=== PATIENT | male | born 1975 | race Caucasian/White ===

== ENCOUNTER 2017-02-24 02:35 | Inpatient (IN) ==
[2017-02-24] MEDS ORDERED: Ketorolac 30 MG/ML VIAL IVP PRN (06:36)
[2017-02-24] MEDS ORDERED: 0.9 % Sodium Chloride 1,000 ML IVC SCH (06:45)
--- NOTE | 2017-02-24 07:05 | Internal Med History&Physical ---
<Shade Pimentel - Last Filed: 02/24/17 06:53> Date of Encounter: 02/24/17 Time of Encounter: 05:45 Assessment and Plan (1) Nausea & vomiting Current visit: Yes Status: Acute Labs drawn drawn from Hospital prior to transfer here shows lipase and amylase within normal limits. UA was negative for infection. Alk phos slightly elevated at 128. AST ALT within normal limits. Hgb normal at 11.3. WBC and platelt count normal. CT abdomen shows a severely distended stomach. Appendix and gallbladder on CT were normal. Negative Mark's sign and McBurney's point. Pancreatits and cholecystits unlikely. Unlikely due to surgical reasons given it was 2 years ago. Top differential includes duodenal ulcer vs marginal ulcer vs gastric ulcer. - NPO. - NG tube. - Surgery consult. Spoke to Dr. Cheema. - Protonix. - Consult smoking sensation. - Toradol for pain control. - IV fluids. - Zofran PRN. Qualifiers: Vomiting type: unspecified Qualified Code(s): R11.2 - Nausea with vomiting , unspecified (2) Abdominal pain Current visit: Yes Status: Acute See plan above. Qualifiers: Qualified Code(s): R10.84 - Generalized abdominal pain (3) Tobacco abuse Current visit: No Status: Chronic History of smoking 1 ppd. Likely contributory to duodenal ulcer. - Advise about quitting smoking. (4) Weight loss Current visit: Yes Status: Acute Likely secondary to being malnourished due to nausea/vomiting. (5) DVT prophylaxis Current visit: No Status: Acute SCDs. Internal Medicine - H&P: HPI Chief complaint: Nausea, vomiting Admitted From: Hospital to Hospital Transfer History of present illness: Mr. Kramer is a 41 year old male with a PMH of PUD and partial gastrectomy ( 2014) that presents for nausea/vomiting for the past month. Patients says that it has been occurring everyday and usually occurs after meals. He gets abdominal pain, rating it a 5/10 in the pain scale and is relieved once he vomits. He denies any hematemeis. He has not been able to keep food down without vomiting. He tried going on a liquid diet last week for 3-4 days, but it did not seem to help. He admits to early satiety, but he has had this since his surgery. He admits to constipation, stating that he has 1 bowel movement a week. He denies any blood in his stool. He admits to weight loss for the past month due to not being able to eat, but he is unsure how much weight he has lost. He is a current 1 ppd smoker. Denies any drug or alcohol use. He denies any diarrhea, fever, chills, or recent illness. Patient went to [facility] earlier today and was transferred here to [place] for further evaluation. Past Med Surg Social Fam HX - Past Medical History Medical history: no medical history Psychiatric history: anxiety, depression - Past Surgical History Surgical History: other - Social History Smoking Status: Current every day smoker Packs per day: 1 Smokeless Tobacco Status: No Alcohol use: none Drug use: none - Family History Father Adopted: No Family Member Ethnicity: Non- Living Status: Hx Family Respiratory Disorders: Yes Hx Family Cancer: Yes (lung cancer) Internal Medicine - H&P: Meds BuPROPion [Wellbutrin] 450 mg PO DAILY 02/24/17 [History] Esomeprazole Magnesium [Nexium 24Hr] 20 mg PO BID 02/24/17 [History] Eszopiclone [Lunesta] 2 mg PO HS 02/24/17 [History] FLUoxetine HCl [Prozac] 40 mg PO DAILY 02/24/17 [History] Ondansetron HCl [Zofran] 4 mg PO Q8H PRN 02/24/17 [History] 3 Allergy/AdvReac Type Severity Reaction Status Date / Time NSAIDS (Non-Steroidal Allergy Severe See Verified 02/24/17 16:38 Anti-Inflamma Comments Hydromorphone [From Dilaudid] Allergy Rash Verified 02/24/17 07:33 All Systems PM: A 10-system review of systems was performed and is negative for pertinent findings except as documented above in the HPI. - Constitutional Constitutional: as per HPI, weakness, weight loss - Cardiovascular Cardiovascular ROS IM: no chest pain, no dyspnea, no palpitations - Respiratory Respiratory: no cough, no dyspnea - Gastrointestinal Gastrointestinal: bloating, constipation, early satiety, nausea, vomiting, no diarrhea - Genitourinary Genitourinary ROS male: no dysuria - Constitutional Vitals: Temp Pulse Resp BP Pulse Ox 97.7 F 71 16 100/63 95 02/24/17 05:24 11/22/17 05:24 02/24/17 05:24 02/24/17 05:24 02/24/17 05:24 General appearance: Present: A&O X 3, no acute distress, loss of weight, answers questions appropriately - ENT ENT exam: Present: mucous membranes moist - Respiratory Respiratory exam: Present: CTAB. Absent: rhonchi, stridor, wheezes - Cardiovascular Cardiovascular exam: Present: RRR, +S1, +S2 - GI/Abdominal GI/Abdominal exam: Present: hyperactive bowel sounds, soft, tenderness (Diffuse tenderness x 4 quadrants. ). Absent: guarding, rebound - Expanded GI/Abdominal Exam GI/Abdominal exam expanded: Absent: Mark's sign, Rovsing's sign, tenderness at McBurney's Point - Extremities Exam Extremities exam: Present: radial pulses palpable and symmetrical <Jerry Bal - Last Filed: 02/24/17 20:50> Date of Encounter: 02/24/17 Internal Medicine - H&P: HPI History of present illness: Mr. Kramer is a 41 year old male All Systems PM: A 10-system review of systems was performed and is negative for pertinent findings except as documented above in the HPI. - Constitutional Vitals: Temp Pulse Resp BP Pulse Ox 98.9 F 80 18 112/74 96 02/24/17 19:44 02/24/17 19:44 02/24/17 19:44 02/24/17 19:44 02/24/17 19:44 Internal Med - H&P Results - Labs CBC & Chem 7: 02/24/17 08:29 02/24/17 08:29 Labs: Short CBC 02/24/17 02/24/17 Range/Units 07:03 08:29 WBC 6.8 7.6 (4.3-11.1) K/mcL Hgb 9.1 L 8.9 L (12.9-16.9) g/dL Hct 31.8 L 31.9 L (37.5-50.1) % Plt Count 310 359 (140-400) K/mcL Neutrophils # 3.8 3.3 (1.6-8.9) K/mcL BMP 02/24/17 02/24/17 07:03 08:29 Sodium 141 141 Potassium 3.5 3.6 Chloride 104 105 Carbon Dioxide 31 H 29 BUN 21 20 Creatinine 0.97 0.94 Glucose 109 H 86 Calcium 8.8 8.6 Liver Function 02/24/17 Range/Units 07:03 Total Bilirubin 0.3 (0.2-1.2) mg/dL AST 15 (5-34) Units/L ALT 10 (0-55) Units/L Alkaline Phosphatase 99 (38-126) Units/L Albumin 3.1 L (3.5-5.0) g/dL - Impressions ITS Impressions KUB X-Ray 02/24/17 09:04 IMPRESSION: Nasogastric tube side port and tip project over the gastric body. D/ / 02/24/2017 10:11:00 Olena Otto MD / jerod Interpreting Provider: Olena Otto MD - Attending Attestation I examined this patient and my medical decision-making was reviewed with the Resident Physician Shade Meneses. I agree with the documented findings , disposition and treatment plan as described except to the extent set forth below. Patient admitted for intractable nausea and vomiting. On my examination his abdomen is soft, nontender nondistended with normoactive bowel sounds. Patient has an NG tube. Plan: Nothing by mouth. NG tube to suction. IV fluids. IV Protonix. General surgical consult.
[2017-02-24 07:16] LABS: Hematocrit 31.8 % (37.5-50.1); Hemoglobin 9.1 g/dL (12.9-16.9); Mean Corpuscular HGB Conc 28.6 g/dL (31.6-35.5); Mean Corpuscular Hemoglobin 21.2 pg (28.0-33.3); Mean Platelet Volume 10.5 fL (9.4-12.4); Platelet Count 310 K/mcL (140-400)
[2017-02-24 07:28] LABS: Alanine Aminotransferase 10 Units/L (0-55); Albumin 3.1 g/dL (3.5-5.0); Albumin/Globulin Ratio 1.1 (1.1-2.2); Alkaline Phosphatase 99 Units/L (38-126); Aspartate Amino Transferase 15 Units/L (5-34); BUN/Creatinine Ratio 22 (6-26); Bilirubin,Total 0.3 mg/dL (0.2-1.2); Blood Urea Nitrogen 21 mg/dL (8-26); Calcium 8.8 mg/dL (8.6-10.8); Carbon Dioxide 31 mEq/L (19-29); Chloride 104 mEq/L (98-109); Globulin 2.7 g/dL (2.4-3.5); Glucose 109 mg/dL (70-99); Osmolality,Calculated 296 (280-300); Potassium 3.5 mEq/L (3.5-4.5); Sodium 141 mEq/L (136-145); Total Protein 5.8 g/dL (6.0-8.3); eGFR For African Americans > 60 (> 60); eGFR For Non-African Americans > 60 (> 60)
[2017-02-24 07:44] LABS: Eosinophils # 0.5 K/mcL (0.0-0.6); Monocytes # 0.4 K/mcL (0.0-1.3); Neutrophils # 3.8 K/mcL (1.6-8.9)
[2017-02-24 07:45] LABS: Hypochromasia Present (Not Present); Platelet Estimate Normal (Normal); Smudge Cells Present (Not Present)
[2017-02-24] MEDS ORDERED: *HR* Promethazine 25 MG/ML VIAL IVP PRN (08:12)
[2017-02-24] MEDS ORDERED: Naloxone 0.4 MG/ML INJ IVP PRN (08:12)
[2017-02-24 08:41] LABS: Hematocrit 31.9 % (37.5-50.1); Hemoglobin 8.9 g/dL (12.9-16.9); Immature Platelets 5.3 % (1.1-6.1); Mean Corpuscular HGB Conc 27.9 g/dL (31.6-35.5); Mean Corpuscular Hemoglobin 20.5 pg (28.0-33.3); Mean Corpuscular Volume 73.5 fL (83.0-100.0); Mean Platelet Volume 10.4 fL (9.4-12.4); Monocytes # 0.8 K/mcL (0.0-1.3); Platelet Count 359 K/mcL (140-400); Red Blood Count 4.34 M/mcL (4.19-5.50)
[2017-02-24 08:49] LABS: BUN/Creatinine Ratio 21 (6-26); Blood Urea Nitrogen 20 mg/dL (8-26); Calcium 8.6 mg/dL (8.6-10.8); Carbon Dioxide 29 mEq/L (19-29); Chloride 105 mEq/L (98-109); Glucose 86 mg/dL (70-99); Magnesium 1.9 mg/dL (1.6-2.6); Osmolality,Calculated 294 (280-300); Phosphorous 4.1 mg/dL (2.3-4.7); Potassium 3.6 mEq/L (3.5-4.5); Sodium 141 mEq/L (136-145); eGFR For African Americans > 60 (> 60); eGFR For Non-African Americans > 60 (> 60)
[2017-02-24 09:03] LABS: Eosinophils # 0.3 K/mcL (0.0-0.6); Lymphocytes # 3.2 K/mcL (0.6-4.6); Neutrophils # 3.3 K/mcL (1.6-8.9)
[2017-02-24 09:04] LABS: Burr Cells 1+ (Not Present); Hypochromasia Present (Not Present); Ovalocytes 1+ (Not Present); Platelet Estimate Normal (Normal); Target Cells 1+ (Not Present); Tear Drop Cells 1+ (Not Present)
[2017-02-24 09:05] LABS: Helmet Cells Present (Not Present)
[2017-02-24] MEDS: 0.9 % Sodium Chloride 1,000 ML IVC SCH (09:08)
[2017-02-24 09:14] LABS: Triglycerides 101 mg/dL (< 150)
[2017-02-24] MEDS ORDERED: D10% in Water 500 ML IVC PRN (10:56)
--- NOTE | 2017-02-24 11:49 | General Surgery Consult Note ---
<Jossy Stahl - Last Filed: 02/24/17 13:12> Date of Encounter: 02/24/17 Time of Encounter: 11:30 Assessment and Plan (1) Gastric outlet obstruction Current Visit: No Status: Resolved NPO NG tube to WS Gastroenterology consult- Dr. Trejo to perform EGD today and evaluate for possible dilation IV fluids Supportive care and pain control Hold PPI therapy- patient may need work-up for gastrinoma per Dr. Cheema NG tube flushes to start after EGD complete today Surgery will continue to follow and assess progress and make recommendation (2) Abdominal pain Current Visit: Yes Status: Acute Supportive care and pain control Qualifiers: Abdominal location: generalized Qualified Code(s): R10.84 - Generalized abdominal pain (3) Nausea & vomiting Current Visit: Yes Status: Acute Antiemetics prn NG tube to LIWS Qualifiers: Vomiting type: unspecified Vomiting Intractability: non-intractable Qualified Code(s): R11.2 - Nausea with vomiting, unspecified (4) Weight loss Current Visit: Yes Status: Acute TPN therapy per hospitalist (5) Smoking addiction Current Visit: No Status: Acute Nicotine patch Smoking cessation education (6) Mild protein malnutrition Current Visit: Yes Status: Acute TPN started per hospitalist [employer] following for management (7) DVT prophylaxis Current Visit: No Status: Acute EPCDs to bilateral lower extremities for DVT prophylaxis Ambulate hallways TID with assistance History of Present Illness Consult date: 02/24/17 Reason for consult: abdominal pain Requesting physician: Shade Pimentel History of present illness: Mr. Kramer is a pleasant 41 year old male who presented to [facility] yesterday with complaints of diffuse abdominal pain with associated nausea/vomiting for the past 1 months. He is s/p Truncal vagotomy, antrectomy with a Bilroth 1 reconstruction, primary repair of umbilical hernia for pyloric ulcer, gastric outlet obstruction and incisional hernia with Dr. Cheema in January of 2015. He states that for the past 6 months he has noticed intermittent abdominal pain which is typically associated with eating. He reports that the pain has progressively worsened and has been constant for the past 1 months. He states that it does intensify 15 minutes after eating. He reports that he feels full and bloated after eating or drinking. He has been vomiting daily for the past 1 months. He reports a 10 lb. weight loss over the past 1 months. Admits to chills but denies any fevers. Denies any difficulty with urination. Denies any shortness of breath of chest pains. We have been asked to see and evaluate the patient for recommendations. Past Med Surg Social Fam HX - Past Medical History Source: patient, old records reviewed Medical history: GERD, other (Cervical spondylosis, chronic cervicalgia, seasonal allergies, gastric ulcers) Psychiatric history: anxiety, depression - Past Surgical History Surgical History: other (oral surgeries; EGD multiple; Colonoscopy;Truncal vagotomy, Antrectomy with a Bilroth 1 reconstruction, primary repair of umbilical hernia 01/2015) - Social History Smoking Status: Current every day smoker Packs per day: 1 Smokeless Tobacco Status: No Alcohol use: none Drug use: none Current living situation: Home - Independent Activity Level: Independent ambulation - Family History Father Adopted: No Family Member Ethnicity: Non- Living Status: Hx Family Respiratory Disorders: Yes Hx Family Cancer: Yes (lung cancer) Mother Living Status: Still Living Hx Family Cardiac Disorders: Yes (Hypertension) Brother Living Status: Still Living Hx Family GI Disorders: Yes (Diverticulosis) Medications and Allergies BuPROPion [Wellbutrin] 450 mg PO DAILY 02/24/17 [History] Esomeprazole Magnesium [Nexium 24Hr] 20 mg PO BID 02/24/17 [History] Eszopiclone [Lunesta] 2 mg PO HS 02/24/17 [History] FLUoxetine HCl [Prozac] 40 mg PO DAILY 02/24/17 [History] Ondansetron HCl [Zofran] 4 mg PO Q8H PRN 02/24/17 [History] 3 Allergy/AdvReac Type Severity Reaction Status Date / Time Hydromorphone [From Dilaudid] Allergy Rash Verified 02/24/17 07:33 Review of Systems All systems PM: reviewed and no additional remarkable complaints except as stated (in the HPI) All systems PM: A 10-system review of systems was performed and is negative for pertinent findings except as documented above in the HPI. General Surgery Exam Initial Vital Signs Temp Pulse Resp BP Pulse Ox 97.7 F 71 16 100/63 95 02/24/17 05:24 02/24/17 05:24 02/24/17 05:24 02/24/17 05:24 02/24/17 05:24 - General physical appearance well developed, no distress, moderate pain - Eyes PERRL, normal ocular movement - ENT normal mucosa, atraumatic, normocephalic - Neck trachea midline - Respiratory normal respiratory effort, clear to auscultation - Cardiovascular Cardiovascular exam: Present: RRR - Abdomen Abdomen general surgery: Present: bowel sounds present, soft, tender, wound (NG tube to LIWS with 300ml of light yellow drainage noted) Abdominal Tenderness: Present: diffusely - Integumentary Integumentary general surgery: Present: warm and dry - Neurologic Present: CN 2-12 grossly intact - Psychiatric Psychiatric general surgery: Present: A&Ox3 Exam Initial Vital Signs Temp Pulse Resp BP Pulse Ox 97.7 F 71 16 100/63 95 02/24/17 05:24 02/24/17 05:24 02/24/17 05:24 02/24/17 05:24 02/24/17 05:24 Results - Labs 02/24/17 08:29 02/24/17 08:29 Abnormal lab results Hgb 8.9 g/dL (12.9-16.9) L 02/24/17 08:29 Hct 31.9 % (37.5-50.1) L 02/24/17 08:29 MCV 73.5 fL (83.0-100.0) L 02/24/17 08:29 MCH 20.5 pg (28.0-33.3) L 02/24/17 08:29 MCHC 27.9 g/dL (31.6-35.5) L 02/24/17 08:29 RDW 18.0 % (11.5-14.5) H 02/24/17 08:29 Smudge Cells Present (Not Present) A 02/24/17 07:03 Hypochromasia Present (Not Present) A 02/24/17 08:29 Target Cells 1+ (Not Present) A 02/24/17 08:29 Tear Drop Cells 1+ (Not Present) A 02/24/17 08:29 Ovalocytes 1+ (Not Present) A 02/24/17 08:29 Helmet Cells Present (Not Present) A 02/24/17 08:29 [place] Cells 1+ (Not Present) A 02/24/17 08:29 Serum Total Protein 5.8 g/dL (6.0-8.3) L 02/24/17 07:03 Albumin 3.1 g/dL (3.5-5.0) L 02/24/17 07:03 Diabetes panel 02/24/17 02/24/17 Range/Units 07:03 08:29 Sodium 141 141 (136-145) mEq/L Potassium 3.5 3.6 (3.5-4.5) mEq/L Chloride 104 105 (98-109) mEq/L Carbon Dioxide 31 H 29 (19-29) mEq/L BUN 21 20 (8-26) mg/dL Creatinine 0.97 0.94 (0.72-1.25) mg/dL Glucose 109 H 86 (70-99) mg/dL Calcium 8.8 8.6 (8.6-10.8) mg/dL AST 15 (5-34) Units/L ALT 10 (0-55) Units/L Alkaline Phosphatase 99 (38-126) Units/L Albumin 3.1 L (3.5-5.0) g/dL Triglycerides 101 (< 150) mg/dL Calcium panel 02/24/17 02/24/17 Range/Units 07:03 08:29 Calcium 8.8 8.6 (8.6-10.8) mg/dL Phosphorus 4.1 (2.3-4.7) mg/dL Albumin 3.1 L (3.5-5.0) g/dL Pituitary panel 02/24/17 02/24/17 Range/Units 07:03 08:29 Sodium 141 141 (136-145) mEq/L Potassium 3.5 3.6 (3.5-4.5) mEq/L Chloride 104 105 (98-109) mEq/L Carbon Dioxide 31 H 29 (19-29) mEq/L BUN 21 20 (8-26) mg/dL Creatinine 0.97 0.94 (0.72-1.25) mg/dL Glucose 109 H 86 (70-99) mg/dL Calcium 8.8 8.6 (8.6-10.8) mg/dL Adrenal panel 02/24/17 02/24/17 Range/Units 07:03 08:29 Sodium 141 141 (136-145) mEq/L Potassium 3.5 3.6 (3.5-4.5) mEq/L Chloride 104 105 (98-109) mEq/L Carbon Dioxide 31 H 29 (19-29) mEq/L BUN 21 20 (8-26) mg/dL Creatinine 0.97 0.94 (0.72-1.25) mg/dL Glucose 109 H 86 (70-99) mg/dL Calcium 8.8 8.6 (8.6-10.8) mg/dL Total Bilirubin 0.3 (0.2-1.2) mg/dL AST 15 (5-34) Units/L ALT 10 (0-55) Units/L Alkaline Phosphatase 99 (38-126) Units/L Albumin 3.1 L (3.5-5.0) g/dL All other labs normal. Consult Discharge Plan - Plan Referrals: Yudelka Grier, STRAIGHT CUTTER MACHINE [Primary Care Provider] - - Attending Attestation For this encounter, I have reviewed the SIGN OUT CLERK or PA documentation, treatment plan, and medical decision making; and I have had face to face time with this patient. <Shayla Cheema - Last Filed: 02/24/17 13:54> Date of Encounter: 02/24/17 Assessment and Plan (1) Abdominal pain Current Visit: Yes Status: Acute Qualifiers: Qualified Code(s): R10.84 - Generalized abdominal pain (2) Mild protein malnutrition Current Visit: Yes Status: Acute (3) Nausea & vomiting Current Visit: Yes Status: Acute Qualifiers: Qualified Code(s): R11.2 - Nausea with vomiting, unspecified (4) Weight loss Current Visit: Yes Status: Acute (5) DVT prophylaxis Current Visit: No Status: Acute (6) Gastric outlet obstruction Current Visit: No Status: Resolved patient with truncal vagotomy, hemigastrectomy, B1 reconstruction january 2015 patient presents with a month time of symptoms of abdominal pain, N/V, weight loss CT scan with po contrast reviewed which shows a very large distended stomach full of food, KUB today shows contrast within terminal ileum and cecum patient with bowel obstruction likely at gastroduodenal anastomosis, unsure if due to anastomotic structure or recurrent ulcer disease have consulted GI for EGD and possible dilation but am concerned that there is too much food debri to accomplish much endoscopically at this point. patient may need repeat endoscopy with removal of gastric food before can attempt dilation. will await egd results by GI. continue npo ngt to liws TPN History of Present Illness History of present illness: agree with SIGN OUT CLERK Laura Stahl history Past Med Surg Social Fam HX - Past Medical History Source: patient Medical history: other - Past Surgical History Surgical History: other Review of Systems All systems PM: reviewed and no additional remarkable complaints except as stated All systems PM: A 10-system review of systems was performed and is negative for pertinent findings except as documented above in the HPI. General Surgery Exam Initial Vital Signs Temp Pulse Resp BP Pulse Ox 97.7 F 71 16 100/63 95 02/24/17 05:24 02/24/17 05:24 02/24/17 05:24 02/24/17 05:24 02/24/17 05:24 - General physical appearance no distress, cachectic, chronically ill - Eyes PERRL, normal ocular movement - ENT normal mucosa, atraumatic, normocephalic - Neck trachea midline - Respiratory normal expansion, clear to auscultation - Cardiovascular Cardiovascular exam: Present: RRR - Abdomen Abdomen general surgery: Present: bowel sounds present, soft, tender Abdominal Tenderness: Present: epigastic - Integumentary Integumentary general surgery: Present: warm and dry, no abnormal pigmentation - Neurologic Present: CN 2-12 grossly intact - Musculoskeletal Present: normal gait, normal posture - Psychiatric Psychiatric general surgery: Present: A&Ox3, speech is normal Exam Initial Vital Signs Temp Pulse Resp BP Pulse Ox 97.7 F 71 16 100/63 95 02/24/17 05:24 02/24/17 05:24 02/24/17 05:24 02/24/17 05:24 02/24/17 05:24 Results - Labs 02/24/17 08:29 02/24/17 08:29 Abnormal lab results Hgb 8.9 g/dL (12.9-16.9) L 02/24/17 08:29 Hct 31.9 % (37.5-50.1) L 02/24/17 08:29 MCV 73.5 fL (83.0-100.0) L 02/24/17 08:29 MCH 20.5 pg (28.0-33.3) L 02/24/17 08:29 MCHC 27.9 g/dL (31.6-35.5) L 02/24/17 08:29 RDW 18.0 % (11.5-14.5) H 02/24/17 08:29 Smudge Cells Present (Not Present) A 02/24/17 07:03 Hypochromasia Present (Not Present) A 02/24/17 08:29 Target Cells 1+ (Not Present) A 02/24/17 08:29 Tear Drop Cells 1+ (Not Present) A 02/24/17 08:29 Ovalocytes 1+ (Not Present) A 02/24/17 08:29 Helmet Cells Present (Not Present) A 02/24/17 08:29 [place] Cells 1+ (Not Present) A 02/24/17 08:29 Serum Total Protein 5.8 g/dL (6.0-8.3) L 02/24/17 07:03 Albumin 3.1 g/dL (3.5-5.0) L 02/24/17 07:03 Diabetes panel 02/24/17 02/24/17 Range/Units 07:03 08:29 Sodium 141 141 (136-145) mEq/L Potassium 3.5 3.6 (3.5-4.5) mEq/L Chloride 104 105 (98-109) mEq/L Carbon Dioxide 31 H 29 (19-29) mEq/L BUN 21 20 (8-26) mg/dL Creatinine 0.97 0.94 (0.72-1.25) mg/dL Glucose 109 H 86 (70-99) mg/dL Calcium 8.8 8.6 (8.6-10.8) mg/dL AST 15 (5-34) Units/L ALT 10 (0-55) Units/L Alkaline Phosphatase 99 (38-126) Units/L Albumin 3.1 L (3.5-5.0) g/dL Triglycerides 101 (< 150) mg/dL Calcium panel 02/24/17 02/24/17 Range/Units 07:03 08:29 Calcium 8.8 8.6 (8.6-10.8) mg/dL Phosphorus 4.1 (2.3-4.7) mg/dL Albumin 3.1 L (3.5-5.0) g/dL Pituitary panel 02/24/17 02/24/17 Range/Units 07:03 08:29 Sodium 141 141 (136-145) mEq/L Potassium 3.5 3.6 (3.5-4.5) mEq/L Chloride 104 105 (98-109) mEq/L Carbon Dioxide 31 H 29 (19-29) mEq/L BUN 21 20 (8-26) mg/dL Creatinine 0.97 0.94 (0.72-1.25) mg/dL Glucose 109 H 86 (70-99) mg/dL Calcium 8.8 8.6 (8.6-10.8) mg/dL Adrenal panel 02/24/17 02/24/17 Range/Units 07:03 08:29 Sodium 141 141 (136-145) mEq/L Potassium 3.5 3.6 (3.5-4.5) mEq/L Chloride 104 105 (98-109) mEq/L Carbon Dioxide 31 H 29 (19-29) mEq/L BUN 21 20 (8-26) mg/dL Creatinine 0.97 0.94 (0.72-1.25) mg/dL Glucose 109 H 86 (70-99) mg/dL Calcium 8.8 8.6 (8.6-10.8) mg/dL Total Bilirubin 0.3 (0.2-1.2) mg/dL AST 15 (5-34) Units/L ALT 10 (0-55) Units/L Alkaline Phosphatase 99 (38-126) Units/L Albumin 3.1 L (3.5-5.0) g/dL All other labs normal. - Imaging CT scan - abdomen: image reviewed CT scan - pelvis: image reviewed - Attending Attestation I have personally performed a face to face evaluation on this patient. I have reviewed and agree with the care plan. History and Exam by me shows:
[2017-02-24] MEDS ORDERED: Ketorolac 15 MG/ML VIAL IVP PRN (12:32)
[2017-02-24] MEDS ORDERED: Nicotine 21 MG PATCH.TD24 TD SCH (12:45)
[2017-02-24] MEDS ORDERED: 0.9 % Sodium Chloride 500 ML IVC SCH (13:00)
--- NOTE | 2017-02-24 13:15 | Gastroenterology Consult Note ---
<Elias Mauro - Last Filed: 02/24/17 13:43> Date of Encounter: 02/24/17 Time of Encounter: 13:10 - Assessment and plan (1) Gastric outlet obstruction Current Visit: Yes Status: Suspected Assessment and plan: s/p Truncal vagotomy, antrectomy with a Bilroth 1 reconstruction 2 years ago due to gastric outlet obstruction 2nd to strictures from recurrent peptic ulcers presented with persistent N/V concern for gastric outlet obstruction plan: EGD for evaluation and dilation. NPO (2) Nausea & vomiting Current Visit: Yes Status: Acute Assessment and plan: 2nd to suspected gastric outlet obstruction improved. NG tube controlled with zofran and phenergan Qualifiers: Vomiting type: unspecified Vomiting Intractability: non-intractable Qualified Code(s): R11.2 - Nausea with vomiting, unspecified (3) Mild protein malnutrition Current Visit: Yes Status: Acute Assessment and plan: decreased appetite and poor oral intake due to N/V patient started on TPN - Time Spent With Patient Total time spent is greater than 50% in coordination of care (as documented) at patient's floor/unit and/or counseling patient: GI History of Present Illness - Data of Consult Patient: known to practice within the last 3 years Consult date: 02/24/17 Requesting Physician: Ramon Abdi - Consult Narrative Reason for consult: Status post partial gastrectomy concern for anastomotic stricture History of present illness: Mr. Kramer is a 41 year old male presents with chief complaint of nausea and vomiting of one month. Patient states that 2 years ago he had Truncal vagotomy , antrectomy with a Bilroth 1 reconstruction secondary to pyloric stricture and gastric outlet obstruction from history of pyloric ulcers. Since the surgery he states he has intermittent nausea and vomiting. However for the last month and has been progressively worse to the point that he is having nausea and vomiting daily. Patient also states his diffuse cramping abdominal pain that does not radiate his constant. He states he has decreased number of bowel movements. He denies hematemesis. States he barely can keep any food down. Reports 10 pound weight loss in the last month. Patient states he has a history of H. pylori infection. Consult placed as per surgery for concern of anastomotic stricture. Past Med Surg Social Fam HX - Past Medical History Medical history: GERD, other (Cervical spondylosis, chronic cervicalgia, seasonal allergies, gastric ulcers) Psychiatric history: anxiety, depression - Past Surgical History Surgical History: other (oral surgeries; EGD multiple; Colonoscopy;Truncal vagotomy, Antrectomy with a Bilroth 1 reconstruction, primary repair of umbilical hernia 01/2015) - Social History Smoking Status: Current every day smoker Packs per day: 1 Smokeless Tobacco Status: No Alcohol use: none Drug use: none - Family History Father Adopted: No Family Member Ethnicity: Non- Living Status: Hx Family Respiratory Disorders: Yes Hx Family Cancer: Yes (lung cancer) Mother Living Status: Still Living Hx Family Cardiac Disorders: Yes (Hypertension) Brother Living Status: Still Living Hx Family GI Disorders: Yes (Diverticulosis) Review of Systems: Constitutional: Denies fever, chills HEENT: Denies headache, vision changes, neck pain, sore throat, rhinorrhea Heart: Denies chest pain palpitations Lungs: Denies shortness of breath cough Abdomen: Abdominal pain, nausea, vomiting, decreased bowel movements. Back: Denies back pain Kidney: Denies dysuria, hematuria Skin: warm and dry Extremities: Denies swelling, pain Neuro: Denies numbness, and tingling - Constitutional Vitals: Temp Pulse Resp BP Pulse Ox 98 F 71 16 108/72 96 02/24/17 12:03 02/24/17 12:46 02/24/17 12:46 02/24/17 12:46 02/24/17 12:46 - Other Additional findings: General: Pleasant with mild distress HEENT: Head atraumatic, normocephalic, EOMI, PERRL, neck nontender to palpation , absent lymphadenopathy, Moist Mucous Membranes. NG tube in place draining. Heart: Regular rate and rhythm with no murmur Lungs: Clear to auscultation bilaterally Abdomen: Soft mild tenderness diffuse, positive bowel sounds Skin: warm and dry Extremities: Absent pedal edema, Neuro: Alert and oriented 3 Vascular: Pedal and radial pulses 2 out of 4 Results - Labs CBC & Chem 7: 02/24/17 08:29 02/24/17 08:29 Labs: Last Result Calcium 8.6 mg/dL (8.6-10.8) 02/24/17 08:29 Triglycerides 101 mg/dL (< 150) 02/24/17 08:29 Entire Visit Hgb 8.9 g/dL (12.9-16.9) L 02/24/17 08:29 Hct 31.9 % (37.5-50.1) L 02/24/17 08:29 Total Bilirubin 0.3 mg/dL (0.2-1.2) 02/24/17 07:03 AST 15 Units/L (5-34) 02/24/17 07:03 ALT 10 Units/L (0-55) 02/24/17 07:03 - Impressions Impressions KUB X-Ray 02/24/17 09:04 IMPRESSION: Nasogastric tube side port and tip project over the gastric body. D/ / 02/24/2017 10:11:00 Olena Otto MD / jerod Interpreting Provider: Olena Otto MD Consult Discharge Plan - Plan Referrals: Yudelka Grier, [employer] [Primary Care Provider] - <Berry Trejo - Last Filed: 02/24/17 19:08> Date of Encounter: 02/24/17 Time of Encounter: 14:00 - Time Spent With Patient Total time spent is greater than 50% in coordination of care (as documented) at patient's floor/unit and/or counseling patient: GI History of Present Illness - Data of Consult Requesting Physician: Ramon Abdi - Consult Narrative History of present illness: Mr. Kramer is a 41 year old male - Constitutional Vitals: Temp Pulse Resp BP Pulse Ox 98 F 90 16 104/64 99 02/24/17 12:03 02/24/17 15:10 02/24/17 15:10 02/24/17 15:10 02/24/17 15:10 Results - Labs CBC & Chem 7: 02/24/17 08:29 02/24/17 08:29 Labs: Last Result Calcium 8.6 mg/dL (8.6-10.8) 02/24/17 08:29 Triglycerides 101 mg/dL (< 150) 02/24/17 08:29 Entire Visit Hgb 8.9 g/dL (12.9-16.9) L 02/24/17 08:29 Hct 31.9 % (37.5-50.1) L 02/24/17 08:29 Total Bilirubin 0.3 mg/dL (0.2-1.2) 02/24/17 07:03 AST 15 Units/L (5-34) 02/24/17 07:03 ALT 10 Units/L (0-55) 02/24/17 07:03 - Impressions Impressions KUB X-Ray 02/24/17 09:04 IMPRESSION: Nasogastric tube side port and tip project over the gastric body. D/ / 02/24/2017 10:11:00 Olena Otto MD / earnold Interpreting Provider: Olena Otto MD - Attending Attestation I examined this patient and my medical decision-making was reviewed with the Resident Physician. I agree with the documented findings, disposition and treatment plan as described except to the extent set forth below.
--- NOTE | 2017-02-24 13:16 | Anesthesia Evaluation PreOp ---
Date of Encounter: 02/24/17 Time of Encounter: 13:14 - Past History Planned Operation: EGD Cardiac History: Denies any Significant Hx Pulmonary History: Smoker [employer] History: Denies Any Significant HX Other Medical History: Denies Any Significant HX Anesthesia History: No Prior Anesthetic Complications, Past Anesthesia (partial gastrctomy) Alcohol Use: none Drug use: none Medications and Allergies BuPROPion [Wellbutrin] 450 mg PO DAILY 02/24/17 [History] Esomeprazole Magnesium [Nexium 24Hr] 20 mg PO BID 02/24/17 [History] Eszopiclone [Lunesta] 2 mg PO HS 02/24/17 [History] FLUoxetine HCl [Prozac] 40 mg PO DAILY 02/24/17 [History] Ondansetron HCl [Zofran] 4 mg PO Q8H PRN 02/24/17 [History] 3 Allergy/AdvReac Type Severity Reaction Status Date / Time Hydromorphone [From Dilaudid] Allergy Rash Verified 02/24/17 07:33 - Meds/Allergy Pre-op Review Medications Reviewed: Yes Allergies Reviewed: Yes Beta Blockers on Current Med List: No Anesthesia Results - Labs 02/24/17 08:29 02/24/17 08:29 Anesthesia Exam Selected Entries 02/24/17 12:03 02/24/17 12:46 Temperature 98 F Pulse Rate 71 Respiratory Rate 16 Blood Pressure 108/72 O2 Sat by Pulse Oximetry 96 Weight: 55.5kg NPO (# of Hours): 8 - HEENT Pupil (Motor): EOMI Mallampati: II Teeth: Poor dentition Oral Opening: Greater than 3 - [employer] LOC: Oriented [employer] Motor: Normal RUE, Normal LUE, Normal RLE, Normal LLE, Normal Face [employer] Sensory: Normal: RUE, LUE, RLE, LLE, Face - Cardiac Rhythm: Regular Murmur: None - Pulmonary Breath Sounds: bilateral Clear Respiratory Effort: Symmetrical Anesthesia Assess/Plan ASA Score: 2 Modified Esther Scale for Level of Consciousness: Cooperative, oriented, and tranquil Anesthetic Plan: MAC Monitoring Plan: Standard Monitors Recovery Plan: PACU (discussed risks of MAC, agrees to proceed)
[2017-02-24] MEDS ORDERED: *HR* Propofol 200 MG/20 ML VIAL IVP ONE (14:23)
[2017-02-24] MEDS ORDERED: Propofol 500 MG/50 ML INFUS..BTL ONE (14:24)
--- NOTE | 2017-02-24 15:26 | Internal Med Progress Note ---
Date of Encounter: 02/24/17 Time of Encounter: 15:24 - Assessment and plan (1) Pyloric ulcer Current Visit: No Status: Resolved Qualifiers: Gastric ulcer chronicity: chronic Qualified Code(s): K25.7 - Chronic gastric ulcer without hemorrhage or perforation (2) Nausea & vomiting Current Visit: Yes Status: Acute Qualifiers: Vomiting type: unspecified Vomiting Intractability: non-intractable Qualified Code(s): R11.2 - Nausea with vomiting, unspecified (3) Abdominal pain Current Visit: Yes Status: Acute Qualifiers: Abdominal location: generalized Qualified Code(s): R10.84 - Generalized abdominal pain - Subjective Interval history: Patient is admitted for abdominal pain. He has history of pyloric ulcer and stenosis status post partial gastrectomy. He complains that abdominal pain occurs whenever he eats and after that usually he has to vomit for improvement in symptoms. General surgeon was consulted to have asked gastroenterology to do EGD. Continue current care. - Constitutional Vitals: Temp Pulse Resp BP Pulse Ox 98 F 90 16 104/64 99 02/24/17 12:03 02/24/17 15:10 02/24/17 15:10 02/24/17 15:10 02/24/17 15:10 General appearance: Present: A&O X 3, no acute distress, loss of weight, answers questions appropriately - Head Head exam: Present: atraumatic, normocephalic - Eye Eye exam: Present: PERRL, conjuntiva pink, sclera anicteric Pupils: Present: PERRL - Neck Neck exam general surgery: Present: supple, trachea midline. Absent: lymphadenopathy - Respiratory Respiratory exam: Present: CTAB. Absent: accessory muscle use, rales, rhonchi, wheezes - Cardiovascular Cardiovascular exam: Present: RRR, +S1, +S2. Absent: diastolic murmur, gallop, rubs, systolic murmur - GI/Abdominal GI/Abdominal exam: Present: normal bowel sounds, soft, tenderness, no peritoneal signs. Absent: distended - Extremities Exam Extremities exam: Present: warm, radial pulses palpable and symmetrical. Absent : calf tenderness, cyanotic, pedal edema - Neurological Exam Neurological exam: Present: CN II-XII intact, oriented X3, no focal deficits. Absent: pronater drift, facial droop, speech deficit - Skin Skin exam: Present: dry, intact Internal Medicine: Result - Labs CBC & Chem 7: 02/24/17 08:29 02/24/17 08:29 Labs: Short CBC 02/24/17 02/24/17 Range/Units 07:03 08:29 WBC 6.8 7.6 (4.3-11.1) K/mcL Hgb 9.1 L 8.9 L (12.9-16.9) g/dL Hct 31.8 L 31.9 L (37.5-50.1) % Plt Count 310 359 (140-400) K/mcL Neutrophils # 3.8 3.3 (1.6-8.9) K/mcL BMP 02/24/17 02/24/17 07:03 08:29 Sodium 141 141 Potassium 3.5 3.6 Chloride 104 105 Carbon Dioxide 31 H 29 BUN 21 20 Creatinine 0.97 0.94 Glucose 109 H 86 Calcium 8.8 8.6 Liver Function 02/24/17 Range/Units 07:03 Total Bilirubin 0.3 (0.2-1.2) mg/dL AST 15 (5-34) Units/L ALT 10 (0-55) Units/L Alkaline Phosphatase 99 (38-126) Units/L Albumin 3.1 L (3.5-5.0) g/dL - Impressions Impressions KUB X-Ray 02/24/17 09:04 IMPRESSION: Nasogastric tube side port and tip project over the gastric body. D/ / 02/24/2017 10:11:00 Olena Otto MD / jerod Interpreting Provider: Olena Otto MD Consult Discharge Plan - Plan Referrals: Yudelka Grier, [employer] [employer] [Primary Care Provider] -
[2017-02-24] MEDS: *HR* Morphine 2 MG/ML SYRINGE IVP PRN ×2 (15:40→22:08)
[2017-02-24] MEDS ORDERED: Acetaminophen IV 1,000 MG/100 ML INFUS..BTL IVPB PRN (16:54)
[2017-02-24] MEDS ORDERED: Clinimix E 5%-15% SOLUTION 2,000 ML with MVI, adult with vitamin K 10 ML IVC SCH (17:00)
[2017-02-24] MEDS: Pantoprazole 40 MG VIAL IVP SCH (17:07)
[2017-02-24] MEDS ORDERED: Pantoprazole 40 MG VIAL IVP SCH (18:00)
[2017-02-24] MEDS ORDERED: *HR* Heparin 5,000 UNIT/ML VIAL SQ SCH (18:00)
[2017-02-24] MEDS: Ondansetron 4 MG/2 ML VIAL IVP PRN (20:03)
[2017-02-24] MEDS: Famotidine 20 MG/2 ML VIAL IVP SCH (23:55)
[2017-02-25] MEDS: *HR* Morphine 2 MG/ML SYRINGE IVP PRN ×3 (05:01→20:00)
[2017-02-25] MEDS: Pantoprazole 40 MG VIAL IVP SCH ×2 (05:12→17:13)
[2017-02-25 05:40] LABS: Basophils % 0.7 %
[2017-02-25 05:42] LABS: Basophils # 0.1 K/mcL (0.0-0.2); Eosinophils # 0.4 K/mcL (0.0-0.6); Eosinophils % 3.5 %; Hematocrit 34.1 % (37.5-50.1); Hemoglobin 9.4 g/dL (12.9-16.9); Immature Granulocytes % 0.2 % (0-4); Lymphocytes # 2.2 K/mcL (0.6-4.6); Lymphocytes % 18.1 %; Mean Corpuscular HGB Conc 27.6 g/dL (31.6-35.5); Mean Corpuscular Hemoglobin 20.5 pg (28.0-33.3); Mean Corpuscular Volume 74.5 fL (83.0-100.0); Mean Platelet Volume 10.7 fL (9.4-12.4); Neutrophils # 8.6 K/mcL (1.6-8.9); Platelet Count 322 K/mcL (140-400); Red Blood Count 4.58 M/mcL (4.19-5.50); Red Cell Distribution Width 18.3 % (11.5-14.5); Segmented Neutrophils % 69.5 %
[2017-02-25 05:56] LABS: Magnesium 1.9 mg/dL (1.6-2.6); Phosphorous 3.2 mg/dL (2.3-4.7)
[2017-02-25 05:57] LABS: Alanine Aminotransferase 10 Units/L (0-55); Albumin/Globulin Ratio 1.2 (1.1-2.2); Alkaline Phosphatase 100 Units/L (38-126); Aspartate Amino Transferase 13 Units/L (5-34); BUN/Creatinine Ratio 16 (6-26); Bilirubin,Total 0.2 mg/dL (0.2-1.2); Blood Urea Nitrogen 12 mg/dL (8-26); Calcium 8.7 mg/dL (8.6-10.8); Carbon Dioxide 26 mEq/L (19-29); Chloride 109 mEq/L (98-109); Globulin 2.6 g/dL (2.4-3.5); Glucose 85 mg/dL (70-99); Osmolality,Calculated 289 (280-300); Potassium 3.9 mEq/L (3.5-4.5); Sodium 140 mEq/L (136-145); Total Protein 5.6 g/dL (6.0-8.3); eGFR For African Americans > 60 (> 60); eGFR For Non-African Americans > 60 (> 60)
[2017-02-25 06:32] LABS: Hypochromasia Present (Not Present); Macrocytosis Present (Not Present); Microcytosis Present (Not Present); Ovalocytes 1+ (Not Present); Platelet Estimate Normal (Normal); Target Cells 1+ (Not Present); Tear Drop Cells 1+ (Not Present)
[2017-02-25 06:33] LABS: Anisocytosis 1+ (Not Present); Poikilocytosis 1+ (Not Present)
[2017-02-25] MEDS ORDERED: 0.9 % Sodium Chloride 1,000 ML ONE (08:20)
[2017-02-25] MEDS: 0.9 % Sodium Chloride 1,000 ML IVC SCH (08:22)
[2017-02-25] MEDS: Nicotine 7 MG PATCH.TD24 TD SCH (08:23)
[2017-02-25] MEDS: Famotidine 20 MG/2 ML VIAL IVP SCH (08:23)
--- NOTE | 2017-02-25 11:24 | Discharge Summary ---
Date of Encounter: 02/25/17 Time of Encounter: 11:22 - Discharge Diagnosis (1) Gastric outlet obstruction Priority: Primary Status: Suspected (2) Nausea & vomiting Priority: Secondary Status: Acute Qualifiers: Vomiting type: unspecified Vomiting Intractability: non-intractable Qualified Code(s): R11.2 - Nausea with vomiting, unspecified (3) Abdominal pain Priority: Secondary Status: Acute Qualifiers: Abdominal location: generalized Qualified Code(s): R10.84 - Generalized abdominal pain (4) Anastomotic ulcer Priority: Secondary Status: Acute (5) Anastomotic stricture of gastrojejunostomy Priority: Secondary Status: Acute - Discharge Medications Prescriptions: Esomeprazole Magnesium [Nexium 24Hr] 20 mg PO BID #60 tablet. Sucralfate [Carafate] 1 gm PO QIDAC #120 udc Home Medications: BuPROPion [Wellbutrin] 450 mg PO DAILY 02/24/17 [History] Eszopiclone [Lunesta] 2 mg PO HS 02/24/17 [History] FLUoxetine HCl [Prozac] 40 mg PO DAILY 02/24/17 [History] Ondansetron HCl [Zofran] 4 mg PO Q8H PRN 02/24/17 [History] Esomeprazole Magnesium [Nexium 24Hr] 20 mg PO BID #60 tablet. 02/25/17 [Rx] Nicotine Patch [Nicoderm] 7 mg TD DAILY patch.td24 02/25/17 [Rx] Sucralfate [Carafate] 1 gm PO QIDAC #120 udc 02/25/17 [Rx] Allergies/Adverse Reactions: 3 Allergy/AdvReac Type Severity Reaction Status Date / Time NSAIDS (Non-Steroidal Allergy Severe See Verified 02/24/17 16:38 Anti-Inflamma Comments Hydromorphone [From Dilaudid] Allergy Rash Verified 02/24/17 07:33 Procedures/tests Complete & Pending: Procedures Performed prior 72 hours Category Date Time Status MR abdomen wo/w con [MR] Routine MRI 02/25/17 07:48 Ordered Date of admission: 02/24/17 05:57 Primary care physician: Yudelka Grier CNP Consults: 02/24/17 07:13 Consult to Surgery [CONS] Stat Consulting Provider: Surgery [facility] Reason for Consult: Nausea/vomiting x 1 month. History of partial gastrectomy in 2014. Time Notified: 14:00 Call Completed: Yes 02/24/17 08:09 Consult to Gastroenterology [CONS] Routine Consulting Provider: Johnson Reyes Reason for Consult: likely anastomotic stricture, history pyloric stricture due to ulcer, hemigastrectomy and BI Time Notified: 08:10 Call Completed: Yes 02/24/17 08:11 Consult to Invasive Line Access Team [CONS] Routine Reason for Consult: need picc for TPN Line Type: PICC PICC line indications: Parental nutrition Time Notified: 08:12 Call Completed: Yes Consult to Nutrition [CONS] Routine Comment: Consulting Provider: NUTRITION Reason for Dietary Consult: TPN Start and Manage Discharging clinician: Ag Gilliland Anticipated date of discharge: 02/25/17 - Patient Status Disposition: Home, Self-Care Condition: Good Functional capacity at discharge: independent ambulation Overall status at discharge: patient is progressing back to baseline - Discharge Instructions Follow Up With: Yudelka Grier, [employer] [Primary Care Provider] - - Diet and Activity Activity: resume usual activities as tolerated Diet: advance to your usual diet Hospital course: Mr. Kramer is a 41 year old male presented with abdominal pain nausea and vomiting occurred after eating food and would resolve after vomiting. Gastric outlet obstruction was expected as patient has previous history of pyloric ulcer and gastric outlet obstruction status post partial gastrectomy by Dr. Jones. Gen. surgery and later gastroenterology were consulted and patient underwent EGD with GI showed nonbleeding anastomotic ulcer as well as anastomotic stricture which was dilated. He will be started on diet to see if he tolerates it well. He has been placed on Carafate and PPI. He will follow up with family doctor in gastroenterology. - Time Spent with Patient Total time spent providing and/or coordinating discharge services: Greater than 30 minutes - Constitutional Vitals: Temp Pulse Resp BP Pulse Ox 98.6 F 70 14 111/75 95 02/25/17 10:31 02/25/17 10:31 02/25/17 10:31 02/25/17 10:31 02/25/17 10:31 General appearance: Present: A&O X 3, no acute distress, loss of weight, answers questions appropriately - Head Head exam: Present: atraumatic, normocephalic - Eye Eye exam: Present: PERRL, conjuntiva pink, sclera anicteric Pupils: Present: PERRL - Neck Neck exam general surgery: Present: supple, trachea midline. Absent: lymphadenopathy - Respiratory Respiratory exam: Present: CTAB. Absent: accessory muscle use, rales, rhonchi, wheezes - Cardiovascular Cardiovascular exam: Present: RRR, +S1, +S2. Absent: diastolic murmur, gallop, rubs, systolic murmur - GI/Abdominal GI/Abdominal exam: Present: normal bowel sounds, soft, no peritoneal signs. Absent: distended, tenderness - Extremities Exam Extremities exam: Present: warm, radial pulses palpable and symmetrical. Absent : calf tenderness, cyanotic, pedal edema - Neurological Exam Neurological exam: Present: CN II-XII intact, oriented X3, no focal deficits. Absent: pronater drift, facial droop, speech deficit - Skin Skin exam: Present: dry, intact - VTE Documentation of Mechanical Device: Intermittent pneumatic compression device
--- NOTE | 2017-02-25 12:08 | General Surgery Progress Note ---
Date of Encounter: 02/25/17 Time of Encounter: 12:06 - Assessment and Plan (1) Anastomotic stricture of gastrojejunostomy Current Visit: Yes Status: Acute Plan for an evaluation of the anastomosis with an upper GI tomorrow. If the patient has decreased amounts of old food products in the stomach and the upper GI appears to be patent with flow into the proximal duodenum and we will plan for removal of the NG tube. Currently he is undergoing workup for pancreatic lesions. He will undergo MRI for evaluation of the pancreas. Continue TPN, triple Moad therapy for ulcer treatment, and IV fluids at this point. Subjective Patient reports: feels better Objective Vital Signs - Last 8 Hours Temp Pulse Resp BP Pulse Ox 02/25/17 10:31 98.6 F 70 14 111/75 95 02/25/17 07:08 98.4 F 76 15 104/71 94 02/25/17 04:11 98.6 F 74 16 112/75 98 Intake and Output 02/24/17 02/25/17 02/25/17 23:59 07:59 15:59 Intake Total 1000 / 1000 250 / 250 0 / 0 Output Total 400 / 400 1200 / 1200 850 / 850 Balance 600 / 600 -950 / -950 -850 / -850 Intake: IV Fluids 1000 / 1000 250 / 250 0.9 % Sodium Chloride 1,000 ML 1000 / 1000 @ 100 mls/hr IVC .Q10H [facility] Rx#: [id number] Intralipid 20% 250 ML @ 21 mls/ 250 / 250 hr IVPB DAILY@1700 [facility] Rx#: [id number] Oral 0 / 0 0 / 0 0 / 0 Output: Urine 400 / 400 1200 / 1200 550 / 550 Gastric Drainage 300 / 300 Other: Meal Breakfast NPO Weight 55.973 kg Blood Glucose* 101 109 Patient Weight 02/25/17 23:59 Weight 55.973 kg - General physical appearance no pain - Eyes PERRL, normal ocular movement - ENT normal mucosa - Neck Neck exam: no masses - Respiratory normal expansion, normal respiratory effort - Cardiovascular Cardiovascular exam: Present: RRR - Abdomen Abdomen: Present: bowel sounds present, soft - Neurologic CN 2-12 grossly intact, normal coordination, normal sensation - Psychiatric oriented to time, oriented to person, oriented to place - Labs 02/25/17 05:10 02/25/17 05:10 Diabetes panel 02/25/17 Range/Units 05:10 Sodium 140 (136-145) mEq/L Potassium 3.9 (3.5-4.5) mEq/L Chloride 109 (98-109) mEq/L Carbon Dioxide 26 (19-29) mEq/L BUN 12 (8-26) mg/dL Creatinine 0.77 (0.72-1.25) mg/dL Glucose 85 (70-99) mg/dL Calcium 8.7 (8.6-10.8) mg/dL AST 13 (5-34) Units/L ALT 10 (0-55) Units/L Alkaline Phosphatase 100 (38-126) Units/L Albumin 3.0 L (3.5-5.0) g/dL Calcium panel 02/25/17 02/25/17 Range/Units 05:10 05:10 Calcium 8.7 (8.6-10.8) mg/dL Phosphorus 3.2 (2.3-4.7) mg/dL Albumin 3.0 L (3.5-5.0) g/dL Pituitary panel 02/25/17 Range/Units 05:10 Sodium 140 (136-145) mEq/L Potassium 3.9 (3.5-4.5) mEq/L Chloride 109 (98-109) mEq/L Carbon Dioxide 26 (19-29) mEq/L BUN 12 (8-26) mg/dL Creatinine 0.77 (0.72-1.25) mg/dL Glucose 85 (70-99) mg/dL Calcium 8.7 (8.6-10.8) mg/dL Adrenal panel 02/25/17 Range/Units 05:10 Sodium 140 (136-145) mEq/L Potassium 3.9 (3.5-4.5) mEq/L Chloride 109 (98-109) mEq/L Carbon Dioxide 26 (19-29) mEq/L BUN 12 (8-26) mg/dL Creatinine 0.77 (0.72-1.25) mg/dL Glucose 85 (70-99) mg/dL Calcium 8.7 (8.6-10.8) mg/dL Total Bilirubin 0.2 (0.2-1.2) mg/dL AST 13 (5-34) Units/L ALT 10 (0-55) Units/L Alkaline Phosphatase 100 (38-126) Units/L Albumin 3.0 L (3.5-5.0) g/dL - VTE Documentation of Mechanical Device: Intermittent pneumatic compression device Consult Discharge Plan - Plan Referrals: Yudelka Grier, [employer] [Primary Care Provider] - Prescriptions: Esomeprazole Magnesium [Nexium 24Hr] 20 mg PO BID #60 tablet. Sucralfate [Carafate] 1 gm PO QIDAC #120 udc
[2017-02-25] MEDS: Ondansetron 4 MG/2 ML VIAL IVP PRN (12:25)
[2017-02-25] MEDS ORDERED: Clinimix E 5%-15% SOLUTION 2,000 ML with MVI, adult with vitamin K 10 ML IVC SCH (17:00)
[2017-02-26] MEDS: *HR* Morphine 2 MG/ML SYRINGE IVP PRN ×5 (01:08→23:53)
[2017-02-26 03:57] LABS: Basophils % 0.8 %; Lymphocytes % 30.2 %
[2017-02-26 03:58] LABS: Basophils # 0.1 K/mcL (0.0-0.2); Eosinophils # 0.6 K/mcL (0.0-0.6); Eosinophils % 6.7 %; Hematocrit 33.6 % (37.5-50.1); Hemoglobin 9.4 g/dL (12.9-16.9); Immature Granulocytes % 0.1 % (0-4); Lymphocytes # 2.7 K/mcL (0.6-4.6); Mean Corpuscular Hemoglobin 20.8 pg (28.0-33.3); Mean Corpuscular Volume 74.2 fL (83.0-100.0); Mean Platelet Volume 10.7 fL (9.4-12.4); Monocytes # 0.8 K/mcL (0.0-1.3); Monocytes % 9.2 %; Neutrophils # 4.8 K/mcL (1.6-8.9); Platelet Count 283 K/mcL (140-400); Red Blood Count 4.53 M/mcL (4.19-5.50); Red Cell Distribution Width 18.2 % (11.5-14.5)
[2017-02-26 04:15] LABS: Hypochromasia Present (Not Present); Platelet Estimate Normal (Normal)
[2017-02-26 04:16] LABS: Anisocytosis 1+ (Not Present); Poikilocytosis 1+ (Not Present)
[2017-02-26 04:20] LABS: Alanine Aminotransferase 8 Units/L (0-55); Albumin 2.7 g/dL (3.5-5.0); Albumin/Globulin Ratio 0.9 (1.1-2.2); Alkaline Phosphatase 92 Units/L (38-126); Aspartate Amino Transferase 12 Units/L (5-34); BUN/Creatinine Ratio 14 (6-26); Bilirubin,Total 0.2 mg/dL (0.2-1.2); Blood Urea Nitrogen 10 mg/dL (8-26); Calcium 8.4 mg/dL (8.6-10.8); Carbon Dioxide 26 mEq/L (19-29); Chloride 109 mEq/L (98-109); Glucose 78 mg/dL (70-99); Magnesium 1.7 mg/dL (1.6-2.6); Osmolality,Calculated 286 (280-300); Phosphorous 3.6 mg/dL (2.3-4.7); Potassium 3.8 mEq/L (3.5-4.5); Sodium 139 mEq/L (136-145); Total Protein 5.7 g/dL (6.0-8.3); eGFR For African Americans > 60 (> 60); eGFR For Non-African Americans > 60 (> 60)
[2017-02-26] MEDS ORDERED: 0.9 % Sodium Chloride 1,000 ML ONE (05:15)
[2017-02-26] MEDS: Pantoprazole 40 MG VIAL IVP SCH ×2 (05:38→16:57)
[2017-02-26] MEDS: Ondansetron 4 MG/2 ML VIAL IVP PRN ×3 (05:55→23:54)
[2017-02-26] MEDS: Nicotine 7 MG PATCH.TD24 TD SCH (08:08)
--- NOTE | 2017-02-26 10:45 | General Surgery Progress Note ---
Date of Encounter: 02/26/17 Time of Encounter: 10:15 - Assessment and Plan (1) Gastric outlet obstruction Current Visit: Yes Status: Suspected NPO NG tube to LIWS UGI pending- if contrast passes through anastomosis, will consider removal of NG tube Gastroenterology consult- Dr. Trejo performed EGD which shows evidence of ulcerations at anastomosis Recommend triple therapy for ulcerations TPN therapy Supportive care and pain control PPI therapy and carafate NG tube flushes Surgery will continue to follow and assess progress and make recommendation (2) Abdominal pain Current Visit: Yes Status: Resolved Supportive care and pain control Qualifiers: Abdominal location: generalized Qualified Code(s): R10.84 - Generalized abdominal pain (3) Nausea & vomiting Current Visit: Yes Status: Resolved Resolved with supportive measures Antiemetics prn NG tube to LIWS Qualifiers: Vomiting type: unspecified Vomiting Intractability: non-intractable Qualified Code(s): R11.2 - Nausea with vomiting, unspecified (4) Weight loss Current Visit: Yes Status: Acute TPN therapy per hospitalist (5) Smoking addiction Current Visit: No Status: Acute Nicotine patch Smoking cessation education (6) Mild protein malnutrition Current Visit: Yes Status: Acute TPN started per hospitalist Drawing Machine Operator following for management (7) DVT prophylaxis Current Visit: No Status: Acute EPCDs to bilateral lower extremities for DVT prophylaxis Ambulate hallways TID with assistance (8) Lesion of pancreas Current Visit: Yes Status: Acute MRI ordered for further evaluation of lesions (9) Anastomotic ulcer Current Visit: Yes Status: Acute Recommend triple therapy for treatment of ulcers Subjective Patient reports: no new complaints, feels better, voiding w/o difficulty, flatus , afebrile Objective Vital Signs - Last 8 Hours Temp Pulse Resp BP Pulse Ox 02/26/17 04:10 97.9 F 75 16 99/73 97 Intake and Output 02/25/17 02/26/17 02/26/17 23:59 07:59 15:59 Intake Total 0 / 0 1250 / 1250 0 / 0 Output Total 0 / 0 750 / 750 900 / 900 Balance 0 / 0 500 / 500 -900 / -900 Intake: IV Fluids 1250 / 1250 Intralipid 20% 250 ML @ 21 mls/ 250 / 250 hr IVPB DAILY@1700 [facility] Rx#: [id number] Oral 0 / 0 0 / 0 0 / 0 Output: Urine 0 / 0 750 / 750 250 / 250 Gastric Drainage 0 / 0 650 / 650 Other: Meal NPO NPO Percent of Meal Consumed 0% Blood Glucose* 100 99 - General physical appearance well developed, no distress - Eyes normal ocular movement - ENT dry mucosa, atraumatic, normocephalic - Neck Neck exam: trachea midline - Respiratory normal respiratory effort, clear to auscultation - Cardiovascular Cardiovascular exam: Present: RRR - Abdomen Abdomen: Present: bowel sounds present, soft, non tender, wound (NG tube to LIWS ) - Neurologic CN 2-12 grossly intact - Musculoskeletal normal gait, normal posture - Psychiatric oriented to time, oriented to person, oriented to place, speech is normal, memory intact - Labs 02/26/17 03:47 02/26/17 03:47 Diabetes panel 02/26/17 Range/Units 03:47 Sodium 139 (136-145) mEq/L Potassium 3.8 (3.5-4.5) mEq/L Chloride 109 (98-109) mEq/L Carbon Dioxide 26 (19-29) mEq/L BUN 10 (8-26) mg/dL Creatinine 0.74 (0.72-1.25) mg/dL Glucose 78 (70-99) mg/dL Calcium 8.4 L (8.6-10.8) mg/dL AST 12 (5-34) Units/L ALT 8 (0-55) Units/L Alkaline Phosphatase 92 (38-126) Units/L Albumin 2.7 L (3.5-5.0) g/dL Calcium panel 02/26/17 Range/Units 03:47 Calcium 8.4 L (8.6-10.8) mg/dL Phosphorus 3.6 (2.3-4.7) mg/dL Albumin 2.7 L (3.5-5.0) g/dL Pituitary panel 02/26/17 Range/Units 03:47 Sodium 139 (136-145) mEq/L Potassium 3.8 (3.5-4.5) mEq/L Chloride 109 (98-109) mEq/L Carbon Dioxide 26 (19-29) mEq/L BUN 10 (8-26) mg/dL Creatinine 0.74 (0.72-1.25) mg/dL Glucose 78 (70-99) mg/dL Calcium 8.4 L (8.6-10.8) mg/dL Adrenal panel 02/26/17 Range/Units 03:47 Sodium 139 (136-145) mEq/L Potassium 3.8 (3.5-4.5) mEq/L Chloride 109 (98-109) mEq/L Carbon Dioxide 26 (19-29) mEq/L BUN 10 (8-26) mg/dL Creatinine 0.74 (0.72-1.25) mg/dL Glucose 78 (70-99) mg/dL Calcium 8.4 L (8.6-10.8) mg/dL Total Bilirubin 0.2 (0.2-1.2) mg/dL AST 12 (5-34) Units/L ALT 8 (0-55) Units/L Alkaline Phosphatase 92 (38-126) Units/L Albumin 2.7 L (3.5-5.0) g/dL - VTE Documentation of Mechanical Device: Intermittent pneumatic compression device Consult Discharge Plan - Plan Referrals: Yudelka Grier, HARDWARE ENGINEERING MANAGER [Primary Care Provider] - Prescriptions: Esomeprazole Magnesium [Nexium 24Hr] 20 mg PO BID #60 tablet. Sucralfate [Carafate] 1 gm PO QIDAC #120 [facility] - Attending Attestation For this encounter, I have reviewed the FUNERAL SERVICE APPRENTICE or PA documentation, treatment plan, and medical decision making; and I have had face to face time with this patient.
[2017-02-26] MEDS ORDERED: Acetaminophen 325 MG TABLET PO PRN (12:17)
[2017-02-26] MEDS: Famotidine 20 MG/2 ML VIAL IVP SCH (16:57)
[2017-02-26] MEDS ORDERED: Clinimix E 5%-15% SOLUTION 2,000 ML with MVI, adult with vitamin K 10 ML IVC SCH (17:00)
[2017-02-26] MEDS: FLUoxetine 20 MG CAPSULE PO SCH (17:21)
--- NOTE | 2017-02-26 18:18 | Internal Med Progress Note ---
Date of Encounter: 02/26/17 Time of Encounter: 18:16 - Assessment and plan (1) Gastric outlet obstruction Current Visit: Yes Status: Suspected Assessment and plan: History of peptic ulcer disease and pyloric stenosis status post partial gastrectomy previously. Now presented with outlet obstruction due to gastric outlet stricture which was dilated during EGD by gastroenterology. Upper GI showed contrast is passing into the duodenum but duodenal dyskinesis noted. On clear liquids now (2) Nausea & vomiting Current Visit: Yes Status: Resolved Assessment and plan: Resolve. Qualifiers: Vomiting type: unspecified Vomiting Intractability: non-intractable Qualified Code(s): R11.2 - Nausea with vomiting, unspecified (3) Abdominal pain Current Visit: Yes Status: Resolved Assessment and plan: Resolved Qualifiers: Abdominal location: generalized Qualified Code(s): R10.84 - Generalized abdominal pain (4) Anastomotic ulcer Current Visit: Yes Status: Acute Assessment and plan: See above (5) Anastomotic stricture of gastrojejunostomy Current Visit: Yes Status: Acute Assessment and plan: See above (6) Pneumonia Current Visit: Yes Status: Acute Assessment and plan: IV Zosyn as started Qualifiers: Pneumonia type: aspiration pneumonia Laterality: bilateral Lung location : lower lobe of lung Qualified Code(s): J69.0 - Pneumonitis due to inhalation of food and vomit - Subjective Interval history: Patient is admitted for abdominal pain. He has history of pyloric ulcer and stenosis status post partial gastrectomy. He complains that abdominal pain occurs whenever he eats and after that usually he has to vomit for improvement in symptoms. General surgeon was consulted to have asked gastroenterology to do EGD. Continue current care. 02/26 feels better ambulating. Still has NG tube and on TPN. Upper GI was done which showed gastric outlet is 2 cm and contrast could pass however duodenal dyskinesia noted. Noted general surgery started liquids. MRI abdomen did not show any malignancy. Patient denies any complaint. However on MRI incidental finding of bilateral basal atelectasis and infiltrates in the chest noted. Repeat chest x-ray for the concern he might have aspirated and I will restart him on IV Zosyn for now. - Constitutional Vitals: Temp Pulse Resp BP Pulse Ox 97.4 F L 71 14 100/70 99 02/26/17 14:25 02/26/17 14:25 02/26/17 14:25 02/26/17 14:25 02/26/17 14:25 General appearance: Present: A&O X 3, no acute distress, loss of weight, answers questions appropriately - Head Head exam: Present: atraumatic, normocephalic - Eye Eye exam: Present: PERRL, conjuntiva pink, sclera anicteric Pupils: Present: PERRL - Neck Neck exam general surgery: Present: supple, trachea midline. Absent: lymphadenopathy - Respiratory Respiratory exam: Present: CTAB. Absent: accessory muscle use, rales, rhonchi, wheezes - Cardiovascular Cardiovascular exam: Present: RRR, +S1, +S2. Absent: diastolic murmur, gallop, rubs, systolic murmur - GI/Abdominal GI/Abdominal exam: Present: normal bowel sounds, soft, no peritoneal signs. Absent: distended, tenderness - Extremities Exam Extremities exam: Present: warm, radial pulses palpable and symmetrical. Absent : calf tenderness, cyanotic, pedal edema - Neurological Exam Neurological exam: Present: CN II-XII intact, oriented X3, no focal deficits. Absent: pronater drift, facial droop, speech deficit - Skin Skin exam: Present: dry, intact Internal Medicine: Result - Labs CBC & Chem 7: 02/26/17 03:47 02/26/17 03:47 Labs: Short CBC 02/26/17 Range/Units 03:47 WBC 9.0 (4.3-11.1) K/mcL Hgb 9.4 L (12.9-16.9) g/dL Hct 33.6 L (37.5-50.1) % Plt Count 283 (140-400) K/mcL Neutrophils # 4.8 (1.6-8.9) K/mcL BMP 02/26/17 03:47 Sodium 139 Potassium 3.8 Chloride 109 Carbon Dioxide 26 BUN 10 Creatinine 0.74 Glucose 78 Calcium 8.4 L Liver Function 02/26/17 Range/Units 03:47 Total Bilirubin 0.2 (0.2-1.2) mg/dL AST 12 (5-34) Units/L ALT 8 (0-55) Units/L Alkaline Phosphatase 92 (38-126) Units/L Albumin 2.7 L (3.5-5.0) g/dL - Impressions Impressions Abdomen MRI 02/26/17 07:48 IMPRESSION: Postsurgical changes in the distal stomach without evidence of perigastric fluid collection. Stomach has been decompressed compared to prior CT. D/ / Mitch Wilburn MD / Mitch Wilburn MD Interpreting Provider: Mitch Wilburn MD Upper GI Series 02/26/17 08:09 IMPRESSION: 1. Interval decompression of the stomach compared to the prior abdominal radiograph and CT 02/24/2017. 2. Postsurgical changes of the distal stomach with approximately 2 cm diameter anastomotic channel which demonstrates flow contrast into the duodenum. No evidence of a leak. 3. Mild duodenal dysmotility with tertiary and retropulsive peristalsis. Contrast extends into the proximal jejunum. 4. Mild gastroesophageal reflux. D/ / 02/26/2017 11:05:23 Zhang Tubbs MD / ananya Interpreting Provider: Zhang Tubbs MD - VTE Documentation of Mechanical Device: Intermittent pneumatic compression device Consult Discharge Plan - Plan Referrals: Yudelka Grier, EXCEL VBA DEVELOPER [Primary Care Provider] - Prescriptions: Esomeprazole Magnesium [Nexium 24Hr] 20 mg PO BID #60 tablet. Sucralfate [Carafate] 1 gm PO QIDAC #120 [facility]
[2017-02-26] MEDS: *HR* LORazepam 2 MG/ML VIAL IVP PRN (23:53)
[2017-02-26] MEDS: Piperacillin/Tazobactam 3.375 GM in 0.9 % Sodium Chloride Mini Bag 100 ML IVPB SCH (23:54)
[2017-02-27 04:30] LABS: Immature Granulocytes % 0.1 % (0-4); Mean Corpuscular Volume 74.2 fL (83.0-100.0); Red Blood Count 4.58 M/mcL (4.19-5.50)
[2017-02-27 04:32] LABS: Basophils # 0.1 K/mcL (0.0-0.2); Eosinophils # 0.7 K/mcL (0.0-0.6); Eosinophils % 8.1 %; Hemoglobin 9.6 g/dL (12.9-16.9); Lymphocytes # 2.7 K/mcL (0.6-4.6); Lymphocytes % 33.4 %; Mean Corpuscular HGB Conc 28.2 g/dL (31.6-35.5); Mean Platelet Volume 11.1 fL (9.4-12.4); Monocytes # 0.6 K/mcL (0.0-1.3); Monocytes % 7.6 %; Platelet Count 254 K/mcL (140-400); Red Cell Distribution Width 18.2 % (11.5-14.5); Segmented Neutrophils % 49.8 %
[2017-02-27 04:46] LABS: Alanine Aminotransferase 10 Units/L (0-55); Albumin 2.8 g/dL (3.5-5.0); Albumin/Globulin Ratio 0.9 (1.1-2.2); Alkaline Phosphatase 86 Units/L (38-126); Aspartate Amino Transferase 15 Units/L (5-34); BUN/Creatinine Ratio 16 (6-26); Bilirubin,Total 0.2 mg/dL (0.2-1.2); Blood Urea Nitrogen 13 mg/dL (8-26); Calcium 8.6 mg/dL (8.6-10.8); Carbon Dioxide 24 mEq/L (19-29); Chloride 107 mEq/L (98-109); Globulin 3.1 g/dL (2.4-3.5); Glucose 109 mg/dL (70-99); Osmolality,Calculated 285 (280-300); Potassium 4.1 mEq/L (3.5-4.5); Sodium 137 mEq/L (136-145); Total Protein 5.9 g/dL (6.0-8.3); eGFR For African Americans > 60 (> 60); eGFR For Non-African Americans > 60 (> 60)
[2017-02-27 05:13] LABS: Anisocytosis 2+ (Not Present); Hypochromasia Present (Not Present); Platelet Estimate Normal (Normal); Poikilocytosis 2+ (Not Present)
[2017-02-27] MEDS: Pantoprazole 40 MG VIAL IVP SCH ×2 (07:09→18:20)
[2017-02-27] MEDS: Famotidine 20 MG/2 ML VIAL IVP SCH ×2 (07:09→18:20)
[2017-02-27] MEDS: FLUoxetine 20 MG CAPSULE PO SCH (07:53)
[2017-02-27] MEDS: BuPROPion XL (24 HR) 150 MG TABLET PO SCH (07:53)
[2017-02-27] MEDS: Piperacillin/Tazobactam 3.375 GM in 0.9 % Sodium Chloride Mini Bag 100 ML IVPB SCH ×2 (07:54→18:37)
[2017-02-27] MEDS: Nicotine 7 MG PATCH.TD24 TD SCH (07:55)
[2017-02-27] MEDS ORDERED: 0.9 % Sodium Chloride 1,000 ML ONE (08:05)
--- NOTE | 2017-02-27 11:07 | General Surgery Progress Note ---
Date of Encounter: 02/27/17 Time of Encounter: 11:04 - Assessment and Plan (1) Gastric outlet obstruction Current Visit: Yes Status: Suspected 40M s/p dilataiton of anastamotic stricture s/p B1 reconstruction; patient now tolerating liquid diet - cont treatement for h pylori - cont TPN - activity as tolerated - advance diet to full liquid diet (2) DVT prophylaxis Current Visit: No Status: Acute add lovenox for dvt prophylaxis Subjective Patient reports: no new complaints, feels better, tolerating liquids well, flatus Objective Vital Signs - Last 8 Hours Temp Pulse Resp BP Pulse Ox 02/27/17 07:47 97.5 F L 69 18 91/64 97 02/27/17 04:28 97.6 F 70 16 105/66 99 Intake and Output 02/26/17 02/27/17 02/27/17 23:59 07:59 15:59 Intake Total 100 / 100 Output Total 0 / 0 Balance 100 / 100 Intake: IV Fluids 100 / 100 Zosyn 3.375 GM In 0.9 % Sodium 100 / 100 Chloride (Mini-Bag +) 100 ML @ 25 mls/hr IVPB Q8HR [facility] Rx#: [id number] Oral 0 / 0 Output: Urine 0 / 0 Other: Weight 54.941 kg Blood Glucose* 87 106 Patient Weight 02/27/17 23:59 Weight 54.941 kg - General physical appearance no distress - Eyes normal ocular movement - Respiratory normal expansion, normal respiratory effort - Cardiovascular Cardiovascular exam: Present: RRR - Abdomen Abdomen: Present: soft, non tender - Neurologic CN 2-12 grossly intact - Psychiatric oriented to time, oriented to person, oriented to place - Labs 02/27/17 04:16 02/27/17 04:16 Diabetes panel 02/27/17 Range/Units 04:16 Sodium 137 (136-145) mEq/L Potassium 4.1 (3.5-4.5) mEq/L Chloride 107 (98-109) mEq/L Carbon Dioxide 24 (19-29) mEq/L BUN 13 (8-26) mg/dL Creatinine 0.81 (0.72-1.25) mg/dL Glucose 109 H (70-99) mg/dL Calcium 8.6 (8.6-10.8) mg/dL AST 15 (5-34) Units/L ALT 10 (0-55) Units/L Alkaline Phosphatase 86 (38-126) Units/L Albumin 2.8 L (3.5-5.0) g/dL Calcium panel 02/27/17 Range/Units 04:16 Calcium 8.6 (8.6-10.8) mg/dL Albumin 2.8 L (3.5-5.0) g/dL Pituitary panel 02/27/17 Range/Units 04:16 Sodium 137 (136-145) mEq/L Potassium 4.1 (3.5-4.5) mEq/L Chloride 107 (98-109) mEq/L Carbon Dioxide 24 (19-29) mEq/L BUN 13 (8-26) mg/dL Creatinine 0.81 (0.72-1.25) mg/dL Glucose 109 H (70-99) mg/dL Calcium 8.6 (8.6-10.8) mg/dL Adrenal panel 02/27/17 Range/Units 04:16 Sodium 137 (136-145) mEq/L Potassium 4.1 (3.5-4.5) mEq/L Chloride 107 (98-109) mEq/L Carbon Dioxide 24 (19-29) mEq/L BUN 13 (8-26) mg/dL Creatinine 0.81 (0.72-1.25) mg/dL Glucose 109 H (70-99) mg/dL Calcium 8.6 (8.6-10.8) mg/dL Total Bilirubin 0.2 (0.2-1.2) mg/dL AST 15 (5-34) Units/L ALT 10 (0-55) Units/L Alkaline Phosphatase 86 (38-126) Units/L Albumin 2.8 L (3.5-5.0) g/dL - VTE Documentation of Mechanical Device: Intermittent pneumatic compression device Consult Discharge Plan - Plan Referrals: Yudelka Grier, PROMOTIONAL REPRESENTATIVE [Primary Care Provider] - Prescriptions: Esomeprazole Magnesium [Nexium 24Hr] 20 mg PO BID #60 tablet. Sucralfate [Carafate] 1 gm PO QIDAC #120 [facility]
--- NOTE | 2017-02-27 12:04 | Internal Med Progress Note ---
Date of Encounter: 02/27/17 Time of Encounter: 12:03 - Assessment and plan (1) Gastric outlet obstruction Current Visit: Yes Status: Suspected Assessment and plan: History of peptic ulcer disease and pyloric stenosis status post partial gastrectomy previously. Now presented with outlet obstruction due to gastric outlet stricture which was dilated during EGD by gastroenterology. Upper GI showed contrast is passing into the duodenum but duodenal dyskinesis noted. On clear liquids now (2) Nausea & vomiting Current Visit: Yes Status: Resolved Assessment and plan: Resolve. Qualifiers: Vomiting type: unspecified Vomiting Intractability: non-intractable Qualified Code(s): R11.2 - Nausea with vomiting, unspecified (3) Abdominal pain Current Visit: Yes Status: Resolved Assessment and plan: Resolved Qualifiers: Abdominal location: generalized Qualified Code(s): R10.84 - Generalized abdominal pain (4) Anastomotic ulcer Current Visit: Yes Status: Acute Assessment and plan: See above (5) Anastomotic stricture of gastrojejunostomy Current Visit: Yes Status: Acute Assessment and plan: See above (6) Pneumonia Current Visit: Yes Status: Acute Assessment and plan: IV Zosyn as started Qualifiers: Pneumonia type: aspiration pneumonia Laterality: bilateral Lung location : lower lobe of lung Qualified Code(s): J69.0 - Pneumonitis due to inhalation of food and vomit - Subjective Interval history: Patient is admitted for abdominal pain. He has history of pyloric ulcer and stenosis status post partial gastrectomy. He complains that abdominal pain occurs whenever he eats and after that usually he has to vomit for improvement in symptoms. General surgeon was consulted to have asked gastroenterology to do EGD. Continue current care. 02/26 feels better ambulating. Still has NG tube and on TPN. Upper GI was done which showed gastric outlet is 2 cm and contrast could pass however duodenal dyskinesia noted. Noted general surgery started liquids. MRI abdomen did not show any malignancy. Patient denies any complaint. However on MRI incidental finding of bilateral basal atelectasis and infiltrates in the chest noted. Repeat chest x-ray for the concern he might have aspirated and I will restart him on IV Zosyn for now. 02/27 no complaints. NG tube has been taken out and he is on full liquids. He has been tolerating it well and I wonder surgery is going to escalate his diet. - Constitutional Vitals: Temp Pulse Resp BP Pulse Ox 97.5 F L 69 18 91/64 97 02/27/17 07:47 02/27/17 07:47 02/27/17 07:47 02/27/17 07:47 02/27/17 07:47 General appearance: Present: A&O X 3, no acute distress, loss of weight, answers questions appropriately - Head Head exam: Present: atraumatic, normocephalic - Eye Eye exam: Present: PERRL, conjuntiva pink, sclera anicteric Pupils: Present: PERRL - Neck Neck exam general surgery: Present: supple, trachea midline. Absent: lymphadenopathy - Respiratory Respiratory exam: Present: CTAB. Absent: accessory muscle use, rales, rhonchi, wheezes - Cardiovascular Cardiovascular exam: Present: RRR, +S1, +S2. Absent: diastolic murmur, gallop, rubs, systolic murmur - GI/Abdominal GI/Abdominal exam: Present: normal bowel sounds, soft, no peritoneal signs. Absent: distended, tenderness - Extremities Exam Extremities exam: Present: warm, radial pulses palpable and symmetrical. Absent : calf tenderness, cyanotic, pedal edema - Neurological Exam Neurological exam: Present: CN II-XII intact, oriented X3, no focal deficits. Absent: pronater drift, facial droop, speech deficit - Skin Skin exam: Present: dry, intact Internal Medicine: Result - Labs CBC & Chem 7: 02/27/17 04:16 02/27/17 04:16 Labs: Short CBC 02/27/17 Range/Units 04:16 WBC 8.0 (4.3-11.1) K/mcL Hgb 9.6 L (12.9-16.9) g/dL Hct 34.0 L (37.5-50.1) % Plt Count 254 (140-400) K/mcL Neutrophils # 4.0 (1.6-8.9) K/mcL BMP 02/27/17 04:16 Sodium 137 Potassium 4.1 Chloride 107 Carbon Dioxide 24 BUN 13 Creatinine 0.81 Glucose 109 H Calcium 8.6 Liver Function 02/27/17 Range/Units 04:16 Total Bilirubin 0.2 (0.2-1.2) mg/dL AST 15 (5-34) Units/L ALT 10 (0-55) Units/L Alkaline Phosphatase 86 (38-126) Units/L Albumin 2.8 L (3.5-5.0) g/dL - Impressions Impressions Abdomen MRI 02/26/17 07:48 IMPRESSION: Postsurgical changes in the distal stomach without evidence of perigastric fluid collection. Stomach has been decompressed compared to prior CT. D/ / Mitch Wilburn MD / Mitch Wilburn MD Interpreting Provider: Mitch Wilburn MD - VTE Documentation of Mechanical Device: Intermittent pneumatic compression device Consult Discharge Plan - Plan Referrals: Yudelka Grier, FRY COOK [Primary Care Provider] - Prescriptions: Esomeprazole Magnesium [Nexium 24Hr] 20 mg PO BID #60 tablet. Sucralfate [Carafate] 1 gm PO QIDAC #120 [facility] [place]
[2017-02-27] MEDS ORDERED: Clinimix E 5%-15% SOLUTION 2,000 ML with MVI, adult with vitamin K 10 ML IVC SCH (17:00)
[2017-02-27] MEDS: Ondansetron 4 MG/2 ML VIAL IVP PRN (18:20)
[2017-02-27] MEDS: *HR* Morphine 2 MG/ML SYRINGE IVP PRN ×2 (18:20→22:28)
[2017-02-27] MEDS: *HR* LORazepam 2 MG/ML VIAL IVP PRN (22:28)
[2017-02-28] MEDS: *HR* Enoxaparin 40 MG/0.4 ML SYRINGE SQ SCH (05:07)
[2017-02-28] MEDS: Pantoprazole 40 MG VIAL IVP SCH ×2 (05:07→18:14)
[2017-02-28] MEDS: Famotidine 20 MG/2 ML VIAL IVP SCH ×2 (05:07→18:14)
[2017-02-28] MEDS: *HR* Morphine 2 MG/ML SYRINGE IVP PRN ×4 (05:08→22:52)
[2017-02-28 05:18] LABS: Basophils # 0.1 K/mcL (0.0-0.2); Basophils % 1.2 %; Eosinophils # 0.7 K/mcL (0.0-0.6); Eosinophils % 9.2 %; Hematocrit 32.2 % (37.5-50.1); Hemoglobin 9.2 g/dL (12.9-16.9); Immature Granulocytes % 0.1 % (0-4); Lymphocytes # 2.8 K/mcL (0.6-4.6); Lymphocytes % 35.9 %; Mean Corpuscular HGB Conc 28.6 g/dL (31.6-35.5); Mean Corpuscular Hemoglobin 21.1 pg (28.0-33.3); Mean Corpuscular Volume 73.7 fL (83.0-100.0); Mean Platelet Volume 11.3 fL (9.4-12.4); Monocytes # 0.6 K/mcL (0.0-1.3); Monocytes % 7.8 %; Neutrophils # 3.6 K/mcL (1.6-8.9); Platelet Count 218 K/mcL (140-400); Red Blood Count 4.37 M/mcL (4.19-5.50); Segmented Neutrophils % 45.8 %
[2017-02-28 05:33] LABS: Alanine Aminotransferase 26 Units/L (0-55); Albumin 2.9 g/dL (3.5-5.0); Albumin/Globulin Ratio 0.9 (1.1-2.2); Alkaline Phosphatase 86 Units/L (38-126); Aspartate Amino Transferase 31 Units/L (5-34); BUN/Creatinine Ratio 14 (6-26); Bilirubin,Total 0.2 mg/dL (0.2-1.2); Blood Urea Nitrogen 13 mg/dL (8-26); Calcium 8.6 mg/dL (8.6-10.8); Carbon Dioxide 26 mEq/L (19-29); Chloride 107 mEq/L (98-109); Globulin 3.1 g/dL (2.4-3.5); Glucose 76 mg/dL (70-99); Magnesium 1.9 mg/dL (1.6-2.6); Osmolality,Calculated 287 (280-300); Potassium 4.1 mEq/L (3.5-4.5); Sodium 139 mEq/L (136-145); eGFR For African Americans > 60 (> 60); eGFR For Non-African Americans > 60 (> 60)
[2017-02-28 05:46] LABS: Hypochromasia Present (Not Present)
[2017-02-28 05:47] LABS: Anisocytosis 1+ (Not Present)
[2017-02-28] MEDS: FLUoxetine 20 MG CAPSULE PO SCH (09:03)
[2017-02-28] MEDS: BuPROPion XL (24 HR) 150 MG TABLET PO SCH (09:03)
[2017-02-28] MEDS: Nicotine 7 MG PATCH.TD24 TD SCH (09:03)
--- NOTE | 2017-02-28 12:56 | General Surgery Progress Note ---
Date of Encounter: 02/28/17 Time of Encounter: 12:54 - Assessment and Plan (1) Gastric outlet obstruction Current Visit: Yes Status: Suspected 40M s/p dilataiton of anastamotic stricture s/p B1 reconstruction; patient now tolerating liquid diet - cont treatement for h pylori - cont TPN; decrease concentration of TPN in AM - activity as tolerated - advance diet to soft diet - okay to d/c antibiotics (2) DVT prophylaxis Current Visit: No Status: Acute lovenox Subjective Patient reports: no new complaints, feels better Objective Vital Signs - Last 8 Hours Temp Pulse Resp BP Pulse Ox 02/28/17 06:04 97.6 F 63 14 103/65 97 Intake and Output 02/27/17 02/28/17 02/28/17 23:59 07:59 15:59 Intake Total 620 / 620 100 / 100 480 / 480 Output Total 900 / 900 1000 / 1000 Balance -280 / -280 -900 / -900 480 / 480 Intake: IV Fluids 100 / 100 Zosyn 3.375 GM In 0.9 % Sodium 100 / 100 Chloride (Mini-Bag +) 100 ML @ 25 mls/hr IVPB Q8HR [facility] Rx#: [id number] Oral 620 / 620 0 / 0 480 / 480 Output: Urine 900 / 900 1000 / 1000 Other: Meal Dinner Breakfast Percent of Meal Consumed 100% Blood Glucose* 102 109 - General physical appearance well developed, well nourished, no distress - Eyes normal ocular movement - Neck Neck exam: no lymphadectomy - Respiratory normal expansion, normal respiratory effort - Cardiovascular Cardiovascular exam: Present: RRR - Abdomen Abdomen: Present: soft, non tender - Integumentary no rash - Neurologic CN 2-12 grossly intact - Psychiatric oriented to time, oriented to person, oriented to place - Labs 02/28/17 05:00 02/28/17 05:00 Diabetes panel 02/28/17 Range/Units 05:00 Sodium 139 (136-145) mEq/L Potassium 4.1 (3.5-4.5) mEq/L Chloride 107 (98-109) mEq/L Carbon Dioxide 26 (19-29) mEq/L BUN 13 (8-26) mg/dL Creatinine 0.90 (0.72-1.25) mg/dL Glucose 76 (70-99) mg/dL Calcium 8.6 (8.6-10.8) mg/dL AST 31 (5-34) Units/L ALT 26 (0-55) Units/L Alkaline Phosphatase 86 (38-126) Units/L Albumin 2.9 L (3.5-5.0) g/dL Calcium panel 02/28/17 Range/Units 05:00 Calcium 8.6 (8.6-10.8) mg/dL Phosphorus 4.0 (2.3-4.7) mg/dL Albumin 2.9 L (3.5-5.0) g/dL Pituitary panel 02/28/17 Range/Units 05:00 Sodium 139 (136-145) mEq/L Potassium 4.1 (3.5-4.5) mEq/L Chloride 107 (98-109) mEq/L Carbon Dioxide 26 (19-29) mEq/L BUN 13 (8-26) mg/dL Creatinine 0.90 (0.72-1.25) mg/dL Glucose 76 (70-99) mg/dL Calcium 8.6 (8.6-10.8) mg/dL Adrenal panel 02/28/17 Range/Units 05:00 Sodium 139 (136-145) mEq/L Potassium 4.1 (3.5-4.5) mEq/L Chloride 107 (98-109) mEq/L Carbon Dioxide 26 (19-29) mEq/L BUN 13 (8-26) mg/dL Creatinine 0.90 (0.72-1.25) mg/dL Glucose 76 (70-99) mg/dL Calcium 8.6 (8.6-10.8) mg/dL Total Bilirubin 0.2 (0.2-1.2) mg/dL AST 31 (5-34) Units/L ALT 26 (0-55) Units/L Alkaline Phosphatase 86 (38-126) Units/L Albumin 2.9 L (3.5-5.0) g/dL - VTE Documentation of Mechanical Device: Intermittent pneumatic compression device Consult Discharge Plan - Plan Referrals: Yudelka Grier, CAMPUS PRESIDENT [Primary Care Provider] - Prescriptions: Esomeprazole Magnesium [Nexium 24Hr] 20 mg PO BID #60 tablet. Sucralfate [Carafate] 1 gm PO QIDAC #120 [facility]
--- NOTE | 2017-02-28 16:55 | Internal Med Progress Note ---
Date of Encounter: 02/28/17 Time of Encounter: 16:54 - Assessment and plan (1) Gastric outlet obstruction Current Visit: Yes Status: Suspected Assessment and plan: History of peptic ulcer disease and pyloric stenosis status post partial gastrectomy previously. Now presented with outlet obstruction due to gastric outlet stricture which was dilated during EGD by gastroenterology. Upper GI showed contrast is passing into the duodenum but duodenal dyskinesis noted. On clear liquids now (2) Nausea & vomiting Current Visit: Yes Status: Resolved Assessment and plan: Resolve. Qualifiers: Vomiting type: unspecified Vomiting Intractability: non-intractable Qualified Code(s): R11.2 - Nausea with vomiting, unspecified (3) Abdominal pain Current Visit: Yes Status: Resolved Assessment and plan: Resolved Qualifiers: Abdominal location: generalized Qualified Code(s): R10.84 - Generalized abdominal pain (4) Anastomotic ulcer Current Visit: Yes Status: Acute Assessment and plan: See above (5) Anastomotic stricture of gastrojejunostomy Current Visit: Yes Status: Acute Assessment and plan: See above (6) Pneumonia Current Visit: Yes Status: Acute Assessment and plan: IV Zosyn as started Qualifiers: Pneumonia type: aspiration pneumonia Aspiration pneumonia type: unspecified Laterality: bilateral Lung location: lower lobe of lung Qualified Code(s): J69.0 - Pneumonitis due to inhalation of food and vomit - Subjective Interval history: Patient is admitted for abdominal pain. He has history of pyloric ulcer and stenosis status post partial gastrectomy. He complains that abdominal pain occurs whenever he eats and after that usually he has to vomit for improvement in symptoms. General surgeon was consulted to have asked gastroenterology to do EGD. Continue current care. 02/26 feels better ambulating. Still has NG tube and on TPN. Upper GI was done which showed gastric outlet is 2 cm and contrast could pass however duodenal dyskinesia noted. Noted general surgery started liquids. MRI abdomen did not show any malignancy. Patient denies any complaint. However on MRI incidental finding of bilateral basal atelectasis and infiltrates in the chest noted. Repeat chest x-ray for the concern he might have aspirated and I will restart him on IV Zosyn for now. 02/27 no complaints. NG tube has been taken out and he is on full liquids. He has been tolerating it well and I wonder surgery is going to escalate his diet. 02/28 today he will be switched to full diet and will see if he tolerates. Otherwise no complaints. Tolerated full liquid as well so far. - Constitutional Vitals: Temp Pulse Resp BP Pulse Ox 97.9 F 67 15 113/51 96 02/28/17 16:00 02/28/17 16:00 02/28/17 16:00 02/28/17 16:00 02/28/17 16:00 General appearance: Present: A&O X 3, no acute distress, loss of weight, answers questions appropriately - Head Head exam: Present: atraumatic, normocephalic - Eye Eye exam: Present: PERRL, conjuntiva pink, sclera anicteric Pupils: Present: PERRL - Neck Neck exam general surgery: Present: supple, trachea midline. Absent: lymphadenopathy - Respiratory Respiratory exam: Present: CTAB. Absent: accessory muscle use, rales, rhonchi, wheezes - Cardiovascular Cardiovascular exam: Present: RRR, +S1, +S2. Absent: diastolic murmur, gallop, rubs, systolic murmur - GI/Abdominal GI/Abdominal exam: Present: normal bowel sounds, soft, no peritoneal signs. Absent: distended, tenderness - Extremities Exam Extremities exam: Present: warm, radial pulses palpable and symmetrical. Absent : calf tenderness, cyanotic, pedal edema - Neurological Exam Neurological exam: Present: CN II-XII intact, oriented X3, no focal deficits. Absent: pronater drift, facial droop, speech deficit - Skin Skin exam: Present: dry, intact Internal Medicine: Result - Labs CBC & Chem 7: 02/28/17 05:00 02/28/17 05:00 Labs: Short CBC 02/28/17 Range/Units 05:00 WBC 7.8 (4.3-11.1) K/mcL Hgb 9.2 L (12.9-16.9) g/dL Hct 32.2 L (37.5-50.1) % Plt Count 218 (140-400) K/mcL Neutrophils # 3.6 (1.6-8.9) K/mcL BMP 02/28/17 05:00 Sodium 139 Potassium 4.1 Chloride 107 Carbon Dioxide 26 BUN 13 Creatinine 0.90 Glucose 76 Calcium 8.6 Liver Function 02/28/17 Range/Units 05:00 Total Bilirubin 0.2 (0.2-1.2) mg/dL AST 31 (5-34) Units/L ALT 26 (0-55) Units/L Alkaline Phosphatase 86 (38-126) Units/L Albumin 2.9 L (3.5-5.0) g/dL - Impressions Impressions Chest X-Ray 02/27/17 16:21 IMPRESSION: Bullous changes in the right lung apex. Small rounded density in the left mid lung field that could represent an infiltrate or a small nodule. Follow up to resolution is suggested. CT could better evaluate lung parenchyma if indicated. D/ / 02/27/2017 20:01:00 Sharee Mederos MD / [facility] Interpreting Provider: Sharee Mederos MD - VTE Documentation of Mechanical Device: Intermittent pneumatic compression device Consult Discharge Plan - Plan Referrals: Yudelka Grier, [facility] [employer] [Primary Care Provider] - Prescriptions: Esomeprazole Magnesium [Nexium 24Hr] 20 mg PO BID #60 tablet. Sucralfate [Carafate] 1 gm PO QIDAC #120 ud
[2017-02-28] MEDS ORDERED: Clinimix E 5%-15% SOLUTION 2,000 ML with MVI, adult with vitamin K 10 ML IVC SCH (17:00)
[2017-02-28] MEDS ORDERED: 0.9 % Sodium Chloride 1,000 ML ONE (18:10)
[2017-02-28] MEDS: Piperacillin/Tazobactam 3.375 GM in 0.9 % Sodium Chloride Mini Bag 100 ML IVPB SCH ×3 (18:14→22:38)
[2017-03-01] MEDS: *HR* LORazepam 2 MG/ML VIAL IVP PRN (02:36)
[2017-03-01] MEDS: *HR* Morphine 2 MG/ML SYRINGE IVP PRN ×2 (03:24→09:38)
[2017-03-01 03:31] LABS: Hemoglobin 9.4 g/dL (12.9-16.9); Immature Granulocytes % 0.1 % (0-4); Mean Corpuscular Volume 74.6 fL (83.0-100.0); Red Cell Distribution Width 18.1 % (11.5-14.5)
[2017-03-01 03:33] LABS: Basophils # 0.1 K/mcL (0.0-0.2); Basophils % 1.1 %; Eosinophils # 0.7 K/mcL (0.0-0.6); Eosinophils % 8.8 %; Hematocrit 33.5 % (37.5-50.1); Lymphocytes % 37.2 %; Mean Corpuscular HGB Conc 28.1 g/dL (31.6-35.5); Mean Corpuscular Hemoglobin 20.9 pg (28.0-33.3); Mean Platelet Volume 10.8 fL (9.4-12.4); Monocytes # 0.8 K/mcL (0.0-1.3); Monocytes % 9.5 %; Platelet Count 201 K/mcL (140-400); Red Blood Count 4.49 M/mcL (4.19-5.50); Segmented Neutrophils % 43.3 %
[2017-03-01 03:39] LABS: Neutrophils # 3.5 K/mcL (1.6-8.9)
[2017-03-01 03:41] LABS: Magnesium 2.1 mg/dL (1.6-2.6); Phosphorous 3.4 mg/dL (2.3-4.7)
[2017-03-01 03:44] LABS: Alanine Aminotransferase 39 Units/L (0-55); Albumin 3.3 g/dL (3.5-5.0); Albumin/Globulin Ratio 1.1 (1.1-2.2); Alkaline Phosphatase 83 Units/L (38-126); Aspartate Amino Transferase 32 Units/L (5-34); BUN/Creatinine Ratio 12 (6-26); Bilirubin,Total 0.2 mg/dL (0.2-1.2); Blood Urea Nitrogen 11 mg/dL (8-26); Calcium 9.1 mg/dL (8.6-10.8); Carbon Dioxide 22 mEq/L (19-29); Chloride 107 mEq/L (98-109); Globulin 3.1 g/dL (2.4-3.5); Glucose 140 mg/dL (70-99); Osmolality,Calculated 286 (280-300); Potassium 3.9 mEq/L (3.5-4.5); Sodium 137 mEq/L (136-145); Total Protein 6.4 g/dL (6.0-8.3); eGFR For African Americans > 60 (> 60); eGFR For Non-African Americans > 60 (> 60)
[2017-03-01 04:13] LABS: Anisocytosis 1+ (Not Present); Hypochromasia Present (Not Present); Microcytosis Present (Not Present); Platelet Estimate Normal (Normal)
[2017-03-01 04:14] LABS: Poikilocytosis 1+ (Not Present)
[2017-03-01] MEDS: *HR* Enoxaparin 40 MG/0.4 ML SYRINGE SQ SCH (05:15)
[2017-03-01] MEDS: Pantoprazole 40 MG VIAL IVP SCH (05:15)
[2017-03-01] MEDS: Famotidine 20 MG/2 ML VIAL IVP SCH (05:15)
[2017-03-01 08:31] VITALS: BP 107/68
[2017-03-01] MEDS ORDERED: Iron Sucrose Complex 400 MG in 0.9 % Sodium Chloride 250 ML IVPB ONE (09:22)
--- NOTE | 2017-03-01 09:29 | General Surgery Progress Note ---
Date of Encounter: 03/01/17 Time of Encounter: 09:26 - Assessment and Plan (1) Gastric outlet obstruction Current Visit: Yes Status: Acute s/p dilataiton of anastamotic stricture 02/24 (Dr. Trejo) s/p B1 reconstruction; patient now tolerating liquid diet -Continue triple therapy for ulcers (PPI, H2, and carafate) - cont TPN; decrease concentration of TPN in AM (per primary medicine) - activity as tolerated - advance diet to soft diet - Will treat with venofer x1 IV (discussed with Dr. Gilliland), management per primary medicine -Chromagin A pending -OK to d/c from a surgical perspective (2) Acute blood loss anemia Current Visit: Yes Status: Acute Iron deficient per CBC 02/25. acute blood loss vs possible chronic iron deficiency anemia. Treat with iron supplementation and then re-evaluate per primary medicine. (3) Gastric ulcer Current Visit: Yes Status: Acute Continue triple therapy as above Qualifiers: Gastric ulcer chronicity: acute Gastric ulcer complication status: without hemorrhage or perforation Qualified Code(s): K25.3 - Acute gastric ulcer without hemorrhage or perforation Subjective Patient reports: no new complaints, feels better, pain is less, tolerating a regular diet, voiding w/o difficulty, flatus, bowel movement, afebrile Objective Vital Signs - Last 8 Hours Temp Pulse Resp BP Pulse Ox 03/01/17 08:30 98.1 F 79 16 107/68 99 Intake and Output 02/28/17 03/01/17 03/01/17 23:59 07:59 15:59 Intake Total 540 / 540 Output Total 1775 / 1775 625 / 625 Balance -1235 / -1235 -625 / -625 Intake: Oral 540 / 540 Output: Urine 1775 / 1775 625 / 625 Other: Meal Dinner Percent of Meal Consumed 100% Blood Glucose* 95 111 101 - General physical appearance no distress, no pain, other (up in room at time of assessment.) - Eyes normal ocular movement - ENT atraumatic, normocephalic - Neck Neck exam: trachea midline, no venous distension - Respiratory normal expansion, normal respiratory effort, clear to auscultation - Cardiovascular Cardiovascular exam: Present: RRR - Abdomen Abdomen: Present: bowel sounds present, soft, non tender Hernia: none - Integumentary no abnormal pigmentation - Neurologic normal coordination, normal sensation - Musculoskeletal normal gait, normal posture - Psychiatric oriented to time, oriented to person, oriented to place, speech is normal, memory intact - Labs 03/01/17 03:26 03/01/17 03:26 Diabetes panel 03/01/17 Range/Units 03:26 Sodium 137 (136-145) mEq/L Potassium 3.9 (3.5-4.5) mEq/L Chloride 107 (98-109) mEq/L Carbon Dioxide 22 (19-29) mEq/L BUN 11 (8-26) mg/dL Creatinine 0.92 (0.72-1.25) mg/dL Glucose 140 H (70-99) mg/dL Calcium 9.1 (8.6-10.8) mg/dL AST 32 (5-34) Units/L ALT 39 (0-55) Units/L Alkaline Phosphatase 83 (38-126) Units/L Albumin 3.3 L (3.5-5.0) g/dL Calcium panel 03/01/17 03/01/17 Range/Units 03:26 03:26 Calcium 9.1 (8.6-10.8) mg/dL Phosphorus 3.4 (2.3-4.7) mg/dL Albumin 3.3 L (3.5-5.0) g/dL Pituitary panel 03/01/17 Range/Units 03:26 Sodium 137 (136-145) mEq/L Potassium 3.9 (3.5-4.5) mEq/L Chloride 107 (98-109) mEq/L Carbon Dioxide 22 (19-29) mEq/L BUN 11 (8-26) mg/dL Creatinine 0.92 (0.72-1.25) mg/dL Glucose 140 H (70-99) mg/dL Calcium 9.1 (8.6-10.8) mg/dL Adrenal panel 03/01/17 Range/Units 03:26 Sodium 137 (136-145) mEq/L Potassium 3.9 (3.5-4.5) mEq/L Chloride 107 (98-109) mEq/L Carbon Dioxide 22 (19-29) mEq/L BUN 11 (8-26) mg/dL Creatinine 0.92 (0.72-1.25) mg/dL Glucose 140 H (70-99) mg/dL Calcium 9.1 (8.6-10.8) mg/dL Total Bilirubin 0.2 (0.2-1.2) mg/dL AST 32 (5-34) Units/L ALT 39 (0-55) Units/L Alkaline Phosphatase 83 (38-126) Units/L Albumin 3.3 L (3.5-5.0) g/dL - VTE Documentation of Mechanical Device: Intermittent pneumatic compression device Consult Discharge Plan - Plan Referrals: Yudelka Grier CNP [Primary Care Provider] - Jossy Stahl CNP [Advanced Practice Nurse] - 03/18/17 9:00 am Prescriptions: Amoxicillin/Clavulanate [Augmentin] 875 mg PO BIDWM #20 tablet Esomeprazole Magnesium [Nexium 24Hr] 20 mg PO BID #60 tablet. Esomeprazole Magnesium [Nexium] 40 mg PO BID #60 capsule. Famotidine [Pepcid] 40 mg PO BID #60 tablet Ferrous Sulfate [Iron] 325 mg PO BID #60 capsule.er Sucralfate [Carafate] 1 gm PO QIDAC #120 tablet Sucralfate [Carafate] 1 gm PO QIDAC #120 udc
--- NOTE | 2017-03-01 09:31 | Discharge Summary ---
Date of Encounter: 03/01/17 Time of Encounter: 09:25 - Discharge Diagnosis (1) Gastric outlet obstruction Priority: Primary Status: Acute (2) Nausea & vomiting Priority: Secondary Status: Resolved Qualifiers: Qualified Code(s): R11.2 - Nausea with vomiting, unspecified (3) Abdominal pain Priority: Secondary Status: Resolved Qualifiers: Qualified Code(s): R10.84 - Generalized abdominal pain (4) Anastomotic ulcer Priority: Secondary Status: Acute (5) Anastomotic stricture of gastrojejunostomy Priority: Secondary Status: Acute (6) Pneumonia Priority: Primary Status: Acute Qualifiers: Qualified Code(s): J69.0 - Pneumonitis due to inhalation of food and vomit - Discharge Medications Prescriptions: Amoxicillin/Clavulanate [Augmentin] 875 mg PO BIDWM #20 tablet Esomeprazole Magnesium [Nexium 24Hr] 20 mg PO BID #60 tablet. Ferrous Sulfate [Iron] 325 mg PO BID #60 capsule.er Sucralfate [Carafate] 1 gm PO QIDAC #120 udc Home Medications: BuPROPion [Wellbutrin] 450 mg PO DAILY 02/24/17 [History] Eszopiclone [Lunesta] 2 mg PO HS 02/24/17 [History] FLUoxetine HCl [Prozac] 40 mg PO DAILY 02/24/17 [History] Ondansetron HCl [Zofran] 4 mg PO Q8H PRN 02/24/17 [History] Esomeprazole Magnesium [Nexium 24Hr] 20 mg PO BID #60 tablet. 02/25/17 [Rx] Nicotine Patch [Nicoderm] 7 mg TD DAILY patch.td24 02/25/17 [Rx] Sucralfate [Carafate] 1 gm PO QIDAC #120 udc 02/25/17 [Rx] Acetaminophen [Tylenol] 650 mg PO Q6HR PRN tablet 03/01/17 [Rx] Amoxicillin/Clavulanate [Augmentin] 875 mg PO BIDWM #20 tablet 03/01/17 [Rx] Ferrous Sulfate [Iron] 325 mg PO BID #60 capsule.er 03/01/17 [Rx] Allergies/Adverse Reactions: 3 Allergy/AdvReac Type Severity Reaction Status Date / Time NSAIDS (Non-Steroidal Allergy Severe See Verified 02/24/17 16:38 Anti-Inflamma Comments Hydromorphone [From Dilaudid] Allergy Rash Verified 02/24/17 07:33 Date of admission: 02/24/17 05:57 Primary care physician: Yudelka Grier CNP Consults: 02/24/17 07:13 Consult to Surgery [CONS] Stat Consulting Provider: Nicole Reyes Surgical Reason for Consult: Nausea/vomiting x 1 month. History of partial gastrectomy in 2015. Time Notified: 14:00 Call Completed: Yes 02/24/17 08:09 Consult to Gastroenterology [CONS] Routine Consulting Provider: [facility] Amy Reason for Consult: likely anastomotic stricture, history pyloric stricture due to ulcer, hemigastrectomy and BI Time Notified: 08:10 Call Completed: Yes 02/24/17 08:11 Consult to Invasive Line Access Team [CONS] Routine Reason for Consult: need picc for TPN Line Type: PICC PICC line indications: Parental nutrition Time Notified: 08:12 Call Completed: Yes Consult to Nutrition [CONS] Routine Comment: Consulting Provider: NUTRITION Reason for Dietary Consult: TPN Start and Manage Discharging clinician: Ag Gilliland Anticipated date of discharge: 03/01/17 - Patient Status Disposition: Home, Self-Care Condition: Good Overall status at discharge: patient is progressing back to baseline - Discharge Instructions Follow Up With: Yudelka Grier CNP [Primary Care Provider] - - Diet and Activity Activity: resume usual activities as tolerated Diet: advance to your usual diet Hospital course: Mr. Kramer is a 41 year old male Patient is admitted for abdominal pain. He has history of pyloric ulcer and stenosis status post partial gastrectomy. He complained that abdominal pain occurs whenever he eats and after that usually he has to vomit for improvement in symptoms. General surgeon was consulted who asked gastroenterology to do EGD. He was diagnosed with gastric outlet obstruction and underwent dilatation. Post dilatation outlet diameter was around 2 cm.Patient was gradually escalated on diet and he is tolerating full diet now. In the meantime he was on TPN. An abdominal MRI was done did not show any malignancy or lymphadenopathy or unusual gastric wall thickening. Incidental finding of bilateral basal pulmonary atelectasis with some infiltrates noted. Though he remained afebrile but considering high risk for aspiration during earlier part of his condition we decided to keep him on Augmentin for 10 days. He seems to be doing very well and did not develop any fever or cough. Surgery has already seen him and he will be okay to discharge home and follow with his family doctor. Patient has significant protein calorie malnutrition and it is recommended to watch his weight. - Time Spent with Patient Total time spent providing and/or coordinating discharge services: Greater than 30 minutes - Constitutional Vitals: Temp Pulse Resp BP Pulse Ox 98.1 F 79 16 107/68 99 03/01/17 08:30 03/01/17 08:30 03/01/17 08:30 03/01/17 08:30 03/01/17 08:30 General appearance: Present: A&O X 3, no acute distress, loss of weight, answers questions appropriately - Head Head exam: Present: atraumatic, normocephalic - Eye Eye exam: Present: PERRL, conjuntiva pink, sclera anicteric Pupils: Present: PERRL - Neck Neck exam general surgery: Present: supple, trachea midline. Absent: lymphadenopathy - Respiratory Respiratory exam: Present: CTAB. Absent: accessory muscle use, rales, rhonchi, wheezes - Cardiovascular Cardiovascular exam: Present: RRR, +S1, +S2. Absent: diastolic murmur, gallop, rubs, systolic murmur - GI/Abdominal GI/Abdominal exam: Present: normal bowel sounds, soft, no peritoneal signs. Absent: distended, tenderness - Extremities Exam Extremities exam: Present: warm, radial pulses palpable and symmetrical. Absent : calf tenderness, cyanotic, pedal edema - Neurological Exam Neurological exam: Present: CN II-XII intact, oriented X3, no focal deficits. Absent: pronater drift, facial droop, speech deficit - Skin Skin exam: Present: dry, intact - VTE Documentation of Mechanical Device: Intermittent pneumatic compression device
[2017-03-01] MEDS: BuPROPion XL (24 HR) 150 MG TABLET PO SCH (09:38)
[2017-03-01] MEDS: Nicotine 7 MG PATCH.TD24 TD SCH (09:38)
[2017-03-01] MEDS: FLUoxetine 20 MG CAPSULE PO SCH (09:38)
--- NOTE | 2017-03-01 10:35 | Event Note ---
Date of Encounter: 03/01/17 Time of Encounter: 10:34 - Patient Status Disposition: Still a Patient Condition: Good - Discharge Instructions Follow Up With: Yudelka Grier CNP [Primary Care Provider] - Jossy Stahl CNP [Advanced Practice Nurse] - 03/18/17 9:00 am Berry Trejo MD [Partnered Physician] - (3 weeks)
[2017-03-01] MEDS ORDERED: FLUARIX QUAD 2017-18 36MOS UP/PF 0.5 ML SYRINGE IM ONE (11:03)
== END 2017-03-01 12:00 | disposition still patient (30) | DRG 254 ==
LOC: 3ANU
PROVIDERS: ADMIT Internal Medicine; ATTEND Hospitalist
PROC: ENDOORB (2017-02-24 14:15)

== ENCOUNTER 2017-03-14 00:50 | Inpatient (IN) ==
[2017-03-14] MEDS ORDERED: 0.9 % Sodium Chloride 1,000 ML IVC ONE (01:43)
[2017-03-14 02:07] LABS: Basophils # 0.1 K/mcL (0.0-0.2); Basophils % 0.7 %; Eosinophils # 0.6 K/mcL (0.0-0.6); Hematocrit 34.1 % (37.5-50.1); Hemoglobin 9.9 g/dL (12.9-16.9); Immature Granulocytes % 0.3 % (0-4); Lymphocytes # 3.1 K/mcL (0.6-4.6); Lymphocytes % 19.5 %; Mean Corpuscular Hemoglobin 22.4 pg (28.0-33.3); Mean Corpuscular Volume 77.1 fL (83.0-100.0); Monocytes % 6.2 %; Platelet Count 378 K/mcL (140-400); Red Blood Count 4.42 M/mcL (4.19-5.50); Red Cell Distribution Width 24.3 % (11.5-14.5); Segmented Neutrophils % 69.3 %
[2017-03-14 02:18] LABS: Bilirubin,Urine Small (Negative); Blood,Urine Negative (Negative); Clarity,Urine Clear (Clear); Color,Urine Yellow (Yellow); Glucose,Urine (UA) Normal (Normal); Ketones,Urine Negative (Negative); Leukocyte Esterase,Urine Negative (Negative); Nitrite,Urine Negative (Negative); Protein,Urine Negative (Neg-Trace); Specific Gravity,Urine > 1.030 (1.010-1.025); Urobilinogen,Urine Normal (Normal)
[2017-03-14 02:22] LABS: BUN/Creatinine Ratio 25 (6-26); Blood Urea Nitrogen 21 mg/dL (8-26); Carbon Dioxide 26 mEq/L (19-29); Chloride 110 mEq/L (98-109); Potassium 4.2 mEq/L (3.5-4.5); Sodium 143 mEq/L (136-145); eGFR For African Americans > 60 (> 60)
[2017-03-14 02:23] LABS: Alanine Aminotransferase 11 Units/L (0-55); Albumin 3.4 g/dL (3.5-5.0); Albumin/Globulin Ratio 1.2 (1.1-2.2); Alkaline Phosphatase 86 Units/L (38-126); Aspartate Amino Transferase 17 Units/L (5-34); Bilirubin,Direct < 0.1 mg/dL (0.0-0.5); Bilirubin,Total < 0.2 mg/dL (0.2-1.2); Calcium 9.4 mg/dL (8.6-10.8); Globulin 2.9 g/dL (2.4-3.5); Glucose 99 mg/dL (70-99); Lipase 23 Units/L (8-78); Osmolality,Calculated 299 (280-300); Total Protein 6.3 g/dL (6.0-8.3); eGFR For Non-African Americans > 60 (> 60)
[2017-03-14 02:29] LABS: Anisocytosis 2+ (Not Present); Hypochromasia Present (Not Present); Poikilocytosis 1+ (Not Present)
[2017-03-14] MEDS ORDERED: Ondansetron 4 MG/2 ML VIAL IVP ONE ×2 (02:59→05:09)
[2017-03-14] MEDS ORDERED: *HR* Morphine 2 MG/ML SYRINGE IVP ONE (04:17)
--- NOTE | 2017-03-14 04:34 | Emergency Department Note ---
Disposition Clinical Impression: Gastric outflow obstruction Disposition: Admitted As Inpatient Condition: Good Referrals: Yudelka Grier, BEE KEEPER [Primary Care Provider] - Forms: ED Satisfaction Letter, Work/School Release Abdominal Pain HPI - General Chief Complaint: ED Abdominal Pain Stated Complaint: vomiting Time Seen by Provider: 03/14/17 01:06 Source: patient Mode of arrival: ambulatory Limitations: no limitations Nursing Notes Reviewed: Yes Vital Signs Reviewed: Yes - History of Present Illness HPI Narrative: Patient presents for evaluation of abdominal distention and nausea and vomiting. Patient states that he had partial gastrectomy [address] silva. Patient has since had troubles with gastric outlet obstruction. Patient complains of nausea and vomiting 2 with abdominal distention. Patient states symptoms started earlier today and was worse after dinner. Symptoms mildly improved after initial vomiting episode. Patient states he was told to come back if worsening symptoms. Will perform lab work as well as CT abdomen and pelvis to further evaluate for possible underlying etiology. Pain Scale: 6 - Related Data Home Medications Medication Instructions Recorded Confirmed BuPROPion [Wellbutrin] 450 mg PO DAILY 02/24/17 02/24/17 Eszopiclone [Lunesta] 2 mg PO HS 02/24/17 02/24/17 FLUoxetine HCl [Prozac] 40 mg PO DAILY 02/24/17 02/24/17 Ondansetron HCl [Zofran] 4 mg PO Q8H PRN 02/24/17 02/24/17 Previous Rx's Medication Instructions Recorded Esomeprazole Magnesium [Nexium 20 mg PO BID #60 tablet. 02/25/17 24Hr] Nicotine Patch [Nicoderm] 7 mg TD DAILY patch.td24 02/25/17 Sucralfate [Carafate] 1 gm PO QIDAC #120 udc 02/25/17 Acetaminophen [Tylenol] 650 mg PO Q6HR PRN tablet 03/01/17 Amoxicillin/Clavulanate [Augmentin] 875 mg PO BIDWM #20 tablet 03/01/17 Esomeprazole Magnesium [Nexium] 40 mg PO BID #60 capsule. 03/01/17 Famotidine [Pepcid] 40 mg PO BID #60 tablet 03/01/17 Ferrous Sulfate [Iron] 325 mg PO BID #60 capsule.er 03/01/17 Sucralfate [Carafate] 1 gm PO QIDAC #120 tablet 03/01/17 Allergies Allergy/AdvReac Type Severity Reaction Status Date / Time NSAIDS (Non-Steroidal Allergy Severe See Verified 03/14/17 00:53 Anti-Inflamma Comments Hydromorphone [From Dilaudid] Allergy Rash Verified 03/14/17 00:53 Review of Systems: CONSTITUTIONAL: No weight loss, fever, chills, weakness or fatigue. HEENT: Eyes: No visual changes. Ears, Nose, Throat: No hearing loss, difficulty talking or unable to swallow. SKIN: No rash or itching. CARDIOVASCULAR: No chest pain, chest pressure or chest discomfort. No palpitations or edema. RESPIRATORY: No shortness of breath, cough or sputum. GASTROINTESTINAL: Nausea and vomiting with abdominal pain. No anorexia, or diarrhea. GENITOURINARY: No burning on urination or hematuria. NEUROLOGICAL: No headache, dizziness, syncope, paralysis, ataxia, numbness or tingling in the extremities. No change in bowel or bladder control. MUSCULOSKELETAL: No muscle pain, back pain, joint pain or stiffness. Abdominal Pain PMH - Past Medical History Medical history: Reports: GERD, other Male Surgical History: Reports: other Psychiatric history: Reports: anxiety, depression - Social History Smoking status: Current every day smoker Alcohol use: Reports: none Drug use: Reports: none Physical Exam General: Well appearing, nontoxic, no acute distress Head: Normocephalic Atraumatic Eyes: PERRL, EOMI ENT: Airway patent, no stridor Neck: supple, no meningismus Chest: Lungs clear to auscultation bilateral Cardiac: Regular rate and rhythm, no murmurs, rubs or gallops Abdomen: soft, mild tenderness to palpation of the epigastric region, nondistended; no guarding, rebound, or tenderness to percussion Musculoskeletal: Calves symmetric, nontender, no palpable cord Skin: No rash, normal skin tone Neuro: Alert and Oriented to person, place, and time; No focal deficit, CN 2-12 symmetric and intact - General Limitations: no limitations General appearance: alert, in no apparent distress Course - Reevaluation(s) Reevaluation #1: Patient had continues to have nausea. Patient has no elevated white count. Patient will be brought in for observation. - Consultations Consultation #1: Discussed with Dr. Song, surgery. Patient needs to be admitted to the hospitalist service. Consultation #2: Discussed with Dr. Moore. Pt accepted for admission. Vital Signs Temperature 98.2 F 03/14/17 00:53 Pulse Rate 99 03/14/17 00:53 Respiratory Rate 14 03/14/17 00:53 Blood Pressure 127/71 03/14/17 00:53 O2 Sat by Pulse Oximetry 97 03/14/17 00:53 Temperature 98.2 F 03/14/17 00:53 Pulse Rate 80 03/14/17 05:14 Respiratory Rate 16 03/14/17 05:14 Blood Pressure 91/61 03/14/17 05:14 O2 Sat by Pulse Oximetry 97 03/14/17 05:14 Oxygen Delivery Oxygen Delivery Room Air Abdominal Pain - Lab Data Result diagrams: 03/14/17 01:55 03/14/17 01:55 Lab Results 03/14/17 03/14/17 03/14/17 Range/Units 01:55 01:55 01:55 WBC 15.9 H (4.3-11.1) K/mcL RBC 4.42 (4.19-5.50) M/mcL Hgb 9.9 L (12.9-16.9) g/dL Hct 34.1 L (37.5-50.1) % MCV 77.1 L (83.0-100.0) fL MCH 22.4 L (28.0-33.3) pg MCHC 29.0 L (31.6-35.5) g/dL RDW 24.3 H (11.5-14.5) % Plt Count 378 (140-400) K/mcL MPV 10.0 (9.4-12.4) fL Immature Gran % 0.3 (0-4) % Seg Neutrophils % 69.3 % Lymphocytes % 19.5 % Monocytes % 6.2 % Eosinophils % 4.0 % Basophils % 0.7 % Neutrophils # 11.0 H (1.6-8.9) K/mcL Lymphocytes # 3.1 (0.6-4.6) K/mcL Monocytes # 1.0 (0.0-1.3) K/mcL Eosinophils # 0.6 (0.0-0.6) K/mcL Basophils # 0.1 (0.0-0.2) K/mcL Platelet Estimate Slight increase H (Normal) Hypochromasia Present A (Not Present) Poikilocytosis 1+ A (Not Present) Anisocytosis 2+ A (Not Present) Sodium 143 (136-145) mEq/L Potassium 4.2 (3.5-4.5) mEq/L Chloride 110 H (98-109) mEq/L Carbon Dioxide 26 (19-29) mEq/L BUN 21 (8-26) mg/dL Creatinine 0.83 (0.72-1.25) mg/dL Est GFR ( Amer) > 60 (> 60) Est GFR (Non-Af Amer) > 60 (> 60) BUN/Creatinine Ratio 25 (6-26) Glucose 99 (70-99) mg/dL Calculated Osmolality 299 (280-300) Lactic Acid 1.0 (0.5-2.2) mmol/L Calcium 9.4 (8.6-10.8) mg/dL Total Bilirubin < 0.2 L (0.2-1.2) mg/dL Direct Bilirubin < 0.1 (0.0-0.5) mg/dL Indirect Bilirubin TNP AST 17 (5-34) Units/L ALT 11 (0-55) Units/L Alkaline Phosphatase 86 (38-126) Units/L Serum Total Protein 6.3 (6.0-8.3) g/dL Albumin 3.4 L (3.5-5.0) g/dL Globulin 2.9 (2.4-3.5) g/dL Albumin/Globulin Ratio 1.2 (1.1-2.2) Lipase 23 (8-78) Units/L Urine Color (Yellow) Urine Clarity (Clear) Urine pH (5.0-8.0) pH Units Ur Specific [place] (1.010-1.025) Urine Protein (Neg-Trace) mg/dL Urine Glucose (UA) (Normal) mg/dL Urine Ketones (Negative) mg/dL Urine Blood (Negative) Urine Nitrite (Negative) Urine Bilirubin (Negative) Urine Urobilinogen (Normal) mg/dL Ur Leukocyte Esterase (Negative) Ur Culture Indicated? (NO) 03/14/17 Range/Units 02:10 WBC (4.3-11.1) K/mcL RBC (4.19-5.50) M/mcL Hgb (12.9-16.9) g/dL Hct (37.5-50.1) % MCV (83.0-100.0) fL MCH (28.0-33.3) pg MCHC (31.6-35.5) g/dL RDW (11.5-14.5) % Plt Count (140-400) K/mcL MPV (9.4-12.4) fL Immature Gran % (0-4) % Seg Neutrophils % % Lymphocytes % % Monocytes % % Eosinophils % % Basophils % % Neutrophils # (1.6-8.9) K/mcL Lymphocytes # (0.6-4.6) K/mcL Monocytes # (0.0-1.3) K/mcL Eosinophils # (0.0-0.6) K/mcL Basophils # (0.0-0.2) K/mcL Platelet Estimate (Normal) Hypochromasia (Not Present) Poikilocytosis (Not Present) Anisocytosis (Not Present) Sodium (136-145) mEq/L Potassium (3.5-4.5) mEq/L Chloride (98-109) mEq/L Carbon Dioxide (19-29) mEq/L BUN (8-26) mg/dL Creatinine (0.72-1.25) mg/dL Est GFR ( Amer) (> 60) Est GFR (Non-Af Amer) (> 60) BUN/Creatinine Ratio (6-26) Glucose (70-99) mg/dL Calculated Osmolality (280-300) Lactic Acid (0.5-2.2) mmol/L Calcium (8.6-10.8) mg/dL Total Bilirubin (0.2-1.2) mg/dL Direct Bilirubin (0.0-0.5) mg/dL Indirect Bilirubin AST (5-34) Units/L ALT (0-55) Units/L Alkaline Phosphatase (38-126) Units/L Serum Total Protein (6.0-8.3) g/dL Albumin (3.5-5.0) g/dL Globulin (2.4-3.5) g/dL Albumin/Globulin Ratio (1.1-2.2) Lipase (8-78) Units/L Urine Color Yellow (Yellow) Urine Clarity Clear (Clear) Urine pH 6.0 (5.0-8.0) pH Units Ur Specific [place] > 1.030 H (1.010-1.025) Urine Protein Negative (Neg-Trace) mg/dL Urine Glucose (UA) Normal (Normal) mg/dL Urine Ketones Negative (Negative) mg/dL Urine Blood Negative (Negative) Urine Nitrite Negative (Negative) Urine Bilirubin Small H (Negative) Urine Urobilinogen Normal (Normal) mg/dL Ur Leukocyte Esterase Negative (Negative) Ur Culture Indicated? NO (NO) Attestation Statement - Attestation Attestation: I, Osiel Santoyo MD, personally evaluated this patient and discussed their management with the resident physician. I reviewed the resident's note and agree with the documented findings, medical decision making, and plan of care. 41-year-old male presents to the emergency department with a complaint of nausea and vomiting and epigastric discomfort. Patient has a history of a partial gastrectomy in the past and then has developed gastric outlet obstruction. He was recently admitted to the hospital for this and had endoscopy with dilation of the gastric outlet a few weeks ago. Over the last several days he has had increased pain and was advised by his doctor that he started vomiting he needed to come back to the hospital. He presents complaining of vomiting for the last day or 2. He states he vomits undigested food. He has had bowel movements. No melena, hematemesis, or hematochezia. No hematuria or dysuria. On examination patient is a well-developed thin male in no acute distress. He is alert and oriented 3. There is no cyanosis or diaphoresis. Chest is nontender to palpation. Breath sounds clear and equal bilaterally. Heart regular rate and rhythm. Abdomen is soft with increased bowel sounds. There is moderate epigastric tenderness. No significant distention noted. Labs reviewed. CT shows persistent gastric distention but improved from prior CT. Dr. Luo discussed the case with the surgeon solar installation supervisor, Dr. Song. He recommended NG tube and admission by the hospitalist with surgery consultation. The hospitalist, Dr. Moore, was consulted and accepted admission of the patient.
--- NOTE | 2017-03-14 08:53 | Internal Med History&Physical ---
Date of Encounter: 03/14/17 Time of Encounter: 08:00 Assessment and Plan (1) Gastric outlet obstruction Current visit: Yes Status: Acute -Patient with abdominal discomfort and nausea/vomiting. -Patient with history of partial gastrectomy in 2015 secondary to pyloric stenosis with recent dilation via EGD by GI. -CT of the abdomen/pelvis showed persistent but improving gastric distention. -He states that pain and abdominal distention has improved after placement of NG tube overnight. -General surgery is following and appreciate recommendations. (2) Iron deficiency anemia Current visit: Yes Status: Acute -Hemoglobin is stable; continue iron supplementation. Qualifiers: Iron deficiency anemia type: inadequate dietary iron intake Qualified Code( s): D50.8 - Other iron deficiency anemias (3) Mild protein malnutrition Current visit: No Status: Acute -Patient with BMI of 18.1 -Will continue to monitor. (4) Depression Current visit: No Status: Chronic -Continue home medications. Qualifiers: Depression Type: major depressive disorder Qualified Code(s): F33.40 - Major depressive disorder, recurrent, in remission, unspecified (5) Tobacco abuse Current visit: No Status: Chronic -Discussed with patient about smoking cessation. -Nicotine replacement offered. (6) DVT prophylaxis Current visit: No Status: Acute -SCDs Internal Medicine - H&P: HPI Chief complaint: Abdominal pain, nausea/vomiting Admitted From: Home Plans for Post Hospital Care: Home History of present illness: Patient is a 41-year-old male with past medical history significant for iron deficiency anemia, GERD, pyloric ulcer and stenosis status post partial gastrectomy who presents to the ER on 03/14/17 due to abdominal discomfort and nausea/vomiting. Patient reports for approximately 2 months of worsening nausea/vomiting and abdominal discomfort. In addition patient reports for the last 2 weeks of increased belching. Patient decided to come to the ER for evaluation. Patient was recently discharged from [facility] on 03/01/17 with a similar symptoms and was seen by GI; patient underwent dilation via EGD was temporarily placed on TPN due to significant protein calorie malnutrition. In the ER, patient was found to have slight leukocytosis (WBC 15.9) and CT of the abdomen/pelvis showed persistent but improving gastric distention. General surgeon was consulted by ER with recommendations for NG tube and will follow patient for management. Patient will be admitted to medical surgical floor for gastric flow obstruction. Past Med Surg Social Fam HX - Past Medical History Medical history: GERD, other Psychiatric history: anxiety, depression - Past Surgical History Surgical History: other (oral surgeries; EGD multiple; Colonoscopy;Truncal vagotomy, Antrectomy with a Bilroth 1 reconstruction, primary repair of umbilical hernia 01/2015) - Social History Smoking Status: Current every day smoker Packs per day: 1 Smokeless Tobacco Status: No Alcohol use: none Drug use: none - Family History Father Adopted: No Family Member Ethnicity: Non- Living Status: Hx Family Respiratory Disorders: Yes Hx Family Cancer: Yes (lung cancer) Mother Living Status: Still Living Hx Family Cardiac Disorders: Yes (Hypertension) Brother Living Status: Still Living Hx Family GI Disorders: Yes (Diverticulosis) Internal Medicine - H&P: Meds BuPROPion [Wellbutrin] 450 mg PO DAILY 02/24/17 [History] Eszopiclone [Lunesta] 2 mg PO HS 02/24/17 [History] FLUoxetine HCl [Prozac] 40 mg PO DAILY 02/24/17 [History] Ondansetron HCl [Zofran] 4 mg PO Q8H PRN 02/24/17 [History] Esomeprazole Magnesium [Nexium 24Hr] 20 mg PO BID #60 tablet. 02/25/17 [Rx] Nicotine Patch [Nicoderm] 7 mg TD DAILY patch.td24 02/25/17 [Rx] Sucralfate [Carafate] 1 gm PO QIDAC #120 udc 02/25/17 [Rx] Acetaminophen [Tylenol] 650 mg PO Q6HR PRN tablet 03/01/17 [Rx] Amoxicillin/Clavulanate [Augmentin] 875 mg PO BIDWM #20 tablet 03/01/17 [Rx] Esomeprazole Magnesium [Nexium] 40 mg PO BID #60 capsule. 03/01/17 [Rx] Famotidine [Pepcid] 40 mg PO BID #60 tablet 03/01/17 [Rx] Ferrous Sulfate [Iron] 325 mg PO BID #60 capsule.er 03/01/17 [Rx] Sucralfate [Carafate] 1 gm PO QIDAC #120 tablet 03/01/17 [Rx] 3 Allergy/AdvReac Type Severity Reaction Status Date / Time NSAIDS (Non-Steroidal Allergy Severe See Verified 03/14/17 00:53 Anti-Inflamma Comments Hydromorphone [From Dilaudid] Allergy Rash Verified 03/14/17 00:53 All Systems PM: A 10-system review of systems was performed and is negative for pertinent findings except as documented above in the HPI. - Constitutional Vitals: Temp Pulse Resp BP Pulse Ox 98.6 F 78 15 111/70 97 03/14/17 06:47 03/14/17 06:47 03/14/17 06:47 03/14/17 06:47 03/14/17 06:47 General appearance: Present: A&O X 3, no acute distress, underweight - Head Head exam: Present: normocephalic - Eye Eye exam: Present: normal appearance - Expanded Neck Exam Neck exam: Absent: carotid bruit - Respiratory Respiratory exam: Present: CTAB. Absent: accessory muscle use, rales, rhonchi, wheezes - Cardiovascular Cardiovascular exam: Present: RRR, +S1, +S2. Absent: diastolic murmur, gallop, rubs, systolic murmur - GI/Abdominal GI/Abdominal exam: Present: hypoactive bowel sounds, soft. Absent: distended, tenderness, no peritoneal signs - Extremities Exam Extremities exam: Absent: pedal edema - Neurological Exam Neurological exam: Present: oriented X3, no focal deficits - Psychiatric Psychiatric exam: Present: normal mood - Skin Skin exam: Present: normal color Internal Med - H&P Results - Labs CBC & Chem 7: 03/14/17 01:55 03/14/17 01:55
[2017-03-14] MEDS ORDERED: Ondansetron 4 MG/2 ML VIAL IVP PRN (09:03)
[2017-03-14] MEDS ORDERED: Naloxone 0.4 MG/ML INJ IVP PRN (09:03)
--- NOTE | 2017-03-14 10:33 | General Surgery Consult Note ---
<RashidDemarcus hawkins - Last Filed: 03/14/17 14:37> Date of Encounter: 03/14/17 Time of Encounter: 10:30 Assessment and Plan (1) Gastric outlet obstruction Current Visit: Yes Status: Acute - Gastric outlet obstruction with recurrent symptoms in the setting of previous Billroth I gastrectomy in 2014 with subsequent balloon dilation for stenosis in February. - No further complaints of nausea and vomiting since admission - NG tube in place, Zofran - CT scan in ED showing gastric distention which is improved from previous. mildly distended on exam. - NPO diet. IVF, recommend 125 mL/hr - We will continue to monitor for today and follow. - May require Billroth II in the future - Otherwise stable. Continue supportive measures. (2) Nausea & vomiting Current Visit: Yes Status: Acute - Likely secondary to gastric outlet obstruction as above. Qualifiers: Vomiting type: unspecified Vomiting Intractability: non-intractable Qualified Code(s): R11.2 - Nausea with vomiting, unspecified History of Present Illness Consult date: 03/14/17 Reason for consult: abdominal pain Requesting physician: Ramon Abdi History of present illness: Mr. 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 He is also notably admitted to [facility] from 02/24-03/02 for complaint of nausea, vomiting and was found to have gastic outlet which was treated with balloon dilation of stenosis by gastroenterology. Pt states that he tolerated this well until about monday 03/12. He states he has been experiencing constant nausea with intermittent vomiting exacerbated following meals, especially dinner. He has noticed retained food from previous meals in the vomit but denies any signs of hematemasis. Bowel movements have been normal although he states he has been mildly constipated. Denies any blood in the stool. Since admission he has not had any nausea or vomiting with NG tube in place. CT abdomen showed persistent gastric distention which is improved from previous. Past Med Surg Social Fam HX - Past Medical History Medical history: GERD, other Psychiatric history: anxiety, depression - Past Surgical History Surgical History: other (oral surgeries; EGD multiple; Colonoscopy;Truncal vagotomy, Antrectomy with a Bilroth 1 reconstruction, primary repair of umbilical hernia 01/2015) - Social History Smoking Status: Current every day smoker Packs per day: 1 Smokeless Tobacco Status: No Alcohol use: none Drug use: none - Family History Father Adopted: No Family Member Ethnicity: Non- Living Status: Hx Family Respiratory Disorders: Yes Hx Family Cancer: Yes (lung cancer) Mother Living Status: Still Living Hx Family Cardiac Disorders: Yes (Hypertension) Brother Living Status: Still Living Hx Family GI Disorders: Yes (Diverticulosis) Medications and Allergies Eszopiclone [Lunesta] 2 mg PO HS 02/24/17 [History] FLUoxetine HCl [Prozac] 40 mg PO DAILY 02/24/17 [History] Ondansetron HCl [Zofran] 4 mg PO Q8H PRN 02/24/17 [History] Acetaminophen [Tylenol] 650 mg PO Q6HR PRN tablet 03/01/17 [Rx] Esomeprazole Magnesium [Nexium] 40 mg PO BID #60 capsule.dr 03/01/17 [Rx] Ferrous Sulfate [Iron] 325 mg PO BID #60 capsule.er 03/01/17 [Rx] Sucralfate [Carafate] 1 gm PO QIDAC #120 tablet 03/01/17 [Rx] BuPROPion XL (24 HR) [Wellbutrin Xl] 450 mg PO DAILY 03/14/17 [History] LORazepam [Ativan] 0.5 mg PO TID 03/14/17 [History] Sertraline [Zoloft] 150 mg PO DAILY 03/14/17 [History] Tamsulosin [Flomax] 0.4 mg PO DAILY 03/14/17 [History] 3 Allergy/AdvReac Type Severity Reaction Status Date / Time NSAIDS (Non-Steroidal Allergy Severe See Verified 03/14/17 00:53 Anti-Inflamma Comments Hydromorphone [From Dilaudid] Allergy Rash Verified 03/14/17 00:53 Review of Systems All systems PM: A 10-system review of systems was performed and is negative for pertinent findings except as documented above in the HPI. - Constitutional no chills, no fever(s) - Cardiovascular no chest pain, no dyspnea - Respiratory no dyspnea - Gastrointestinal abdominal pain, constipation, dyspepsia, early satiety, nausea, vomiting, no change in bowel habits, no coffee ground emesis, no diarrhea, no hematochezia, no loose stools, no melena General Surgery Exam Initial Vital Signs Temp Pulse Resp BP Pulse Ox 98.2 F 99 14 127/71 97 03/14/17 00:53 03/14/17 00:53 03/14/17 00:53 03/14/17 00:53 03/14/17 00:53 - General physical appearance well developed, well nourished, no distress - Respiratory normal expansion, normal respiratory effort, clear to auscultation - Cardiovascular Cardiovascular exam: Present: RRR, no murmurs/rubs/gallops - Abdomen Abdomen general surgery: Present: bowel sounds present, soft, distended, tender Abdominal Tenderness: Present: epigastic Exam Initial Vital Signs Temp Pulse Resp BP Pulse Ox 98.2 F 99 14 127/71 97 03/14/17 00:53 03/14/17 00:53 03/14/17 00:53 03/14/17 00:53 03/14/17 00:53 Results - Labs 03/14/17 01:55 03/14/17 01:55 Abnormal lab results WBC 15.9 K/mcL (4.3-11.1) H 03/14/17 01:55 Hgb 9.9 g/dL (12.9-16.9) L 03/14/17 01:55 Hct 34.1 % (37.5-50.1) L 03/14/17 01:55 MCV 77.1 fL (83.0-100.0) L 03/14/17 01:55 MCH 22.4 pg (28.0-33.3) L 03/14/17 01:55 MCHC 29.0 g/dL (31.6-35.5) L 03/14/17 01:55 RDW 24.3 % (11.5-14.5) H 03/14/17 01:55 Neutrophils # 11.0 K/mcL (1.6-8.9) H 03/14/17 01:55 Platelet Estimate Slight increase (Normal) H 03/14/17 01:55 Hypochromasia Present (Not Present) A 03/14/17 01:55 Poikilocytosis 1+ (Not Present) A 03/14/17 01:55 Anisocytosis 2+ (Not Present) A 03/14/17 01:55 Chloride 110 mEq/L (98-109) H 03/14/17 01:55 Total Bilirubin < 0.2 mg/dL (0.2-1.2) L 03/14/17 01:55 Albumin 3.4 g/dL (3.5-5.0) L 03/14/17 01:55 Ur Specific [place] > 1.030 (1.010-1.025) H 03/14/17 02:10 Urine Bilirubin Small (Negative) H 03/14/17 02:10 All other labs normal. Consult Discharge Plan - Plan Referrals: Yudelka Grier, LANDSCAPE PAINTER [Primary Care Provider] - <Ad Song - Last Filed: 03/15/17 06:56> Date of Encounter: 03/14/17 Review of Systems All systems PM: A 10-system review of systems was performed and is negative for pertinent findings except as documented above in the HPI. General Surgery Exam Initial Vital Signs Temp Pulse Resp BP Pulse Ox 98.2 F 99 14 127/71 97 03/14/17 00:53 03/14/17 00:53 03/14/17 00:53 03/14/17 00:53 03/14/17 00:53 Exam Initial Vital Signs Temp Pulse Resp BP Pulse Ox 98.2 F 99 14 127/71 97 03/14/17 00:53 03/14/17 00:53 03/14/17 00:53 03/14/17 00:53 03/14/17 00:53 Results - Labs 03/15/17 05:38 03/15/17 05:38 Abnormal lab results Hgb 9.5 g/dL (12.9-16.9) L 03/15/17 05:38 Hct 33.2 % (37.5-50.1) L 03/15/17 05:38 MCV 76.7 fL (83.0-100.0) L 03/15/17 05:38 MCH 21.9 pg (28.0-33.3) L 03/15/17 05:38 MCHC 28.6 g/dL (31.6-35.5) L 03/15/17 05:38 RDW 24.1 % (11.5-14.5) H 03/15/17 05:38 Polychromasia 1+ (Not Present) A 03/15/17 05:38 Hypochromasia Present (Not Present) A 03/14/17 01:55 Poikilocytosis 1+ (Not Present) A 03/15/17 05:38 Anisocytosis 2+ (Not Present) A 03/15/17 05:38 Target Cells 1+ (Not Present) A 03/15/17 05:38 Chloride 110 mEq/L (98-109) H 03/15/17 05:38 Creatinine 0.65 mg/dL (0.72-1.25) L 03/15/17 05:38 Calcium 8.5 mg/dL (8.6-10.8) L 03/15/17 05:38 Total Bilirubin < 0.2 mg/dL (0.2-1.2) L 03/14/17 01:55 Albumin 3.4 g/dL (3.5-5.0) L 03/14/17 01:55 Ur Specific [place] > 1.030 (1.010-1.025) H 03/14/17 02:10 Urine Bilirubin Small (Negative) H 03/14/17 02:10 Diabetes panel 03/15/17 Range/Units 05:38 Sodium 142 (136-145) mEq/L Potassium 3.6 (3.5-4.5) mEq/L Chloride 110 H (98-109) mEq/L Carbon Dioxide 25 (19-29) mEq/L BUN 10 D (8-26) mg/dL Creatinine 0.65 L (0.72-1.25) mg/dL Glucose 98 (70-99) mg/dL Calcium 8.5 L (8.6-10.8) mg/dL Calcium panel 03/15/17 Range/Units 05:38 Calcium 8.5 L (8.6-10.8) mg/dL Pituitary panel 03/15/17 Range/Units 05:38 Sodium 142 (136-145) mEq/L Potassium 3.6 (3.5-4.5) mEq/L Chloride 110 H (98-109) mEq/L Carbon Dioxide 25 (19-29) mEq/L BUN 10 D (8-26) mg/dL Creatinine 0.65 L (0.72-1.25) mg/dL Glucose 98 (70-99) mg/dL Calcium 8.5 L (8.6-10.8) mg/dL Adrenal panel 03/15/17 Range/Units 05:38 Sodium 142 (136-145) mEq/L Potassium 3.6 (3.5-4.5) mEq/L Chloride 110 H (98-109) mEq/L Carbon Dioxide 25 (19-29) mEq/L BUN 10 D (8-26) mg/dL Creatinine 0.65 L (0.72-1.25) mg/dL Glucose 98 (70-99) mg/dL Calcium 8.5 L (8.6-10.8) mg/dL All other labs normal. - Attending Attestation I examined this patient and my medical decision-making was reviewed with the Resident Physician. I agree with the documented findings, disposition and treatment plan as described except to the extent set forth below. I reviewed the above assessment and evaluation with the resident. Patient has had a previous history of gastric outlet obstruction requiring Billroth I performed by Dr. Cheema. Following the procedure he has had a balloon dilation and presents due to possible obstruction or stenosis of the Billroth I anastomosis. Abdomen is currently less distended with some mild discomfort. No incisional hernia defect noted. I expect to the patient that I think will be appropriate to continue with NG tube decompression. We will discuss with my colleague tomorrow about possible need for repeat EGD and dilation versus consideration for a Billroth II.
[2017-03-14] MEDS: Nicotine 21 MG PATCH.TD24 TD SCH (11:53)
[2017-03-14] MEDS: 0.9 % Sodium Chloride 1,000 ML IVC SCH (11:54)
[2017-03-14] MEDS ORDERED: Acetaminophen IV 1,000 MG/100 ML INFUS..BTL IVPB ONE (14:55)
[2017-03-14] MEDS ORDERED: Chloraseptic Spray 177 ML BOTTLE MM PRN (20:25)
[2017-03-14] MEDS: Ondansetron 4 MG/2 ML VIAL IVP PRN (21:34)
[2017-03-14] MEDS: *HR* Morphine 2 MG/ML SYRINGE IVP PRN (21:34)
[2017-03-15] MEDS: 0.9 % Sodium Chloride 1,000 ML IVC SCH (00:50)
[2017-03-15] MEDS ORDERED: *HR* LORazepam 2 MG/ML VIAL IVP ONE (01:04)
[2017-03-15 06:04] LABS: Immature Granulocytes % 0.3 % (0-4); Mean Corpuscular Hemoglobin 21.9 pg (28.0-33.3)
[2017-03-15 06:06] LABS: Basophils # 0.1 K/mcL (0.0-0.2); Basophils % 0.9 %; Eosinophils # 0.5 K/mcL (0.0-0.6); Eosinophils % 6.4 %; Hematocrit 33.2 % (37.5-50.1); Hemoglobin 9.5 g/dL (12.9-16.9); Lymphocytes % 25.3 %; Mean Corpuscular HGB Conc 28.6 g/dL (31.6-35.5); Mean Corpuscular Volume 76.7 fL (83.0-100.0); Mean Platelet Volume 9.9 fL (9.4-12.4); Monocytes # 0.5 K/mcL (0.0-1.3); Monocytes % 6.6 %; Neutrophils # 4.8 K/mcL (1.6-8.9); Platelet Count 355 K/mcL (140-400); Red Blood Count 4.33 M/mcL (4.19-5.50); Red Cell Distribution Width 24.1 % (11.5-14.5); Segmented Neutrophils % 60.5 %
[2017-03-15 06:18] LABS: BUN/Creatinine Ratio 15 (6-26); Blood Urea Nitrogen 10 mg/dL (8-26); Calcium 8.5 mg/dL (8.6-10.8); Carbon Dioxide 25 mEq/L (19-29); Chloride 110 mEq/L (98-109); Glucose 98 mg/dL (70-99); Osmolality,Calculated 293 (280-300); Potassium 3.6 mEq/L (3.5-4.5); Sodium 142 mEq/L (136-145); eGFR For African Americans > 60 (> 60); eGFR For Non-African Americans > 60 (> 60)
[2017-03-15 06:34] LABS: Platelet Estimate Normal (Normal)
[2017-03-15 06:35] LABS: Anisocytosis 2+ (Not Present); Poikilocytosis 1+ (Not Present); Polychromasia 1+ (Not Present)
[2017-03-15 06:37] LABS: Target Cells 1+ (Not Present)
[2017-03-15] MEDS: Ondansetron 4 MG/2 ML VIAL IVP PRN ×2 (09:13→18:15)
[2017-03-15] MEDS: *HR* Morphine 2 MG/ML SYRINGE IVP PRN ×3 (09:13→22:10)
[2017-03-15] MEDS: Nicotine 21 MG PATCH.TD24 TD SCH (09:13)
--- NOTE | 2017-03-15 10:00 | Gastroenterology Consult Note ---
<Elias Mauro - Last Filed: 03/15/17 09:55> Date of Encounter: 03/15/17 Time of Encounter: 09:55 - Assessment and plan (1) Gastric outlet obstruction Current Visit: Yes Status: Acute Assessment and plan: s/p billroth I in 2014. s/p balloon dialation for gastric outlet obstruction two weeks ago patient still has N/V unable to keep meals down. Ct scan showed evidence of gastric distension patient was offered treatment with anastomotic stent but would like to discuss it with Surgery before making a decision other option is billroth II (2) Nausea & vomiting Current Visit: Yes Status: Acute Assessment and plan: continue NG tube and zofran continue IVF Qualifiers: Vomiting type: unspecified Vomiting Intractability: non-intractable Qualified Code(s): R11.2 - Nausea with vomiting, unspecified - Time Spent With Patient Total time spent is greater than 50% in coordination of care (as documented) at patient's floor/unit and/or counseling patient: GI History of Present Illness - Data of Consult Patient: known to practice within the last 3 years Consult date: 03/15/17 Requesting Physician: Bernadine Benz CNP - Consult Narrative Reason for consult: Gastric outlet obstruction History of present illness: Mr. Kramer is a 41 year old male presents with chief complaint of nausea vomiting. Patient states he cannot keep anything down. He denies any hematemesis. His vomitus consistent with retained food. Patient has not bowel movement for the past 3 days secondary to decreased oral intake. Reports cramping abdominal pain is intermittent without radiation and improves with pain medication. Patient was recently discharged from the [facility] with diagnoses of gastric outlet obstruction. Consult was placed for treatment with anastomotic stent. During previous admission. 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 Current patient has NG tube placed. Consultation Past Med Surg Social Fam HX - Past Medical History Medical history: GERD, other Psychiatric history: anxiety, depression - Past Surgical History Surgical History: other (oral surgeries; EGD multiple; Colonoscopy;Truncal vagotomy, Antrectomy with a Bilroth 1 reconstruction, primary repair of umbilical hernia 01/2015) - Social History Smoking Status: Current every day smoker Packs per day: 1 Smokeless Tobacco Status: No Alcohol use: none Drug use: none - Family History Father Adopted: No Family Member Ethnicity: Non- Living Status: Hx Family Respiratory Disorders: Yes Hx Family Cancer: Yes (lung cancer) Mother Living Status: Still Living Hx Family Cardiac Disorders: Yes (Hypertension) Brother Living Status: Still Living Hx Family GI Disorders: Yes (Diverticulosis) Review of Systems: Constitutional: Denies fever, chills HEENT: Denies headache, vision changes, neck pain, sore throat, rhinorrhea Heart: Denies chest pain palpitations Lungs: Denies shortness of breath cough Abdomen: Reports abdominal pain, nausea, vomiting. Reports decreased frequency of bowel movements. Back: Denies back pain Kidney: Denies dysuria, hematuria Skin: warm and dry Extremities: Denies swelling, pain Neuro: Denies numbness, and tingling - Constitutional Vitals: Temp Pulse Resp BP Pulse Ox 98.1 F 77 14 105/66 95 03/15/17 07:59 03/15/17 07:59 03/15/17 07:59 03/15/17 07:59 03/15/17 07:59 - Other Additional findings: General: Pleasant without distress HEENT: Head atraumatic, normocephalic, EOMI, PERRL, neck nontender to palpation , absent lymphadenopathy, NG tube Heart: Regular rate and rhythm with no murmur Lungs: Clear to auscultation bilaterally Abdomen: Soft nontender, nondistended positive bowel sounds. Midline abdominal scar from previous Billroth I. Skin: warm and dry Extremities: Absent pedal edema, Neuro: Alert and oriented 3 Vascular: Pedal and radial pulses 2 out of 4 Results - Labs CBC & Chem 7: 03/15/17 05:38 03/15/17 05:38 Labs: Last Result Calcium 8.5 mg/dL (8.6-10.8) L 03/15/17 05:38 Entire Visit Hgb 9.5 g/dL (12.9-16.9) L 03/15/17 05:38 Hct 33.2 % (37.5-50.1) L 03/15/17 05:38 Total Bilirubin < 0.2 mg/dL (0.2-1.2) L 03/14/17 01:55 AST 17 Units/L (5-34) 03/14/17 01:55 ALT 11 Units/L (0-55) 03/14/17 01:55 Lipase 23 Units/L (8-78) 03/14/17 01:55 Consult Discharge Plan - Plan Referrals: [facility] [Provider Group] Yudelka Grier CNP [Primary Care Provider] - Jossy Stahl CNP [Advanced Practice Nurse] - 03/18/17 9:00 am <Berry Trejo - Last Filed: 03/15/17 17:27> Date of Encounter: 03/15/17 Time of Encounter: 11:00 - Time Spent With Patient Total time spent is greater than 50% in coordination of care (as documented) at patient's floor/unit and/or counseling patient: GI History of Present Illness - Data of Consult Requesting Physician: Bernadine Benz CNP - Consult Narrative History of present illness: Mr. Kramer is a 41 year old male - Constitutional Vitals: Temp Pulse Resp BP Pulse Ox 98.8 F 61 14 110/73 98 03/15/17 13:16 03/15/17 15:30 03/15/17 15:30 03/15/17 15:30 03/15/17 15:30 Results - Labs CBC & Chem 7: 03/15/17 05:38 03/15/17 05:38 Labs: Last Result Calcium 8.5 mg/dL (8.6-10.8) L 03/15/17 05:38 Entire Visit Hgb 9.5 g/dL (12.9-16.9) L 03/15/17 05:38 Hct 33.2 % (37.5-50.1) L 03/15/17 05:38 Total Bilirubin < 0.2 mg/dL (0.2-1.2) L 03/14/17 01:55 AST 17 Units/L (5-34) 03/14/17 01:55 ALT 11 Units/L (0-55) 03/14/17 01:55 Lipase 23 Units/L (8-78) 03/14/17 01:55 - Attending Attestation I examined this patient and my medical decision-making was reviewed with the Resident Physician. I agree with the documented findings, disposition and treatment plan as described except to the extent set forth below. Patient tolerated the gastric outlet obstruction due to anastomotic stenosis at the gastroenteric anastomotic site. History of Billroth I surgery. Patient has been dilated with 20 mm balloon few weeks ago but now he has gastric outlet obstruction again . option were discussed including trial of stent placement but patient is more inclined toward having surgery done
[2017-03-15] MEDS ORDERED: Lidocaine -MPF 1% 5 ML AMPUL INFILT ONE (11:36)
[2017-03-15] MEDS ORDERED: D10% in Water 500 ML IVC PRN (13:03)
[2017-03-15 13:12] LABS: Magnesium 1.6 mg/dL (1.6-2.6); Phosphorous 3.3 mg/dL (2.3-4.7)
--- NOTE | 2017-03-15 13:20 | Anesthesia Evaluation PreOp ---
Date of Encounter: 03/15/17 Time of Encounter: 13:16 - Past History Planned Operation: EGD Cardiac History: Other (Iron Def. Anemia) Pulmonary History: Smoker, Pack/yr (1ppd) WARRANTY ADMINISTRATOR History: Other (Anxiety/Depression) Other Medical History: GERD, Other (Gastric outlet obstruction) Anesthesia History: No Prior Anesthetic Complications, Past Anesthesia Alcohol Use: none Drug use: none Medications and Allergies Eszopiclone [Lunesta] 2 mg PO HS 02/24/17 [History] FLUoxetine HCl [Prozac] 40 mg PO DAILY 02/24/17 [History] Ondansetron HCl [Zofran] 4 mg PO Q8H PRN 02/24/17 [History] Acetaminophen [Tylenol] 650 mg PO Q6HR PRN tablet 03/01/17 [Rx] Esomeprazole Magnesium [Nexium] 40 mg PO BID #60 capsule.dr 03/01/17 [Rx] Ferrous Sulfate [Iron] 325 mg PO BID #60 capsule.er 03/01/17 [Rx] Sucralfate [Carafate] 1 gm PO QIDAC #120 tablet 03/01/17 [Rx] BuPROPion XL (24 HR) [Wellbutrin Xl] 450 mg PO DAILY 03/14/17 [History] LORazepam [Ativan] 0.5 mg PO TID 03/14/17 [History] Sertraline [Zoloft] 150 mg PO DAILY 03/14/17 [History] Tamsulosin [Flomax] 0.4 mg PO DAILY 03/14/17 [History] 3 Allergy/AdvReac Type Severity Reaction Status Date / Time NSAIDS (Non-Steroidal Allergy Severe See Verified 03/14/17 00:53 Anti-Inflamma Comments Hydromorphone [From Dilaudid] Allergy Rash Verified 03/14/17 00:53 - Meds/Allergy Pre-op Review Medications Reviewed: Yes Allergies Reviewed: Yes Beta Blockers on Current Med List: No Anesthesia Results - Labs 03/15/17 05:38 03/15/17 05:38 Anesthesia Exam O2 Sat O2 Sat by Pulse Oximetry 97 O2 Sat by Pulse Oximetry 95 O2 Sat by Pulse Oximetry 95 O2 Sat by Pulse Oximetry 96 O2 Sat by Pulse Oximetry 98 Vital Signs Temp Pulse Resp BP Pulse Ox 98.2 F 99 14 127/71 97 03/14/17 00:53 03/14/17 00:53 03/14/17 00:53 03/14/17 00:53 03/14/17 00:53 Height: 5'9'' Weight: 122# NPO (# of Hours): > 8 Hrs Pain Scale: 0 Pain Scale Used: Numeric (1 - 10) - HEENT Pupil (Motor): Pupils equal, EOMI Mallampati: II Teeth: Poor dentition Oral Opening: Greater than 3 - WARRANTY ADMINISTRATOR LOC: Oriented WARRANTY ADMINISTRATOR Motor: Normal RUE, Normal LUE, Normal RLE, Normal LLE, Normal Face WARRANTY ADMINISTRATOR Sensory: Normal: RUE, LUE, RLE, LLE, Face - Cardiac Rhythm: Regular Murmur: None JVD: No Carotid Bruit: No - Pulmonary Breath Sounds: bilateral Clear Respiratory Effort: Symmetrical Anesthesia Assess/Plan ASA Score: 2 Modified Clarendon Scale for Level of Consciousness: Cooperative, oriented, and tranquil Anesthetic Plan: MAC Autologous Blood: Yes Monitoring Plan: Standard Monitors Recovery Plan: Other
[2017-03-15] MEDS ORDERED: *HR* Propofol 200 MG/20 ML VIAL IVP ONE ×3 (13:56→14:38)
--- NOTE | 2017-03-15 15:24 | General Surgery Progress Note ---
Date of Encounter: 03/15/17 Time of Encounter: 15:20 - Assessment and Plan (1) Gastric outlet obstruction Current Visit: Yes Status: Acute - Gastric outlet obstruction with recurrent symptoms in the setting of previous Billroth I gastrectomy in 2014 with subsequent balloon dilation for stenosis in February. S/P EGD with pyloric balloon dilation today. Plan: PICC and TPN Clear liquid diet (do not advance past CLD) Continue NG clamped (pt is leary about having NG removed and replaced) - We will continue to monitor; plans for possible Billroth II this Wednesday - Otherwise stable. Continue supportive measures. Subjective Patient reports: no new complaints, still having pain, pain is less, voiding w/ o difficulty, no flatus, no bowel movement, afebrile Objective Vital Signs - Last 8 Hours Temp Pulse Resp BP Pulse Ox 03/15/17 13:16 98.8 F 70 12 124/82 97 03/15/17 09:00 95 03/15/17 07:59 98.1 F 77 14 105/66 95 Intake and Output 03/14/17 03/15/17 03/15/17 23:59 07:59 15:59 Intake Total 1000 / 1000 Output Total 700 / 700 600 / 600 300 / 300 Balance -700 / -700 400 / 400 -300 / -300 Intake: IV Fluids 1000 / 1000 0.9 % Sodium Chloride 1,000 ML 1000 / 1000 @ 75 mls/hr IVC .[id number] [facility] Rx #:[id number] Output: Urine 700 / 700 400 / 400 300 / 300 Gastric Drainage 200 / 200 Other: Blood Glucose* 93 - General physical appearance no distress - Eyes normal ocular movement - ENT normal nares (NG noted), atraumatic, normocephalic - Neck Neck exam: trachea midline - Respiratory normal expansion, normal respiratory effort, clear to auscultation - Cardiovascular Cardiovascular exam: Present: RRR - Abdomen Abdomen: Present: bowel sounds present, soft, non tender Hernia: none - Neurologic normal sensation - Musculoskeletal normal posture - Psychiatric oriented to time, oriented to person, oriented to place, speech is normal, memory intact - Labs 03/15/17 05:38 03/15/17 05:38 Diabetes panel 03/15/17 Range/Units 05:38 Sodium 142 (136-145) mEq/L Potassium 3.6 (3.5-4.5) mEq/L Chloride 110 H (98-109) mEq/L Carbon Dioxide 25 (19-29) mEq/L BUN 10 D (8-26) mg/dL Creatinine 0.65 L (0.72-1.25) mg/dL Glucose 98 (70-99) mg/dL Calcium 8.5 L (8.6-10.8) mg/dL Calcium panel 03/15/17 03/15/17 Range/Units 05:38 12:50 Calcium 8.5 L (8.6-10.8) mg/dL Phosphorus 3.3 (2.3-4.7) mg/dL Pituitary panel 03/15/17 Range/Units 05:38 Sodium 142 (136-145) mEq/L Potassium 3.6 (3.5-4.5) mEq/L Chloride 110 H (98-109) mEq/L Carbon Dioxide 25 (19-29) mEq/L BUN 10 D (8-26) mg/dL Creatinine 0.65 L (0.72-1.25) mg/dL Glucose 98 (70-99) mg/dL Calcium 8.5 L (8.6-10.8) mg/dL Adrenal panel 03/15/17 Range/Units 05:38 Sodium 142 (136-145) mEq/L Potassium 3.6 (3.5-4.5) mEq/L Chloride 110 H (98-109) mEq/L Carbon Dioxide 25 (19-29) mEq/L BUN 10 D (8-26) mg/dL Creatinine 0.65 L (0.72-1.25) mg/dL Glucose 98 (70-99) mg/dL Calcium 8.5 L (8.6-10.8) mg/dL Consult Discharge Plan - Plan Referrals: [facility] [place] [Provider Group] Yudelka Grier CNP [Primary Care Provider] - Jossy Stahl CNP [Advanced Practice Nurse] - 03/18/17 9:00 am
[2017-03-15] MEDS ORDERED: Clinimix E 5%-15% SOLUTION 2,000 ML with MVI, adult with vitamin K 10 ML IVC SCH (17:00)
--- NOTE | 2017-03-15 18:50 | Internal Med Progress Note ---
Date of Encounter: 03/15/17 Time of Encounter: 09:45 - Assessment and plan (1) Gastric outlet obstruction Current Visit: Yes Status: Acute Assessment and plan: Patient with abdominal discomfort, nausea and vomiting that has decreased since NG tube inserted. Patient has a history of partial gastrectomy in 2014, secondary to pyloric stenosis. Recent dilation of esophagus by GI in the last week or 2. CT of the abdomen and pelvis on admission showed persistent but improving gastric distention. Patient was seen by general surgery, Dr. Castro who will perform surgery on Wednesday evening. Patient had EGD today. Esophagus was normal, there is a large amount of food found in the gastric body. There is one benign-appearing intrinsic stenosis at the gastroenteric anastomosis. There is moderately severe and able to pass with an EGD 180 scope. The dilator was passed through and balloon dilation was performed. The patient will be placed on TPN today. This is being managed by nutrition. PICC line was placed. Patient was also seen by surgery who recommended a clear liquid diet, did not advance past clear liquid diet. NG tube is clamped, not removed. Plans for possible Billroth II on Wednesday as mentioned above. Abdomen/Pelvis CT 03/14/17 01:42 IMPRESSION: Persistent but improved gastric distention. Otherwise negative exam. D/ / Bandar Moore MD / Bandar Moore MD Interpreting Provider: Bandar Moore MD (2) DVT prophylaxis Current Visit: No Status: Acute Assessment and plan: SCDs. (3) Tobacco abuse Current Visit: Yes Status: Chronic Assessment and plan: Patient reports that he smokes. He is using a nicotine patch here. (4) Iron deficiency anemia Current Visit: Yes Status: Acute Assessment and plan: Hemoglobin is 9.5. Patient takes iron supplementation at home. Continue to monitor. Transfuse if less than 8. Qualifiers: Iron deficiency anemia type: inadequate dietary iron intake Qualified Code( s): D50.8 - Other iron deficiency anemias - Time Spent With Patient less than 15 minutes - Subjective Interval history: Pt was seen and assessed at bedside at 9:45 AM. She continues to have mild abdominal discomfort, he states he has felt better since the G-tube was inserted. He denies headache, nausea or vomiting, diaphoresis, fever or chills. Patient has been seen by multiple specialties today. He is aware that he will not go home. Per Dr. Cheema, patient will have surgery on Wednesday night. - Constitutional Vitals: Temp Pulse Resp BP Pulse Ox 97.9 F 79 16 119/81 97 03/15/17 18:33 03/15/17 18:33 03/15/17 18:33 03/15/17 18:33 03/15/17 18:33 General appearance: Present: cooperative, A&O X 3, pleasant, no acute distress, underweight, answers questions appropriately - Head Head exam: Present: atraumatic, normal inspection, normocephalic - Eye Eye exam: Present: normal appearance, conjuntiva pink, sclera anicteric - Neck Neck exam general surgery: Present: normal inspection, supple, trachea midline. Absent: lymphadenopathy, tenderness - Respiratory Respiratory exam: Present: CTAB. Absent: accessory muscle use, rales, rhonchi, wheezes - Cardiovascular Cardiovascular exam: Present: RRR, +S1, +S2. Absent: diastolic murmur, gallop, rubs, systolic murmur - GI/Abdominal GI/Abdominal exam: Present: hyperactive bowel sounds, normal bowel sounds, soft , no peritoneal signs. Absent: distended, hepatomegaly, tenderness - Extremities Exam Extremities exam: Present: normal capillary refill, warm, radial pulses palpable and symmetrical. Absent: calf tenderness, cyanotic, pedal edema, tenderness - Neurological Exam Neurological exam: Present: alert, oriented X3, no focal deficits. Absent: facial droop, speech deficit - Skin Skin exam: Present: dry, intact, normal color, warm. Absent: rash Internal Medicine: Result - Labs CBC & Chem 7: 03/15/17 05:38 03/15/17 05:38 Labs: Short CBC 03/15/17 Range/Units 05:38 WBC 8.0 (4.3-11.1) K/mcL Hgb 9.5 L (12.9-16.9) g/dL Hct 33.2 L (37.5-50.1) % Plt Count 355 (140-400) K/mcL Neutrophils # 4.8 (1.6-8.9) K/mcL BMP 03/15/17 05:38 Sodium 142 Potassium 3.6 Chloride 110 H Carbon Dioxide 25 BUN 10 D Creatinine 0.65 L Glucose 98 Calcium 8.5 L Consult Discharge Plan - Plan Referrals: [facility] [Provider Group] Yudelka Grier CNP [Primary Care Provider] - Jossy Stahl CNP [Advanced Practice Nurse] - 03/18/17 9:00 am
[2017-03-16] MEDS: *HR* Morphine 2 MG/ML SYRINGE IVP PRN ×4 (02:02→20:11)
[2017-03-16] MEDS ORDERED: *HR* LORazepam 2 MG/ML VIAL IVP ONE (02:16)
[2017-03-16 02:20] LABS: Hematocrit 34.2 % (37.5-50.1); Mean Corpuscular HGB Conc 29.2 g/dL (31.6-35.5); Mean Corpuscular Hemoglobin 22.4 pg (28.0-33.3); Mean Corpuscular Volume 76.5 fL (83.0-100.0); Mean Platelet Volume 9.7 fL (9.4-12.4); Platelet Count 427 K/mcL (140-400); Red Blood Count 4.47 M/mcL (4.19-5.50); Red Cell Distribution Width 23.8 % (11.5-14.5)
[2017-03-16] MEDS ORDERED: *HR* LORazepam 2 MG/ML VIAL ONE (02:22)
[2017-03-16 02:32] LABS: BUN/Creatinine Ratio 12 (6-26); Blood Urea Nitrogen 9 mg/dL (8-26); Calcium 9.1 mg/dL (8.6-10.8); Carbon Dioxide 27 mEq/L (19-29); Chloride 107 mEq/L (98-109); Glucose 102 mg/dL (70-99); Osmolality,Calculated 289 (280-300); Phosphorous 4.2 mg/dL (2.3-4.7); Potassium 3.6 mEq/L (3.5-4.5); Sodium 140 mEq/L (136-145); eGFR For African Americans > 60 (> 60); eGFR For Non-African Americans > 60 (> 60)
[2017-03-16] MEDS: Nicotine 21 MG PATCH.TD24 TD SCH (07:47)
--- NOTE | 2017-03-16 09:44 | General Surgery Progress Note ---
Date of Encounter: 03/16/17 Time of Encounter: 09:44 - Assessment and Plan (1) Gastric outlet obstruction Current Visit: Yes Status: Acute - Gastric outlet obstruction with recurrent symptoms in the setting of previous Billroth I gastrectomy in 2014 with subsequent balloon dilation for stenosis in February. - S/p EGD with pyloric balloon dilation yesterday. - Tolerating clear liquid diet, will remove NG tube. Do not advance diet past clear liquids. - CT scan in ED showing gastric distention which is improved from previous. mildly distended on exam. - Plan for Billroth II on wednesday - Otherwise stable. Continue supportive measures. (2) Nausea & vomiting Current Visit: Yes Status: Resolved - Likely secondary to gastric outlet obstruction as above. Qualifiers: Vomiting type: unspecified Vomiting Intractability: non-intractable Qualified Code(s): R11.2 - Nausea with vomiting, unspecified Subjective Patient reports: no new complaints, feels better, still having pain, pain is less, tolerating liquids well, voiding w/o difficulty, flatus, no bowel movement Narrative: Mr. Kramer was seen and examined at bedside this morning. He states he has been feeling well and much improved from admission. He is status post pyloric stenosis balloon dilation with EGD yesterday. He was started on clear liquid diet yesterday and reports no nausea, vomiting, increased pain following meals. He is experiencing flatus but no bowel movements. Pain is present in the epigastric region, but decreased from previous. No other complaints at this time. He is comfortable with NG tube being pulled at this time. Objective Vital Signs - Last 8 Hours Temp Pulse Resp BP Pulse Ox 03/16/17 06:48 98.1 F 67 15 117/78 94 03/16/17 02:48 98.1 F 71 16 120/75 95 Intake and Output 03/15/17 03/16/17 03/16/17 23:59 07:59 15:59 Intake Total 250 / 250 Output Total 800 / 800 Balance -800 / -800 250 / 250 Intake: IV Fluids 250 / 250 Intralipid 20% 250 ML @ 21 mls/ 250 / 250 hr IVPB DAILY@1700 [facility] Rx#: [id number] Output: Urine 800 / 800 Other: Weight 57.062 kg Blood Glucose* 97 121 Patient Weight 03/16/17 23:59 Weight 57.062 kg - General physical appearance well developed, well nourished, no distress - Respiratory normal expansion, normal respiratory effort, clear to auscultation - Cardiovascular Cardiovascular exam: Present: RRR, no murmurs/rubs/gallops - Abdomen Abdomen: Present: bowel sounds present, soft, tender. Absent: distended Abdominal Tenderness: epigastic - Labs 03/16/17 02:11 03/16/17 02:11 Diabetes panel 03/16/17 03/16/17 Range/Units 02:11 02:11 Sodium 140 (136-145) mEq/L Potassium 3.6 (3.5-4.5) mEq/L Chloride 107 (98-109) mEq/L Carbon Dioxide 27 (19-29) mEq/L BUN 9 (8-26) mg/dL Creatinine 0.73 (0.72-1.25) mg/dL Glucose 102 H (70-99) mg/dL Calcium 9.1 (8.6-10.8) mg/dL Triglycerides 194 H (< 150) mg/dL Calcium panel 03/15/17 03/16/17 03/16/17 Range/Units 12:50 02:11 02:11 Calcium 9.1 (8.6-10.8) mg/dL Phosphorus 3.3 4.2 (2.3-4.7) mg/dL Pituitary panel 03/16/17 Range/Units 02:11 Sodium 140 (136-145) mEq/L Potassium 3.6 (3.5-4.5) mEq/L Chloride 107 (98-109) mEq/L Carbon Dioxide 27 (19-29) mEq/L BUN 9 (8-26) mg/dL Creatinine 0.73 (0.72-1.25) mg/dL Glucose 102 H (70-99) mg/dL Calcium 9.1 (8.6-10.8) mg/dL Adrenal panel 03/16/17 Range/Units 02:11 Sodium 140 (136-145) mEq/L Potassium 3.6 (3.5-4.5) mEq/L Chloride 107 (98-109) mEq/L Carbon Dioxide 27 (19-29) mEq/L BUN 9 (8-26) mg/dL Creatinine 0.73 (0.72-1.25) mg/dL Glucose 102 H (70-99) mg/dL Calcium 9.1 (8.6-10.8) mg/dL - VTE Documentation of Mechanical Device: Intermittent pneumatic compression device Consult Discharge Plan - Plan Referrals: [facility] [Provider Group] Yudelka Grier, MARY [Primary Care Provider] - Jossy Stahl CNP [Advanced Practice Nurse] - 03/18/17 9:00 am
--- NOTE | 2017-03-16 14:02 | General Surgery Progress Note ---
Date of Encounter: 03/15/17 Time of Encounter: 12:00 - Assessment and Plan (1) Gastric outlet obstruction Current Visit: Yes Status: Chronic patient returns with recurrent symptoms of abdominal pain, nausea and emesis only two weeks after having his B1 anastomosis dilated by GI. Discussed with GI redilation to help evacuate stomach of food prior to surgery. They mentioned possible dilation and stent which was discussed with patient and he declines after speaking with GI. Discussed with patient he will need either a B2 or Hedy en Y to bypass anastamosis which is strictured. He will continue his PPI therapy. GI plans egd with dilation, will start clears then in an attempt to clean out stomach of food prior to surgery. PICC/TPN start will give a couple days of clears to try to irrigate out/clean out food from stomach will plan surgery at end of week antiemetics prn pain control Subjective Patient reports: no new complaints, feels better, pain is less Objective Vital Signs - Last 8 Hours Temp Pulse Resp BP Pulse Ox 03/16/17 11:25 98.0 F 91 17 105/69 95 03/16/17 06:48 98.1 F 67 15 117/78 94 Intake and Output 03/15/17 03/16/17 03/16/17 23:59 07:59 15:59 Intake Total 250 / 250 240 / 240 Output Total 800 / 800 Balance -800 / -800 250 / 250 240 / 240 Intake: IV Fluids 250 / 250 Intralipid 20% 250 ML @ 21 mls/ 250 / 250 hr IVPB DAILY@1700 [facility] Rx#: [id number] Oral 240 / 240 Output: Urine 800 / 800 Other: Meal Lunch Percent of Meal Consumed 100% Weight 57.062 kg Blood Glucose* 97 121 75 Patient Weight 03/16/17 23:59 Weight 57.062 kg - General physical appearance no distress, cachectic - Eyes PERRL, normal ocular movement - ENT normal mucosa, normocephalic - Respiratory normal expansion, normal respiratory effort - Cardiovascular Cardiovascular exam: Present: RRR - Abdomen Abdomen: Present: bowel sounds present, soft, non tender. Absent: distended, guarding, rebound - Integumentary no growths, no abnormal pigmentation - Neurologic CN 2-12 grossly intact - Musculoskeletal normal posture - Psychiatric oriented to time, oriented to person, oriented to place, speech is normal, memory intact - Labs 03/16/17 02:11 03/16/17 02:11 Diabetes panel 03/16/17 03/16/17 Range/Units 02:11 02:11 Sodium 140 (136-145) mEq/L Potassium 3.6 (3.5-4.5) mEq/L Chloride 107 (98-109) mEq/L Carbon Dioxide 27 (19-29) mEq/L BUN 9 (8-26) mg/dL Creatinine 0.73 (0.72-1.25) mg/dL Glucose 102 H (70-99) mg/dL Calcium 9.1 (8.6-10.8) mg/dL Triglycerides 194 H (< 150) mg/dL Calcium panel 03/16/17 03/16/17 Range/Units 02:11 02:11 Calcium 9.1 (8.6-10.8) mg/dL Phosphorus 4.2 (2.3-4.7) mg/dL Pituitary panel 03/16/17 Range/Units 02:11 Sodium 140 (136-145) mEq/L Potassium 3.6 (3.5-4.5) mEq/L Chloride 107 (98-109) mEq/L Carbon Dioxide 27 (19-29) mEq/L BUN 9 (8-26) mg/dL Creatinine 0.73 (0.72-1.25) mg/dL Glucose 102 H (70-99) mg/dL Calcium 9.1 (8.6-10.8) mg/dL Adrenal panel 03/16/17 Range/Units 02:11 Sodium 140 (136-145) mEq/L Potassium 3.6 (3.5-4.5) mEq/L Chloride 107 (98-109) mEq/L Carbon Dioxide 27 (19-29) mEq/L BUN 9 (8-26) mg/dL Creatinine 0.73 (0.72-1.25) mg/dL Glucose 102 H (70-99) mg/dL Calcium 9.1 (8.6-10.8) mg/dL - Imaging CT scan - abdomen: report reviewed, image reviewed CT scan - pelvis: report reviewed, image reviewed - VTE Documentation of Mechanical Device: Intermittent pneumatic compression device Consult Discharge Plan - Plan Referrals: [facility] [Provider Group] Yudelka Grier CNP [Primary Care Provider] - Jossy Stahl CNP [Advanced Practice Nurse] - 03/18/17 9:00 am
--- NOTE | 2017-03-16 16:37 | Internal Med Progress Note ---
Date of Encounter: 03/16/17 Time of Encounter: 16:35 - Assessment and plan (1) Gastric outlet obstruction Current Visit: Yes Status: Chronic Assessment and plan: with history of partial gastrectomy in 2014 secondary to pyloric stenosis with recent dilation via EGD by GI. Now with recurrent nausea, vomiting. ABVD abdomen/pelvis with persistent but improving gastric distention. NG placed on admission, repeat EGD 03/15/17 for esophageal dilation. Tolerating clear liquids as of 03/16. Continue peptic/TPN. General surgery following and planning for B2 or Hedy-en-Y bypass anastomosis on 03/18/17. (2) Mild protein malnutrition Current Visit: No Status: Acute Assessment and plan: secondary to poor PO intake. Cont PICC/TPN. Clears as able to tolerate (3) DVT prophylaxis Current Visit: No Status: Acute Assessment and plan: SCDs - Subjective Interval history: Seen and examined at bedside. Patient is new to me; information obtained from chart review and patient report. Patient says he feels significantly better this morning. He is tolerating clear liquid diet with no nausea vomiting or abdominal pain. Tolerating TPN without incident. He is aware of plan for OR on Wednesday. - Constitutional Vitals: Temp Pulse Resp BP Pulse Ox 98.1 F 70 16 102/68 97 03/16/17 15:49 03/16/17 15:49 03/16/17 15:49 03/16/17 15:49 03/16/17 15:49 General appearance: Present: cooperative, A&O X 3, pleasant, no acute distress, underweight, answers questions appropriately - Head Head exam: Present: atraumatic, normocephalic - Eye Eye exam: Present: PERRL, conjuntiva pink, sclera anicteric Pupils: Present: PERRL - Neck Neck exam general surgery: Present: supple, trachea midline. Absent: lymphadenopathy - Respiratory Respiratory exam: Present: CTAB. Absent: accessory muscle use, rales, rhonchi, wheezes - Cardiovascular Cardiovascular exam: Present: RRR, +S1, +S2. Absent: diastolic murmur, gallop, rubs, systolic murmur - GI/Abdominal GI/Abdominal exam: Present: normal bowel sounds, soft, no peritoneal signs. Absent: distended, tenderness - Extremities Exam Extremities exam: Present: warm, radial pulses palpable and symmetrical. Absent : calf tenderness, cyanotic, pedal edema - Neurological Exam Neurological exam: Present: CN II-XII intact, oriented X3, no focal deficits. Absent: pronater drift, facial droop, speech deficit - Skin Skin exam: Present: dry, intact Internal Medicine: Result - Labs CBC & Chem 7: 03/16/17 02:11 03/16/17 02:11 Labs: Short CBC 03/16/17 Range/Units 02:11 WBC 11.5 H (4.3-11.1) K/mcL Hgb 10.0 L (12.9-16.9) g/dL Hct 34.2 L (37.5-50.1) % Plt Count 427 H (140-400) K/mcL BMP 03/16/17 02:11 Sodium 140 Potassium 3.6 Chloride 107 Carbon Dioxide 27 BUN 9 Creatinine 0.73 Glucose 102 H Calcium 9.1 - VTE Documentation of Mechanical Device: Graduated compression elastic hosiery Consult Discharge Plan - Plan Referrals: [facility] [Provider Group] Yudekla Grier CNP [Primary Care Provider] - Jossy Stahl CNP [Advanced Practice Nurse] - 03/18/17 9:00 am
[2017-03-16] MEDS ORDERED: Clinimix E 5%-15% SOLUTION 2,000 ML with MVI, adult with vitamin K 10 ML IVC SCH (17:00)
[2017-03-17] MEDS: *HR* Morphine 2 MG/ML SYRINGE IVP PRN (02:39)
[2017-03-17 03:10] LABS: Magnesium 1.9 mg/dL (1.6-2.6); Phosphorous 3.7 mg/dL (2.3-4.7)
[2017-03-17] MEDS: Nicotine 21 MG PATCH.TD24 TD SCH (07:59)
--- NOTE | 2017-03-17 09:58 | General Surgery Progress Note ---
<Demarcus Charles - Last Filed: 03/17/17 09:56> Date of Encounter: 03/17/17 Time of Encounter: 09:56 - Assessment and Plan (1) Gastric outlet obstruction Current Visit: Yes Status: Chronic - Gastric outlet obstruction with recurrent symptoms in the setting of previous Billroth I gastrectomy in 2014 with subsequent balloon dilation for stenosis in February. - S/p EGD with pyloric balloon dilation on 03/15/17 - Tolerating clear liquid diet. Do not advance diet past clear liquids. - CT scan in ED showing gastric distention which is improved from previous. mildly distended on exam. - Plan for Billroth II on wednesday or Wednesday - Otherwise stable. Continue supportive measures. (2) Nausea & vomiting Current Visit: Yes Status: Resolved - Likely secondary to gastric outlet obstruction as above. Qualifiers: Vomiting type: unspecified Vomiting Intractability: non-intractable Qualified Code(s): R11.2 - Nausea with vomiting, unspecified Subjective Patient reports: feels better, pain is less, tolerating liquids well, flatus, bowel movement, diarrhea Narrative: Patient seen and examined at bedside this morning. He states that overall he is feeling better since admission. His pain is less, however still present in the epigastric region. He is tolerating his clear liquid diet without any complaints of nausea, vomiting. He does state that he has been experiencing episodes of diarrhea last night getting up approximately every 20 minutes. He denies any blood in stool and states that they are green in color. Objective Vital Signs - Last 8 Hours Temp Pulse Resp BP Pulse Ox 03/17/17 07:02 97.6 F 66 16 103/71 98 03/17/17 04:11 97.8 F 95 16 99/60 96 Intake and Output 03/16/17 03/17/17 03/17/17 23:59 07:59 15:59 Intake Total 250 / 250 480 / 480 Output Total 450 / 450 Balance -450 / -450 250 / 250 480 / 480 Intake: IV Fluids 250 / 250 Intralipid 20% 250 ML @ 21 mls/ 250 / 250 hr IVPB DAILY@1700 [facility] Rx#: [id number] Oral 480 / 480 Output: Urine 450 / 450 Other: # Bowel Movements 4 Weight 56.926 kg Blood Glucose* 95 84 Patient Weight 03/17/17 23:59 Weight 56.926 kg - General physical appearance well developed, well nourished, no distress - Respiratory normal expansion, normal respiratory effort, clear to auscultation - Cardiovascular Cardiovascular exam: Present: RRR, no murmurs/rubs/gallops - Abdomen Abdomen: Present: bowel sounds present, soft, tender Hernia: epigastric - Labs 03/16/17 02:11 03/16/17 02:11 Calcium panel 03/17/17 Range/Units 02:50 Phosphorus 3.7 (2.3-4.7) mg/dL - VTE Documentation of Mechanical Device: Intermittent pneumatic compression device Consult Discharge Plan - Plan Referrals: [facility] [Provider Group] Yudelka Grier CNP [Primary Care Provider] - Jossy Stahl CNP [Advanced Practice Nurse] - 03/18/17 9:00 am <Shayla Cheema - Last Filed: 03/18/17 08:13> Date of Encounter: 03/17/17 - Assessment and Plan (1) Gastric outlet obstruction Current Visit: Yes Status: Chronic continue pancrease in an attempt to help digest gastric food, continue clears continue picc/tpn will plan ex lap likely gastrojejunostomy on wednesday Subjective Patient reports: no new complaints, feels better, pain is less (after gets done drinking his clears and after awhile it subsides), tolerating liquids well, flatus, bowel movement, diarrhea Objective Vital Signs - Last 8 Hours Temp Pulse Resp BP Pulse Ox 03/18/17 07:27 97.6 F 73 20 94/60 96 03/18/17 03:27 97.9 F 73 16 96/59 97 Intake and Output 03/17/17 03/18/17 03/18/17 23:59 07:59 15:59 Intake Total 700 / 700 Output Total 600 / 600 Balance 100 / 100 Intake: Oral 700 / 700 Output: Urine 600 / 600 Other: # Bowel Movements 1 Weight 57.516 kg Blood Glucose* 112 107 Patient Weight 03/18/17 23:59 Weight 57.516 kg - General physical appearance well developed, well nourished, no distress - Eyes normal ocular movement - ENT normal mucosa, normocephalic - Respiratory normal expansion, normal respiratory effort - Cardiovascular Cardiovascular exam: Present: RRR - Abdomen Abdomen: Present: bowel sounds present, soft, tender Hernia: epigastric - Integumentary no rash, no growths - Neurologic CN 2-12 grossly intact - Musculoskeletal normal posture - Psychiatric oriented to time, oriented to person, speech is normal, memory intact - Labs 03/18/17 05:22 03/18/17 05:22 Diabetes panel 03/17/17 03/18/17 Range/Units 13:40 05:22 Sodium 139 140 (136-145) mEq/L Potassium 4.2 4.7 H (3.5-4.5) mEq/L Chloride 108 107 (98-109) mEq/L Carbon Dioxide 21 26 (19-29) mEq/L BUN 15 14 (8-26) mg/dL Creatinine 0.78 0.71 L (0.72-1.25) mg/dL Glucose 215 H 87 (70-99) mg/dL Calcium 8.9 8.9 (8.6-10.8) mg/dL AST 11 (5-34) Units/L ALT 10 (0-55) Units/L Alkaline Phosphatase 89 (38-126) Units/L Albumin 3.1 L (3.5-5.0) g/dL Calcium panel 03/17/17 03/18/17 Range/Units 13:40 05:22 Calcium 8.9 8.9 (8.6-10.8) mg/dL Albumin 3.1 L (3.5-5.0) g/dL Pituitary panel 03/17/17 03/18/17 Range/Units 13:40 05:22 Sodium 139 140 (136-145) mEq/L Potassium 4.2 4.7 H (3.5-4.5) mEq/L Chloride 108 107 (98-109) mEq/L Carbon Dioxide 21 26 (19-29) mEq/L BUN 15 14 (8-26) mg/dL Creatinine 0.78 0.71 L (0.72-1.25) mg/dL Glucose 215 H 87 (70-99) mg/dL Calcium 8.9 8.9 (8.6-10.8) mg/dL Adrenal panel 03/17/17 03/18/17 Range/Units 13:40 05:22 Sodium 139 140 (136-145) mEq/L Potassium 4.2 4.7 H (3.5-4.5) mEq/L Chloride 108 107 (98-109) mEq/L Carbon Dioxide 21 26 (19-29) mEq/L BUN 15 14 (8-26) mg/dL Creatinine 0.78 0.71 L (0.72-1.25) mg/dL Glucose 215 H 87 (70-99) mg/dL Calcium 8.9 8.9 (8.6-10.8) mg/dL Total Bilirubin 0.3 (0.2-1.2) mg/dL AST 11 (5-34) Units/L ALT 10 (0-55) Units/L Alkaline Phosphatase 89 (38-126) Units/L Albumin 3.1 L (3.5-5.0) g/dL - Attending Attestation I examined this patient and my medical decision-making was reviewed with the Resident Physician. I agree with the documented findings, disposition and treatment plan as described except to the extent set forth below.
[2017-03-17] MEDS: *HR* OxyCODONE Immed Rel 5 MG TABLET PO PRN ×3 (12:20→21:04)
[2017-03-17 13:56] LABS: Basophils # 0.1 K/mcL (0.0-0.2); Basophils % 0.7 %; Eosinophils # 0.7 K/mcL (0.0-0.6); Eosinophils % 6.9 %; Hematocrit 39.6 % (37.5-50.1); Immature Granulocytes % 0.2 % (0-4); Lymphocytes % 19.1 %; Mean Corpuscular HGB Conc 27.8 g/dL (31.6-35.5); Mean Corpuscular Hemoglobin 21.8 pg (28.0-33.3); Mean Corpuscular Volume 78.4 fL (83.0-100.0); Mean Platelet Volume 10.2 fL (9.4-12.4); Monocytes # 0.5 K/mcL (0.0-1.3); Monocytes % 5.1 %; Neutrophils # 6.9 K/mcL (1.6-8.9); Platelet Count 413 K/mcL (140-400); Red Blood Count 5.05 M/mcL (4.19-5.50); Red Cell Distribution Width 24.6 % (11.5-14.5)
[2017-03-17 14:05] LABS: Alanine Aminotransferase 10 Units/L (0-55); Albumin 3.1 g/dL (3.5-5.0); Albumin/Globulin Ratio 0.9 (1.1-2.2); Alkaline Phosphatase 89 Units/L (38-126); Aspartate Amino Transferase 11 Units/L (5-34); BUN/Creatinine Ratio 19 (6-26); Bilirubin,Total 0.3 mg/dL (0.2-1.2); Blood Urea Nitrogen 15 mg/dL (8-26); Calcium 8.9 mg/dL (8.6-10.8); Carbon Dioxide 21 mEq/L (19-29); Chloride 108 mEq/L (98-109); Globulin 3.3 g/dL (2.4-3.5); Glucose 215 mg/dL (70-99); Osmolality,Calculated 295 (280-300); Potassium 4.2 mEq/L (3.5-4.5); Sodium 139 mEq/L (136-145); Total Protein 6.4 g/dL (6.0-8.3); eGFR For African Americans > 60 (> 60); eGFR For Non-African Americans > 60 (> 60)
--- NOTE | 2017-03-17 15:30 | Internal Med Progress Note ---
Date of Encounter: 03/17/17 Time of Encounter: 08:30 - Assessment and plan (1) Gastric outlet obstruction Current Visit: Yes Status: Chronic Assessment and plan: with history of partial gastrectomy in 2014 secondary to pyloric stenosis with recent dilation via EGD by GI. Now with recurrent nausea, vomiting. ABVD abdomen/pelvis with persistent but improving gastric distention. NG placed on admission, repeat EGD 03/15/17 for esophageal dilation. Tolerating clear liquids as of 03/16. Continue peptic/TPN. Do not advance diet pass clears. General surgery following and planning for [facility] on Wednesday or Wednesday. (2) Mild protein malnutrition Current Visit: No Status: Acute Assessment and plan: secondary to poor PO intake. Cont PICC/TPN. Clears as able to tolerate (3) DVT prophylaxis Current Visit: No Status: Acute Assessment and plan: SCDs - Subjective Interval history: Seen and examined at bedside. Says he slept okay and relatively uneventful night. Reports multiple loose, watery stools this morning. Has some associated abdominal cramps. Still with some intermittent nausea but overall improved. He is tolerating clear liquid diet without emesis. - Constitutional Vitals: Temp Pulse Resp BP Pulse Ox 97.8 F 91 15 97/60 96 03/17/17 14:29 03/17/17 14:29 03/17/17 14:29 03/17/17 14:29 03/17/17 14:29 General appearance: Present: cooperative, A&O X 3, pleasant, no acute distress, underweight, answers questions appropriately - Head Head exam: Present: atraumatic, normocephalic - Eye Eye exam: Present: PERRL, conjuntiva pink, sclera anicteric Pupils: Present: PERRL - Neck Neck exam general surgery: Present: supple, trachea midline. Absent: lymphadenopathy - Respiratory Respiratory exam: Present: CTAB. Absent: accessory muscle use, rales, rhonchi, wheezes - Cardiovascular Cardiovascular exam: Present: RRR, +S1, +S2. Absent: diastolic murmur, gallop, rubs, systolic murmur - GI/Abdominal GI/Abdominal exam: Present: normal bowel sounds, soft, no peritoneal signs. Absent: distended, tenderness - Extremities Exam Extremities exam: Present: warm, radial pulses palpable and symmetrical. Absent : calf tenderness, cyanotic, pedal edema - Neurological Exam Neurological exam: Present: CN II-XII intact, oriented X3, no focal deficits. Absent: pronater drift, facial droop, speech deficit - Skin Skin exam: Present: dry, intact Internal Medicine: Result - Labs CBC & Chem 7: 03/17/17 13:40 03/17/17 13:40 Labs: Short CBC 03/17/17 Range/Units 13:40 WBC 10.2 (4.3-11.1) K/mcL Hgb 11.0 L (12.9-16.9) g/dL Hct 39.6 (37.5-50.1) % Plt Count 413 H (140-400) K/mcL Neutrophils # 6.9 (1.6-8.9) K/mcL BMP 03/17/17 13:40 Sodium 139 Potassium 4.2 Chloride 108 Carbon Dioxide 21 BUN 15 Creatinine 0.78 Glucose 215 H Calcium 8.9 Liver Function 03/17/17 Range/Units 13:40 Total Bilirubin 0.3 (0.2-1.2) mg/dL AST 11 (5-34) Units/L ALT 10 (0-55) Units/L Alkaline Phosphatase 89 (38-126) Units/L Albumin 3.1 L (3.5-5.0) g/dL - VTE Documentation of Mechanical Device: Intermittent pneumatic compression device Consult Discharge Plan - Plan Referrals: [facility] [Provider Group] Yudelka Grier CNP [Primary Care Provider] - Jossy Stahl CNP [Advanced Practice Nurse] - 03/18/17 9:00 am
[2017-03-17] MEDS: Clinimix E 5%-15% SOLUTION 2,000 ML with MVI, adult with vitamin K 10 ML IVC SCH (17:58)
[2017-03-17] MEDS: Ondansetron 4 MG/2 ML VIAL IVP PRN (19:30)
[2017-03-18] MEDS: *HR* OxyCODONE Immed Rel 5 MG TABLET PO PRN ×4 (01:04→16:33)
[2017-03-18] MEDS: Ondansetron 4 MG/2 ML VIAL IVP PRN ×2 (01:46→19:35)
[2017-03-18 05:47] LABS: BUN/Creatinine Ratio 20 (6-26); Blood Urea Nitrogen 14 mg/dL (8-26); Calcium 8.9 mg/dL (8.6-10.8); Carbon Dioxide 26 mEq/L (19-29); Chloride 107 mEq/L (98-109); Glucose 87 mg/dL (70-99); Osmolality,Calculated 290 (280-300); Potassium 4.7 mEq/L (3.5-4.5); Sodium 140 mEq/L (136-145); eGFR For African Americans > 60 (> 60); eGFR For Non-African Americans > 60 (> 60)
[2017-03-18 06:05] LABS: Basophils % 0.8 %; Hemoglobin 10.3 g/dL (12.9-16.9); Immature Granulocytes % 0.2 % (0-4); Lymphocytes % 29.3 %; Mean Corpuscular HGB Conc 27.8 g/dL (31.6-35.5)
[2017-03-18 06:07] LABS: Basophils # 0.1 K/mcL (0.0-0.2); Eosinophils # 0.7 K/mcL (0.0-0.6); Eosinophils % 8.3 %; Lymphocytes # 2.6 K/mcL (0.6-4.6); Mean Corpuscular Hemoglobin 21.6 pg (28.0-33.3); Mean Corpuscular Volume 77.7 fL (83.0-100.0); Mean Platelet Volume 10.5 fL (9.4-12.4); Monocytes # 0.8 K/mcL (0.0-1.3); Monocytes % 8.9 %; Neutrophils # 4.7 K/mcL (1.6-8.9); Platelet Count 382 K/mcL (140-400); Red Blood Count 4.76 M/mcL (4.19-5.50); Segmented Neutrophils % 52.5 %
[2017-03-18 06:58] LABS: Anisocytosis 1+ (Not Present); Platelet Estimate Normal (Normal); Poikilocytosis 1+ (Not Present); Polychromasia 1+ (Not Present)
--- NOTE | 2017-03-18 08:17 | General Surgery Progress Note ---
Date of Encounter: 03/16/17 Time of Encounter: 12:00 - Assessment and Plan (1) Gastric outlet obstruction Current Visit: Yes Status: Chronic add pancrease in an attempt to help digest gastric food, continue clears as patient tolerating continue picc/tpn will plan ex lap likely gastrojejunostomy on wednesday OOB to chair gi/dvt prophylaxis prn antiemetics prn pain control Subjective Patient reports: no new complaints, feels better, pain is less, tolerating liquids well, voiding w/o difficulty, flatus Objective Vital Signs - Last 8 Hours Temp Pulse Resp BP Pulse Ox 03/18/17 07:27 97.6 F 73 20 94/60 96 03/18/17 03:27 97.9 F 73 16 96/59 97 Intake and Output 03/17/17 03/18/17 03/18/17 23:59 07:59 15:59 Intake Total 700 / 700 Output Total 600 / 600 Balance 100 / 100 Intake: Oral 700 / 700 Output: Urine 600 / 600 Other: # Bowel Movements 1 Weight 57.516 kg Blood Glucose* 112 107 Patient Weight 03/18/17 23:59 Weight 57.516 kg - General physical appearance well developed, well nourished, no distress - Eyes PERRL, normal ocular movement - ENT normal mucosa, normocephalic - Neck Neck exam: trachea midline - Respiratory normal expansion, normal respiratory effort - Cardiovascular Cardiovascular exam: Present: RRR - Abdomen Abdomen: Present: bowel sounds present, soft, non tender - Integumentary no rash, no growths - Neurologic CN 2-12 grossly intact - Musculoskeletal normal posture - Psychiatric oriented to time, oriented to person, oriented to place, speech is normal, memory intact - Labs 03/18/17 05:22 03/18/17 05:22 Diabetes panel 03/17/17 03/18/17 Range/Units 13:40 05:22 Sodium 139 140 (136-145) mEq/L Potassium 4.2 4.7 H (3.5-4.5) mEq/L Chloride 108 107 (98-109) mEq/L Carbon Dioxide 21 26 (19-29) mEq/L BUN 15 14 (8-26) mg/dL Creatinine 0.78 0.71 L (0.72-1.25) mg/dL Glucose 215 H 87 (70-99) mg/dL Calcium 8.9 8.9 (8.6-10.8) mg/dL AST 11 (5-34) Units/L ALT 10 (0-55) Units/L Alkaline Phosphatase 89 (38-126) Units/L Albumin 3.1 L (3.5-5.0) g/dL Calcium panel 03/17/17 03/18/17 Range/Units 13:40 05:22 Calcium 8.9 8.9 (8.6-10.8) mg/dL Albumin 3.1 L (3.5-5.0) g/dL Pituitary panel 03/17/17 03/18/17 Range/Units 13:40 05:22 Sodium 139 140 (136-145) mEq/L Potassium 4.2 4.7 H (3.5-4.5) mEq/L Chloride 108 107 (98-109) mEq/L Carbon Dioxide 21 26 (19-29) mEq/L BUN 15 14 (8-26) mg/dL Creatinine 0.78 0.71 L (0.72-1.25) mg/dL Glucose 215 H 87 (70-99) mg/dL Calcium 8.9 8.9 (8.6-10.8) mg/dL Adrenal panel 03/17/17 03/18/17 Range/Units 13:40 05:22 Sodium 139 140 (136-145) mEq/L Potassium 4.2 4.7 H (3.5-4.5) mEq/L Chloride 108 107 (98-109) mEq/L Carbon Dioxide 21 26 (19-29) mEq/L BUN 15 14 (8-26) mg/dL Creatinine 0.78 0.71 L (0.72-1.25) mg/dL Glucose 215 H 87 (70-99) mg/dL Calcium 8.9 8.9 (8.6-10.8) mg/dL Total Bilirubin 0.3 (0.2-1.2) mg/dL AST 11 (5-34) Units/L ALT 10 (0-55) Units/L Alkaline Phosphatase 89 (38-126) Units/L Albumin 3.1 L (3.5-5.0) g/dL - VTE Documentation of Mechanical Device: Intermittent pneumatic compression device Consult Discharge Plan - Plan Referrals: [facility] [Provider Group] Yudelka Grier, TEACHER DRAMATICS [Primary Care Provider] - Jossy Stahl CNP [Advanced Practice Nurse] - 03/18/17 9:00 am
--- NOTE | 2017-03-18 08:50 | Internal Med Progress Note ---
<Lance Meyer - Last Filed: 03/18/17 12:07> Date of Encounter: 03/18/17 - Assessment and plan (1) Gastric outlet obstruction Current Visit: Yes Status: Chronic (2) Moderate protein-calorie malnutrition Current Visit: Yes Status: Chronic Assessment and plan: Currently on TPN. (3) Anemia Current Visit: Yes Status: Acute Qualifiers: Anemia type: other cause Other causes of anemia: chronic disease, other Qualified Code(s): D63.8 - Anemia in other chronic diseases classified elsewhere (4) Tobacco abuse Current Visit: Yes Status: Chronic Assessment and plan: Cessation counselling. - Constitutional Vitals: Temp Pulse Resp BP Pulse Ox 97.4 F L 86 16 93/62 97 03/18/17 11:44 03/18/17 11:44 03/18/17 11:44 03/18/17 11:44 03/18/17 11:44 Internal Medicine: Result - Labs CBC & Chem 7: 03/18/17 05:22 03/18/17 05:22 Labs: Short CBC 03/17/17 03/18/17 Range/Units 13:40 05:22 WBC 10.2 8.9 (4.3-11.1) K/mcL Hgb 11.0 L 10.3 L (12.9-16.9) g/dL Hct 39.6 37.0 L (37.5-50.1) % Plt Count 413 H 382 (140-400) K/mcL Neutrophils # 6.9 4.7 (1.6-8.9) K/mcL BMP 03/17/17 03/18/17 13:40 05:22 Sodium 139 140 Potassium 4.2 4.7 H Chloride 108 107 Carbon Dioxide 21 26 BUN 15 14 Creatinine 0.78 0.71 L Glucose 215 H 87 Calcium 8.9 8.9 Liver Function 03/17/17 Range/Units 13:40 Total Bilirubin 0.3 (0.2-1.2) mg/dL AST 11 (5-34) Units/L ALT 10 (0-55) Units/L Alkaline Phosphatase 89 (38-126) Units/L Albumin 3.1 L (3.5-5.0) g/dL Consult Discharge Plan - Plan Referrals: [facility] [Provider Group] Yudelka Grier, DRIER OPERATOR HELPER [Primary Care Provider] - Jossy Stahl DRIER OPERATOR HELPER [Advanced Practice Nurse] - 03/18/17 9:00 am - Attending Attestation I examined this patient and my medical decision-making was reviewed with the Resident Physician on 03/18/17. I agree with the documented findings, disposition and treatment plan as described except to the extent set forth below. Mr Kramer is currently admitted for gastric outlet obstruction and malnutrition. He remains moderate to high risk due to potential for worsening clinical status. Abdominal surgery planned in near future. Mr Kramer feels tired. He did not sleep well last night. No fever or chills. Still with a lot of nausea at times. Tolerating TPN. Exam Alert. Comfortable Mucus membranes dry Heart not tachy Lungs clear I/P 1. Gastric outlet obstruction - plan for OR per surgery 2. Moderate protein calorie malnutrition Further diagnoses and plan as above. 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 Now with recurrent nausea, vomiting. ABVD abdomen/pelvis with persistent but improving gastric distention. NG placed on admission, repeat EGD 03/15/17 for esophageal dilation. Tolerating clear liquids as of 03/18. Continue TPN. General surgery following and planning for exploratory laparotomy with likely gastrojejunal anastamosis. (2) Mild protein malnutrition Current Visit: Yes Status: Acute Assessment and plan: secondary to poor PO intake. Cont TPN. Clears as able to tolerate (3) Iron deficiency anemia Current Visit: Yes Status: Acute Assessment and plan: Hemoglobin is 10.3. Patient takes iron supplementation at home. Continue to monitor. Transfuse if less than 8. Check folate and B12 levels. Qualifiers: Iron deficiency anemia type: inadequate dietary iron intake Qualified Code( s): D50.8 - Other iron deficiency anemias (4) DVT prophylaxis Current Visit: No Status: Acute Assessment and plan: SCDs - Subjective Interval history: Seen and examined this morning at bedside. Very nauseous overnight and intermittent, stabbing abdominal pain resulted in poor sleep. He states reglan works very well for his nausea and the abdominal pain has been gone this morning. Patient attributes his abdominal pain last night to "gas pains" and has had relief with flatus. Has been tolerating clear liquid diet and TPN. Denies vomiting, abdominal pain, chest pain, dyspnea. No other complaints or questions at this time. - Constitutional Vitals: Temp Pulse Resp BP Pulse Ox 97.6 F 73 20 94/60 96 03/18/17 07:27 03/18/17 07:27 03/18/17 07:27 03/18/17 07:27 03/18/17 07:27 General appearance: Present: cooperative, A&O X 3, pleasant, no acute distress, underweight, answers questions appropriately - Head Head exam: Present: atraumatic, normocephalic - Neck Neck exam general surgery: Present: full ROM, normal inspection, supple - Respiratory Respiratory exam: Present: CTAB. Absent: rales, rhonchi, wheezes - Cardiovascular Cardiovascular exam: Present: RRR, +S1, +S2 - GI/Abdominal GI/Abdominal exam: Present: hyperactive bowel sounds, soft, tenderness (mid epigastric). Absent: guarding, rebound, rigid - Extremities Exam Extremities exam: Absent: pedal edema, tenderness - Neurological Exam Neurological exam: Present: alert, oriented X3, no focal deficits. Absent: speech deficit Internal Medicine: Result - Labs CBC & Chem 7: 03/18/17 05:22 03/18/17 05:22 Labs: Short CBC 03/17/17 03/18/17 Range/Units 13:40 05:22 WBC 10.2 8.9 (4.3-11.1) K/mcL Hgb 11.0 L 10.3 L (12.9-16.9) g/dL Hct 39.6 37.0 L (37.5-50.1) % Plt Count 413 H 382 (140-400) K/mcL Neutrophils # 6.9 4.7 (1.6-8.9) K/mcL BMP 03/17/17 03/18/17 13:40 05:22 Sodium 139 140 Potassium 4.2 4.7 H Chloride 108 107 Carbon Dioxide 21 26 BUN 15 14 Creatinine 0.78 0.71 L Glucose 215 H 87 Calcium 8.9 8.9 Liver Function 03/17/17 Range/Units 13:40 Total Bilirubin 0.3 (0.2-1.2) mg/dL AST 11 (5-34) Units/L ALT 10 (0-55) Units/L Alkaline Phosphatase 89 (38-126) Units/L Albumin 3.1 L (3.5-5.0) g/dL - VTE Documentation of Mechanical Device: Intermittent pneumatic compression device
[2017-03-18] MEDS: Nicotine 21 MG PATCH.TD24 TD SCH (09:07)
--- NOTE | 2017-03-18 13:28 | General Surgery Progress Note ---
<Jossy Stahl Carley - Last Filed: 03/18/17 13:45> Date of Encounter: 03/18/17 Time of Encounter: 13:00 - Assessment and Plan (1) Gastric outlet obstruction Current Visit: Yes Status: Chronic continue creon in an attempt to help digest gastric food, continue clears as patient tolerating NPO after midnight Continue TPN therapy Aquatics Manager management of TPN Plan for exploratory laparotomy with gastrojejunostomy with Dr. Cheema in the next 24-48 hours (consent complete) Ambulate hallways TID PPI therapy twice daily Supportive care and pain control Subjective Patient reports: no new complaints, still having pain (occasional), tolerating liquids well, voiding w/o difficulty, flatus, nausea (occasional), afebrile Objective Vital Signs - Last 8 Hours Temp Pulse Resp BP Pulse Ox 03/18/17 11:44 97.4 F L 86 16 93/62 97 03/18/17 07:27 97.6 F 73 20 94/60 96 Intake and Output 03/17/17 03/18/17 03/18/17 23:59 07:59 15:59 Intake Total 700 / 700 840 / 840 Output Total 600 / 600 800 / 800 Balance 100 / 100 40 / 40 Intake: Oral 700 / 700 840 / 840 Output: Urine 600 / 600 800 / 800 Other: Meal clears # Bowel Movements 1 Weight 57.516 kg Blood Glucose* 112 107 84 Patient Weight 03/18/17 23:59 Weight 57.516 kg - General physical appearance well developed, well nourished, no distress - Eyes normal ocular movement - ENT normal mucosa, atraumatic, normocephalic - Neck Neck exam: trachea midline - Respiratory normal expansion, normal respiratory effort, clear to auscultation - Cardiovascular Cardiovascular exam: Present: RRR - Abdomen Abdomen: Present: bowel sounds present, soft, non tender - Neurologic CN 2-12 grossly intact - Musculoskeletal normal gait, normal posture - Psychiatric oriented to time, oriented to person, oriented to place, speech is normal, memory intact - Labs 03/18/17 05:22 03/18/17 05:22 Diabetes panel 03/17/17 03/18/17 Range/Units 13:40 05:22 Sodium 139 140 (136-145) mEq/L Potassium 4.2 4.7 H (3.5-4.5) mEq/L Chloride 108 107 (98-109) mEq/L Carbon Dioxide 21 26 (19-29) mEq/L BUN 15 14 (8-26) mg/dL Creatinine 0.78 0.71 L (0.72-1.25) mg/dL Glucose 215 H 87 (70-99) mg/dL Calcium 8.9 8.9 (8.6-10.8) mg/dL AST 11 (5-34) Units/L ALT 10 (0-55) Units/L Alkaline Phosphatase 89 (38-126) Units/L Albumin 3.1 L (3.5-5.0) g/dL Calcium panel 03/17/17 03/18/17 Range/Units 13:40 05:22 Calcium 8.9 8.9 (8.6-10.8) mg/dL Albumin 3.1 L (3.5-5.0) g/dL Pituitary panel 03/17/17 03/18/17 Range/Units 13:40 05:22 Sodium 139 140 (136-145) mEq/L Potassium 4.2 4.7 H (3.5-4.5) mEq/L Chloride 108 107 (98-109) mEq/L Carbon Dioxide 21 26 (19-29) mEq/L BUN 15 14 (8-26) mg/dL Creatinine 0.78 0.71 L (0.72-1.25) mg/dL Glucose 215 H 87 (70-99) mg/dL Calcium 8.9 8.9 (8.6-10.8) mg/dL Adrenal panel 03/17/17 03/18/17 Range/Units 13:40 05:22 Sodium 139 140 (136-145) mEq/L Potassium 4.2 4.7 H (3.5-4.5) mEq/L Chloride 108 107 (98-109) mEq/L Carbon Dioxide 21 26 (19-29) mEq/L BUN 15 14 (8-26) mg/dL Creatinine 0.78 0.71 L (0.72-1.25) mg/dL Glucose 215 H 87 (70-99) mg/dL Calcium 8.9 8.9 (8.6-10.8) mg/dL Total Bilirubin 0.3 (0.2-1.2) mg/dL AST 11 (5-34) Units/L ALT 10 (0-55) Units/L Alkaline Phosphatase 89 (38-126) Units/L Albumin 3.1 L (3.5-5.0) g/dL - VTE Documentation of Mechanical Device: Intermittent pneumatic compression device Consult Discharge Plan - Plan Referrals: [facility] [Provider Group] Yudelka Grier, MANAGER RADIATION [Primary Care Provider] - Jossy Stahl CNP [Advanced Practice Nurse] - 03/18/17 9:00 am <Shayla Cheema - Last Filed: 03/18/17 15:14> Date of Encounter: 03/18/17 Time of Encounter: 15:12 - Assessment and Plan (1) Gastric outlet obstruction Current Visit: Yes Status: Chronic plan ex lap with gastrojejunostomy tomorrow npo midnight continue tpn gi/dvt prophylaxis, prn antiemetics prn pain control Subjective Patient reports: still having pain (gas pain), tolerating liquids well, voiding w/o difficulty, flatus, diarrhea Objective Vital Signs - Last 8 Hours Temp Pulse Resp BP Pulse Ox 03/18/17 15:05 97.9 F 78 18 96/63 97 03/18/17 11:44 97.4 F L 86 16 93/62 97 03/18/17 07:27 97.6 F 73 20 94/60 96 Intake and Output 03/17/17 03/18/17 03/18/17 23:59 07:59 15:59 Intake Total 700 / 700 1460 / 1460 Output Total 600 / 600 800 / 800 Balance 100 / 100 660 / 660 Intake: Oral 700 / 700 1460 / 1460 Output: Urine 600 / 600 800 / 800 Other: Meal Lunch # Bowel Movements 1 Weight 57.516 kg Blood Glucose* 112 107 84 Patient Weight 03/18/17 23:59 Weight 57.516 kg - General physical appearance no distress, cachectic - Eyes normal ocular movement - ENT normal mucosa, normocephalic - Neck Neck exam: trachea midline - Respiratory normal expansion, normal respiratory effort - Abdomen Abdomen: Present: soft, non tender. Absent: distended - Integumentary no growths - Neurologic CN 2-12 grossly intact - Musculoskeletal normal posture - Psychiatric oriented to time, oriented to person, oriented to place, speech is normal, memory intact - Labs 03/18/17 05:22 03/18/17 05:22 Diabetes panel 12/14/17 Range/Units 05:22 Sodium 140 (136-145) mEq/L Potassium 4.7 H (3.5-4.5) mEq/L Chloride 107 (98-109) mEq/L Carbon Dioxide 26 (19-29) mEq/L BUN 14 (8-26) mg/dL Creatinine 0.71 L (0.72-1.25) mg/dL Glucose 87 (70-99) mg/dL Calcium 8.9 (8.6-10.8) mg/dL Calcium panel 03/18/17 Range/Units 05:22 Calcium 8.9 (8.6-10.8) mg/dL Pituitary panel 03/18/17 Range/Units 05:22 Sodium 140 (136-145) mEq/L Potassium 4.7 H (3.5-4.5) mEq/L Chloride 107 (98-109) mEq/L Carbon Dioxide 26 (19-29) mEq/L BUN 14 (8-26) mg/dL Creatinine 0.71 L (0.72-1.25) mg/dL Glucose 87 (70-99) mg/dL Calcium 8.9 (8.6-10.8) mg/dL Adrenal panel 03/18/17 Range/Units 05:22 Sodium 140 (136-145) mEq/L Potassium 4.7 H (3.5-4.5) mEq/L Chloride 107 (98-109) mEq/L Carbon Dioxide 26 (19-29) mEq/L BUN 14 (8-26) mg/dL Creatinine 0.71 L (0.72-1.25) mg/dL Glucose 87 (70-99) mg/dL Calcium 8.9 (8.6-10.8) mg/dL - Attending Attestation I have personally performed a face to face evaluation on this patient. I have reviewed and agree with the care plan. History and Exam by me shows:
[2017-03-18] MEDS ORDERED: Clinimix E 5%-15% SOLUTION 2,000 ML with MVI, adult with vitamin K 10 ML IVC SCH (17:00)
[2017-03-18] MEDS: Clinimix E 5%-15% SOLUTION 2,000 ML with MVI, adult with vitamin K 10 ML IVC SCH (18:11)
[2017-03-18] MEDS: Pantoprazole 40 MG VIAL IVP SCH (18:11)
[2017-03-18] MEDS: *HR* LORazepam 0.5 MG TABLET PO PRN (21:18)
[2017-03-19] MEDS: Pantoprazole 40 MG VIAL IVP SCH (05:04)
[2017-03-19] MEDS: *HR* OxyCODONE Immed Rel 5 MG TABLET PO PRN ×2 (05:17→09:17)
[2017-03-19 06:04] LABS: BUN/Creatinine Ratio 19 (6-26); Blood Urea Nitrogen 10 mg/dL (8-26); Carbon Dioxide 20 mEq/L (19-29); Chloride 115 mEq/L (98-109); Glucose 69 mg/dL (70-99); Osmolality,Calculated 289 (280-300); Sodium 141 mEq/L (136-145); eGFR For African Americans > 60 (> 60); eGFR For Non-African Americans > 60 (> 60)
[2017-03-19 06:05] LABS: Calcium 6.7 mg/dL (8.6-10.8); Potassium 3.4 mEq/L (3.5-4.5)
[2017-03-19 07:20] LABS: Hemoglobin 9.9 g/dL (12.9-16.9); Immature Granulocytes % 0.2 % (0-4)
[2017-03-19 07:21] LABS: Basophils # 0.1 K/mcL (0.0-0.2); Basophils % 0.7 %; Eosinophils # 0.7 K/mcL (0.0-0.6); Eosinophils % 7.5 %; Hematocrit 35.3 % (37.5-50.1); Lymphocytes # 1.9 K/mcL (0.6-4.6); Mean Corpuscular Hemoglobin 22.1 pg (28.0-33.3); Mean Corpuscular Volume 78.8 fL (83.0-100.0); Mean Platelet Volume 10.8 fL (9.4-12.4); Monocytes # 0.8 K/mcL (0.0-1.3); Monocytes % 8.9 %; Nucleated Red Blood Cells 0.2 /100 WBC (0); Platelet Count 366 K/mcL (140-400); Red Blood Count 4.48 M/mcL (4.19-5.50); Red Cell Distribution Width 23.6 % (11.5-14.5); Segmented Neutrophils % 61.7 %
[2017-03-19 07:24] LABS: Neutrophils # 5.4 K/mcL (1.6-8.9)
[2017-03-19 08:00] LABS: Anisocytosis 3+ (Not Present); Ovalocytes 1+ (Not Present); Platelet Estimate Normal (Normal); Stomatocytes 1+ (Not Present)
[2017-03-19 08:01] LABS: Hypochromasia Present (Not Present)
[2017-03-19] MEDS: Clinimix E 5%-15% SOLUTION 2,000 ML with MVI, adult with vitamin K 10 ML IVC SCH (09:19)
[2017-03-19] MEDS: Nicotine 21 MG PATCH.TD24 TD SCH (09:20)
[2017-03-19] MEDS ORDERED: Calcium Gluconate 2,000 MG in D5% in Water 100 ML IVPB ONE (10:40)
[2017-03-19] MEDS ORDERED: Potassium Chloride 20 MEQ, Lidocaine 1% 2 ML in D5% in Water 250 ML IVPB ONE (11:10)
[2017-03-19 11:30] LABS: Vitamin B12 836 pg/mL (213-816)
[2017-03-19 11:31] LABS: Folate > 40.0 ng/mL (7.0-31.4)
[2017-03-19] MEDS: *HR* LORazepam 0.5 MG TABLET PO PRN (12:07)
--- NOTE | 2017-03-19 15:16 | Internal Med Progress Note ---
<Anitha Josue - Last Filed: 03/19/17 15:15> Date of Encounter: 03/19/17 Time of Encounter: 13:15 - Assessment and plan (1) Gastric outlet obstruction Current Visit: Yes Status: Chronic (2) Mild protein malnutrition Current Visit: Yes Status: Acute (3) Iron deficiency anemia Current Visit: Yes Status: Acute Qualifiers: Iron deficiency anemia type: inadequate dietary iron intake Qualified Code( s): D50.8 - Other iron deficiency anemias (4) DVT prophylaxis Current Visit: No Status: Acute - Subjective Interval history: Seen and examined this morning at bedside. Very nauseous overnight and intermittent, stabbing abdominal pain resulted in poor sleep. He states reglan works very well for his nausea and the abdominal pain has been gone this morning. Patient attributes his abdominal pain last night to "gas pains" and has had relief with flatus. Has been tolerating clear liquid diet and TPN. Denies vomiting, abdominal pain, chest pain, dyspnea. No other complaints or questions at this time. - Constitutional Vitals: Temp Pulse Resp BP Pulse Ox 98.5 F 94 18 94/63 96 03/19/17 14:53 03/19/17 14:53 03/19/17 14:53 03/19/17 14:53 03/19/17 14:53 General appearance: Present: cooperative, A&O X 3, pleasant, no acute distress, underweight, answers questions appropriately Internal Medicine: Result - Labs CBC & Chem 7: 03/19/17 07:00 03/19/17 05:05 Labs: Short CBC 03/19/17 Range/Units 07:00 WBC 8.8 (4.3-11.1) K/mcL Hgb 9.9 L (12.9-16.9) g/dL Hct 35.3 L (37.5-50.1) % Plt Count 366 (140-400) K/mcL Neutrophils # 5.4 (1.6-8.9) K/mcL BMP 03/19/17 05:05 Sodium 141 Potassium 3.4 L D Chloride 115 H Carbon Dioxide 20 BUN 10 Creatinine 0.53 L Glucose 69 L Calcium 6.7 L D - VTE Documentation of Mechanical Device: Intermittent pneumatic compression device Consult Discharge Plan - Plan Referrals: [facility] [Provider Group] Yudelka Grier, ELECTRONIC INSTRUMENT TRADES WORKER [Primary Care Provider] - Jossy Stahl CNP [Advanced Practice Nurse] - 03/18/17 9:00 am <Lance Meyer - Last Filed: 03/19/17 15:43> Date of Encounter: 03/19/17 - Assessment and plan (1) Gastric outlet obstruction Current Visit: Yes Status: Chronic (2) Moderate protein-calorie malnutrition Current Visit: Yes Status: Chronic (3) Anemia Current Visit: Yes Status: Acute Qualifiers: Anemia type: other cause Other causes of anemia: chronic disease, other Qualified Code(s): D63.8 - Anemia in other chronic diseases classified elsewhere (4) Tobacco abuse Current Visit: Yes Status: Chronic - Constitutional Vitals: Temp Pulse Resp BP Pulse Ox 98.5 F 94 18 94/63 96 03/19/17 14:53 03/19/17 14:53 03/19/17 14:53 03/19/17 14:53 03/19/17 14:53 Internal Medicine: Result - Labs CBC & Chem 7: 03/19/17 07:00 03/19/17 05:05 Labs: Short CBC 03/19/17 Range/Units 07:00 WBC 8.8 (4.3-11.1) K/mcL Hgb 9.9 L (12.9-16.9) g/dL Hct 35.3 L (37.5-50.1) % Plt Count 366 (140-400) K/mcL Neutrophils # 5.4 (1.6-8.9) K/mcL BMP 03/19/17 05:05 Sodium 141 Potassium 3.4 L D Chloride 115 H Carbon Dioxide 20 BUN 10 Creatinine 0.53 L Glucose 69 L Calcium 6.7 L D - Attending Attestation I examined this patient and my medical decision-making was reviewed with the Resident Physician on 03/19/17. I agree with the documented findings, disposition and treatment plan as described except to the extent set forth below. Mr Kramer is currently admitted for gastric outlet obstruction and malnutrition. He is to go to OR today. He remains moderate to high risk due to potential for worsening clinical status. He remains on TPN. Mr Kramer did not sleep well last night. No fever or chills. Had some abd pain and nausea. Waiting to go to OR today. Exam Alert. Comfortable Mucus membranes dry Heart reg No wheeze Abd soft I/P 1. Gastric outlet obstruction 2. Smoker Further diagnoses and plan as above.
--- NOTE | 2017-03-19 15:26 | Anesthesia Evaluation PreOp ---
Date of Encounter: 03/19/17 Time of Encounter: 15:24 - Past History Planned Operation: Eploratory Lap, Gastrojejunostomy Cardiac History: Other (Iron Def. Anemia) Pulmonary History: Smoker, Pack/yr (1 ppd) HIDE SPLITTER History: Other (A/D) Other Medical History: GERD, Other (Gastric outlet Obstruction) Anesthesia History: No Prior Anesthetic Complications, Past Anesthesia (partial gastrectomy, EGD) Alcohol Use: none Drug use: none Medications and Allergies Eszopiclone [Lunesta] 2 mg PO HS 02/24/17 [History] FLUoxetine HCl [Prozac] 40 mg PO DAILY 02/24/17 [History] Ondansetron HCl [Zofran] 4 mg PO Q8H PRN 02/24/17 [History] Acetaminophen [Tylenol] 650 mg PO Q6HR PRN tablet 03/01/17 [Rx] Esomeprazole Magnesium [Nexium] 40 mg PO BID #60 capsule.dr 03/01/17 [Rx] Ferrous Sulfate [Iron] 325 mg PO BID #60 capsule.er 03/01/17 [Rx] Sucralfate [Carafate] 1 gm PO QIDAC #120 tablet 03/01/17 [Rx] BuPROPion XL (24 HR) [Wellbutrin Xl] 450 mg PO DAILY 03/14/17 [History] LORazepam [Ativan] 0.5 mg PO TID 03/14/17 [History] Sertraline [Zoloft] 150 mg PO DAILY 03/14/17 [History] Tamsulosin [Flomax] 0.4 mg PO DAILY 03/14/17 [History] 3 Allergy/AdvReac Type Severity Reaction Status Date / Time NSAIDS (Non-Steroidal Allergy Severe See Verified 03/14/17 00:53 Anti-Inflamma Comments Hydromorphone [From Dilaudid] Allergy Rash Verified 03/14/17 00:53 - Meds/Allergy Pre-op Review Medications Reviewed: Yes Allergies Reviewed: Yes Beta Blockers on Current Med List: No Anesthesia Results - Labs 03/19/17 07:00 03/19/17 05:05 - Imaging EKG: report reviewed (SR) Anesthesia Exam O2 Sat Weight 58.06 kg O2 Sat by Pulse Oximetry 96 O2 Sat by Pulse Oximetry 97 O2 Sat by Pulse Oximetry 98 O2 Sat by Pulse Oximetry 97 O2 Sat by Pulse Oximetry 96 O2 Sat by Pulse Oximetry 97 Vital Signs Temp Pulse Resp BP Pulse Ox 98.2 F 99 14 127/71 97 03/14/17 00:53 03/14/17 00:53 03/14/17 00:53 03/14/17 00:53 03/14/17 00:53 Vital Signs/O2 Sat, Most Current Temp Pulse Resp BP Pulse Ox 98.5 F 94 18 94/63 96 03/19/17 14:53 03/19/17 14:53 03/19/17 14:53 03/19/17 14:53 03/19/17 14:53 Height: 5'9'' Weight: 128# NPO (# of Hours): > 8 hrs Pain Scale: 0 Pain Scale Used: Numeric (1 - 10) - HEENT Pupil (Motor): Pupils equal, EOMI Mallampati: II Teeth: Normal Oral Opening: Greater than 3 - HIDE SPLITTER LOC: Oriented HIDE SPLITTER Motor: Normal RUE, Normal LUE, Normal RLE, Normal LLE, Normal Face HIDE SPLITTER Sensory: Normal: RUE, LUE, RLE, LLE, Face - Cardiac Rhythm: Regular Murmur: None JVD: No Carotid Bruit: No - Pulmonary Breath Sounds: bilateral Clear Respiratory Effort: Symmetrical Anesthesia Assess/Plan ASA Score: 2 Modified Esther Scale for Level of Consciousness: Cooperative, oriented, and tranquil Anesthetic Plan: General Autologous Blood: Yes Monitoring Plan: Standard Monitors Recovery Plan: PACU
[2017-03-19] MEDS ORDERED: Ketorolac 30 MG/ML VIAL ONE (15:36)
[2017-03-19] MEDS ORDERED: Ondansetron 4 MG/2 ML VIAL ONE (15:36)
[2017-03-19] MEDS ORDERED: *HR* Midazolam HCl 2 MG/2 ML VIAL ONE (15:36)
[2017-03-19] MEDS ORDERED: *HR* Rocuronium Bromide 50 MG/5 ML VIAL ONE ×2 (15:36→17:47)
[2017-03-19] MEDS ORDERED: Dexamethasone 4 MG/ML VIAL ONE (15:36)
[2017-03-19] MEDS ORDERED: *HR* Propofol 200 MG/20 ML VIAL IVP ONE (15:36)
[2017-03-19] MEDS ORDERED: *HR* FentaNYL (PF) 100 MCG/2 ML VIAL ONE (15:36)
[2017-03-19] MEDS ORDERED: Lidocaine -MPF 2% 2 ML VIAL ONE (15:36)
[2017-03-19] MEDS ORDERED: Albumin Human 5% 25.0 GM/500 ML VIAL ONE (16:03)
[2017-03-19] MEDS ORDERED: CefOXitin 2,000 MG VIAL ONE (16:50)
[2017-03-19] MEDS ORDERED: Clinimix E 5%-15% SOLUTION 2,000 ML with MVI, adult with vitamin K 10 ML IVC SCH ×2 (17:00→20:01)
[2017-03-19] MEDS ORDERED: Neostigmine Methylsulfate 3 MG/3 ML SYRINGE ONE (17:47)
[2017-03-19] MEDS ORDERED: *HR* Morphine 10 MG/ML VIAL ONE ×2 (18:01→19:12)
[2017-03-19] MEDS ORDERED: Albuterol 2.5 MG/3 ML NEBULIZER IH PRN (18:04)
--- NOTE | 2017-03-19 18:13 | Operative Note ---
Date of procedure: 03/19/17 Pre-op diagnosis: Bilroth 1 anastomosis stricture, gastric outlet obstruction Post-op diagnosis: same Procedure: Exploratory laparotomy, rectrocolic retrogastric gastrojejunostomy Complications: none immediate Anesthesia: JACKIE Surgeon: Shayla Cheema [employer] Draw[employer] Curator Other: Elian Chang Estimated blood loss (cc): 10 Specimen: none Condition: stable Disposition: PACU Procedure in Detail: Patient previously had a hemigastrectomy with the Billroth 1 anastomosis and a truncal vagotomy for gastric outlet obstruction due to a pyloric stricture. Patient was brought to the operating suite and placed supine on the operating table. Sign in was performed and everyone was in agreement. Anesthesia was induced and patient was endotracheally intubated by anesthesia without incident. An NG tube was placed by anesthesia. The abdomen was prepped and draped in the usual sterile fashion. Timeout was performed and again everyone was in agreement. An incision through the skin and subcutaneous tissue in the upper midline was made with a 15 blade. We dissected through the subcutaneous tissue to the linea alba fascia with the Bovie. Albany's were placed on either side of the fascia for retraction we entered the abdomen with the Bovie. The fascial incision was elongated proximally and distally. A Bookwalter was placed for retraction and exposure. The omentum was adherent to the anterior abdominal wall and this was taken down with Metzenbaum scissors and the Bovie. Omentum was adhesed to the stomach which is taken down with Metzenbaum scissors. The lesser sac was entered through the greater omentum with the Bovie. The posterior aspect of the stomach adhesions were taken down off the pancreas with Metzenbaum scissors. An opening in the transverse colon mesentery to the left of the middle colic vessels was made with the Bovie. The proximal jejunum loop was brought through this opening in the transverse colon mesentery. The small bowel was aligned in a transverse orientation with the distal small bowel aligning with the distal stomach. The NG tube was pulled backwards by anesthesia ensuring it was not in the way of the anastomosis. An opening in the posterior stomach was made with the Bovie and the large end of a linear JASPER-75 stapler blue load was inserted. An opening in the proximal small bowel Intermedic side was made with the Bovie and the small and of the linear JASPER-75 stapler blue load was inserted and gastrojejunostomy anastomosis was created. 3-0 silk stitches interrupted were used to align the common channel. The common channel between the stomach and the small bowel was closed with a TL 60 stapler blue load. This staple line was reinforced with 3-0 silk figure-of- eight stitches. 2 3-0 silk crotch stitches were placed between the stomach and the distal small bowel just past the anastomosis. The opening in the mesentery was closed with a 3-0 silk running stitch tacking it to the posterior stomach just above the anastomosis. The NG tube was advanced and the tip was felt in the stomach just proximal to the gastrojejunostomy anastomosis and was secured in place by anesthesia. The abdomen was copiously irrigated with sterile saline. Albany's were placed on either side of the fascia for retraction. One piece of Seprafilm was placed in the abdominal cavity beneath the abdominal wound. The midline fascia was closed with 2 separate #1 non-looped running PDS stitches meeting in the middle. The wound was irrigated with sterile saline. 3 -0 Vicryl interrupted stitches were used to approximate the subcutaneous tissue. The skin was closed with madison. 4 x 4 gauze and Medipore tape were applied as dressing. All lap and instrument counts were correct at the end of the case. Patient was awoken by anesthesia and the operating suite and extubated without incident. The NG tube remained with the patient. Patient was taken to PACU in stable condition.
[2017-03-19] MEDS: *HR* Morphine 2 MG/ML SYRINGE IVP PRN ×6 (18:20→21:15)
[2017-03-19] MEDS: *HR* Promethazine 25 MG/ML VIAL IVP PRN ×2 (18:43→18:53)
[2017-03-19] MEDS ORDERED: Acetaminophen IV 1,000 MG/100 ML INFUS..BTL IVPB ONE (18:56)
[2017-03-19] MEDS ORDERED: *HR* Morphine 2 MG/ML SYRINGE IVP PRN ×2 (18:57→20:01)
--- NOTE | 2017-03-19 19:38 | Anesthesia Evaluation Post Op ---
Date of Encounter: 03/19/17 Time of Encounter: 19:35 - Vital Signs Vital Signs: vss - Lungs Lungs: Clear Ascult./Percussion - Airway Airway: Non-obstructed - Cardiovascular Regular Rate - Mental Status Mental Status: Alert & Oriented, Answers Appropriately - Pain Pain Scale: 10 (pt is sleeping with HR 79) Pain Scale used: Numeric (1 - 10) - Nausea Vomiting Nausea Vomiting: Not Present - Hydration Hydration: NPO - Discharge PostOp Status: Transfer Patient to floor
[2017-03-19] MEDS ORDERED: D10% in Water 500 ML IVC PRN (20:01)
[2017-03-19] MEDS ORDERED: Chloraseptic Spray 177 ML BOTTLE MM PRN (20:01)
[2017-03-19] MEDS ORDERED: Naloxone 0.4 MG/ML INJ IVP PRN (20:01)
[2017-03-19] MEDS: 0.9 % Sodium Chloride 500 ML IVC SCH (20:58)
[2017-03-20] MEDS ORDERED: Acetaminophen IV 1,000 MG/100 ML INFUS..BTL IVPB SCH
[2017-03-20] MEDS: Ondansetron 4 MG/2 ML VIAL IVP PRN ×2 (00:09→06:38)
[2017-03-20] MEDS: *HR* Morphine 2 MG/ML SYRINGE IVP PRN ×10 (00:10→23:42)
[2017-03-20] MEDS: Acetaminophen IV 1,000 MG/100 ML INFUS..BTL IVPB SCH ×4 (00:30→23:42)
[2017-03-20] MEDS: *HR* Promethazine 25 MG/ML VIAL IVP PRN ×3 (03:37→21:15)
[2017-03-20] MEDS: Pantoprazole 40 MG VIAL IVP SCH ×2 (05:01→18:09)
[2017-03-20 05:29] LABS: BUN/Creatinine Ratio 23 (6-26); Blood Urea Nitrogen 17 mg/dL (8-26); Carbon Dioxide 28 mEq/L (19-29); Chloride 104 mEq/L (98-109); Glucose 122 mg/dL (70-99); Magnesium 1.7 mg/dL (1.6-2.6); Osmolality,Calculated 289 (280-300); Phosphorous 3.8 mg/dL (2.3-4.7); Sodium 138 mEq/L (136-145); eGFR For African Americans > 60 (> 60); eGFR For Non-African Americans > 60 (> 60)
[2017-03-20 05:31] LABS: Basophils % 0.1 %; Mean Corpuscular Hemoglobin 22.1 pg (28.0-33.3)
[2017-03-20 05:32] LABS: Hemoglobin 10.1 g/dL (12.9-16.9); Immature Granulocytes % 0.5 % (0-4); Lymphocytes # 0.6 K/mcL (0.6-4.6); Lymphocytes % 4.5 %; Mean Corpuscular HGB Conc 28.9 g/dL (31.6-35.5); Mean Corpuscular Volume 76.4 fL (83.0-100.0); Mean Platelet Volume 10.9 fL (9.4-12.4); Monocytes # 0.9 K/mcL (0.0-1.3); Neutrophils # 11.5 K/mcL (1.6-8.9); Platelet Count 376 K/mcL (140-400); Potassium 4.9 mEq/L (3.5-4.5); Red Blood Count 4.58 M/mcL (4.19-5.50); Red Cell Distribution Width 22.9 % (11.5-14.5); Segmented Neutrophils % 87.9 %
[2017-03-20 05:33] LABS: Calcium 9.8 mg/dL (8.6-10.8)
[2017-03-20 05:55] LABS: Platelet Estimate Normal (Normal)
[2017-03-20 05:57] LABS: Anisocytosis 2+ (Not Present); Poikilocytosis 1+ (Not Present)
[2017-03-20] MEDS ORDERED: Nicotine 7 MG PATCH.TD24 TD SCH (09:00)
--- NOTE | 2017-03-20 10:56 | General Surgery Progress Note ---
<RashidDemarcus hawkins - Last Filed: 03/20/17 11:26> Date of Encounter: 03/20/17 Time of Encounter: 10:35 - Assessment and Plan (1) Gastric outlet obstruction Current Visit: Yes Status: Chronic - Gastric outlet obstruction with recurrent symptoms in the setting of previous Billroth I gastrectomy in 2014 with subsequent balloon dilation for stenosis in February. - S/p EGD with pyloric balloon dilation on 03/15/17 - s/p exploratory lap with retrocolic rerogastric gastrojejunstomy 03/19/17 - NPO diet and await return of bowel function. - Otherwise stable. Continue supportive measures. - IS q1 hr - TPN at 83.3/ hr (2) Nausea & vomiting Current Visit: Yes Status: Resolved - Likely secondary to gastric outlet obstruction as above. Qualifiers: Vomiting type: unspecified Vomiting Intractability: non-intractable Qualified Code(s): R11.2 - Nausea with vomiting, unspecified Subjective Patient reports: no new complaints, still having pain, pain is less, voiding w/ o difficulty, no flatus, no bowel movement Narrative: Pt was seen and examined at bedside this morning. He states that he tolerated the surgery well but is quite sore diffusely in his abdomen. He denies any symptoms of nausea, vomiting, flatus. No fevers or chills. All questions were answered. Objective Vital Signs - Last 8 Hours Temp Pulse Resp BP Pulse Ox 03/20/17 08:28 98.2 F 81 12 107/69 95 03/20/17 04:17 97.9 F 91 18 116/77 94 Intake and Output 03/19/17 03/20/17 03/20/17 23:59 07:59 15:59 Intake Total 100 / 100 1104 / 1104 350 / 350 Output Total 710 / 710 200 / 200 800 / 800 Balance -610 / -610 904 / 904 -450 / -450 Intake: IV Fluids 100 / 100 1104 / 1104 350 / 350 0.9 % Sodium Chloride 500 ML @ 215 / 215 20 mls/hr IVC .Q24H [facility] Rx#: [id number] Clinimix E 5%-15% SOLUTION 2, 789 / 789 000 ML @ 83.3 mls/hr IVC .Q24H [facility] with M.v.i. Adult 10 ml Rx# :[id number] Ofirmev 1,000 mg/100 ml 1,000 100 / 100 100 / 100 mg In 100 ml @ 400 mls/hr IVPB Q8HR [facility] Rx#:[id number] Intralipid 20% 250 ML @ 21 mls/ 250 / 250 hr IVPB DAILY@1700 [facility] Rx#: [id number] Oral 0 / 0 Output: Urine 700 / 700 200 / 200 800 / 800 Gastric Tube Lavage Amount 0 / 0 Left Nare 0 / 0 Estimated Blood Loss Other: Meal NPO Percent of Meal Consumed 0% Blood Glucose* 100 - General physical appearance well developed, well nourished, no distress - Respiratory normal expansion, normal respiratory effort, clear to auscultation - Cardiovascular Cardiovascular exam: Present: RRR, no murmurs/rubs/gallops - Abdomen Abdomen: Present: soft, tender. Absent: bowel sounds present Abdominal Tenderness: diffusely - Incision Incision: Present: clean and dry, intact, approximated - Labs 03/20/17 04:45 03/20/17 04:45 Diabetes panel 03/20/17 Range/Units 04:45 Sodium 138 (136-145) mEq/L Potassium 4.9 H D (3.5-4.5) mEq/L Chloride 104 (98-109) mEq/L Carbon Dioxide 28 (19-29) mEq/L BUN 17 (8-26) mg/dL Creatinine 0.73 (0.72-1.25) mg/dL Glucose 122 H (70-99) mg/dL Calcium 9.8 D (8.6-10.8) mg/dL Calcium panel 03/20/17 Range/Units 04:45 Calcium 9.8 D (8.6-10.8) mg/dL Phosphorus 3.8 (2.3-4.7) mg/dL Pituitary panel 03/20/17 Range/Units 04:45 Sodium 138 (136-145) mEq/L Potassium 4.9 H D (3.5-4.5) mEq/L Chloride 104 (98-109) mEq/L Carbon Dioxide 28 (19-29) mEq/L BUN 17 (8-26) mg/dL Creatinine 0.73 (0.72-1.25) mg/dL Glucose 122 H (70-99) mg/dL Calcium 9.8 D (8.6-10.8) mg/dL Adrenal panel 03/20/17 Range/Units 04:45 Sodium 138 (136-145) mEq/L Potassium 4.9 H D (3.5-4.5) mEq/L Chloride 104 (98-109) mEq/L Carbon Dioxide 28 (19-29) mEq/L BUN 17 (8-26) mg/dL Creatinine 0.73 (0.72-1.25) mg/dL Glucose 122 H (70-99) mg/dL Calcium 9.8 D (8.6-10.8) mg/dL - VTE Documentation of Mechanical Device: Intermittent pneumatic compression device Consult Discharge Plan - Plan Referrals: [facility] [Provider Group] Yudelka Grier CNP [Primary Care Provider] - 03/24/17 11:00 am Jossy Stahl CNP [Advanced Practice Nurse] - <Ibrahima Haynes E - Last Filed: 03/20/17 14:35> Date of Encounter: 03/20/17 - Assessment and Plan (1) Gastric outlet obstruction Current Visit: Yes Status: Chronic Patient was seen and examined. He seems to have reasonable pain control. There is minimal output from his nasogastric tube. Plan is for nothing by mouth and IV fluids for the next 48 hours. Then he will undergo upper GI for evaluation the gastro-jejunostomy anastomosis. If it is normal then he may have liquids early next week. Objective Vital Signs - Last 8 Hours Temp Pulse Resp BP Pulse Ox 03/20/17 12:13 98.6 F 91 16 109/68 95 03/20/17 08:28 98.2 F 81 12 107/69 95 Intake and Output 03/19/17 03/20/17 03/20/17 23:59 07:59 15:59 Intake Total 100 / 100 1104 / 1104 730 / 730 Output Total 710 / 710 200 / 200 1450 / 1450 Balance -610 / -610 904 / 904 -720 / -720 Intake: IV Fluids 100 / 100 1104 / 1104 730 / 730 0.9 % Sodium Chloride 500 ML @ 215 / 215 68 / 68 20 mls/hr IVC .Q24H [facility] Rx#: [id number] Clinimix E 5%-15% SOLUTION 2, 789 / 789 312 / 312 000 ML @ 83.3 mls/hr IVC .Q24H [facility] with M.v.i. Adult 10 ml Rx# :[id number] Ofirmev 1,000 mg/100 ml 1,000 100 / 100 100 / 100 mg In 100 ml @ 400 mls/hr IVPB Q8HR [facility] Rx#:[id number] Intralipid 20% 250 ML @ 21 mls/ 250 / 250 hr IVPB DAILY@1700 [facility] Rx#: [id number] Oral 0 / 0 Output: Urine 700 / 700 200 / 200 1450 / 1450 Gastric Tube Lavage Amount 0 / 0 Left Nare 0 / 0 Estimated Blood Loss Other: Meal NPO Percent of Meal Consumed 0% Blood Glucose* 100 119 - Labs 03/20/17 04:45 03/20/17 04:45 Diabetes panel 03/20/17 Range/Units 04:45 Sodium 138 (136-145) mEq/L Potassium 4.9 H D (3.5-4.5) mEq/L Chloride 104 (98-109) mEq/L Carbon Dioxide 28 (19-29) mEq/L BUN 17 (8-26) mg/dL Creatinine 0.73 (0.72-1.25) mg/dL Glucose 122 H (70-99) mg/dL Calcium 9.8 D (8.6-10.8) mg/dL Calcium panel 03/20/17 Range/Units 04:45 Calcium 9.8 D (8.6-10.8) mg/dL Phosphorus 3.8 (2.3-4.7) mg/dL Pituitary panel 03/20/17 Range/Units 04:45 Sodium 138 (136-145) mEq/L Potassium 4.9 H D (3.5-4.5) mEq/L Chloride 104 (98-109) mEq/L Carbon Dioxide 28 (19-29) mEq/L BUN 17 (8-26) mg/dL Creatinine 0.73 (0.72-1.25) mg/dL Glucose 122 H (70-99) mg/dL Calcium 9.8 D (8.6-10.8) mg/dL Adrenal panel 03/20/17 Range/Units 04:45 Sodium 138 (136-145) mEq/L Potassium 4.9 H D (3.5-4.5) mEq/L Chloride 104 (98-109) mEq/L Carbon Dioxide 28 (19-29) mEq/L BUN 17 (8-26) mg/dL Creatinine 0.73 (0.72-1.25) mg/dL Glucose 122 H (70-99) mg/dL Calcium 9.8 D (8.6-10.8) mg/dL
[2017-03-20] MEDS: Nicotine 21 MG PATCH.TD24 TD SCH (11:44)
--- NOTE | 2017-03-20 11:44 | Internal Med Progress Note ---
<David Alvarado Kyrie - Last Filed: 03/20/17 12:59> Date of Encounter: 03/20/17 Time of Encounter: 11:44 - Assessment and plan (1) Gastric outlet obstruction Current Visit: Yes Status: Chronic Assessment and plan: Gastric outlet obstruction with recurrent symptoms in the setting of previous Billroth I gastrectomy in 2014 with subsequent balloon dilation for stenosis in February. - S/p EGD with pyloric balloon dilation on 03/15/17 - s/p exploratory lap with retrocolic rerogastric gastrojejunstomy 03/19/17 Plan: NPO diet NG tube in place on suction with small amount of output - Continue TPN - Monitor bowel sounds with post op illius (2) Iron deficiency anemia Current Visit: Yes Status: Acute Assessment and plan: Hemoglobin is 10. Patient takes iron supplementation at home. - B12 836, Folate >40 Plan: Continue to monitor. Transfuse if less than 8. Qualifiers: Iron deficiency anemia type: inadequate dietary iron intake Qualified Code( s): D50.8 - Other iron deficiency anemias (3) Moderate protein-calorie malnutrition Current Visit: Yes Status: Chronic Assessment and plan: Currently on TPN. (4) DVT prophylaxis Current Visit: No Status: Acute Assessment and plan: SCDs - Subjective Interval history: Mr. Kramer was seen and evaluated at bedside. He is post op with NG tube in place and doing well. He says his pain is managed. He denies N/V/D/C or passing gas. He asked about his electrolytes which we discussed in length. He did not have any further questions. - Constitutional Vitals: Temp Pulse Resp BP Pulse Ox 98.2 F 81 12 107/69 95 03/20/17 08:28 03/20/17 08:28 03/20/17 08:28 03/20/17 08:28 03/20/17 08:28 General appearance: Present: cooperative, A&O X 3, pleasant, no acute distress, underweight, answers questions appropriately - Head Head exam: Present: atraumatic, normocephalic - Eye Eye exam: Present: PERRL, conjuntiva pink, sclera anicteric Pupils: Present: PERRL - ENT ENT exam: Present: mucous membranes moist Additional comments: NG tube in place - Neck Neck exam general surgery: Present: supple, trachea midline. Absent: lymphadenopathy - Cardiovascular Cardiovascular exam: Present: RRR, +S1, +S2. Absent: diastolic murmur, gallop, rubs, systolic murmur - GI/Abdominal GI/Abdominal exam: Present: normal bowel sounds, soft, no peritoneal signs. Absent: distended, tenderness - Extremities Exam Extremities exam: Present: warm, radial pulses palpable and symmetrical. Absent : calf tenderness, cyanotic, pedal edema - Neurological Exam Neurological exam: Present: alert, oriented X3, no focal deficits. Absent: pronater drift, facial droop, speech deficit Internal Medicine: Result - Labs CBC & Chem 7: 03/20/17 04:45 03/20/17 04:45 Labs: Short CBC 03/20/17 Range/Units 04:45 WBC 13.1 H (4.3-11.1) K/mcL Hgb 10.1 L (12.9-16.9) g/dL Hct 35.0 L (37.5-50.1) % Plt Count 376 (140-400) K/mcL Neutrophils # 11.5 H (1.6-8.9) K/mcL BMP 03/20/17 04:45 Sodium 138 Potassium 4.9 H D Chloride 104 Carbon Dioxide 28 BUN 17 Creatinine 0.73 Glucose 122 H Calcium 9.8 D - VTE Documentation of Mechanical Device: Intermittent pneumatic compression device Consult Discharge Plan - Plan Referrals: [facility] [place] [Provider Group] Yudelka Grier BRUSH MACHINE SETTER [Primary Care Provider] - 03/24/17 11:00 am Jossy Stahl CNP [Advanced Practice Nurse] - <Lance Meyer - Last Filed: 03/20/17 16:52> Date of Encounter: 03/20/17 - Assessment and plan (1) Gastric outlet obstruction Current Visit: Yes Status: Chronic (2) Moderate protein-calorie malnutrition Current Visit: Yes Status: Chronic (3) Anemia Current Visit: Yes Status: Chronic Qualifiers: Anemia type: other cause Other causes of anemia: chronic disease, other Qualified Code(s): D63.8 - Anemia in other chronic diseases classified elsewhere (4) Tobacco abuse Current Visit: Yes Status: Chronic - Constitutional Vitals: Temp Pulse Resp BP Pulse Ox 98.3 F 91 12 106/71 95 03/20/17 15:56 03/20/17 15:56 03/20/17 15:56 03/20/17 15:56 03/20/17 15:56 Internal Medicine: Result - Labs CBC & Chem 7: 03/20/17 04:45 03/20/17 04:45 Labs: Short CBC 03/20/17 Range/Units 04:45 WBC 13.1 H (4.3-11.1) K/mcL Hgb 10.1 L (12.9-16.9) g/dL Hct 35.0 L (37.5-50.1) % Plt Count 376 (140-400) K/mcL Neutrophils # 11.5 H (1.6-8.9) K/mcL BMP 03/20/17 04:45 Sodium 138 Potassium 4.9 H D Chloride 104 Carbon Dioxide 28 BUN 17 Creatinine 0.73 Glucose 122 H Calcium 9.8 D - Attending Attestation I examined this patient and my medical decision-making was reviewed with the Resident Physician on 03/20/17. I agree with the documented findings, disposition and treatment plan as described except to the extent set forth below. Mr Kramer is currently admitted for gastric outet obstruction. He is s/p laparotomy yesterday. He remains moderate to high risk due to potential for worsening clinical status. Mr Kramer is moving in room. Pain OK at this point. Exam Alert. Comfortable Mucus membranes dry Not tachy Lungs clear NG in place I/P 1. Gastric outlet obstruction s/p laparotomy Further diagnoses and plan as above.
[2017-03-20] MEDS: Clinimix E 5%-15% SOLUTION 2,000 ML with MVI, adult with vitamin K 10 ML IVC SCH (16:20)
[2017-03-20] MEDS ORDERED: Clinimix E 5%-15% SOLUTION 2,000 ML with MVI, adult with vitamin K 10 ML IVC SCH (17:00)
[2017-03-20] MEDS: *HR* LORazepam 0.5 MG TABLET PO PRN (21:14)
[2017-03-20] MEDS: 0.9 % Sodium Chloride 500 ML IVC SCH (23:42)
[2017-03-21] MEDS: *HR* Morphine 2 MG/ML SYRINGE IVP PRN ×9 (03:12→21:13)
[2017-03-21 04:01] LABS: Hemoglobin 9.4 g/dL (12.9-16.9)
[2017-03-21 04:02] LABS: Basophils % 0.5 %; Eosinophils % 4.2 %; Hematocrit 32.5 % (37.5-50.1); Immature Granulocytes % 0.4 % (0-4); Lymphocytes % 21.2 %; Mean Corpuscular HGB Conc 28.9 g/dL (31.6-35.5); Mean Corpuscular Hemoglobin 22.3 pg (28.0-33.3); Mean Corpuscular Volume 77.2 fL (83.0-100.0); Mean Platelet Volume 10.9 fL (9.4-12.4); Platelet Count 308 K/mcL (140-400); Red Blood Count 4.21 M/mcL (4.19-5.50); Red Cell Distribution Width 23.3 % (11.5-14.5); Segmented Neutrophils % 61.7 %
[2017-03-21 04:03] LABS: Basophils # 0.1 K/mcL (0.0-0.2); Eosinophils # 0.4 K/mcL (0.0-0.6); Lymphocytes # 2.1 K/mcL (0.6-4.6); Monocytes # 1.2 K/mcL (0.0-1.3); Neutrophils # 6.2 K/mcL (1.6-8.9)
[2017-03-21 04:12] LABS: BUN/Creatinine Ratio 24 (6-26); Blood Urea Nitrogen 17 mg/dL (8-26); Calcium 9.3 mg/dL (8.6-10.8); Carbon Dioxide 30 mEq/L (19-29); Chloride 103 mEq/L (98-109); Glucose 86 mg/dL (70-99); Magnesium 1.8 mg/dL (1.6-2.6); Osmolality,Calculated 291 (280-300); Phosphorous 4.8 mg/dL (2.3-4.7); Potassium 4.3 mEq/L (3.5-4.5); Sodium 140 mEq/L (136-145); eGFR For African Americans > 60 (> 60); eGFR For Non-African Americans > 60 (> 60)
[2017-03-21 05:06] LABS: Anisocytosis 2+ (Not Present); Hypochromasia Present (Not Present)
[2017-03-21 05:07] LABS: Platelet Estimate Normal (Normal)
--- NOTE | 2017-03-21 05:37 | General Surgery Progress Note ---
Date of Encounter: 03/21/17 Time of Encounter: 05:35 - Assessment and Plan (1) Gastric outlet obstruction Current Visit: Yes Status: Chronic Patient was seen and examined. There is minimal output from his nasogastric tube. Plan is for nothing by mouth and IV fluids for the next 48 hours. Then he will undergo upper GI for evaluation the gastro-jejunostomy anastomosis tomorrow. We will add IV acetaminophen to augment pain control. The patient has had multiple gastric ulcers, therefore Toradol was not an option. Subjective Patient reports: other (Patient's experiencing more abdominal pain at his incisional site. States that his abdominal wall and not deep down. He denies any new nausea.) Objective Vital Signs - Last 8 Hours Temp Pulse Resp BP Pulse Ox 03/21/17 04:35 97.5 F L 89 16 104/68 94 03/20/17 23:41 98.5 F 88 16 115/71 96 Intake and Output 03/20/17 03/20/17 03/21/17 15:59 23:59 07:59 Intake Total 980 / 980 692 / 692 100 / 100 Output Total 1800 / 1800 900 / 900 400 / 400 Balance -820 / -820 -208 / -208 -300 / -300 Intake: IV Fluids 980 / 980 692 / 692 100 / 100 0.9 % Sodium Chloride 500 ML @ 68 / 68 217 / 217 20 mls/hr IVC .Q24H [facility] Rx#: [id number] Clinimix E 5%-15% SOLUTION 2, 312 / 312 375 / 375 000 ML @ 83.3 mls/hr IVC .Q24H [facility] with M.v.i. Adult 10 ml Rx# :[id number] Ofirmev 1,000 mg/100 ml 1,000 100 / 100 100 / 100 100 / 100 mg In 100 ml @ 400 mls/hr IVPB Q8HR [facility] Rx#:[id number] Intralipid 20% 250 ML @ 21 mls/ 250 / 250 hr IVPB DAILY@1700 [facility] Rx#: [id number] Oral 0 / 0 Output: Urine 1800 / 1800 900 / 900 400 / 400 Gastric Tube Lavage Amount 0 / 0 Left Nare 0 / 0 Other: Meal NPO Percent of Meal Consumed 0% Weight 58.6 kg Blood Glucose* 121 120 113 Patient Weight 03/21/17 23:59 Weight 58.6 kg - General physical appearance moderate pain - Eyes PERRL - ENT normal mucosa - Respiratory normal respiratory effort - Cardiovascular Cardiovascular exam: Present: RRR - Abdomen Abdomen: Present: soft, tender - Neurologic CN 2-12 grossly intact - Labs 03/21/17 03:45 03/21/17 03:45 Diabetes panel 03/21/17 Range/Units 03:45 Sodium 140 (136-145) mEq/L Potassium 4.3 (3.5-4.5) mEq/L Chloride 103 (98-109) mEq/L Carbon Dioxide 30 H (19-29) mEq/L BUN 17 (8-26) mg/dL Creatinine 0.72 (0.72-1.25) mg/dL Glucose 86 (70-99) mg/dL Calcium 9.3 (8.6-10.8) mg/dL Calcium panel 03/21/17 Range/Units 03:45 Calcium 9.3 (8.6-10.8) mg/dL Phosphorus 4.8 H (2.3-4.7) mg/dL Pituitary panel 03/21/17 Range/Units 03:45 Sodium 140 (136-145) mEq/L Potassium 4.3 (3.5-4.5) mEq/L Chloride 103 (98-109) mEq/L Carbon Dioxide 30 H (19-29) mEq/L BUN 17 (8-26) mg/dL Creatinine 0.72 (0.72-1.25) mg/dL Glucose 86 (70-99) mg/dL Calcium 9.3 (8.6-10.8) mg/dL Adrenal panel 03/21/17 Range/Units 03:45 Sodium 140 (136-145) mEq/L Potassium 4.3 (3.5-4.5) mEq/L Chloride 103 (98-109) mEq/L Carbon Dioxide 30 H (19-29) mEq/L BUN 17 (8-26) mg/dL Creatinine 0.72 (0.72-1.25) mg/dL Glucose 86 (70-99) mg/dL Calcium 9.3 (8.6-10.8) mg/dL - VTE Documentation of Mechanical Device: Intermittent pneumatic compression device Consult Discharge Plan - Plan Referrals: [facility] [Provider Group] Yudelka Grier, MARY [Primary Care Provider] - 03/24/17 11:00 am Jossy Stahl CNP [Advanced Practice Nurse] -
[2017-03-21] MEDS: Acetaminophen IV 1,000 MG/100 ML INFUS..BTL IVPB SCH ×3 (06:11→18:03)
[2017-03-21] MEDS: Pantoprazole 40 MG VIAL IVP SCH ×2 (06:11→18:03)
--- NOTE | 2017-03-21 07:54 | Event Note ---
Date of Encounter: 03/21/17 Time of Encounter: 07:46 Pt has no acute medical issues. He is post op and managed by surgical service. Transfer care to surgery. We will sign off. Please call us if needed for anything in the future.
[2017-03-21] MEDS: Nicotine 21 MG PATCH.TD24 TD SCH (08:06)
[2017-03-21] MEDS: *HR* Promethazine 25 MG/ML VIAL IVP PRN ×2 (08:07→16:07)
--- NOTE | 2017-03-21 10:22 | General Surgery Progress Note ---
Date of Encounter: 03/21/17 Time of Encounter: 08:45 - Assessment and Plan (1) Gastric outlet obstruction Current Visit: Yes Status: Chronic - Gastric outlet obstruction with recurrent symptoms in the setting of previous Billroth I gastrectomy in 2014 with subsequent balloon dilation for stenosis in February. - S/p EGD with pyloric balloon dilation on 03/15/17 - s/p exploratory lap with retrocolic rerogastric gastrojejunstomy 03/19/17 - NPO diet and await return of bowel function. - Otherwise stable. Continue supportive measures. - IS q1 hr - TPN at 83.3/ hr (2) Nausea & vomiting Current Visit: Yes Status: Resolved - Likely secondary to gastric outlet obstruction as above. Qualifiers: Vomiting type: unspecified Vomiting Intractability: non-intractable Qualified Code(s): R11.2 - Nausea with vomiting, unspecified Subjective Patient reports: no new complaints, still having pain, voiding w/o difficulty, flatus, no bowel movement Narrative: Patient was seen and examined at bedside this morning. He states that he is feeling sore today but otherwise has no complaints. No complaints of nausea, vomiting. Pain is manageable with medication. States he is having a small amount of flatus but no bowel movements at this time Objective Vital Signs - Last 8 Hours Temp Pulse Resp BP Pulse Ox 03/21/17 09:15 98.8 F 92 16 100/66 94 03/21/17 04:35 97.5 F L 89 16 104/68 94 Intake and Output 03/20/17 03/21/17 03/21/17 23:59 07:59 15:59 Intake Total 692 / 692 450 / 450 1421 / 1421 Output Total 900 / 900 400 / 400 750 / 750 Balance -208 / -208 50 / 50 671 / 671 Intake: IV Fluids 692 / 692 450 / 450 1421 / 1421 0.9 % Sodium Chloride 500 ML @ 217 / 217 167 / 167 20 mls/hr IVC .Q24H [facility] Rx#: [id number] Clinimix E 5%-15% SOLUTION 2, 375 / 375 1254 / 1254 000 ML @ 83.3 mls/hr IVC .Q24H [facility] with M.v.i. Adult 10 ml Rx# :[id number] Ofirmev 1,000 mg/100 ml 1,000 100 / 100 200 / 200 mg In 100 ml @ 400 mls/hr IVPB Q6H [facility] Rx#:[id number] Intralipid 20% 250 ML @ 21 mls/ 250 / 250 hr IVPB DAILY@1700 [facility] Rx#: [id number] Oral 0 / 0 0 / 0 Output: Urine 900 / 900 400 / 400 750 / 750 Gastric Tube Lavage Amount 0 / 0 Right Nare 0 / 0 Gastric Drainage 0 / 0 Other: Weight 58.6 kg Blood Glucose* 120 113 Patient Weight 03/21/17 23:59 Weight 58.6 kg - General physical appearance well developed, well nourished, no distress, moderate pain - Respiratory normal expansion, normal respiratory effort, clear to auscultation - Cardiovascular Cardiovascular exam: Present: RRR, no murmurs/rubs/gallops - Abdomen Abdomen: Present: bowel sounds present, soft, tender Abdominal Tenderness: epigastic, diffusely - Incision Incision: Present: clean and dry, intact - Labs 03/21/17 03:45 03/21/17 03:45 Diabetes panel 03/21/17 Range/Units 03:45 Sodium 140 (136-145) mEq/L Potassium 4.3 (3.5-4.5) mEq/L Chloride 103 (98-109) mEq/L Carbon Dioxide 30 H (19-29) mEq/L BUN 17 (8-26) mg/dL Creatinine 0.72 (0.72-1.25) mg/dL Glucose 86 (70-99) mg/dL Calcium 9.3 (8.6-10.8) mg/dL Calcium panel 03/21/17 Range/Units 03:45 Calcium 9.3 (8.6-10.8) mg/dL Phosphorus 4.8 H (2.3-4.7) mg/dL Pituitary panel 03/21/17 Range/Units 03:45 Sodium 140 (136-145) mEq/L Potassium 4.3 (3.5-4.5) mEq/L Chloride 103 (98-109) mEq/L Carbon Dioxide 30 H (19-29) mEq/L BUN 17 (8-26) mg/dL Creatinine 0.72 (0.72-1.25) mg/dL Glucose 86 (70-99) mg/dL Calcium 9.3 (8.6-10.8) mg/dL Adrenal panel 03/21/17 Range/Units 03:45 Sodium 140 (136-145) mEq/L Potassium 4.3 (3.5-4.5) mEq/L Chloride 103 (98-109) mEq/L Carbon Dioxide 30 H (19-29) mEq/L BUN 17 (8-26) mg/dL Creatinine 0.72 (0.72-1.25) mg/dL Glucose 86 (70-99) mg/dL Calcium 9.3 (8.6-10.8) mg/dL - VTE Documentation of Mechanical Device: Intermittent pneumatic compression device Consult Discharge Plan - Plan Referrals: [facility] [place] [Provider Group] Yudelka Grier [employer]ER OPERATOR [Primary Care Provider] - 03/24/17 11:00 am Jossy Stahl CNP [Advanced Practice Nurse] -
[2017-03-21] MEDS: Clinimix E 5%-15% SOLUTION 2,000 ML with MVI, adult with vitamin K 10 ML IVC SCH ×2 (16:11→20:38)
[2017-03-21] MEDS ORDERED: Clinimix E 5%-15% SOLUTION 2,000 ML with MVI, adult with vitamin K 10 ML IVC SCH (17:00)
[2017-03-22] MEDS: Acetaminophen IV 1,000 MG/100 ML INFUS..BTL IVPB SCH ×5 (00:13→23:21)
[2017-03-22] MEDS: *HR* Morphine 2 MG/ML SYRINGE IVP PRN ×9 (00:14→23:21)
[2017-03-22 04:45] LABS: Basophils % 0.9 %; Immature Granulocytes % 0.3 % (0-4); Mean Platelet Volume 11.5 fL (9.4-12.4)
[2017-03-22 04:47] LABS: Basophils # 0.1 K/mcL (0.0-0.2); Eosinophils # 0.8 K/mcL (0.0-0.6); Eosinophils % 7.5 %; Hematocrit 32.8 % (37.5-50.1); Hemoglobin 9.4 g/dL (12.9-16.9); Lymphocytes # 2.1 K/mcL (0.6-4.6); Lymphocytes % 20.5 %; Mean Corpuscular HGB Conc 28.7 g/dL (31.6-35.5); Mean Corpuscular Hemoglobin 22.1 pg (28.0-33.3); Monocytes # 1.2 K/mcL (0.0-1.3); Monocytes % 11.7 %; Neutrophils # 6.1 K/mcL (1.6-8.9); Platelet Count 283 K/mcL (140-400); Red Blood Count 4.26 M/mcL (4.19-5.50); Red Cell Distribution Width 22.7 % (11.5-14.5); Segmented Neutrophils % 59.1 %
[2017-03-22 05:03] LABS: Anisocytosis 2+ (Not Present); Hypochromasia Present (Not Present); Microcytosis Present (Not Present); Poikilocytosis 1+ (Not Present)
[2017-03-22 05:04] LABS: Large Platelets Present (Not Present); Platelet Estimate Normal (Normal)
[2017-03-22 05:05] LABS: Ovalocytes 1+ (Not Present)
[2017-03-22 05:28] LABS: BUN/Creatinine Ratio 25 (6-26); Blood Urea Nitrogen 17 mg/dL (8-26); Calcium 8.8 mg/dL (8.6-10.8); Carbon Dioxide 26 mEq/L (19-29); Chloride 103 mEq/L (98-109); Glucose 81 mg/dL (70-99); Magnesium 1.6 mg/dL (1.6-2.6); Osmolality,Calculated 285 (280-300); Phosphorous 5.1 mg/dL (2.3-4.7); Potassium 3.9 mEq/L (3.5-4.5); Sodium 137 mEq/L (136-145); eGFR For African Americans > 60 (> 60); eGFR For Non-African Americans > 60 (> 60)
[2017-03-22] MEDS: Pantoprazole 40 MG VIAL IVP SCH ×2 (06:02→17:57)
[2017-03-22] MEDS: *HR* Promethazine 25 MG/ML VIAL IVP PRN (08:56)
--- NOTE | 2017-03-22 12:04 | General Surgery Progress Note ---
<DeniHieuShayla L - Last Filed: 03/22/17 14:34> Date of Encounter: 03/22/17 - Assessment and Plan (1) Gastric outlet obstruction Current Visit: Yes Status: Chronic UGI wnl this am dc ngt start sips clears only continue prn pain medication and scheduled iv tylenol OOB ambulate continue TPN until adaquate po intake will ask nutrition to meet with patient and his regarding hemigastrectomy diet gi/dvt prophylaxis ok to shower (2) Moderate protein-calorie malnutrition Current Visit: Yes Status: Chronic continue tpn until adequate po intake (3) Tobacco abuse Current Visit: Yes Status: Chronic only nicotine patch of 7 mg if pt desires Subjective Narrative: patient states pain well controlled, was not last night denies nausea or emesis. tolerating sips water +flatus/bm Objective Vital Signs - Last 8 Hours Temp Pulse Resp BP Pulse Ox 03/22/17 12:19 99.0 F 106 16 114/75 97 03/22/17 06:37 98.3 F 98 16 103/65 92 Intake and Output 03/21/17 03/22/17 03/22/17 23:59 07:59 15:59 Intake Total 546 / 546 622 / 622 Output Total 1000 / 1000 675 / 675 600 / 600 Balance -454 / -454 -53 / -53 -600 / -600 Intake: IV Fluids 546 / 546 622 / 622 0.9 % Sodium Chloride 500 ML @ 86 / 86 172 / 172 20 mls/hr IVC .Q24H [facility] Rx#: [id number] Clinimix E 5%-15% SOLUTION 2, 360 / 360 000 ML @ 83.3 mls/hr IVC .Q24H [facility] with M.v.i. Adult 10 ml Rx# :[id number] Ofirmev 1,000 mg/100 ml 1,000 100 / 100 200 / 200 mg In 100 ml @ 400 mls/hr IVPB Q6H [facility] Rx#:[id number] Intralipid 20% 250 ML @ 21 mls/ 250 / 250 hr IVPB DAILY@1700 [facility] Rx#: [id number] Oral 0 / 0 Output: Urine 1000 / 1000 675 / 675 600 / 600 Gastric Tube Lavage Amount 0 / 0 Right Nare 0 / 0 Other: Meal NPO NPO Blood Glucose* 112 112 109 - General physical appearance no distress - Eyes PERRL, normal ocular movement - ENT normal nares, normocephalic - Neck Neck exam: trachea midline - Respiratory normal expansion, clear to auscultation - Cardiovascular Cardiovascular exam: Present: RRR - Abdomen Abdomen: Present: bowel sounds present, soft, tender (appropriate post op tenderness). Absent: guarding, rebound - Incision Incision: Present: clean and dry, intact - Integumentary no rash, no growths - Neurologic CN 2-12 grossly intact - Musculoskeletal normal posture - Psychiatric oriented to time, oriented to person, oriented to place, speech is normal, memory intact - Labs 03/22/17 04:25 03/22/17 04:25 Diabetes panel 03/22/17 Range/Units 04:25 Sodium 137 (136-145) mEq/L Potassium 3.9 (3.5-4.5) mEq/L Chloride 103 (98-109) mEq/L Carbon Dioxide 26 (19-29) mEq/L BUN 17 (8-26) mg/dL Creatinine 0.67 L (0.72-1.25) mg/dL Glucose 81 (70-99) mg/dL Calcium 8.8 (8.6-10.8) mg/dL Calcium panel 03/22/17 Range/Units 04:25 Calcium 8.8 (8.6-10.8) mg/dL Phosphorus 5.1 H (2.3-4.7) mg/dL Pituitary panel 03/22/17 Range/Units 04:25 Sodium 137 (136-145) mEq/L Potassium 3.9 (3.5-4.5) mEq/L Chloride 103 (98-109) mEq/L Carbon Dioxide 26 (19-29) mEq/L BUN 17 (8-26) mg/dL Creatinine 0.67 L (0.72-1.25) mg/dL Glucose 81 (70-99) mg/dL Calcium 8.8 (8.6-10.8) mg/dL Adrenal panel 03/22/17 Range/Units 04:25 Sodium 137 (136-145) mEq/L Potassium 3.9 (3.5-4.5) mEq/L Chloride 103 (98-109) mEq/L Carbon Dioxide 26 (19-29) mEq/L BUN 17 (8-26) mg/dL Creatinine 0.67 L (0.72-1.25) mg/dL Glucose 81 (70-99) mg/dL Calcium 8.8 (8.6-10.8) mg/dL Consult Discharge Plan - Plan Referrals: [facility] [Provider Group] Yudelka Grier CNP [Primary Care Provider] - 03/24/17 11:00 am Jossy Stahl CNP [Advanced Practice Nurse] - - Attending Attestation I examined this patient and my medical decision-making was reviewed with the Resident Physician. I agree with the documented findings, disposition and treatment plan as described except to the extent set forth below. 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 - S/p EGD with pyloric balloon dilation on 03/15/17. - S/p exploratory lap with retrocolic retrogastric gastrojejunstomy 03/19/17. Plan: - With return of bowel function, NG tube d/c'd, clear liquid diet - Otherwise stable. Continue supportive measures. - Encourage IS hourly - Continue TPN electrolytes (2) Nausea & vomiting Current Visit: Yes Status: Resolved -Likely d/t gastric outlet obstruction as above Qualifiers: Vomiting type: unspecified Vomiting Intractability: non-intractable Qualified Code(s): R11.2 - Nausea with vomiting, unspecified (3) DVT prophylaxis Current Visit: No Status: Acute SCDs Subjective Patient reports: feels better, still having pain, pain is less, bowel movement ( watery), nausea Narrative: Seen and examined at bedside this morning, he is resting comfortably in bed. Patient states he feels ok and has a small cough. He denies fever, chills, vomiting. He admits to nausea, abdominal discomfort that is worse with cough, and to abdominal discomfort after returning from his upper GI series this morning. He has had a bowel movement today, described as watery. Patient's pain appears to be under satisfactory control with current pain medication treatment plan. He mentions no other complaints at time of my exam. Objective Vital Signs - Last 8 Hours Temp Pulse Resp BP Pulse Ox 03/22/17 06:37 98.3 F 98 16 103/65 92 03/22/17 04:14 98.7 F 100 17 104/70 93 Intake and Output 03/21/17 03/22/17 03/22/17 23:59 07:59 15:59 Intake Total 546 / 546 622 / 622 Output Total 1000 / 1000 675 / 675 600 / 600 Balance -454 / -454 -53 / -53 -600 / -600 Intake: IV Fluids 546 / 546 622 / 622 0.9 % Sodium Chloride 500 ML @ 86 / 86 172 / 172 20 mls/hr IVC .Q24H [facility] Rx#: [id number] Clinimix E 5%-15% SOLUTION 2, 360 / 360 000 ML @ 83.3 mls/hr IVC .Q24H [facility] with M.v.i. Adult 10 ml Rx# :[id number] Ofirmev 1,000 mg/100 ml 1,000 100 / 100 200 / 200 mg In 100 ml @ 400 mls/hr IVPB Q6H [facility] Rx#:[id number] Intralipid 20% 250 ML @ 21 mls/ 250 / 250 hr IVPB DAILY@1700 [facility] Rx#: [id number] Oral 0 / 0 Output: Urine 1000 / 1000 675 / 675 600 / 600 Gastric Tube Lavage Amount 0 / 0 Right Nare 0 / 0 Other: Meal NPO NPO Blood Glucose* 112 112 92 - General physical appearance no distress, other (underweight) - Eyes normal ocular movement - ENT normal nares (NG in place), atraumatic, normocephalic - Neck Neck exam: no masses - Respiratory normal expansion, normal respiratory effort, clear to auscultation - Cardiovascular Cardiovascular exam: Present: RRR, no murmurs/rubs/gallops - Abdomen Abdomen: Present: bowel sounds present, soft, tender Abdominal Tenderness: epigastic, RUQ, LUQ - Neurologic CN 2-12 grossly intact, normal sensation - Psychiatric oriented to time, oriented to person, oriented to place, speech is normal, memory intact - Additional Exam Dressing is clean, dry, intact - Labs 03/22/17 04:25 03/22/17 04:25 Diabetes panel 03/22/17 Range/Units 04:25 Sodium 137 (136-145) mEq/L Potassium 3.9 (3.5-4.5) mEq/L Chloride 103 (98-109) mEq/L Carbon Dioxide 26 (19-29) mEq/L BUN 17 (8-26) mg/dL Creatinine 0.67 L (0.72-1.25) mg/dL Glucose 81 (70-99) mg/dL Calcium 8.8 (8.6-10.8) mg/dL Calcium panel 03/22/17 Range/Units 04:25 Calcium 8.8 (8.6-10.8) mg/dL Phosphorus 5.1 H (2.3-4.7) mg/dL Pituitary panel 03/22/17 Range/Units 04:25 Sodium 137 (136-145) mEq/L Potassium 3.9 (3.5-4.5) mEq/L Chloride 103 (98-109) mEq/L Carbon Dioxide 26 (19-29) mEq/L BUN 17 (8-26) mg/dL Creatinine 0.67 L (0.72-1.25) mg/dL Glucose 81 (70-99) mg/dL Calcium 8.8 (8.6-10.8) mg/dL Adrenal panel 03/22/17 Range/Units 04:25 Sodium 137 (136-145) mEq/L Potassium 3.9 (3.5-4.5) mEq/L Chloride 103 (98-109) mEq/L Carbon Dioxide 26 (19-29) mEq/L BUN 17 (8-26) mg/dL Creatinine 0.67 L (0.72-1.25) mg/dL Glucose 81 (70-99) mg/dL Calcium 8.8 (8.6-10.8) mg/dL - VTE Documentation of Mechanical Device: Intermittent pneumatic compression device
[2017-03-22] MEDS ORDERED: Clinimix 5%-20% SOLUTION 2,000 ML with MVI, adult with vitamin K 10 ML, Sodium Acetat... IVC SCH (17:00)
[2017-03-22] MEDS: Clinimix E 5%-15% SOLUTION 2,000 ML with MVI, adult with vitamin K 10 ML IVC SCH ×2 (18:24)
[2017-03-22] MEDS: Ondansetron 4 MG/2 ML VIAL IVP PRN (20:19)
[2017-03-23] MEDS: *HR* Morphine 2 MG/ML SYRINGE IVP PRN ×5 (01:44→11:19)
[2017-03-23] MEDS: *HR* Promethazine 25 MG/ML VIAL IVP PRN (01:47)
[2017-03-23] MEDS: 0.9 % Sodium Chloride 500 ML IVC SCH (03:48)
[2017-03-23 05:04] LABS: Hemoglobin 8.8 g/dL (12.9-16.9)
[2017-03-23 05:06] LABS: BUN/Creatinine Ratio 27 (6-26); Basophils # 0.1 K/mcL (0.0-0.2); Basophils % 1.2 %; Blood Urea Nitrogen 18 mg/dL (8-26); Carbon Dioxide 26 mEq/L (19-29); Chloride 105 mEq/L (98-109); Eosinophils # 0.7 K/mcL (0.0-0.6); Eosinophils % 8.6 %; Glucose 85 mg/dL (70-99); Hematocrit 31.3 % (37.5-50.1); Immature Granulocytes % 0.1 % (0-4); Lymphocytes # 2.4 K/mcL (0.6-4.6); Lymphocytes % 29.7 %; Magnesium 1.6 mg/dL (1.6-2.6); Mean Corpuscular HGB Conc 28.1 g/dL (31.6-35.5); Mean Corpuscular Volume 78.3 fL (83.0-100.0); Mean Platelet Volume 11.5 fL (9.4-12.4); Monocytes % 11.7 %; Neutrophils # 3.9 K/mcL (1.6-8.9); Osmolality,Calculated 287 (280-300); Phosphorous 3.4 mg/dL (2.3-4.7); Platelet Count 276 K/mcL (140-400); Potassium 4.1 mEq/L (3.5-4.5); Red Cell Distribution Width 22.4 % (11.5-14.5); Segmented Neutrophils % 48.7 %; Sodium 138 mEq/L (136-145); eGFR For African Americans > 60 (> 60); eGFR For Non-African Americans > 60 (> 60)
[2017-03-23 05:50] LABS: Anisocytosis 1+ (Not Present); Hypochromasia Present (Not Present); Platelet Estimate Normal (Normal); Poikilocytosis 1+ (Not Present)
[2017-03-23] MEDS: Pantoprazole 40 MG VIAL IVP SCH ×2 (05:51→18:11)
[2017-03-23] MEDS: *HR* Heparin 5,000 UNIT/ML VIAL SQ SCH ×2 (05:51→18:21)
[2017-03-23] MEDS: Acetaminophen IV 1,000 MG/100 ML INFUS..BTL IVPB SCH ×4 (05:51→23:14)
[2017-03-23] MEDS: *HR* OxyCODONE/APAP 5/325 TABLET PO PRN ×2 (14:08→23:08)
--- NOTE | 2017-03-23 14:28 | General Surgery Progress Note ---
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 - S/p EGD with pyloric balloon dilation on 03/15/17. - S/p exploratory lap with retrocolic retrogastric gastrojejunstomy 03/19/17. Plan: - NG tube d/c'd - Clear liquid diet -Percocet 5/325 mg Q6H PRN for breakthrough pain - Stable, continue supportive measures - Encourage IS hourly - Continue TPN electrolytes until PO intake adequate (2) Nausea & vomiting Current Visit: Yes Status: Resolved -Likely d/t gastric outlet obstruction as above Qualifiers: Vomiting type: unspecified Vomiting Intractability: non-intractable Qualified Code(s): R11.2 - Nausea with vomiting, unspecified (3) DVT prophylaxis Current Visit: No Status: Acute SCDs Subjective Patient reports: no new complaints, feels better, pain is less, bowel movement, diarrhea Narrative: Seen and examined at bedside this morning, he is sitting comfortably in bed. He is in NAD. Patient states he feels well and still has some abdominal pain, but it's improved. He denies fever, chills, vomiting, nausea. He continues to have bowel movements that are watery. Patient's pain appears to be well controlled with current meds. Patient states he has been using his IS. He has no complaints at time of my exam. Objective Vital Signs - Last 8 Hours Temp Pulse Resp BP Pulse Ox 03/23/17 11:27 97.7 F 82 16 106/65 96 03/23/17 07:47 97.9 F 74 16 101/66 95 Intake and Output 03/22/17 03/23/17 03/23/17 23:59 07:59 15:59 Intake Total 100 / 100 200 / 200 720 / 720 Output Total 0 / 0 0 / 0 Balance 100 / 100 200 / 200 720 / 720 Intake: IV Fluids 100 / 100 200 / 200 Ofirmev 1,000 mg/100 ml 1,000 100 / 100 200 / 200 mg In 100 ml @ 400 mls/hr IVPB Q6H [facility] Rx#:[id number] Oral 0 / 0 0 / 0 720 / 720 Output: Urine 0 / 0 0 / 0 Other: Meal Breakfast Blood Glucose* 108 102 92 - General physical appearance well developed, no distress, cachectic - Eyes normal ocular movement - ENT atraumatic, normocephalic - Neck Neck exam: no masses - Respiratory normal expansion, normal respiratory effort, clear to auscultation - Cardiovascular Cardiovascular exam: Present: RRR, no murmurs/rubs/gallops - Abdomen Abdomen: Present: bowel sounds present, soft. Absent: distended, guarding, rigid Abdominal Tenderness: diffusely (area of incision) - Incision Incision: Present: clean and dry, intact, approximated (madison). Absent: draining, erythema - Neurologic CN 2-12 grossly intact, other (no focal deficits) - Psychiatric oriented to time, oriented to person, oriented to place, speech is normal, memory intact - Labs 03/23/17 04:30 03/23/17 04:30 Diabetes panel 03/23/17 Range/Units 04:30 Sodium 138 (136-145) mEq/L Potassium 4.1 (3.5-4.5) mEq/L Chloride 105 (98-109) mEq/L Carbon Dioxide 26 (19-29) mEq/L BUN 18 (8-26) mg/dL Creatinine 0.67 L (0.72-1.25) mg/dL Glucose 85 (70-99) mg/dL Calcium 9.0 (8.6-10.8) mg/dL Calcium panel 03/23/17 Range/Units 04:30 Calcium 9.0 (8.6-10.8) mg/dL Phosphorus 3.4 (2.3-4.7) mg/dL Pituitary panel 03/23/17 Range/Units 04:30 Sodium 138 (136-145) mEq/L Potassium 4.1 (3.5-4.5) mEq/L Chloride 105 (98-109) mEq/L Carbon Dioxide 26 (19-29) mEq/L BUN 18 (8-26) mg/dL Creatinine 0.67 L (0.72-1.25) mg/dL Glucose 85 (70-99) mg/dL Calcium 9.0 (8.6-10.8) mg/dL Adrenal panel 03/23/17 Range/Units 04:30 Sodium 138 (136-145) mEq/L Potassium 4.1 (3.5-4.5) mEq/L Chloride 105 (98-109) mEq/L Carbon Dioxide 26 (19-29) mEq/L BUN 18 (8-26) mg/dL Creatinine 0.67 L (0.72-1.25) mg/dL Glucose 85 (70-99) mg/dL Calcium 9.0 (8.6-10.8) mg/dL - VTE Documentation of Mechanical Device: Intermittent pneumatic compression device Consult Discharge Plan - Plan Referrals: [facility] [Provider Group] Yudelka Grier, BUZZLE BUFFER [Primary Care Provider] - 03/24/17 11:00 am Jossy Stahl CNP [Advanced Practice Nurse] - <Shayla Cheema - Last Filed: 03/25/17 11:25> Date of Encounter: 03/23/17 - Assessment and Plan (1) Gastric outlet obstruction Current Visit: Yes Status: Chronic start clears, start po pain medication ok to shower continue tpn until adequate po intake, ambulate gi/dvt prophylaxis (2) Moderate protein-calorie malnutrition Current Visit: Yes Status: Chronic continue tpn (3) Tobacco abuse Current Visit: Yes Status: Chronic Subjective Narrative: no abdominal pain, tolerating sips of clears no nausea passing flatus and having bm Objective Vital Signs - Last 8 Hours Temp Pulse Resp BP Pulse Ox 03/25/17 10:51 98.4 F 76 18 104/67 99 03/25/17 07:45 98.1 F 77 14 98/65 96 03/25/17 04:12 98.3 F 76 15 111/74 97 Intake and Output 03/24/17 03/25/17 03/25/17 23:59 07:59 15:59 Intake Total 380 / 380 300 / 300 360 / 360 Output Total 600 / 600 825 / 825 0 / 0 Balance -220 / -220 -525 / -525 360 / 360 Intake: Oral 380 / 380 300 / 300 360 / 360 Output: Urine 600 / 600 825 / 825 0 / 0 Other: Meal Dinner Breakfast Percent of Meal Consumed 100% 100% Weight 57.153 kg Blood Glucose* 78 103 Patient Weight 03/25/17 23:59 Weight 57.153 kg - General physical appearance well developed, well nourished - Eyes normal ocular movement - ENT normal mucosa, normocephalic - Respiratory normal expansion, clear to auscultation - Cardiovascular Cardiovascular exam: Present: RRR, no murmurs/rubs/gallops - Abdomen Abdomen: Present: bowel sounds present, soft - Incision Incision: Present: clean and dry, intact - Integumentary no growths - Musculoskeletal normal posture - Psychiatric oriented to time, oriented to person, oriented to place, speech is normal, memory intact - Labs 03/25/17 09:24 03/25/17 04:22 Diabetes panel 03/25/17 Range/Units 04:22 Sodium 142 (136-145) mEq/L Potassium 4.2 (3.5-5.1) mEq/L Chloride 106 (98-107) mEq/L Carbon Dioxide 26 (23-29) mEq/L BUN 16 (6-20) mg/dL Creatinine 0.69 L (0.70-1.30) mg/dL Glucose 89 (70-105) mg/dL Calcium 9.3 (8.6-10.3) mg/dL Calcium panel 03/25/17 Range/Units 04:22 Calcium 9.3 (8.6-10.3) mg/dL Phosphorus 4.7 H (2.7-4.5) mg/dL Pituitary panel 03/25/17 Range/Units 04:22 Sodium 142 (136-145) mEq/L Potassium 4.2 (3.5-5.1) mEq/L Chloride 106 (98-107) mEq/L Carbon Dioxide 26 (23-29) mEq/L BUN 16 (6-20) mg/dL Creatinine 0.69 L (0.70-1.30) mg/dL Glucose 89 (70-105) mg/dL Calcium 9.3 (8.6-10.3) mg/dL Adrenal panel 03/25/17 Range/Units 04:22 Sodium 142 (136-145) mEq/L Potassium 4.2 (3.5-5.1) mEq/L Chloride 106 (98-107) mEq/L Carbon Dioxide 26 (23-29) mEq/L BUN 16 (6-20) mg/dL Creatinine 0.69 L (0.70-1.30) mg/dL Glucose 89 (70-105) mg/dL Calcium 9.3 (8.6-10.3) mg/dL - Attending Attestation I examined this patient and my medical decision-making was reviewed with the Resident Physician. I agree with the documented findings, disposition and treatment plan as described except to the extent set forth below.
[2017-03-23] MEDS ORDERED: Clinimix E 5%-20% SOLUTION 2,000 ML with MVI, adult with vitamin K 10 ML IVC SCH (17:00)
[2017-03-23] MEDS: *HR* LORazepam 0.5 MG TABLET PO PRN (18:06)
[2017-03-24 05:05] LABS: Red Cell Distribution Width 22.5 % (11.5-14.5)
[2017-03-24 05:07] LABS: Basophils # 0.1 K/mcL (0.0-0.2); Basophils % 0.9 %; Eosinophils # 0.7 K/mcL (0.0-0.6); Eosinophils % 8.3 %; Hematocrit 32.1 % (37.5-50.1); Immature Granulocytes % 0.2 % (0-4); Lymphocytes # 2.1 K/mcL (0.6-4.6); Lymphocytes % 26.3 %; Mean Corpuscular Hemoglobin 21.7 pg (28.0-33.3); Mean Corpuscular Volume 77.3 fL (83.0-100.0); Mean Platelet Volume 11.3 fL (9.4-12.4); Monocytes # 0.8 K/mcL (0.0-1.3); Monocytes % 9.3 %; Nucleated Red Blood Cells 0.2 /100 WBC (0); Platelet Count 326 K/mcL (140-400); Red Blood Count 4.15 M/mcL (4.19-5.50)
[2017-03-24] MEDS: Acetaminophen IV 1,000 MG/100 ML INFUS..BTL IVPB SCH (05:16)
[2017-03-24] MEDS: *HR* OxyCODONE/APAP 5/325 TABLET PO PRN ×2 (05:16→20:04)
[2017-03-24] MEDS: Pantoprazole 40 MG VIAL IVP SCH ×2 (05:16→17:16)
[2017-03-24] MEDS: *HR* Heparin 5,000 UNIT/ML VIAL SQ SCH ×2 (05:17→17:17)
[2017-03-24 05:30] LABS: BUN/Creatinine Ratio 20 (6-26); Blood Urea Nitrogen 13 mg/dL (6-20); Calcium 9.2 mg/dL (8.6-10.3); Carbon Dioxide 28 mEq/L (23-29); Chloride 105 mEq/L (98-107); Glucose 79 mg/dL (70-105); Magnesium 1.8 mg/dL (1.6-2.6); Osmolality,Calculated 285 (280-300); Phosphorous 4.2 mg/dL (2.7-4.5); Potassium 4.1 mEq/L (3.5-5.1); Sodium 138 mEq/L (136-145); eGFR For African Americans > 60 (> 60); eGFR For Non-African Americans > 60 (> 60)
[2017-03-24 05:42] LABS: Neutrophils # 4.5 K/mcL (1.6-8.9)
[2017-03-24 06:09] LABS: Anisocytosis 2+ (Not Present); Hypochromasia Present (Not Present); Macrocytosis Present (Not Present); Microcytosis Present (Not Present); Platelet Estimate Normal (Normal); Poikilocytosis 1+ (Not Present)
[2017-03-24 06:10] LABS: Large Platelets Present (Not Present); Ovalocytes 1+ (Not Present)
--- NOTE | 2017-03-24 10:43 | General Surgery Progress Note ---
<Anitha Josue - Last Filed: 03/24/17 13:06> Date of Encounter: 03/24/17 Time of Encounter: 09:45 - Assessment and Plan (1) Gastric outlet obstruction Current Visit: Yes Status: Chronic - Gastric outlet obstruction with recurrent symptoms in the setting of previous [place] I gastrectomy in 2014 with subsequent balloon dilation for stenosis in February. - S/p EGD with pyloric balloon dilation on 03/15/17. - S/p exploratory lap with retrocolic retrogastric gastrojejunstomy 03/19/17 ( POD #5). - Tolerating clear liquid diet Plan: - Begin full liquid diet - Continue TPN today, re-evaluate for need tomorrow - Percocet 5/325 mg Q6H PRN for breakthrough pain - Continue supportive measures, encourage IS hourly (2) Nausea & vomiting Current Visit: Yes Status: Resolved -Resolved, likely d/t gastric outlet obstruction as above Qualifiers: Vomiting type: unspecified Vomiting Intractability: non-intractable Qualified Code(s): R11.2 - Nausea with vomiting, unspecified (3) DVT prophylaxis Current Visit: No Status: Acute SCDs Heparin 5,000 units subQ Q12H Subjective Patient reports: no new complaints, feels better, pain is less, tolerating liquids well, voiding w/o difficulty, bowel movement Narrative: Patient seen and examined this morning at bedside, he is sitting on edge of bed and feels good today. States he has some abdominal soreness because he got up and walked around a lot yesterday. Nausea has improved since started Perocet yesterday, states he would get nauseous after getting dose of morphine. Has been tolerating clear liquid diet well. Denies difficulty voiding. He is having loose bowel movements. No vomiting, dyspnea, or chest pain. Objective Vital Signs - Last 8 Hours Temp Pulse Resp BP Pulse Ox 03/24/17 08:10 98.1 F 79 16 103/68 96 03/24/17 04:03 97.9 F 74 16 113/76 98 Intake and Output 03/23/17 03/24/17 03/24/17 23:59 07:59 15:59 Intake Total 200 / 200 0 / 0 840 / 840 Output Total 750 / 750 200 / 200 Balance 200 / 200 -750 / -750 640 / 640 Intake: IV Fluids 200 / 200 Ofirmev 1,000 mg/100 ml 1,000 200 / 200 mg In 100 ml @ 400 mls/hr IVPB Q6H [facility] Rx#:[id number] Oral 0 / 0 0 / 0 840 / 840 Output: Urine 750 / 750 200 / 200 Other: Meal Breakfast # Voids 2 Blood Glucose* 117 82 113 - General physical appearance well developed, other (underweight) - Eyes normal ocular movement - Respiratory normal expansion, normal respiratory effort, clear to auscultation - Cardiovascular Cardiovascular exam: Present: RRR. Absent: murmurs, rubs, gallop - Abdomen Abdomen: Present: bowel sounds present, soft. Absent: guarding, rebound, rigid - Incision Incision: Present: clean and dry, intact, approximated. Absent: red, erythema, purulent - Neurologic CN 2-12 grossly intact, normal coordination, normal sensation - Psychiatric oriented to time, oriented to person, oriented to place, speech is normal, memory intact - Labs 03/24/17 04:38 03/24/17 04:38 Diabetes panel 03/24/17 Range/Units 04:38 Sodium 138 (136-145) mEq/L Potassium 4.1 (3.5-5.1) mEq/L Chloride 105 (98-107) mEq/L Carbon Dioxide 28 (23-29) mEq/L BUN 13 (6-20) mg/dL Creatinine 0.66 L (0.70-1.30) mg/dL Glucose 79 (70-105) mg/dL Calcium 9.2 (8.6-10.3) mg/dL Calcium panel 03/24/17 Range/Units 04:38 Calcium 9.2 (8.6-10.3) mg/dL Phosphorus 4.2 (2.7-4.5) mg/dL Pituitary panel 03/24/17 Range/Units 04:38 Sodium 138 (136-145) mEq/L Potassium 4.1 (3.5-5.1) mEq/L Chloride 105 (98-107) mEq/L Carbon Dioxide 28 (23-29) mEq/L BUN 13 (6-20) mg/dL Creatinine 0.66 L (0.70-1.30) mg/dL Glucose 79 (70-105) mg/dL Calcium 9.2 (8.6-10.3) mg/dL Adrenal panel 03/24/17 Range/Units 04:38 Sodium 138 (136-145) mEq/L Potassium 4.1 (3.5-5.1) mEq/L Chloride 105 (98-107) mEq/L Carbon Dioxide 28 (23-29) mEq/L BUN 13 (6-20) mg/dL Creatinine 0.66 L (0.70-1.30) mg/dL Glucose 79 (70-105) mg/dL Calcium 9.2 (8.6-10.3) mg/dL - VTE Documentation of Mechanical Device: Intermittent pneumatic compression device Consult Discharge Plan - Plan Referrals: [facility] [Provider Group] Yudelka Grier OBSTETRICS NURSE [Primary Care Provider] - 03/24/17 11:00 am Jossy Stahl CNP [Advanced Practice Nurse] - <Shayla Cheema - Last Filed: 03/25/17 11:28> Date of Encounter: 03/24/17 Time of Encounter: 12:00 - Assessment and Plan (1) Gastric outlet obstruction Current Visit: Yes Status: Chronic full diet retart home medication prn pain control ok to shower ambulate gi/dvt prophylaxis (2) Moderate protein-calorie malnutrition Current Visit: Yes Status: Chronic (3) Tobacco abuse Current Visit: Yes Status: Chronic Subjective Patient reports: no new complaints, feels better, pain is less, tolerating liquids well (clears), voiding w/o difficulty, flatus, bowel movement Objective Vital Signs - Last 8 Hours Temp Pulse Resp BP Pulse Ox 03/25/17 10:51 98.4 F 76 18 104/67 99 03/25/17 07:45 98.1 F 77 14 98/65 96 03/25/17 04:12 98.3 F 76 15 111/74 97 Intake and Output 03/24/17 03/25/17 03/25/17 23:59 07:59 15:59 Intake Total 380 / 380 300 / 300 360 / 360 Output Total 600 / 600 825 / 825 0 / 0 Balance -220 / -220 -525 / -525 360 / 360 Intake: Oral 380 / 380 300 / 300 360 / 360 Output: Urine 600 / 600 825 / 825 0 / 0 Other: Meal Dinner Breakfast Percent of Meal Consumed 100% 100% Weight 57.153 kg Blood Glucose* 78 103 Patient Weight 03/25/17 23:59 Weight 57.153 kg - General physical appearance well developed, well nourished, no distress - Eyes normal ocular movement - ENT normal mucosa, normocephalic - Respiratory normal respiratory effort, clear to auscultation - Cardiovascular Cardiovascular exam: Present: RRR - Abdomen Abdomen: Present: bowel sounds present, soft, tender (appropriate post op tenderness) - Incision Incision: Present: clean and dry, intact - Integumentary no growths - Neurologic CN 2-12 grossly intact, normal coordination - Musculoskeletal normal posture - Psychiatric oriented to time, oriented to person, oriented to place, speech is normal, memory intact - Labs 03/25/17 09:24 03/25/17 04:22 Diabetes panel 03/25/17 Range/Units 04:22 Sodium 142 (136-145) mEq/L Potassium 4.2 (3.5-5.1) mEq/L Chloride 106 (98-107) mEq/L Carbon Dioxide 26 (23-29) mEq/L BUN 16 (6-20) mg/dL Creatinine 0.69 L (0.70-1.30) mg/dL Glucose 89 (70-105) mg/dL Calcium 9.3 (8.6-10.3) mg/dL Calcium panel 03/25/17 Range/Units 04:22 Calcium 9.3 (8.6-10.3) mg/dL Phosphorus 4.7 H (2.7-4.5) mg/dL Pituitary panel 03/25/17 Range/Units 04:22 Sodium 142 (136-145) mEq/L Potassium 4.2 (3.5-5.1) mEq/L Chloride 106 (98-107) mEq/L Carbon Dioxide 26 (23-29) mEq/L BUN 16 (6-20) mg/dL Creatinine 0.69 L (0.70-1.30) mg/dL Glucose 89 (70-105) mg/dL Calcium 9.3 (8.6-10.3) mg/dL Adrenal panel 03/25/17 Range/Units 04:22 Sodium 142 (136-145) mEq/L Potassium 4.2 (3.5-5.1) mEq/L Chloride 106 (98-107) mEq/L Carbon Dioxide 26 (23-29) mEq/L BUN 16 (6-20) mg/dL Creatinine 0.69 L (0.70-1.30) mg/dL Glucose 89 (70-105) mg/dL Calcium 9.3 (8.6-10.3) mg/dL - Attending Attestation I examined this patient and my medical decision-making was reviewed with the Resident Physician. I agree with the documented findings, disposition and treatment plan as described except to the extent set forth below.
[2017-03-24] MEDS: *HR* Morphine 2 MG/ML SYRINGE IVP PRN ×2 (15:06→22:02)
[2017-03-24] MEDS ORDERED: Clinimix E 5%-20% SOLUTION 2,000 ML with MVI, adult with vitamin K 10 ML IVC SCH (17:00)
[2017-03-25 04:57] LABS: BUN/Creatinine Ratio 23 (6-26); Blood Urea Nitrogen 16 mg/dL (6-20); Calcium 9.3 mg/dL (8.6-10.3); Carbon Dioxide 26 mEq/L (23-29); Chloride 106 mEq/L (98-107); Glucose 89 mg/dL (70-105); Osmolality,Calculated 295 (280-300); Phosphorous 4.7 mg/dL (2.7-4.5); Potassium 4.2 mEq/L (3.5-5.1); Sodium 142 mEq/L (136-145); eGFR For African Americans > 60 (> 60); eGFR For Non-African Americans > 60 (> 60)
[2017-03-25] MEDS: Pantoprazole 40 MG VIAL IVP SCH (05:17)
[2017-03-25] MEDS: *HR* OxyCODONE/APAP 5/325 TABLET PO PRN (05:17)
[2017-03-25] MEDS: *HR* Heparin 5,000 UNIT/ML VIAL SQ SCH (05:18)
[2017-03-25 09:32] LABS: Basophils # 0.1 K/mcL (0.0-0.2); Eosinophils # 0.5 K/mcL (0.0-0.6); Eosinophils % 5.8 %; Hematocrit 35.4 % (37.5-50.1); Hemoglobin 9.8 g/dL (12.9-16.9); Immature Granulocytes % 0.3 % (0-4); Lymphocytes # 1.8 K/mcL (0.6-4.6); Lymphocytes % 22.5 %; Mean Corpuscular HGB Conc 27.7 g/dL (31.6-35.5); Mean Corpuscular Hemoglobin 21.8 pg (28.0-33.3); Mean Corpuscular Volume 78.7 fL (83.0-100.0); Mean Platelet Volume 10.4 fL (9.4-12.4); Monocytes # 0.6 K/mcL (0.0-1.3); Monocytes % 7.5 %; Platelet Count 324 K/mcL (140-400); Red Cell Distribution Width 22.7 % (11.5-14.5); Segmented Neutrophils % 62.9 %
[2017-03-25 09:34] LABS: Hypochromasia Present (Not Present); Platelet Estimate Normal (Normal)
[2017-03-25 10:54] VITALS: BP 104/67
--- NOTE | 2017-03-25 13:25 | Discharge Summary ---
Date of Encounter: 03/25/17 Time of Encounter: 13:30 - Discharge Diagnosis (1) Gastric outlet obstruction Priority: Primary Status: Resolved - Discharge Medications Prescriptions: OxyCODONE/APAP 5/325 [Percocet 5/325 MG] 1 each PO Q4HR PRN #30 tablet PRN Reason: Pain Lactose-Reduced Food [Boost] 237 ml PO TID #90 liquid Sucralfate [Carafate] 1 gm PO QIDAC #60 tablet Home Medications: Eszopiclone [Lunesta] 2 mg PO HS 02/24/17 [History] FLUoxetine HCl [Prozac] 40 mg PO DAILY 02/24/17 [History] Ondansetron HCl [Zofran] 4 mg PO Q8H PRN 02/24/17 [History] Acetaminophen [Tylenol] 650 mg PO Q6HR PRN tablet 03/01/17 [Rx] Esomeprazole Magnesium [Nexium] 40 mg PO BID #60 capsule. 03/01/17 [Rx] Ferrous Sulfate [Iron] 325 mg PO BID #60 capsule.er 03/01/17 [Rx] BuPROPion XL (24 HR) [Wellbutrin Xl] 450 mg PO DAILY 03/14/17 [History] LORazepam [Ativan] 0.5 mg PO TID 03/14/17 [History] Sertraline [Zoloft] 150 mg PO DAILY 03/14/17 [History] Tamsulosin [Flomax] 0.4 mg PO DAILY 03/14/17 [History] Lactose-Reduced Food [Boost] 237 ml PO TID #90 liquid 03/25/17 [Rx] OxyCODONE/APAP 5/325 [Percocet 5/325 MG] 1 each PO Q4HR PRN #30 tablet 03/25/17 [Rx] Sucralfate [Carafate] 1 gm PO QIDAC #60 tablet 03/25/17 [Rx] Allergies/Adverse Reactions: 3 Allergy/AdvReac Type Severity Reaction Status Date / Time NSAIDS (Non-Steroidal Allergy Severe See Verified 03/14/17 00:53 Anti-Inflamma Comments Hydromorphone [From Dilaudid] Allergy Rash Verified 03/14/17 00:53 General Surgery Exam Initial Vital Signs Temp Pulse Resp BP Pulse Ox 98.2 F 99 14 127/71 97 03/14/17 00:53 12/10/17 00:53 03/14/17 00:53 03/14/17 00:53 03/14/17 00:53 - General physical appearance well developed, no distress, no pain - Eyes normal ocular movement - ENT normal mucosa, atraumatic, normocephalic - Neck trachea midline - Respiratory normal respiratory effort, clear to auscultation - Cardiovascular Cardiovascular exam: Present: RRR - Abdomen Abdomen general surgery: Present: bowel sounds present, soft, tender (Expected postoperative tenderness) - Incision Incision: Present: clean and dry, intact - Integumentary Integumentary general surgery: Present: warm and dry - Neurologic Present: CN 2-12 grossly intact - Psychiatric Psychiatric general surgery: Present: A&Ox3 Date of admission: 03/16/17 18:18 Primary care physician: Yudelka Grier CNP Consults: 03/22/17 14:37 consult to roofing applicator [Consult to Nutrition] [CONS] Routine Comment: see below Consulting Provider: NUTRITION Reason for Dietary Consult: Diet Education Other:: educate pt/ re hemigastrectomy diet please Discharging clinician: Shayla Stahl) Anticipated date of discharge: 03/25/17 - Patient Status Disposition: Home, Self-Care Condition: Good Functional capacity at discharge: independent ambulation Overall status at discharge: patient is progressing back to baseline - Discharge Instructions Follow Up With: Jossy Stahl CNP [Advanced Practice Nurse] - [facility] [Provider Group] (F/U with Dr. Trejo in 5 months- will need repeat endoscopy) Yudelka Grier CNP [Primary Care Provider] - 03/24/17 11:00 am (2 week hospital follow-up) Catina Corea CNP [Advanced Practice Nurse] - 04/09/17 9:20 am (surgery follow -up) Additional Instructions: #1 may shower, no tub bath for 2 weeks #2 wash incisions with soap and water and pat dry daily #3 no lifting, pushing, pulling more than 15 pounds for the next 6 weeks #4 no driving until off narcotics for 24 hours and able to safely react in the car #5 may climb stairs - Diet and Activity Activity: other (See additional instructions above) Diet: other (Gastrectomy diet; Boost or equivalent (3 cans per day)) - Hospital Course Hospital course: Mr. 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 He was recently admitted to the hospital and treated with conservative measures and was dilated at that time. He states that his symptoms did improve for a short period of time. He reports back to the hospital with recurrent symptoms of gastric outlet obstruction. He was started on supportive measures including TPN therapy and bowel rest. He was taken to the operating room for a Exploratory laparotomy, rectrocolic retrogastric gastrojejunostomy with Dr. Cheema. He did remain on bowel rest after surgical intervention which included an NG tube to low intermittent wall suction. He did have an upper GI complete on postoperative day #3 which shows no evidence of postoperative leak. His NG tube was discontinued at that time and he was trialed on limited clears. He was able to tolerate this without difficulty and was advanced to a full clear liquid diet with protein supplements. He was slowly advanced and is currently tolerating a soft diet without nausea or vomiting. His TPN has been weaned off. His vital signs are stable and he is afebrile. His postoperative pain is controlled. He is voiding and ambulating without difficulty. We will begin discharge planning to home and plan for outpatient follow-up in the next 10-14 days. - Time Spent with Patient Total time spent providing and/or coordinating discharge services: Less than 30 minutes Labs on day of discharge: Labs from last 24 hours 03/25/17 03/25/17 03/25/17 11:56 09:24 07:48 WBC 7.9 RBC 4.50 Hgb 9.8 L Hct 35.4 L MCV 78.7 L MCH 21.8 L MCHC 27.7 L RDW 22.7 H Plt Count 324 MPV 10.4 Immature Gran % 0.3 Seg Neutrophils % 62.9 Lymphocytes % 22.5 Monocytes % 7.5 Eosinophils % 5.8 Basophils % 1.0 Neutrophils # 5.0 Lymphocytes # 1.8 Monocytes # 0.6 Eosinophils # 0.5 Basophils # 0.1 Platelet Estimate Normal Hypochromasia Present A Sodium Potassium Chloride Carbon Dioxide BUN Creatinine Est GFR ( Amer) Est GFR (Non-Af Amer) BUN/Creatinine Ratio Glucose POC Glucose 102 H 103 H Calculated Osmolality Calcium Phosphorus Magnesium 03/25/17 03/25/17 03/25/17 04:22 04:09 00:09 WBC RBC Hgb Hct MCV MCH MCHC RDW Plt Count MPV Immature Gran % Seg Neutrophils % Lymphocytes % Monocytes % Eosinophils % Basophils % Neutrophils # Lymphocytes # Monocytes # Eosinophils # Basophils # Platelet Estimate Hypochromasia Sodium 142 Potassium 4.2 Chloride 106 Carbon Dioxide 26 BUN 16 Creatinine 0.69 L Est GFR ( Amer) > 60 Est GFR (Non-Af Amer) > 60 BUN/Creatinine Ratio 23 Glucose 89 POC Glucose 84 113 H Calculated Osmolality 295 Calcium 9.3 Phosphorus 4.7 H Magnesium 2.0 03/24/17 03/24/17 19:58 16:01 WBC RBC Hgb Hct MCV MCH MCHC RDW Plt Count MPV Immature Gran % Seg Neutrophils % Lymphocytes % Monocytes % Eosinophils % Basophils % Neutrophils # Lymphocytes # Monocytes # Eosinophils # Basophils # Platelet Estimate Hypochromasia Sodium Potassium Chloride Carbon Dioxide BUN Creatinine Est GFR ( Amer) Est GFR (Non-Af Amer) BUN/Creatinine Ratio Glucose POC Glucose 78 111 H Calculated Osmolality Calcium Phosphorus Magnesium - Impressions ITS Impressions Upper GI Series 03/22/17 08:41 IMPRESSION: No postoperative leak is identified, with the gastrojejunostomy patent. There appears to be a stenosis at the gastroduodenal junction. D/ / Jossue Robertson MD / Jossue Robertson MD Interpreting Provider: Jossue Robertson MD - Attending Attestation For this encounter, I have reviewed the PSYCHOLOGIST DEVELOPMENTAL or PA documentation, treatment plan, and medical decision making; and I have had face to face time with this patient.
== END 2017-03-25 15:34 | disposition home or self-care (01) | DRG 220 ==
LOC: EMEROO 00:50 → 3BNU 00:50 → SUATTDRO 03-16 18:18 → 3ANU 03-19 17:38
PROVIDERS: ADMIT Family Medicine; ATTEND Surgery
PROC: ENDOORB (2017-03-15 13:30)

== ENCOUNTER 2017-07-09 08:42 | Observation (INO) ==
--- NOTE | 2017-07-09 08:50 | Emergency Department Note ---
Disposition Clinical Impression: Bullae, Hypoxia Anemia Qualifiers: Anemia type: iron deficiency Iron deficiency anemia type: unspecified iron deficiency Qualified Code(s): D50.9 - Iron deficiency anemia, unspecified Disposition: Admitted As Inpatient Condition: Fair Referrals: Yudelka Grier [employer] [Primary Care Provider] - Forms: ED Satisfaction Letter Time of Disposition: 10:26 General Adult HPI - General Chief complaint: ED Chest Pain Stated complaint: MATT, chest pain Time Seen by Provider: 07/09/17 08:48 Source: patient Mode of arrival: ambulatory Limitations: no limitations Nursing Notes Reviewed: Yes Vital Signs Reviewed: Yes - History of Present Illness HPI Narrative: 41M presents with 1 week onset of increased weakness, shortness of breath, and R chest wall pain. PMH significant for anemia, history of gastric ulceration, most recent endoscopy shows no hemorrhagic ulceration. Currently smokes 1ppd x 25 years. He endorses chest pain on the R side that is tender to palpation of the rib wall and worsens with breathing. He denies diaphoresis, nausea/vomiting , melena, or hemoptysis. Pain Scale: 4 - Related Data Home Medications Medication Instructions Recorded Confirmed Eszopiclone [Lunesta] 2 mg PO HS 02/24/17 05/04/17 FLUoxetine HCl [Prozac] 40 mg PO HS 02/24/17 05/04/17 Ondansetron HCl [Zofran] 4 mg PO Q8H PRN 02/24/17 05/04/17 BuPROPion XL (24 HR) [Wellbutrin 150 mg PO DAILY 03/14/17 05/04/17 Xl] LORazepam [Ativan] 0.5 mg PO TID 03/14/17 05/04/17 Tamsulosin [Flomax] 0.4 mg PO DAILY 03/14/17 05/04/17 Bupropion HCl [Wellbutrin Xl] 300 mg PO DAILY 05/04/17 05/04/17 Famotidine/Ca Carb/Mag Hydrox 1 tab PO DAILY 05/04/17 05/04/17 [Pepcid Complete Tablet Chew] HYDROcodone/Acet 5/325 mg [[place] 1 tab PO Q6H PRN 05/04/17 05/04/17 5-325 mg] Multivitamin [One Daily Essential] 1 tab PO DAILY 05/04/17 05/04/17 Previous Rx's Medication Instructions Recorded Esomeprazole Magnesium [Nexium] 40 mg PO BID #60 capsule. 03/01/17 Lactose-Reduced Food [Boost] 237 ml PO TID #90 liquid 03/25/17 Sucralfate [Carafate] 1 gm PO QIDAC #60 tablet 03/25/17 Amoxicillin 875 mg PO BID #20 tablet 05/04/17 HYDROcodone/Acet 7.5/325 mg [[place] 1 tab PO Q6H PRN 7 Days #28 tablet 05/04/17 7.5-325 mg] Promethazine [Phenergan] 12.5 mg PO Q6HR PRN #10 tablet 05/04/17 Allergies Allergy/AdvReac Type Severity Reaction Status Date / Time NSAIDS (Non-Steroidal AdvReac Severe See Verified 07/09/17 08:44 Anti-Inflamma Comments Hydromorphone [From Dilaudid] AdvReac Rash Verified 07/09/17 08:44 All systems ED: reviewed and negative except as stated. Constitutional: Denies: fever Eyes: Denies: vision change ENT ED: Denies: epistaxis Cardiovascular: Reports: chest pain (r sided worse with breathing/touch) Respiratory: Denies: wheezes, hemoptysis, stridor Gastrointestinal: Denies: abdominal pain, nausea, vomiting, diarrhea Musculoskeletal: Denies: neck pain Neurological: Reports: weakness. Denies: headache Psychiatric: Denies: anxiety, depression Hematological/Lymphatic: Denies: easy bleeding, easy bruising, lymphadenopathy Past Medical History - Past Medical History Medical history: Reports: GERD, other Surgical history: Reports: other Psychiatric history: Reports: anxiety, depression - Social History Smoking Status: Current every day smoker Smokeless Tobacco Status: No Alcohol use: Reports: none Drug use: Reports: none Physical Exam - General Limitations: no limitations General appearance: alert - Head Head exam: atraumatic, normocephalic - Eye Eye exam: Present: EOMI - Neck Neck exam: Present: full ROM - Chest Chest inspection: Present: symmetric chest wall rise, tenderness (r-sided) - Respiratory Respiratory exam: Present: normal lung sounds bilaterally. Absent: respiratory distress, wheezes, stridor - Cardiovascular Cardiovascular exam: Present: regular rate, normal rhythm. Absent: systolic murmur, diastolic murmur, JVD - Abdominal Exam Abdominal exam: Present: soft, Non-Tender. Absent: pulsatile mass - Extremities Exam Extremities exam: Present: normal capillary refill - Neurological Exam Neurological exam: Present: alert, oriented X3 - Psychiatric Psychiatric exam: Present: normal affect, normal mood - Skin Skin exam: Present: warm, pallor. Absent: diaphoresis Course Course Narrative: 0910 41M on exam is pallorous, no skin tenting, he is not tachycardic/hypotensive, he has no calf tenderness, mild tenderness to chest palpation on R-upper wall. He has clear breath sounds bilaterally. Presentation is concerning for anemia versus cardiopulmonary etiology. He does have anginal equivalents of shortness of breath and chest discomfort, we will order basic chemistries, cbc, d-dimer/ coags, ecg/trop, cxr. Re-eval 0930; CXR shows R sided bullae confirmed on CT chest, patient desaturates to high 80s, low 90s on RA after 6 min walk. CBC shows microcytic anemia (chronic).D-dimer elevated in 700s. ECG/trop unremarkable. Discussed work -up with admitting hospitalist who agrees to admit patient for observation of hypoxia, bullae, and chronic anemia. We are also treating with Levaquin monotherapy for possible CAP. Patient understands plan and agrees. Vital Signs Temperature 97.6 F 07/09/17 08:44 Pulse Rate 82 07/09/17 08:44 Respiratory Rate 20 07/09/17 08:44 Blood Pressure 103/67 07/09/17 08:44 O2 Sat by Pulse Oximetry 98 07/09/17 08:44 Temperature 97.6 F 07/09/17 08:44 Pulse Rate 76 07/09/17 09:59 Respiratory Rate 18 07/09/17 09:59 Blood Pressure 107/75 07/09/17 09:59 O2 Sat by Pulse Oximetry 94 07/09/17 09:59 Oxygen Delivery Oxygen Delivery Room Air Medical Decision Making - Medical Records Medical records reviewed: Yes I reviewed the patient's medical records. - Lab Data Lab results reviewed: Yes I reviewed the patient's lab results. Result diagrams: 07/09/17 09:01 07/09/17 09:01 Lab Results 07/09/17 07/09/17 07/09/17 Range/Units 08:59 08:59 09:01 WBC 9.3 (4.3-11.1) K/mcL RBC 4.08 L (4.19-5.50) M/mcL Hgb 8.3 L (12.9-16.9) g/dL Hct 30.2 L (37.5-50.1) % MCV 74.0 L (83.0-100.0) fL MCH 20.3 L (28.0-33.3) pg MCHC 27.5 L (31.6-35.5) g/dL RDW 19.9 H (11.5-14.5) % Plt Count 667 H (140-400) K/mcL MPV 9.5 (9.4-12.4) fL Immature Gran % 0.5 (0-4) % Seg Neutrophils % 85.4 % Lymphocytes % 9.7 % Monocytes % 2.8 % Eosinophils % 1.3 % Basophils % 0.3 % Neutrophils # 7.9 (1.6-8.9) K/mcL Lymphocytes # 0.9 (0.6-4.6) K/mcL Monocytes # 0.3 (0.0-1.3) K/mcL Eosinophils # 0.1 (0.0-0.6) K/mcL Basophils # 0.0 (0.0-0.2) K/mcL Nucleated RBCs/100 WBC 0.2 H (0) /100 WBC Platelet Estimate Increased H (Normal) Hypochromasia Present A (Not Present) Anisocytosis 1+ A (Not Present) Microcytosis Present A (Not Present) PT 12.0 (9.4-12.1) Seconds INR 1.1 D-Dimer 710 H (0-500) ng/mLFEU Sodium (136-145) mEq/L Potassium (3.5-5.1) mEq/L Chloride (98-107) mEq/L Carbon Dioxide (23-29) mEq/L BUN (6-20) mg/dL Creatinine (0.70-1.30) mg/dL Est GFR ( Amer) (> 60) Est GFR (Non-Af Amer) (> 60) BUN/Creatinine Ratio (6-26) Glucose (70-105) mg/dL Calculated Osmolality (280-300) Calcium (8.6-10.3) mg/dL Troponin I (< 0.04) ng/mL B-Natriuretic Peptide 40 (Less than 100) pg/mL Blood Type Antibody Screen 07/09/17 07/09/17 Range/Units 09:01 09:01 WBC (4.3-11.1) K/mcL RBC (4.19-5.50) M/mcL Hgb (12.9-16.9) g/dL Hct (37.5-50.1) % MCV (83.0-100.0) fL MCH (28.0-33.3) pg MCHC (31.6-35.5) g/dL RDW (11.5-14.5) % Plt Count (140-400) K/mcL MPV (9.4-12.4) fL Immature Gran % (0-4) % Seg Neutrophils % % Lymphocytes % % Monocytes % % Eosinophils % % Basophils % % Neutrophils # (1.6-8.9) K/mcL Lymphocytes # (0.6-4.6) K/mcL Monocytes # (0.0-1.3) K/mcL Eosinophils # (0.0-0.6) K/mcL Basophils # (0.0-0.2) K/mcL Nucleated RBCs/100 WBC (0) /100 WBC Platelet Estimate (Normal) Hypochromasia (Not Present) Anisocytosis (Not Present) Microcytosis (Not Present) PT (9.4-12.1) Seconds INR D-Dimer (0-500) ng/mLFEU Sodium 140 (136-145) mEq/L Potassium 3.7 (3.5-5.1) mEq/L Chloride 109 H (98-107) mEq/L Carbon Dioxide 23 (23-29) mEq/L BUN 20 (6-20) mg/dL Creatinine 0.82 (0.70-1.30) mg/dL Est GFR ( Amer) > 60 (> 60) Est GFR (Non-Af Amer) > 60 (> 60) BUN/Creatinine Ratio 24 (6-26) Glucose 112 H (70-105) mg/dL Calculated Osmolality 293 (280-300) Calcium 9.0 (8.6-10.3) mg/dL Troponin I < 0.03 (< 0.04) ng/mL B-Natriuretic Peptide (Less than 100) pg/mL Blood Type O POSITIVE Antibody Screen NEGATIVE - Radiology Data Radiology results reviewed: Yes I reviewed the patient's radiology results. Chest X-Ray 07/09/17 08:49 IMPRESSION: 1. Interval appearance since April 2017 of bilateral airspace opacities concerning for infection in the appropriate clinical setting. 2. Emphysematous changes identified in the bilateral upper lobes. D/ / 07/09/2017 09:52:08 Liz Powers MD / katrina Interpreting Provider: Liz Powers MD Chest CT 07/09/17 09:29 IMPRESSION: Multifocal airspace opacities within the right mid to lower lung and, to a lesser extent, within the left lower lung. Superimposed multifocal ill-defined ground-glass opacities within the lungs bilaterally. Combination of findings favors multifocal infectious or inflammatory process. Biapical bullous emphysematous changes asymmetrically worse on the right as compared to the left. D/ / Daniele Griffith MD / Daniele Griffith MD Interpreting Provider: Daniele Griffith MD - EKG Data EKG #1 EKG attestation: Yes I reviewed and interpreted this EKG. EKG results narrative: ECG obtained 0848. NSR with 76bpm. Normal axis, no st elevation or depression. Normal R wave progression, normal t wave morphology.
--- NOTE | 2017-07-09 09:01 | Emergency Department Note ---
Disposition Clinical Impression: Bullae, Hypoxia, Anemia Disposition: Admitted As Inpatient Condition: Fair General Adult HPI - General Chief complaint: ED Chest Pain Stated complaint: MATT, chest pain Time Seen by Provider: 07/09/17 08:48 Source: patient Limitations: no limitations - History of Present Illness Pain Scale: 4 - Related Data Home Medications Medication Instructions Recorded Confirmed Eszopiclone [Lunesta] 2 mg PO HS 02/24/17 07/09/17 Ondansetron HCl [Zofran] 4 mg PO Q8H PRN 02/24/17 07/09/17 BuPROPion XL (24 HR) [Wellbutrin 450 mg PO QAM 03/14/17 07/09/17 Xl] LORazepam [Ativan] 0.5 mg PO TID 03/14/17 07/09/17 Tamsulosin [Flomax] 0.4 mg PO DAILY 03/14/17 07/09/17 Multivitamin [One Daily Essential] 1 tab PO DAILY 05/04/17 07/09/17 Citalopram Hydrobromide [Celexa] 20 mg PO DAILY 07/09/17 07/09/17 Quetiapine Fumarate [Seroquel Xr] 50 mg PO HS 07/09/17 07/09/17 Previous Rx's Medication Instructions Recorded Esomeprazole Magnesium [Nexium] 40 mg PO BID #60 capsule. 03/01/17 Lactose-Reduced Food [Boost] 237 ml PO TID #90 liquid 03/25/17 Sucralfate [Carafate] 1 gm PO QIDAC #60 tablet 03/25/17 Promethazine [Phenergan] 12.5 mg PO Q6HR PRN #10 tablet 05/04/17 Allergies Allergy/AdvReac Type Severity Reaction Status Date / Time NSAIDS (Non-Steroidal AdvReac Severe See Verified 07/09/17 08:44 Anti-Inflamma Comments Hydromorphone [From Dilaudid] AdvReac Rash Verified 07/09/17 08:44 Past Medical History - Past Medical History Medical history: Reports: GERD, other Surgical history: Reports: other Psychiatric history: Reports: anxiety, depression - Social History Smoking Status: Current every day smoker Smokeless Tobacco Status: No Alcohol use: Reports: none Drug use: Reports: none Physical Exam - General Limitations: no limitations General appearance: alert Course Vital Signs Temperature 97.6 F 07/09/17 08:44 Pulse Rate 82 07/09/17 08:44 Respiratory Rate 20 07/09/17 08:44 Blood Pressure 103/67 07/09/17 08:44 O2 Sat by Pulse Oximetry 98 07/09/17 08:44 Temperature 98.1 F 07/10/17 07:16 Pulse Rate 90 07/10/17 07:16 Respiratory Rate 14 07/10/17 07:16 Blood Pressure 122/79 07/10/17 07:16 O2 Sat by Pulse Oximetry 97 07/10/17 07:16 Oxygen Delivery Oxygen Delivery Room Air Medical Decision Making - Lab Data Result diagrams: 07/10/17 00:47 07/10/17 00:47 Lab Results 07/09/17 07/09/17 07/09/17 Range/Units 08:59 08:59 09:01 WBC 9.3 (4.3-11.1) K/mcL RBC 4.08 L (4.19-5.50) M/mcL Hgb 8.3 L (12.9-16.9) g/dL Hct 30.2 L (37.5-50.1) % MCV 74.0 L (83.0-100.0) fL MCH 20.3 L (28.0-33.3) pg MCHC 27.5 L (31.6-35.5) g/dL RDW 19.9 H (11.5-14.5) % Plt Count 667 H (140-400) K/mcL MPV 9.5 (9.4-12.4) fL Immature Gran % 0.5 (0-4) % Seg Neutrophils % 85.4 % Lymphocytes % 9.7 % Monocytes % 2.8 % Eosinophils % 1.3 % Basophils % 0.3 % Neutrophils # 7.9 (1.6-8.9) K/mcL Lymphocytes # 0.9 (0.6-4.6) K/mcL Monocytes # 0.3 (0.0-1.3) K/mcL Eosinophils # 0.1 (0.0-0.6) K/mcL Basophils # 0.0 (0.0-0.2) K/mcL Nucleated RBCs/100 WBC 0.2 H (0) /100 WBC Platelet Estimate Increased H (Normal) Hypochromasia Present A (Not Present) Anisocytosis 1+ A (Not Present) Microcytosis Present A (Not Present) PT 12.0 (9.4-12.1) Seconds INR 1.1 D-Dimer 710 H (0-500) ng/mLFEU Sodium (136-145) mEq/L Potassium (3.5-5.1) mEq/L Chloride (98-107) mEq/L Carbon Dioxide (23-29) mEq/L BUN (6-20) mg/dL Creatinine (0.70-1.30) mg/dL Est GFR ( Amer) (> 60) Est GFR (Non-Af Amer) (> 60) BUN/Creatinine Ratio (6-26) Glucose (70-105) mg/dL Calculated Osmolality (280-300) Calcium (8.6-10.3) mg/dL Troponin I (< 0.04) ng/mL B-Natriuretic Peptide 40 (Less than 100) pg/mL Blood Type Antibody Screen 07/09/17 07/09/17 Range/Units 09:01 09:01 WBC (4.3-11.1) K/mcL RBC (4.19-5.50) M/mcL Hgb (12.9-16.9) g/dL Hct (37.5-50.1) % MCV (83.0-100.0) fL MCH (28.0-33.3) pg MCHC (31.6-35.5) g/dL RDW (11.5-14.5) % Plt Count (140-400) K/mcL MPV (9.4-12.4) fL Immature Gran % (0-4) % Seg Neutrophils % % Lymphocytes % % Monocytes % % Eosinophils % % Basophils % % Neutrophils # (1.6-8.9) K/mcL Lymphocytes # (0.6-4.6) K/mcL Monocytes # (0.0-1.3) K/mcL Eosinophils # (0.0-0.6) K/mcL Basophils # (0.0-0.2) K/mcL Nucleated RBCs/100 WBC (0) /100 WBC Platelet Estimate (Normal) Hypochromasia (Not Present) Anisocytosis (Not Present) Microcytosis (Not Present) PT (9.4-12.1) Seconds INR D-Dimer (0-500) ng/mLFEU Sodium 140 (136-145) mEq/L Potassium 3.7 (3.5-5.1) mEq/L Chloride 109 H (98-107) mEq/L Carbon Dioxide 23 (23-29) mEq/L BUN 20 (6-20) mg/dL Creatinine 0.82 (0.70-1.30) mg/dL Est GFR ( Amer) > 60 (> 60) Est GFR (Non-Af Amer) > 60 (> 60) BUN/Creatinine Ratio 24 (6-26) Glucose 112 H (70-105) mg/dL Calculated Osmolality 293 (280-300) Calcium 9.0 (8.6-10.3) mg/dL Troponin I < 0.03 (< 0.04) ng/mL B-Natriuretic Peptide (Less than 100) pg/mL Blood Type O POSITIVE Antibody Screen NEGATIVE Critical Care Time Critical Care Time: Yes Total Critical Care Time: 30 Attestation: The high probability of a clinically significant, sudden or life threatening deterioration of the [] system(s) required my full and direct attention, intervention and personal management. The aggregate critical care time was [] minutes. This time is in addition to time spent performing reported procedures but includes the following: [] Data Review and interpretation [] Patient assessment and monitoring of vital signs [] Documentation [] Medication orders and management Attestation Statement - Attestation Attestation: I examined this patient and my medical decision-making was reviewed with the Resident Physician. I agree with the documented findings, disposition and treatment plan as described except to the extent set forth below. [id number] time provided Patient arrives complaining of right-sided chest discomfort. He also notes dyspnea with even minor exertion. He has a remote history of spontaneous pneumothorax. He appears pale on exam. He does have subconjunctival pallor. He states he has baseline anemia for which she is supposed to take iron supplements but he does not know his baseline hemoglobin. He denies black stools. 09:32: CXR shows suspected right apical PTX. CT chest ordered to evaluate further
[2017-07-09 09:24] LABS: Basophils % 0.3 %; Hemoglobin 8.3 g/dL (12.9-16.9); Mean Platelet Volume 9.5 fL (9.4-12.4); Red Cell Distribution Width 19.9 % (11.5-14.5)
[2017-07-09 09:25] LABS: Hematocrit 30.2 % (37.5-50.1); Mean Corpuscular HGB Conc 27.5 g/dL (31.6-35.5); Mean Corpuscular Hemoglobin 20.3 pg (28.0-33.3); Platelet Count 667 K/mcL (140-400); Red Blood Count 4.08 M/mcL (4.19-5.50); Segmented Neutrophils % 85.4 %
[2017-07-09 09:26] LABS: Eosinophils # 0.1 K/mcL (0.0-0.6); Eosinophils % 1.3 %; Immature Granulocytes % 0.5 % (0-4); Lymphocytes # 0.9 K/mcL (0.6-4.6); Lymphocytes % 9.7 %; Monocytes # 0.3 K/mcL (0.0-1.3); Monocytes % 2.8 %; Neutrophils # 7.9 K/mcL (1.6-8.9); Nucleated Red Blood Cells 0.2 /100 WBC (0)
[2017-07-09 09:29] LABS: INR 1.1
[2017-07-09 09:43] LABS: Anisocytosis 1+ (Not Present); Hypochromasia Present (Not Present); Platelet Estimate Increased (Normal)
[2017-07-09 09:44] LABS: Microcytosis Present (Not Present)
[2017-07-09 09:45] LABS: BUN/Creatinine Ratio 24 (6-26); Blood Urea Nitrogen 20 mg/dL (6-20); Carbon Dioxide 23 mEq/L (23-29); Chloride 109 mEq/L (98-107); Glucose 112 mg/dL (70-105); Osmolality,Calculated 293 (280-300); Potassium 3.7 mEq/L (3.5-5.1); Sodium 140 mEq/L (136-145); Troponin I < 0.03 ng/mL (< 0.04); eGFR For African Americans > 60 (> 60); eGFR For Non-African Americans > 60 (> 60)
[2017-07-09] MEDS ORDERED: levoFLOXacin 750 MG TABLET PO ONE (10:17)
[2017-07-09] MEDS ORDERED: Dextromethorphan Polistrx(12h) 30 MG/5 ML UDC PO ONE (10:19)
[2017-07-09] MEDS ORDERED: Naloxone 0.4 MG/ML INJ IVP PRN (12:36)
[2017-07-09] MEDS ORDERED: Acetaminophen 325 MG TABLET PO PRN (12:36)
[2017-07-09] MEDS ORDERED: Albuterol 2.5 MG/3 ML NEBULIZER IH PRN (12:39)
[2017-07-09] MEDS ORDERED: Nicotine 21 MG PATCH.TD24 TD PRN (12:41)
--- NOTE | 2017-07-09 12:43 | Internal Med History&Physical ---
Date of Encounter: 07/09/17 Time of Encounter: 12:43 Internal Medicine - H&P: HPI Chief complaint: Shortness of breath Admitted From: Emergency Dept Plans for Post Hospital Care: Home History of present illness: Mr. Kramer is a 41 year old male with h/o- gastric outlet obstruction s/p partial antrectomy and gastrojejunostomy, who presents with c/o- shortness of breath. Patient is thin-built, reports 5-day h/o- dyspnea, worse with exertion associated with right-sided chest pain and dry cough that began yesterday. He denies orthopnea and leg swelling. His chest pain is in right ribcage, nonradiating, worse with coughing. No fever, chills, palpitations. He reports abdominal pain, nausea, vomiting and diarrhea at baseline, due to his gastric surgeries. Of note, he is a chronic active smoker, smoking 1 pack per day for 25years. Past Med Surg Social Fam HX - Past Medical History Source: patient Medical history: GERD, other Psychiatric history: anxiety, depression - Past Surgical History Surgical History: other (gastric antrectomy, Billroth 1 reconstruction, B/L vagotomies; gastrojejunal anastomosis; septoplasty) - Social History Smoking Status: Current every day smoker Packs per day: 1 Smokeless Tobacco Status: No Alcohol use: none Drug use: none Current living situation: Home - Independent Activity Level: Independent ambulation Recent Out of Country Travel Within the Last 8 Weeks: No Exposure or Possible Exposure to Illness During Travel: No - Family History Father Adopted: No Family Member Ethnicity: Non- Living Status: Hx Family Respiratory Disorders: Yes Hx Family Cancer: Yes (lung cancer) Mother Living Status: Still Living Hx Family Cardiac Disorders: Yes (Hypertension) Brother Living Status: Still Living Hx Family GI Disorders: Yes (Diverticulosis) Internal Medicine - H&P: Meds Eszopiclone [Lunesta] 2 mg PO HS 02/24/17 [History] Ondansetron HCl [Zofran] 4 mg PO Q8H PRN 02/24/17 [History] Esomeprazole Magnesium [Nexium] 40 mg PO BID #60 capsule. 03/01/17 [Rx] BuPROPion XL (24 HR) [Wellbutrin Xl] 450 mg PO QAM 03/14/17 [History] LORazepam [Ativan] 0.5 mg PO TID 03/14/17 [History] Tamsulosin [Flomax] 0.4 mg PO DAILY 03/14/17 [History] Lactose-Reduced Food [Boost] 237 ml PO TID #90 liquid 03/25/17 [Rx] Sucralfate [Carafate] 1 gm PO QIDAC #60 tablet 03/25/17 [Rx] Multivitamin [One Daily Essential] 1 tab PO DAILY 05/04/17 [History] Promethazine [Phenergan] 12.5 mg PO Q6HR PRN #10 tablet 05/04/17 [Rx] Citalopram Hydrobromide [Celexa] 20 mg PO DAILY 07/09/17 [History] Quetiapine Fumarate [Seroquel Xr] 50 mg PO HS 07/09/17 [History] 3 Allergy/AdvReac Type Severity Reaction Status Date / Time NSAIDS (Non-Steroidal AdvReac Severe See Verified 07/09/17 08:44 Anti-Inflamma Comments Hydromorphone [From Dilaudid] AdvReac Rash Verified 07/09/17 08:44 All Systems PM: A 10-system review of systems was performed and is negative for pertinent findings except as documented above in the HPI. - Constitutional Constitutional: chills, malaise - EENT Eyes: no change in vision, no discharge, no pain, no photophobia Ears: no ear discharge, no ear pain, no tinnitus Nose, mouth and throat: no dysphagia, no nasal discharge, no neck pain, no sore throat - Cardiovascular Cardiovascular ROS IM: chest pain, dyspnea on exertion - Respiratory Respiratory: cough, dyspnea, dyspnea on exertion, pain with cough - Gastrointestinal Gastrointestinal: abdominal pain, diarrhea, heartburn, nausea, vomiting - Musculoskeletal Musculoskeletal ROS IM: no numbness, no tingling - Integumentary Integumentary IM: no rash, no unusual bruising - Neurological Neurological ROS: no confusion, no convulsions, no focal weakness, no numbness, no tingling, no tremor(s) - Hematologic/Lymphatic Hematologic/Lymphatic: no easy bruising - Constitutional Vitals: Temp Pulse Resp BP Pulse Ox 97.6 F 82 18 103/72 98 07/09/17 08:44 07/09/17 11:17 07/09/17 11:17 07/09/17 11:17 07/09/17 11:17 General appearance: Present: A&O X 3, underweight, answers questions appropriately - Respiratory Respiratory exam: Present: CTAB. Absent: accessory muscle use, rales, rhonchi, wheezes - Cardiovascular Cardiovascular exam: Present: RRR, +S1, +S2. Absent: diastolic murmur, gallop, rubs, systolic murmur - GI/Abdominal GI/Abdominal exam: Present: normal bowel sounds, soft, no peritoneal signs. Absent: distended, tenderness - Extremities Exam Extremities exam: Present: full ROM, warm, radial pulses palpable and symmetrical. Absent: calf tenderness, cyanotic, pedal edema - Neurological Exam Neurological exam: Present: CN II-XII intact, oriented X3, no focal deficits. Absent: pronater drift, facial droop, speech deficit - Skin Skin exam: Present: dry, intact, pallor Internal Med - H&P Results - Labs CBC & Chem 7: 07/09/17 09:01 07/09/17 09:01 - Assessment and plan (1) COPD (chronic obstructive pulmonary disease) Current Visit: Yes Status: Suspected Assessment and plan: Suspected. Plan as below; Qualifiers: COPD type: emphysema Emphysema type: unspecified Qualified Code(s): J43.9 - Emphysema, unspecified (2) Pneumonia Current Visit: Yes Status: Acute Assessment and plan: Patient likely has acute bronchitis with underlying undiagnosed emphysema/COPD; chest XRay and CT chest show upper lobe bullae and emphysematous changes B/L along with ground glass opacities B/L, suggestive of inflammation vs PNA. Send respiratory viral panel; start breathing treatments, PRN supplemental O2, empiric IV antibiotics- Levaquin, PRN antitussives; start enteral steroids; supportive care; blood cultures not sent from ER; Patient has paperwork from previous admissions stating that he is DNR-CCA/DNI, confirmed with him by director of staff development; Qualifiers: Pneumonia type: due to unspecified organism Laterality: bilateral Lung location: unspecified part of lung Qualified Code(s): J18.9 - Pneumonia, unspecified organism (3) Anxiety Current Visit: Yes Status: Chronic (4) Depression Current Visit: Yes Status: Chronic Qualifiers: Depression Type: unspecified Qualified Code(s): F32.9 - Major depressive disorder, single episode, unspecified (5) Tobacco abuse Current Visit: Yes Status: Chronic Assessment and plan: smoking cessation counseling done for 4 min; patient is aware of the risks of smoking, given his underlying gastric surgery, COPD, family h/o- lung cancer; uses Nicotine gum at home and trying to cut down; Nicotine TD patch PRN; (6) Gastric outlet obstruction Current Visit: Yes Status: Resolved Assessment and plan: s/p antrectomy and gastrojejunal anastomosis; continue PPI; (7) Anemia Current Visit: Yes Status: Chronic Assessment and plan: microcytic anemia, chronic; likely due to gastric surgery; Vti B12 and folate levels upper limits of normal; check iron profile; he cannot take oral iron pills due to gastritis? Qualifiers: Anemia type: unspecified type Qualified Code(s): D64.9 - Anemia, unspecified - Time Spent With Patient Total time spent is greater than 50% in coordination of care (as documented) at patient's floor/unit and/or counseling patient:
[2017-07-09] MEDS: predniSONE 20 MG TABLET PO SCH (13:17)
[2017-07-09 14:51] LABS: Adenovirus Not Detected (Not Detect); Bordetella Pertussis Not Detected (Not Detect); Chlamydophila pneumoniae Not Detected (Not Detect); Coronavirus 229E Not Detected (Not Detect); Coronavirus HKU1 Not Detected (Not Detect); Coronavirus NL63 Not Detected (Not Detect); Coronavirus OC43 Not Detected (Not Detect); Human Metapneumovirus Not Detected (Not Detect); Human Rhinovirus/Enterovirus Not Detected (Not Detect); Influenza A Subtype 2009 H1 Not Detected (Not Detect); Influenza A Untypeable Not Detected (Not Detect); Influenza B Not Detected (Not Detect); Mycoplasma pneumoniae Not Detected (Not Detect); Parainfluenza Virus 1 Not Detected (Not Detect); Parainfluenza Virus 2 Not Detected (Not Detect); Parainfluenza Virus 3 Not Detected (Not Detect); Parainfluenza Virus 4 Not Detected (Not Detect); Respiratory Syncytial Virus Not Detected (Not Detect)
[2017-07-09] MEDS: Ipratropium/Albuterol Neb 3 ML IH SCH ×2 (16:27→22:03)
[2017-07-09] MEDS ORDERED: *HR* Promethazine 25 MG/ML VIAL ONE (17:25)
[2017-07-09] MEDS: traMADol 50 MG TABLET PO PRN (17:29)
[2017-07-09] MEDS: *HR* Promethazine 25 MG/ML VIAL IVP PRN (17:29)
[2017-07-09] MEDS ORDERED: QUETIAPINE FUMARATE 50 MG PO SCH (21:00)
[2017-07-10 01:16] LABS: Immature Granulocytes % 0.6 % (0-4); Mean Platelet Volume 9.7 fL (9.4-12.4)
[2017-07-10 01:17] LABS: Basophils % 0.1 %; Hematocrit 28.2 % (37.5-50.1); Hemoglobin 7.9 g/dL (12.9-16.9); Lymphocytes # 1.1 K/mcL (0.6-4.6); Mean Corpuscular Hemoglobin 20.6 pg (28.0-33.3); Mean Corpuscular Volume 73.6 fL (83.0-100.0); Monocytes # 0.5 K/mcL (0.0-1.3); Neutrophils # 7.9 K/mcL (1.6-8.9); Nucleated Red Blood Cells 0.4 /100 WBC (0); Platelet Count 610 K/mcL (140-400); Red Blood Count 3.83 M/mcL (4.19-5.50); Red Cell Distribution Width 19.7 % (11.5-14.5); Segmented Neutrophils % 83.3 %
[2017-07-10 02:19] LABS: Anisocytosis 1+ (Not Present); Hypochromasia Present (Not Present); Platelet Estimate Increased (Normal); Polychromasia 1+ (Not Present)
[2017-07-10 02:37] LABS: BUN/Creatinine Ratio 24 (6-26); Blood Urea Nitrogen 20 mg/dL (6-20); Calcium 8.9 mg/dL (8.6-10.3); Carbon Dioxide 22 mEq/L (23-29); Chloride 114 mEq/L (98-107); Ferritin 13 ng/ml (20-250); Glucose 154 mg/dL (70-105); Iron < 10 mcg/dL (65-175); Osmolality,Calculated 304 (280-300); Potassium 4.3 mEq/L (3.5-5.1); Sodium 144 mEq/L (136-145); Transferrin 293 mg/dL (203-362); eGFR For African Americans > 60 (> 60); eGFR For Non-African Americans > 60 (> 60)
[2017-07-10] MEDS: Ipratropium/Albuterol Neb 3 ML IH SCH ×4 (04:10→21:45)
[2017-07-10] MEDS: predniSONE 20 MG TABLET PO SCH (08:51)
[2017-07-10] MEDS: Levofloxacin 500 MG/100 ML 500 MG/100 ML BAG IVPB SCH (12:26)
[2017-07-10] MEDS: traMADol 50 MG TABLET PO PRN (12:32)
--- NOTE | 2017-07-10 15:00 | Internal Med Progress Note ---
Date of Encounter: 07/10/17 Time of Encounter: 14:59 - Assessment and plan (1) Gastric outlet obstruction Current Visit: Yes Status: Resolved Assessment and plan: s/p antrectomy and gastrojejunal anastomosis; continue PPI; (2) Anxiety Current Visit: Yes Status: Chronic Assessment and plan: continue home meds (3) Depression Current Visit: Yes Status: Chronic Assessment and plan: continue home meds Qualifiers: Depression Type: unspecified Qualified Code(s): F32.9 - Major depressive disorder, single episode, unspecified (4) Tobacco abuse Current Visit: Yes Status: Chronic Assessment and plan: smoking cessation counseling done for 4 min; patient is aware of the risks of smoking, given his underlying gastric surgery, COPD, family h/o- lung cancer; uses Nicotine gum at home and trying to cut down; Nicotine TD patch PRN; (5) Pneumonia Current Visit: Yes Status: Acute Assessment and plan: Patient likely has acute bronchitis with underlying undiagnosed emphysema/COPD; chest XRay and CT chest show upper lobe bullae and emphysematous changes B/L along with ground glass opacities B/L, suggestive of inflammation vs PNA. resp panel negative Continue levaquin-day 2 continue duonebs Continue antitussives Continue prednisone Educated on diagnosis and plan Qualifiers: Pneumonia type: due to unspecified organism Laterality: bilateral Lung location: unspecified part of lung Qualified Code(s): J18.9 - Pneumonia, unspecified organism (6) Anemia Current Visit: Yes Status: Chronic Assessment and plan: microcytic anemia, chronic; likely due to gastric surgery; Vti B12 and folate levels upper limits of normal; Iron level <10 Started on Venofer, will give more doses a.m May need to follow up with Heme/Onc for out-patient infusion NO source of bleeding Continue to monitor Qualifiers: Anemia type: unspecified type Qualified Code(s): D64.9 - Anemia, unspecified (7) COPD (chronic obstructive pulmonary disease) Current Visit: Yes Status: Suspected Assessment and plan: Suspected. Plan as in PNA Will need MDI and Pulm eval /PFT upon discharge Qualifiers: COPD type: emphysema Emphysema type: unspecified Qualified Code(s): J43.9 - Emphysema, unspecified - Time Spent With Patient Total time spent is greater than 50% in coordination of care (as documented) at patient's floor/unit and/or counseling patient: - Subjective Interval history: Seen and examined at bedside Vidya guevara this a.m due to iron level <10 and patient being unable to take iron pills "due to abdominal problems" He has no new complains Resp panel negative - Constitutional Vitals: Temp Pulse Resp BP Pulse Ox 98.1 F 94 16 112/74 94 07/10/17 11:03 07/10/17 11:03 07/10/17 11:03 07/10/17 11:03 07/10/17 11:03 General appearance: Present: A&O X 3, no acute distress, underweight, answers questions appropriately - Head Head exam: Present: atraumatic, normocephalic - Eye Eye exam: Present: PERRL, sclera anicteric Pupils: Present: PERRL Additional comments: clinically pale - Neck Neck exam general surgery: Present: supple, trachea midline. Absent: lymphadenopathy - Respiratory Respiratory exam: Present: decreased breath sounds (possibly due to emphysema, no wheezing or rales). Absent: accessory muscle use, rales, rhonchi, wheezes - Cardiovascular Cardiovascular exam: Present: RRR, +S1, +S2. Absent: diastolic murmur, gallop, rubs, systolic murmur - GI/Abdominal GI/Abdominal exam: Present: normal bowel sounds, soft, no peritoneal signs. Absent: distended, tenderness - Extremities Exam Extremities exam: Present: warm, radial pulses palpable and symmetrical. Absent : calf tenderness, cyanotic, pedal edema - Neurological Exam Neurological exam: Present: alert, CN II-XII intact, oriented X3, no focal deficits. Absent: pronater drift, facial droop, speech deficit - Skin Skin exam: Present: dry, intact Internal Medicine: Result - Labs CBC & Chem 7: 07/10/17 00:47 07/10/17 00:47 Labs: Short CBC 07/10/17 Range/Units 00:47 WBC 9.5 (4.3-11.1) K/mcL Hgb 7.9 L (12.9-16.9) g/dL Hct 28.2 L (37.5-50.1) % Plt Count 610 H (140-400) K/mcL Neutrophils # 7.9 (1.6-8.9) K/mcL BMP 07/10/17 00:47 Sodium 144 Potassium 4.3 Chloride 114 H Carbon Dioxide 22 L BUN 20 Creatinine 0.83 Glucose 154 H Calcium 8.9 Cardiac Enzymes 07/09/17 07/10/17 Range/Units 19:14 00:47 Troponin I < 0.03 < 0.03 (< 0.04) ng/mL - ABG Interpretation ABG results: PT/INR, D-dimer PT 12.0 Seconds (9.4-12.1) 07/09/17 08:59 D-Dimer 710 ng/mLFEU (0-500) H 07/09/17 08:59 Consult Discharge Plan - Plan Referrals: Yudelka Grier, DEMAND PLANNING MANAGER [Primary Care Provider] -
[2017-07-10] MEDS: Sucralfate 1 GM TABLET PO SCH ×2 (17:03→20:48)
[2017-07-10] MEDS: *HR* LORazepam 0.5 MG TABLET PO SCH (20:48)
[2017-07-10] MEDS ORDERED: NON-FORMULARY MEDICATION 1 EACH EACH (Lactose-Reduced Food [Boost] 237 ML) PO SCH (21:00)
[2017-07-11] MEDS: Ipratropium/Albuterol Neb 3 ML IH SCH ×4 (04:04→21:14)
[2017-07-11] MEDS: *HR* Promethazine 25 MG/ML VIAL IVP PRN (04:07)
[2017-07-11] MEDS: traMADol 50 MG TABLET PO PRN ×2 (04:07→16:01)
[2017-07-11 06:51] LABS: Red Cell Distribution Width 20.2 % (11.5-14.5)
[2017-07-11 06:52] LABS: Basophils % 0.3 %; Eosinophils # 0.1 K/mcL (0.0-0.6); Eosinophils % 0.7 %; Hematocrit 27.9 % (37.5-50.1); Hemoglobin 7.8 g/dL (12.9-16.9); Immature Granulocytes % 1.3 % (0-4); Lymphocytes # 3.2 K/mcL (0.6-4.6); Lymphocytes % 24.8 %; Mean Corpuscular Hemoglobin 20.6 pg (28.0-33.3); Mean Corpuscular Volume 73.6 fL (83.0-100.0); Monocytes % 7.3 %; Nucleated Red Blood Cells 0.6 /100 WBC (0); Platelet Count 572 K/mcL (140-400); Red Blood Count 3.79 M/mcL (4.19-5.50); Segmented Neutrophils % 65.6 %
[2017-07-11 07:05] LABS: Neutrophils # 8.5 K/mcL (1.6-8.9)
[2017-07-11 07:06] LABS: BUN/Creatinine Ratio 22 (6-26); Blood Urea Nitrogen 17 mg/dL (6-20); Calcium 9.1 mg/dL (8.6-10.3); Carbon Dioxide 26 mEq/L (23-29); Chloride 110 mEq/L (98-107); Glucose 68 mg/dL (70-105); Osmolality,Calculated 300 (280-300); Potassium 3.2 mEq/L (3.5-5.1); Sodium 145 mEq/L (136-145); eGFR For African Americans > 60 (> 60); eGFR For Non-African Americans > 60 (> 60)
[2017-07-11 07:56] LABS: Hypochromasia Present (Not Present); Ovalocytes 1+ (Not Present); Polychromasia 1+ (Not Present)
[2017-07-11 07:57] LABS: Microcytosis Present (Not Present)
[2017-07-11 07:58] LABS: Platelet Estimate Increased (Normal)
--- NOTE | 2017-07-11 08:35 | Electrocardiograph Report ---
[facility] Test Date: 2017-07-09 Pat Name: Tawanda Kramer Department: 103 Room: 3A34 Gender: M Shrub Grower: BRIT : 1975 Requested By: Beka Morales Order Number: [id number] Reading MD: David Kirby Measurements Intervals Thornton Rate: 76 P: 30 LA: 143 QRS: 58 QRSD: 97 T: 38 QT: 372 QTc: 402 Interpretive Statements SINUS RHYTHM WARNING: DATA QUALITY MAY AFFECT INTERPRETATION INTERPRETATION BASED ON A DEFAULT AGE OF 40 YEARS Electronically Signed On 07-11-2017 8:33:48 EDT by David Kirby
[2017-07-11] MEDS: Sucralfate 1 GM TABLET PO SCH ×4 (09:22→21:01)
[2017-07-11] MEDS: predniSONE 20 MG TABLET PO SCH (09:22)
[2017-07-11] MEDS: *HR* LORazepam 0.5 MG TABLET PO SCH ×3 (09:22→21:01)
[2017-07-11] MEDS: BuPROPion XL (24 HR) 150 MG TABLET PO SCH (09:23)
[2017-07-11] MEDS: Multivit/Ca/Min/Fe/FA 1 TAB TABLET PO SCH (09:23)
[2017-07-11] MEDS: Levofloxacin 500 MG/100 ML 500 MG/100 ML BAG IVPB SCH (10:37)
--- NOTE | 2017-07-11 12:42 | Internal Med Progress Note ---
Date of Encounter: 07/11/17 Time of Encounter: 11:30 - Assessment and plan (1) Gastric outlet obstruction Current Visit: Yes Status: Resolved Assessment and plan: s/p antrectomy and gastrojejunal anastomosis; continue PPI; (2) Anxiety Current Visit: Yes Status: Chronic Assessment and plan: continue home meds (3) Depression Current Visit: Yes Status: Chronic Assessment and plan: continue home meds Qualifiers: Depression Type: unspecified Qualified Code(s): F32.9 - Major depressive disorder, single episode, unspecified (4) Tobacco abuse Current Visit: Yes Status: Chronic Assessment and plan: smoking cessation counseling done for 4 min; patient is aware of the risks of smoking, given his underlying gastric surgery, COPD, family h/o- lung cancer; uses Nicotine gum at home and trying to cut down; Nicotine TD patch PRN; (5) Pneumonia Current Visit: Yes Status: Acute Assessment and plan: Patient likely has acute bronchitis with underlying undiagnosed emphysema/COPD; chest XRay and CT chest show upper lobe bullae and emphysematous changes B/L along with ground glass opacities B/L, suggestive of inflammation vs PNA. resp panel negative Continue levaquin-day 3 continue duonebs Continue antitussives Continue prednisone Educated on diagnosis and plan Qualifiers: Pneumonia type: due to unspecified organism Laterality: bilateral Lung location: unspecified part of lung Qualified Code(s): J18.9 - Pneumonia, unspecified organism (6) Anemia Current Visit: Yes Status: Chronic Assessment and plan: microcytic anemia, chronic; likely due to gastric surgery; Vti B12 and folate levels upper limits of normal; Iron level <10 Started on Venofer, will give more doses a.m Consult Heme/Onc for severely low iron and LILIANA NO source of bleeding Continue to monitor Qualifiers: Anemia type: unspecified type Qualified Code(s): D64.9 - Anemia, unspecified (7) COPD (chronic obstructive pulmonary disease) Current Visit: Yes Status: Suspected Assessment and plan: Suspected. Plan as in PNA Will need MDI and Pulm eval /PFT upon discharge Qualifiers: COPD type: emphysema Emphysema type: unspecified Qualified Code(s): J43.9 - Emphysema, unspecified - Time Spent With Patient Total time spent is greater than 50% in coordination of care (as documented) at patient's floor/unit and/or counseling patient: - Subjective Interval history: Seen and examined at bedside Iron level <10 and patient being unable to take iron pills "due to abdominal problems" He has no new complains Resp panel negative States breathing is improved Will consult Oncology for his Severe LILIANA Will give another Venofer this a.m - Constitutional Vitals: Temp Pulse Resp BP Pulse Ox 98.5 F 99 18 122/78 94 07/11/17 10:49 07/11/17 10:49 07/11/17 10:49 07/11/17 10:49 07/11/17 10:49 General appearance: Present: cachectic, A&O X 3, no acute distress, underweight , answers questions appropriately - Head Head exam: Present: atraumatic, normocephalic - Eye Eye exam: Present: PERRL, sclera anicteric Pupils: Present: PERRL Additional comments: clinically pale - Neck Neck exam general surgery: Present: supple, trachea midline. Absent: lymphadenopathy - Respiratory Respiratory exam: Present: decreased breath sounds. Absent: rales, wheezes, tachypnea - Cardiovascular Cardiovascular exam: Present: RRR, +S1, +S2. Absent: diastolic murmur, gallop, rubs, systolic murmur - GI/Abdominal GI/Abdominal exam: Present: normal bowel sounds, soft, no peritoneal signs. Absent: distended, tenderness - Extremities Exam Extremities exam: Present: warm, radial pulses palpable and symmetrical. Absent : calf tenderness, cyanotic, pedal edema - Neurological Exam Neurological exam: Present: alert, CN II-XII intact, oriented X3, no focal deficits. Absent: pronater drift, facial droop, speech deficit - Skin Skin exam: Present: dry, intact Internal Medicine: Result - Labs CBC & Chem 7: 07/11/17 06:29 07/11/17 06:29 Labs: Short CBC 07/11/17 Range/Units 06:29 WBC 13.0 H (4.3-11.1) K/mcL Hgb 7.8 L (12.9-16.9) g/dL Hct 27.9 L (37.5-50.1) % Plt Count 572 H (140-400) K/mcL Neutrophils # 8.5 (1.6-8.9) K/mcL BMP 07/11/17 06:29 Sodium 145 Potassium 3.2 L Chloride 110 H Carbon Dioxide 26 BUN 17 Creatinine 0.79 Glucose 68 L Calcium 9.1 - ABG Interpretation ABG results: PT/INR, D-dimer PT 12.0 Seconds (9.4-12.1) 07/09/17 08:59 D-Dimer 710 ng/mLFEU (0-500) H 07/09/17 08:59 Consult Discharge Plan - Plan Referrals: Yudelka Grier, VETERINARY TOXICOLOGIST [Primary Care Provider] -
[2017-07-11] MEDS: *HR* OxyCODONE/APAP 5/325 TABLET PO PRN (21:31)
[2017-07-12] MEDS: *HR* Promethazine 25 MG/ML VIAL IVP PRN (00:57)
[2017-07-12] MEDS: Ipratropium/Albuterol Neb 3 ML IH SCH ×2 (04:36→10:17)
[2017-07-12 05:08] LABS: Basophils % 0.2 %; Eosinophils % 0.4 %; Mean Corpuscular Hemoglobin 20.8 pg (28.0-33.3); Red Cell Distribution Width 20.5 % (11.5-14.5)
[2017-07-12 05:09] LABS: Eosinophils # 0.1 K/mcL (0.0-0.6); Hemoglobin 7.5 g/dL (12.9-16.9); Immature Granulocytes % 3.9 % (0-4); Lymphocytes # 3.2 K/mcL (0.6-4.6); Lymphocytes % 18.9 %; Mean Corpuscular HGB Conc 27.8 g/dL (31.6-35.5); Mean Platelet Volume 9.8 fL (9.4-12.4); Monocytes # 0.9 K/mcL (0.0-1.3); Monocytes % 5.2 %; Neutrophils # 11.9 K/mcL (1.6-8.9); Nucleated Red Blood Cells 1.4 /100 WBC (0); Platelet Count 502 K/mcL (140-400); Segmented Neutrophils % 71.4 %
[2017-07-12 05:23] LABS: BUN/Creatinine Ratio 18 (6-26); Blood Urea Nitrogen 16 mg/dL (6-20); Carbon Dioxide 24 mEq/L (23-29); Chloride 109 mEq/L (98-107); Glucose 100 mg/dL (70-105); Osmolality,Calculated 293 (280-300); Potassium 3.6 mEq/L (3.5-5.1); Sodium 141 mEq/L (136-145); eGFR For African Americans > 60 (> 60); eGFR For Non-African Americans > 60 (> 60)
[2017-07-12 06:13] LABS: Anisocytosis 1+ (Not Present); Hypochromasia Present (Not Present); Poikilocytosis 1+ (Not Present)
[2017-07-12 07:16] VITALS: BP 132/84
[2017-07-12] MEDS: Sucralfate 1 GM TABLET PO SCH (08:19)
[2017-07-12] MEDS: *HR* LORazepam 0.5 MG TABLET PO SCH (08:20)
[2017-07-12] MEDS: Multivit/Ca/Min/Fe/FA 1 TAB TABLET PO SCH (08:20)
[2017-07-12] MEDS: predniSONE 20 MG TABLET PO SCH (08:20)
[2017-07-12] MEDS: BuPROPion XL (24 HR) 150 MG TABLET PO SCH (08:20)
[2017-07-12] MEDS: *HR* OxyCODONE/APAP 5/325 TABLET PO PRN (08:24)
--- NOTE | 2017-07-12 09:19 | Oncology Inp Consult Note ---
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 Cheema. He is microcytic, hypochromic anemia with MCV 75, MCH 20, hgb 7.5, iron deficiency with iron <10, ferritin 13. Thrombocytosis noted with platelet count of 502, likely reactive and secondary to his LILIANA, will monitor for correction with iron replacement. He is unable to tolerate oral iron due to nausea and abdominal pain and has been taking sparingly at home. He has received 200 mg venofer since his admission, and had planned on administering another 400 mg venofer today, however, he is being discharged very soon for an outpatient appointment. He already reports improvement within his SOB and generalized weakness since his iron infusions. We will arrange for an iron infusion this week at the cancer center as an outpatient. He will also have further follow up arranged with Dr. Gaona. We will check CBC, B12 and folate for completeness at his upcoming infusion. He plans to continue to follow up with Dr. Cheema as scheduled, states he is having upcoming scope arranged with Dr. Cheema following his surgery in March. He was instructed to contact us with any further questions or concerns in the time being. Qualifiers: Iron deficiency anemia type: inadequate dietary iron intake Qualified Code( s): D50.8 - Other iron deficiency anemias - Data of Consult Requesting Physician: Chris Gould MD Primary Care Provider: Yudelka Grier CNP - Consult Narrative Reason for consult: LILIANA History of present illness: Mr. rKamer is a 41 year old male with past medical history significant for GERD , anxiety, depression, Billroth I gastrectomy in February 2015 with subsequent balloon dilation for stenosis in February, EGD with pyloric balloon dilation on 03/15/17, exploratory lap with retrocolic retrogastric gastrojejunstomy 03/19/17 -surgery with Dr. Cheema. He presented to the ER on 07/09/2017 with report of worsening SOB, acute onset of right sided chest pain and a dry cough. He was unable to participate in his daily activities due to SOB with minimal exertion. He was admitted for pneumonia. Lab work indicated iron deficiency anemia for which he has already received 200 mg IV venofer. Hematology consulted for further recommendations. Past Med Surg Social Fam HX - Past Medical History Medical history: GERD, other Psychiatric history: anxiety, depression - Past Surgical History Surgical History: other - Social History Smoking Status: Current every day smoker Packs per day: 1 Smokeless Tobacco Status: No Alcohol use: none Drug use: none - Family History Father Adopted: No Family Member Ethnicity: Non- Living Status: Hx Family Respiratory Disorders: Yes Hx Family Cancer: Yes (lung cancer) Mother Living Status: Still Living Hx Family Cardiac Disorders: Yes (Hypertension) Brother Living Status: Still Living Hx Family GI Disorders: Yes (Diverticulosis) Medications and Allergies Eszopiclone [Lunesta] 2 mg PO HS 02/24/17 [History] Ondansetron HCl [Zofran] 4 mg PO Q8H PRN 02/24/17 [History] Esomeprazole Magnesium [Nexium] 40 mg PO BID #60 capsule. 03/01/17 [Rx] BuPROPion XL (24 HR) [Wellbutrin Xl] 450 mg PO QAM 03/14/17 [History] LORazepam [Ativan] 0.5 mg PO TID 03/14/17 [History] Tamsulosin [Flomax] 0.4 mg PO DAILY 03/14/17 [History] Lactose-Reduced Food [Boost] 237 ml PO TID #90 liquid 03/25/17 [Rx] Sucralfate [Carafate] 1 gm PO QIDAC #60 tablet 03/25/17 [Rx] Multivitamin [One Daily Essential] 1 tab PO DAILY 05/04/17 [History] Promethazine [Phenergan] 12.5 mg PO Q6HR PRN #10 tablet 05/04/17 [Rx] Citalopram Hydrobromide [Celexa] 20 mg PO DAILY 07/09/17 [History] Quetiapine Fumarate [Seroquel Xr] 50 mg PO HS 07/09/17 [History] Levofloxacin [Levaquin] 750 mg PO Q24H 3 Days #3 tablet 07/12/17 [Rx] Nicotine Patch [Nicoderm] 21 mg TD DAILY PRN #7 patch.td24 07/12/17 [Rx] predniSONE [PredniSONE] 40 mg PO DAILY 2 Days #4 tablet 07/12/17 [Rx] 3 Allergy/AdvReac Type Severity Reaction Status Date / Time NSAIDS (Non-Steroidal AdvReac Severe See Verified 07/09/17 08:44 Anti-Inflamma Comments Hydromorphone [From Dilaudid] AdvReac Rash Verified 07/09/17 08:44 Constitutional: Present: fatigue, weakness. Absent: anorexia, chills, fever(s) , frequent falls, night sweats, weight loss Eyes: Absent: change in vision Nose, mouth and throat: Absent: dysphagia, mouth lesions Cardiovascular: Present: as per HPI Additional comments: chest pain now resolved Respiratory: Present: as per HPI, cough Additional comments: dyspnea improved since iron infusions Gastrointestinal: Absent: abdominal pain, change in bowel habits, dysphagia, hematemesis, hematochezia, melena, nausea, vomiting Additional comments: denies dysuria or hematuria Musculoskeletal: Present: muscle weakness Integumentary: Absent: wounds Neurological: Absent: focal weakness, frequent falls Psychiatric: Absent: change in appetite Hematologic/Lymphatic: Present: as per HPI Oncology - Exam - Constitutional Vitals: Temp Pulse Resp BP Pulse Ox 97.9 F 77 19 132/84 100 07/12/17 07:14 07/12/17 07:14 07/12/17 07:14 07/12/17 07:14 07/12/17 08:26 General appearance: cooperative, no acute distress, thin, no febrile - Head Head exam: Present: atraumatic - ENT ENT exam: Present: mucous membranes moist - Respiratory Respiratory exam: Present: CTAB. Absent: respiratory distress - Cardiovascular Cardiovascular exam: Present: RRR, +S1, +S2 - GI/Abdominal GI/Abdominal exam: Present: normal bowel sounds, soft. Absent: tenderness - Extremities Exam Extremities exam: Present: normal inspection. Absent: calf tenderness - Neurological Exam Neurological exam: Present: alert, oriented X3, no focal deficits, strengths equal and symetr throughout - Psychiatric Psychiatric exam: Present: normal affect, normal mood - Skin Skin exam: Present: dry, intact, pallor, warm Oncology - Results Labs: Short CBC 07/12/17 Range/Units 04:36 WBC 16.7 H (4.3-11.1) K/mcL Hgb 7.5 L (12.9-16.9) g/dL Hct 27.0 L (37.5-50.1) % Plt Count 502 H (140-400) K/mcL Neutrophils # 11.9 H (1.6-8.9) K/mcL BMP 07/12/17 04:36 Sodium 141 Potassium 3.6 Chloride 109 H Carbon Dioxide 24 BUN 16 Creatinine 0.87 Glucose 100 Calcium 9.0 Consult Discharge Plan - Plan Instructions: Anemia (GEN), Pneumonia (DC) Additional Instructions: 1. Follow-up with your primary care provider in the next 3-5 days 2. Take all prescriptions as prescribed, any concerns or questions contact her primary care provider. 3. Return to the emergency department if: Worsening of shortness of breath, fevers, chills, diaphoresis, productive sputum, chest pain, chest pressure or any other concerning medical symptoms or signs. - Follow up with pulmonology for bullous emphysematous workup. - Quit smoking - Follow up with oncology per their recommendations. Referrals: Yudelka Grier MANAGER CLIENT SERVICE [Primary Care Provider] - 07/20/17 11:00 am Prescriptions: Levofloxacin [Levaquin] 750 mg PO Q24H 3 Days #3 tablet Nicotine Patch [Nicoderm] 21 mg TD DAILY PRN #7 patch.td24 PRN Reason: craving predniSONE [PredniSONE] 40 mg PO DAILY 2 Days #4 tablet
--- NOTE | 2017-07-12 09:25 | Discharge Summary ---
<David Alvarado - Last Filed: 07/12/17 11:12> Date of Encounter: 07/12/17 Time of Encounter: 09:21 - Discharge Diagnosis (1) Pneumonia Priority: Primary Status: Acute Qualifiers: Pneumonia type: due to unspecified organism Laterality: bilateral Lung location: unspecified part of lung Qualified Code(s): J18.9 - Pneumonia, unspecified organism (2) COPD (chronic obstructive pulmonary disease) Priority: Primary Status: Suspected Qualifiers: COPD type: emphysema Emphysema type: unspecified Qualified Code(s): J43.9 - Emphysema, unspecified (3) Bullae Priority: Primary Status: Acute (4) Tobacco abuse Priority: Secondary Status: Acute (5) Iron deficiency anemia Priority: Primary Status: Acute Qualifiers: Iron deficiency anemia type: inadequate dietary iron intake Qualified Code( s): D50.8 - Other iron deficiency anemias Hospital course: Mr. Kramer is a 41 year old male with h/o- gastric outlet obstruction s/p partial antrectomy and gastrojejunostomy, tobacco abuse, depression, anxiety, anemia who presents with c/o- shortness of breath. He was evaluated in the emergency department with initial vitals which were stable, significant laboratory anything demonstrate hemoglobin 8.3, MCV of 74, platelet count of 667 , RDW of 19.9, stable chemistry panel and respiratory infectious panel which was negative. Initial chest x-ray demonstrated interval bilateral airspace opacities concerning for infectious process. Emphysematous changes identified in bilateral upper lobes. Patient underwent chest CT that demonstrated bullous emphysematous changes within the upper lungs bilaterally, asymmetrically worse on the right compared to the left. Multifocal linear airspace opacifications within the right mid and lower lungs and to a lesser extent in the left lower lung. Also notices superimposed multifocal ill-defined groundglass opacifications within the lungs bilaterally. No findings of pleural effusion or pneumothorax. Initially received Levaquin 750 IV in the emergency department and started on by mouth prednisone at 40 mg by mouth pain controlled with tramadol. Is inpatient stay he continued on IV Levaquin and by mouth prednisone. He received IV iron for microcytic anemia. Thorough discussion with Mr. Kramer demonstrates that he has had a history of gastrojejunostomy and history of iron deficiency with difficulty taking oral iron. Oncology consult was placed for evaluation Mr. Kramer. Mr. Kramer will follow up with his PCP in the outpatient setting, follow-up with pulmonology for further evaluation of bullous emphysema, PFT evaluation and alpha-1 antitrypsin deficiency evaluation. He will follow up with oncology as recommended per their notes. Upon evaluation on 07/22/2017 Mr. Kramer was seen and evaluated with out any clinical concerns. Mild elevation in WBC is likely secondary to PO steroids. The plan for discharge includes completion of antibiotics and oral steroids was discussed. Mr. Kramer agrees to follow-up with pulmonology and oncology and his primary care provider in the outpatient setting. Discharge discussed with: patient - Time Spent with Patient Total time spent providing and/or coordinating discharge services: - Discharge Medications Prescriptions: Levofloxacin [Levaquin] 750 mg PO Q24H 3 Days #3 tablet Nicotine Patch [Nicoderm] 21 mg TD DAILY PRN #7 patch.td24 PRN Reason: craving predniSONE [PredniSONE] 40 mg PO DAILY 2 Days #4 tablet Home Medications: Eszopiclone [Lunesta] 2 mg PO HS 02/24/17 [History] Ondansetron HCl [Zofran] 4 mg PO Q8H PRN 02/24/17 [History] Esomeprazole Magnesium [Nexium] 40 mg PO BID #60 capsule. 03/01/17 [Rx] BuPROPion XL (24 HR) [Wellbutrin Xl] 450 mg PO QAM 03/14/17 [History] LORazepam [Ativan] 0.5 mg PO TID 03/14/17 [History] Tamsulosin [Flomax] 0.4 mg PO DAILY 03/14/17 [History] Lactose-Reduced Food [Boost] 237 ml PO TID #90 liquid 03/25/17 [Rx] Sucralfate [Carafate] 1 gm PO QIDAC #60 tablet 03/25/17 [Rx] Multivitamin [One Daily Essential] 1 tab PO DAILY 05/04/17 [History] Promethazine [Phenergan] 12.5 mg PO Q6HR PRN #10 tablet 05/04/17 [Rx] Citalopram Hydrobromide [Celexa] 20 mg PO DAILY 07/09/17 [History] Quetiapine Fumarate [Seroquel Xr] 50 mg PO HS 07/09/17 [History] Levofloxacin [Levaquin] 750 mg PO Q24H 3 Days #3 tablet 07/12/17 [Rx] Nicotine Patch [Nicoderm] 21 mg TD DAILY PRN #7 patch.td24 07/12/17 [Rx] predniSONE [PredniSONE] 40 mg PO DAILY 2 Days #4 tablet 07/12/17 [Rx] Allergies/Adverse Reactions: 3 Allergy/AdvReac Type Severity Reaction Status Date / Time NSAIDS (Non-Steroidal AdvReac Severe See Verified 07/09/17 08:44 Anti-Inflamma Comments Hydromorphone [From Dilaudid] AdvReac Rash Verified 07/09/17 08:44 Date of admission: 07/09/17 12:15 Primary care physician: Yudelka Grier CNP Consults: 07/11/17 12:38 Consult to Oncology [CONS] Routine Consulting Provider: [facility] Reason for Consult: Severe Iron deficiency anemia Call Completed: No Discharging clinician: David Alvarado Anticipated date of discharge: 07/12/17 - Constitutional Vitals: Temp Pulse Resp BP Pulse Ox 97.9 F 77 19 132/84 100 07/12/17 07:14 07/12/17 07:14 07/12/17 07:14 07/12/17 07:14 07/12/17 08:26 General appearance: Present: cachectic, A&O X 3, no acute distress, underweight , answers questions appropriately Exam: General: Patient alert, awake, oriented 3, interactive, in no acute distress, skin is pale HEENT: Normocephalic, atraumatic, pupils equal reactive to light, nasal cavity patent and open septum median position, oral mucosa moist, uvula midline, neck supple trachea midline no palpable lymphadenopathy, no thyromegaly. Chest: Symmetric bilateral correlating with respiratory effort, effort nonlabored. Cardiac: Regular rate and rhythm, positive S1 and S2. no bruits appreciated bilateral carotids, Radial pulses 2+ bilateral, posterior tibial and dorsal pedal pulses 2+ bilateral. Respiratory: Clear to auscultation all lung mejia Abdomen: Soft, nontender, positive bowel sounds, no palpable masses appreciated on examination Extremities: Symmetric bilateral, bilateral lower extremities without erythema or edema patient moving all 4 extremities spontaneously. Neurologic: No focal deficits appreciated on examination. Face symmetric, muscle strength symmetric bilateral upper and lower extremities. - Patient Status Disposition: Home, Self-Care Condition: Fair Functional capacity at discharge: independent ambulation Overall status at discharge: patient is progressing back to baseline - Discharge Instructions Instructions: Anemia (GEN), Pneumonia (DC) Follow Up With: Yudelka Grier CNP [Primary Care Provider] - 07/20/17 11:00 am Additional Instructions: 1. Follow-up with your primary care provider in the next 3-5 days 2. Take all prescriptions as prescribed, any concerns or questions contact her primary care provider. 3. Return to the emergency department if: Worsening of shortness of breath, fevers, chills, diaphoresis, productive sputum, chest pain, chest pressure or any other concerning medical symptoms or signs. - Follow up with pulmonology for bullous emphysematous workup. - Quit smoking - Follow up with oncology per their recommendations. - Diet and Activity Activity: increase activity as tolerated Diet: advance to your usual diet <Chris Gould - Last Filed: 07/12/17 13:26> Date of Encounter: 07/12/17 - Discharge Diagnosis (1) Gastric outlet obstruction Status: Resolved (2) Anxiety Status: Chronic (3) Depression Status: Chronic Qualifiers: Depression Type: unspecified Qualified Code(s): F32.9 - Major depressive disorder, single episode, unspecified (4) Tobacco abuse Status: Chronic (5) Pneumonia Status: Acute Qualifiers: Pneumonia type: due to unspecified organism Laterality: bilateral Lung location: unspecified part of lung Qualified Code(s): J18.9 - Pneumonia, unspecified organism (6) Anemia Status: Chronic Qualifiers: Anemia type: unspecified type Qualified Code(s): D64.9 - Anemia, unspecified (7) COPD (chronic obstructive pulmonary disease) Status: Suspected Qualifiers: COPD type: emphysema Emphysema type: unspecified Qualified Code(s): J43.9 - Emphysema, unspecified Hospital course: Mr. Kramer is a 41 year old male - Time Spent with Patient Total time spent providing and/or coordinating discharge services: Date of admission: 07/09/17 12:15 Primary care physician: Yudelka Grier CNP Consults: 07/11/17 12:38 Consult to Oncology [CONS] Routine Consulting Provider: [facility] Reason for Consult: Severe Iron deficiency anemia Call Completed: No - Constitutional Vitals: Temp Pulse Resp BP Pulse Ox 97.9 F 77 16 132/84 96 07/12/17 07:14 07/12/17 07:14 07/12/17 10:17 07/12/17 10:17 07/12/17 10:17 - Attending Attestation Patient was seen and examined independently at the bedside Agree with plan to discharge on antibiotics and steroids. Follow up with Oncology, Pulmonology and PCP Tobacco cessation counselling done daily
[2017-07-12] MEDS ORDERED: Iron Sucrose Complex 250 MG in 0.9 % Sodium Chloride 250 ML IVPB SCH (10:00)
== END 2017-07-12 10:58 | disposition home or self-care (01) ==
LOC: EMEROO 08:42 → 3ANU 08:42
PROVIDERS: ADMIT Internal Medicine; ATTEND Internal Medicine

== ENCOUNTER 2018-01-18 16:24 | Inpatient (IN) ==
[2018-01-18] MEDS: *HR* Promethazine 25 MG/ML VIAL IVP SCH (18:48)
[2018-01-18] MEDS ORDERED: Acetaminophen 325 MG TABLET PO PRN (20:02)
[2018-01-18] MEDS ORDERED: Naloxone 0.4 MG/ML INJ IVP PRN (20:02)
[2018-01-18] MEDS ORDERED: traMADol 50 MG TABLET PO PRN (20:40)
--- NOTE | 2018-01-18 20:40 | Internal Med History&Physical ---
<Bruce Mattson - Last Filed: 01/18/18 21:44> Date of Encounter: 01/18/18 Time of Encounter: 20:45 Internal Medicine - H&P: HPI Chief complaint: Shortness of breath Admitted From: Emergency Dept Plans for Post Hospital Care: Home History of present illness: Mr. Kramer is a 42 year old male with history of COPD, GERD, and Spontaneous pneumothorax at age of 21 who presented to [facility] for SOB, nausea and vomiting for several days duration. The patient says that he's been experiencing sinus pressure for about a month, but in the past few days started experiencing worsening shortness of breath which started suddenly. The shortness of breath is associated with chest pain that is pleuritic in nature, and right sided. 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 Nothing aggravated or alleviated his symptoms. He mentions that in addition to these symptoms, he began to experience nausea and some vomiting today which occurred only a few times, however but he still experiencing some nausea. He does mention that he has had a spontaneous pneumothorax in the past which did not require any intervention at that time. At that time he was approximately 21 years old. He also does report a family history of spontaneous pneumothoraces in his father. In the ED, the patient had a chest x-ray that demonstrated a right-sided tension pneumothorax and the larger space opacity within the left lung. He received a right-sided chest tube and CT surgery was consulted from the ED and see the patient in the morning. The patient also had labs which demonstrated WBC of 15.7, hemoglobin 10.9, platelet 522. His glucose was elevated at 195. The patient does report a past medical history of PUD with Billroth I surgery with Dr. Castro. He also mentions Bilroth 2, however he cannot find records of this. The patient says he is also battling with anxiety and depression the past. He is a long-time smoker, however has cut back to about a fourth a pack a day. He denies ethanol use, and denies drug use. He lives with his sister. Family history is significant for father who of lung cancer, however did report spontaneous pneumothorax ease in his father as well. His knowledge she is no family history of connective tissue diseases including Marfan syndrome or Andrea-Danlos syndrome. Past Med Surg Social Fam HX - Past Medical History Medical history: COPD, GERD, other Additional medical history: anxiety, depression Psychiatric history: anxiety, depression - Past Surgical History Surgical History: herniorrhaphy, other Additional surgical history: hernia repair, gastojajunostomy , septoplasty, dental extraction - Social History Smoking Status: Current every day smoker Smokeless Tobacco Status: No Alcohol use: occasionally Drug use: none - Family History Father Adopted: No Family Member Ethnicity: Non- Living Status: Hx Family Respiratory Disorders: Yes Hx Family Cancer: Yes (lung cancer) Mother Living Status: Still Living Hx Family Cardiac Disorders: Yes (Hypertension) Brother Living Status: Still Living Hx Family GI Disorders: Yes (Diverticulosis) Internal Medicine - H&P: Meds Eszopiclone [Lunesta] 2 mg PO HS 02/24/17 [History] Esomeprazole Magnesium [Nexium] 40 mg PO BID #60 capsule. 03/01/17 [Rx] BuPROPion XL (24 HR) [Wellbutrin Xl] 150 mg PO QAM 03/14/17 [History] Citalopram Hydrobromide [Celexa] 20 mg PO DAILY 07/09/17 [History] Loratadine [Allergy Relief] 10 mg PO DAILY 09/28/17 [History] Bupropion HCl [Wellbutrin Xl] 300 mg PO QAM 01/18/18 [History] Cefdinir [Omnicef] 300 mg PO BID 01/18/18 [History] Gabapentin [Neurontin] 600 mg PO Q8H 01/18/18 [History] Multivitamin [One Daily Multivitamin] 1 each PO DAILY 01/18/18 [History] Nicotine Polacrilex [Nicotine Gum] 2 mg BC Q1H PRN 01/18/18 [History] Quetiapine Fumarate [Quetiapine Fumarate ER] 50 mg PO HS 01/18/18 [History] Sucralfate [Carafate] 1 gm PO QID 01/18/18 [History] Tamsulosin HCl [Flomax] 0.4 mg PO DAILY 01/18/18 [History] Vitamin B Complex [B Complex] 1 each PO DAILY 01/18/18 [History] 3 Allergy/AdvReac Type Severity Reaction Status Date / Time NSAIDS (Non-Steroidal AdvReac Severe See Verified 01/18/18 14:12 Anti-Inflamma Comments Hydromorphone [From Dilaudid] AdvReac Rash Verified 01/18/18 14:12 All Systems PM: A 10-system review of systems was performed and is negative for pertinent findings except as documented above in the HPI. Review of systems: Constitutional: Denies fevers, chills, weight loss, generalized fatigue Head/Neck: Denies BIGGS, neck stiffness EENT: Denies vision changes/blurriness, rhinorrhea, congestion, sore throat CVS: Denies palpitations, MARIANO, orthopnea, edema, PND Pulm: Admits to shortness of breath, cough. Denies sputum production, wheezing GI: Admits to nausea, vomiting. Denies diarrhea, constipation, melena, hematemesis. : Denies dysuria, increased frequency, urgency, hematuria Heme: Denies ease of bleeding or bruising MSK: Denies joint pain, limited ROM Skin: Denies rashes, ulcers, color changes Neuro: Denies BIGGS, paresthesias, focal deficits, ataxia - Constitutional Vitals: Temp Pulse Resp BP Pulse Ox 99.3 F 96 17 117/74 88 01/18/18 19:16 01/18/18 19:16 01/18/18 19:16 01/18/18 19:16 01/18/18 19:16 Exam: Gen: Vitals noted. Patient appears mildly distressed. HEENT: Normocephalic, atraumatic Neck: Supple. No adenopathy. Cardiac: RRR, no murmur, +S1/S2 Chest: Chest tube in place for right lung attached to intermittent suction Pulmonary: Poor respiratory effort overall, right lung sounds largely diminished. Abdomen: Mildly distended, tender to palpation in the epigastric region. No peritoneal signs. Back: Nontender throughout. MSK: ROM intact, no joint swelling noted Extremities: no BLE edema, nontender calf, no cyanosis or clubbing Neuro: moves all extremities, no focal deficits. A&Ox3 Psych: Appropriate mood and behavior - Assessment and plan (1) Tension pneumothorax Current Visit: Yes Status: Acute Assessment and plan: Right tension pneumothorax status post chest tube Patient presented with shortness of breath, tension pneumothorax Had chest tube placed at [facility] Dr. Dos Santos was consulted from the ED, agreed to see patient at [facility] [place] Chest tube currently to suction, very minimal serous fluid output Vitals currently stable on 4L O2 NC We will continue to monitor NPO at midnight (2) Pneumonia Current Visit: Yes Status: Acute Assessment and plan: Multifocal pneumonia demonstrated on chest CT Presents with mild hypoxia, temp 99.3, WBC 15.7 Blood cultures pending, strep pneumo and legionella antigens pending Suspect community-acquired pneumonia at this time We will start the patient on Rocephin and azithromycin day 1 Consider pulmonology consult Qualifiers: Pneumonia type: due to unspecified organism Laterality: bilateral Lung location: unspecified part of lung Qualified Code(s): J18.9 - Pneumonia, unspecified organism (3) Acute blood loss anemia Current Visit: Yes Status: Acute Assessment and plan: Nausea and vomiting with abdominal pain, Decreased Hgb from prior Significant history of peptic ulcer disease, status post Billroth I Patient has been seen by Dr. Cheema numerous times in the past At this time there is no evidence that he is experiencing significant ulcers We will continue to monitor, give Zofran and Phenergan for nausea Start IV Protonix BID (4) Nausea & vomiting Current Visit: Yes Status: Acute Assessment and plan: Nausea and vomiting with abdominal pain Plan as above Qualifiers: Vomiting type: unspecified Vomiting Intractability: non-intractable Qualified Code(s): R11.2 - Nausea with vomiting, unspecified (5) COPD (chronic obstructive pulmonary disease) Current Visit: Yes Status: Suspected Assessment and plan: History of COPD with emphysema CT of the chest demonstrates significant emphysematous burden with large blebs We will give PRN and scheduled Duonebs No need for steroids at this time Qualifiers: COPD type: emphysema Emphysema type: unspecified Qualified Code(s): J43.9 - Emphysema, unspecified (6) Iron deficiency anemia Current Visit: No Status: Chronic Assessment and plan: Chronic iron deficiency anemia Hemoglobin 10.9, mildly decreased in comparison to previous We will have surgical consult in the morning Qualifiers: Iron deficiency anemia type: unspecified iron deficiency Qualified Code(s) : D50.9 - Iron deficiency anemia, unspecified (7) Smoking addiction Current Visit: No Status: Acute Assessment and plan: Nicotine patches prn (8) DVT prophylaxis Current Visit: No Status: Acute Assessment and plan: SQ Heparin contraindicated in possible GI bleed. SCDs (9) History of Billroth I operation Current Visit: Yes Status: Acute Assessment and plan: Per pt/operative note - Time Spent With Patient Total time spent is greater than 50% in coordination of care (as documented) at patient's floor/unit and/or counseling patient: <Omar Valentine - Last Filed: 01/19/18 00:38> Date of Encounter: 01/18/18 Time of Encounter: 23:00 - Constitutional Constitutional: no chills, no fever(s) - EENT Eyes: no blurry vision, no change in vision Ears: no ear pain, no tinnitus Nose, mouth and throat: no nasal congestion, no sinus pressure, no sore throat - Cardiovascular Cardiovascular ROS IM: chest pain, dyspnea, no orthopnea, no paroxysmal nocturnal dyspnea - Respiratory Respiratory: cough, pain with cough, no hemoptysis, no chest congestion, no excessive phlegm production, no change in phlegm color - Gastrointestinal Gastrointestinal: no abdominal pain, no diarrhea, no vomiting - Genitourinary Genitourinary ROS male: no dysuria, no flank pain - Musculoskeletal Musculoskeletal ROS IM: no arthralgias, no back pain - Integumentary Integumentary IM: no rash, no jaundice - Neurological Neurological ROS: no dizziness, no focal weakness, no frequent falls, no headache(s) - Psychiatric Psychiatric: anxiety, no depression - Endocrine Endocrine IM: no polydipsia, no polyuria - Allergic/Immunologic Allergic/Immunologic: no wheezing, no GI upset with certain foods - Constitutional Vitals: Temp Pulse Resp BP Pulse Ox 99.4 F 85 16 102/70 94 01/18/18 23:48 01/18/18 23:48 01/19/18 00:00 01/18/18 23:48 01/19/18 00:00 General appearance: Present: cooperative, A&O X 3, pleasant, no acute distress - Head Head exam: Present: normal inspection - Eye Eye exam: Present: EOMI, PERRL. Absent: scleral icterus - ENT ENT exam: Present: mucous membranes dry, normal exam - Respiratory Respiratory exam: Present: decreased breath sounds (right side > left), prolonged expiratory phase, rhonchi. Absent: accessory muscle use, chest wall tenderness, rales, respiratory distress, wheezes, tachypnea - Cardiovascular Cardiovascular exam: Present: RRR, +S1, +S2. Absent: diastolic murmur, systolic murmur - GI/Abdominal GI/Abdominal exam: Present: normal bowel sounds, soft. Absent: guarding, mass, rebound, tenderness - Extremities Exam Extremities exam: Present: warm, radial pulses palpable and symmetrical. Absent : calf tenderness - Back Exam Back exam: Absent: CVA tenderness (L), CVA tenderness (R) - Skin Skin exam: Present: dry, warm. Absent: rash Internal Med - H&P Results - Impressions ITS Impressions Chest CTA 01/18/18 20:57 IMPRESSION: No evidence of pulmonary embolism. Extensive, bilateral ground-glass infiltrate is consistent with multifocal pneumonia. Right-sided chest tube is in unchanged position. There is a trace, 1-2 mm, residual right lateral pneumothorax. D/ / 01/18/2018 23:27:14 Olena Otto MD / caryl Interpreting Provider: Olena Otto MD - Assessment and plan (1) DVT prophylaxis Current Visit: No Status: Acute (2) Smoking addiction Current Visit: No Status: Acute (3) Acute blood loss anemia Current Visit: Yes Status: Acute (4) Pneumonia Current Visit: Yes Status: Acute Qualifiers: Pneumonia type: due to unspecified organism Laterality: bilateral Lung location: unspecified part of lung Qualified Code(s): J18.9 - Pneumonia, unspecified organism (5) COPD (chronic obstructive pulmonary disease) Current Visit: Yes Status: Suspected Qualifiers: COPD type: emphysema Emphysema type: unspecified Qualified Code(s): J43.9 - Emphysema, unspecified (6) Iron deficiency anemia Current Visit: No Status: Chronic Qualifiers: Iron deficiency anemia type: unspecified iron deficiency Qualified Code(s) : D50.9 - Iron deficiency anemia, unspecified (7) Nausea & vomiting Current Visit: Yes Status: Inactive Qualifiers: Vomiting type: unspecified Vomiting Intractability: non-intractable Qualified Code(s): R11.2 - Nausea with vomiting, unspecified (8) Tension pneumothorax Current Visit: Yes Status: Inactive (9) History of Billroth I operation Current Visit: Yes Status: Acute - Time Spent With Patient Total time spent is greater than 50% in coordination of care (as documented) at patient's floor/unit and/or counseling patient: - Attending Attestation I discussed the patient [place], PMH, ROS, lab data, exam findings, and image findings with Dr. Mattson. I also viewed his CXR and chest CT as well. I then saw and examined patient independently as well. Patient is resting in bed comfortably now and has minimal chest pain. This is his second episode of pneumothorax he's had. He denies any trauma or injury to his chest. His chest x-ray does suggest pneumonia. I reviewed his images and the CT of the chest. He has some fairly impressive blebs on chest CT imaging concerning for emphysema. Dr. Mattson and I reviewed old records and found that he recently had testing positive for alpha-1 antitrypsin deficiency. He does not see pulmonology. Given his family history and personal history of spontaneous pneumothorax in addition to the alpha-1 antitrypsin deficiency, I recommend pulmonary consultation as well as CT surgery consultation. I agree with antibiotics prescribed by Dr. Mattson as well as addition of vancomycin. Patient was counselled at length of the need to quit smoking. Other than my comments above and noted physical exam findings, I agree with Dr. Mattson's assessment and plan.
[2018-01-18] MEDS ORDERED: Isovue-370 500 ML INFUS..BTL IV ONE (20:57)
[2018-01-18] MEDS ORDERED: Sucralfate 1 GM TABLET PO SCH (21:00)
[2018-01-18] MEDS: clonazePAM 0.5 MG TABLET PO SCH (21:20)
[2018-01-18] MEDS: cefTRIAXone 1,000 MG in Water for inj. (sterile) 20 ML 10 ML IVP SCH (21:20)
[2018-01-18] MEDS: Azithromycin 500 MG in D5% in Water 250 ML IVPB SCH (22:24)
[2018-01-18] MEDS ORDERED: Ipratropium/Albuterol Neb 3 ML IH PRN (22:45)
[2018-01-18] MEDS: Ipratropium/Albuterol Neb 3 ML IH SCH (23:59)
[2018-01-19] MEDS: Ondansetron 4 MG/2 ML VIAL IVP SCH ×2 (00:21→05:27)
[2018-01-19] MEDS: *HR* Promethazine 25 MG/ML VIAL IVP SCH ×2 (00:21→05:27)
[2018-01-19] MEDS: *HR* OxyCODONE Immed Rel 5 MG TABLET PO PRN ×3 (03:26→20:23)
[2018-01-19] MEDS: Ipratropium/Albuterol Neb 3 ML IH SCH ×6 (03:59→23:47)
[2018-01-19 05:11] LABS: Basophils % 0.2 %; Eosinophils # 0.1 K/mcL (0.0-0.6); Eosinophils % 0.9 %; Hematocrit 28.8 % (37.5-50.1); Immature Granulocytes % 0.3 % (0-4); Lymphocytes # 1.5 K/mcL (0.6-4.6); Lymphocytes % 14.3 %; Mean Corpuscular HGB Conc 31.3 g/dL (31.6-35.5); Mean Corpuscular Hemoglobin 26.1 pg (28.0-33.3); Mean Corpuscular Volume 83.5 fL (83.0-100.0); Mean Platelet Volume 9.9 fL (9.4-12.4); Monocytes # 0.9 K/mcL (0.0-1.3); Monocytes % 8.6 %; Platelet Count 384 K/mcL (140-400); Red Blood Count 3.45 M/mcL (4.19-5.50); Red Cell Distribution Width 15.6 % (11.5-14.5); Segmented Neutrophils % 75.7 %
[2018-01-19 05:16] LABS: INR 1.2; Prothrombin Time 13.2 Seconds (9.4-12.1)
[2018-01-19] MEDS: *HR* HYDROcodone/Acet 5/325 mg TABLET PO PRN ×3 (05:27→16:58)
[2018-01-19] MEDS: Pantoprazole 40 MG VIAL IVP SCH ×2 (05:27→17:00)
[2018-01-19 05:29] LABS: BUN/Creatinine Ratio 29 (6-26); Blood Urea Nitrogen 19 mg/dL (6-20); Carbon Dioxide 25 mEq/L (23-29); Chloride 105 mEq/L (98-107); Glucose 111 mg/dL (70-105); Osmolality,Calculated 293 (280-300); Potassium 3.7 mEq/L (3.5-5.1); Sodium 140 mEq/L (136-145); eGFR For Non-African Americans > 60 (> 60)
--- NOTE | 2018-01-19 08:00 | Cardiothoracic Consult Note ---
Date of Encounter: 01/19/18 Time of Encounter: 07:57 Assessment and Plan (1) COPD (chronic obstructive pulmonary disease) Current Visit: Yes Status: Suspected The assessment and plan as outlined above was discussed with the patient and/or family members who expressed understanding and agreement. All questions were answered. The patient has had a collapsed right lung which has been successfully treated with a chest tube. He does have what appears to be severe bullous changes in his right lung. I did caution him to absolutely quit smoking and avoid secondhand smoke. This could be considered his first episode, as the episode he had at age 20 was treated with observation. I discussed surgery with him. This would include stapling of blebs and pleurodesis. He will consider, but most likely we will treat this episode conservatively because of his severe emphysema. Qualifiers: COPD type: emphysema Emphysema type: unspecified Qualified Code(s): J43.9 - Emphysema, unspecified - History of Present Illness History of present illness: Mr. Kramer is a 42 year old male The patient is a 42-year-old gentleman who presented with chest pain and shortness of breath. This started 2 days ago. He was seen in an outside hospital and had placement of a chest tube for a tension pneumothorax. CT scan done after the chest tube placement revealed only a tiny, residual apical pneumothorax. However, he does have severe emphysema with severe bullous changes particularly on the right side. There is also the possibility of bilateral pneumonia. The patient did have 1 minor episode of a collapsed lung at age 20, but this was treated with observation and did not require a chest tube. The patient is an active smoker who used to smoke 1-1/2 packs of cigarettes per day, but is cut back to half pack per day. Social history. He lives in [place] with his family and works on an [employer] line. He rarely drinks alcohol. Family history is positive for collapsed lung and lung cancer in his father. Review of systems as noted for history of anxiety and depression. Past Med Surg Social Fam HX - Past Medical History Medical history: COPD, GERD, other Additional medical history: anxiety, depression Psychiatric history: anxiety, depression - Past Surgical History Surgical History: herniorrhaphy, other Additional surgical history: hernia repair, gastojajunostomy , septoplasty, dental extraction - Social History Smoking Status: Current every day smoker Smokeless Tobacco Status: No Alcohol use: occasionally Drug use: none - Family History Father Adopted: No Family Member Ethnicity: Non- Living Status: Hx Family Respiratory Disorders: Yes Hx Family Cancer: Yes (lung cancer) Mother Living Status: Still Living Hx Family Cardiac Disorders: Yes (Hypertension) Brother Living Status: Still Living Hx Family GI Disorders: Yes (Diverticulosis) Medications and Allergies Eszopiclone [Lunesta] 2 mg PO HS 02/24/17 [History] Esomeprazole Magnesium [Nexium] 40 mg PO BID #60 capsule. 03/01/17 [Rx] BuPROPion XL (24 HR) [Wellbutrin Xl] 150 mg PO QAM 03/14/17 [History] Citalopram Hydrobromide [Celexa] 20 mg PO DAILY 07/09/17 [History] Loratadine [Allergy Relief] 10 mg PO DAILY 09/28/17 [History] Bupropion HCl [Wellbutrin Xl] 300 mg PO QAM 01/18/18 [History] Cefdinir [Omnicef] 300 mg PO BID 01/18/18 [History] Gabapentin [Neurontin] 600 mg PO Q8H 01/18/18 [History] Multivitamin [One Daily Multivitamin] 1 each PO DAILY 01/18/18 [History] Nicotine Polacrilex [Nicotine Gum] 2 mg BC Q1H PRN 01/18/18 [History] Quetiapine Fumarate [Quetiapine Fumarate ER] 50 mg PO HS 01/18/18 [History] Sucralfate [Carafate] 1 gm PO QID 01/18/18 [History] Tamsulosin HCl [Flomax] 0.4 mg PO DAILY 01/18/18 [History] Vitamin B Complex [B Complex] 1 each PO DAILY 01/18/18 [History] 3 Allergy/AdvReac Type Severity Reaction Status Date / Time NSAIDS (Non-Steroidal AdvReac Severe See Verified 01/18/18 14:12 Anti-Inflamma Comments Hydromorphone [From Dilaudid] AdvReac Rash Verified 01/18/18 14:12 All Systems Review: The remainder of the systems were reviewed and are negative Physical Examination Vital Signs, Last 4 Hours Temp Pulse Resp BP Pulse Ox 01/19/18 06:50 97.7 F 75 18 95/58 96 01/19/18 04:27 98.9 F 97 17 105/67 86 01/19/18 04:00 18 91 Pupils are equal, round and reactive to light and accommodation. His teeth are in poor repair. Neck is supple. Trachea in the midline. No thyromegaly or carotid bruits. Lungs are clear to percussion and auscultation. The right- sided chest tube has minimal drainage and no air leak. Heart is in a regular rate and rhythm. No murmurs, gallops or rubs. Abdomen is benign. No tenderness, rebound or guarding. Extremities without edema. Cranial nerves, motor and sensory intact. Results 01/19/18 04:58 01/19/18 04:58 Lab Results, Last 24 hours 01/19/18 01/19/18 01/19/18 04:58 04:58 04:58 WBC 10.5 Hgb 9.0 L D Hct 28.8 L Plt Count 384 INR 1.2 Sodium 140 Potassium 3.7 Chloride 105 Carbon Dioxide 25 BUN 19 Creatinine 0.65 L Glucose 111 H Calcium 9.0 Consult Discharge Plan - Plan Referrals: Yudelka Grier, CLOTHING WORKER [Primary Care Provider] -
[2018-01-19] MEDS: BuPROPion XL (24 HR) 150 MG TABLET PO SCH (08:23)
[2018-01-19] MEDS: clonazePAM 0.5 MG TABLET PO SCH ×2 (08:23→20:20)
[2018-01-19] MEDS: Loratadine 10 MG TABLET PO SCH (08:23)
[2018-01-19] MEDS: cefTRIAXone 1,000 MG in Water for inj. (sterile) 20 ML 10 ML IVP SCH (08:23)
[2018-01-19 08:52] LABS: Hematocrit 28.1 % (37.5-50.1); Hemoglobin 8.9 g/dL (12.9-16.9)
[2018-01-19] MEDS ORDERED: Aminoglycoside Consult 1 EACH MC ONE (09:50)
[2018-01-19] MEDS ORDERED: Ondansetron 4 MG/2 ML VIAL IVP PRN (10:17)
[2018-01-19] MEDS ORDERED: *HR* Promethazine 25 MG/ML VIAL IVP PRN (10:17)
--- NOTE | 2018-01-19 10:26 | Internal Med Progress Note ---
Hospitalist Progress Note - Encounter Date of Encounter: 01/19/18 Time of Encounter: 10:26 - Subjective Interval History: 42-year-old male with history of peptic ulcer disease status post Billroth II, iron deficiency anemia due to poor absorption, severe emphysema who is admitted and being managed with spontaneous tension pneumothorax status post chest tube placement 01/18 at outside facility Seen and examined at bedside he has no new complaints. He is being followed by pulmonology and thoracic surgery. He reports nausea and vomiting has resolved, he was able to hold his foot down this morning. His abdomen is not distended. Admitting team had consulted surgery due to abdominal symptoms. We will await evaluation. No abdominal imaging done. Hemoglobin noted to be down trending, no source of bleeding. - Exam Vitals: Temp Pulse Resp BP Pulse Ox 98 F 80 18 97/62 94 01/19/18 10:21 01/19/18 10:21 01/19/18 10:21 01/19/18 10:21 01/19/18 10:21 Exam: Gen: Vitals noted. Not in any form of distress HEENT: Normocephalic, atraumatic Neck: Supple. No adenopathy. Cardiac: RRR, no murmur, +S1/S2 Chest: Chest tube in place for right lung attached to intermittent suction Pulmonary: Poor respiratory effort overall, right lung sounds largely diminished. Abdomen: Not distended, non-tender to palpation . No peritoneal signs. Back: Non-tender throughout. MSK: ROM intact, no joint swelling noted Extremities: no BLE edema, nontender calf, no cyanosis or clubbing Neuro: moves all extremities, no focal deficits. A&Ox3 Psych: Appropriate mood and behavior - Assessment and Plan (1) DVT prophylaxis Current Visit: No Status: Acute Assessment and Plan: SCDs, continue same (2) Smoking addiction Current Visit: No Status: Acute Assessment and Plan: Nicotine patches prn (3) Acute blood loss anemia Current Visit: Yes Status: Acute Assessment and Plan: Nausea and vomiting with abdominal pain all resolved Change Zofran and Phernegan to prn Patient with known severe iron deficiency anemia, following with oncology Hb downtrended from 10 to 9, continue to monitor, type and screen done, no current notable source of bleeding Resume Venofer IV , patient stated he is schedule Continue PPIs q12hr Follow surgery eval (4) Pneumonia Current Visit: Yes Status: Acute Assessment and Plan: Multifocal pneumonia demonstrated on chest CT Presents with mild hypoxia, temp 99.3, WBC 15.7 Blood cultures pending, strep pneumo and legionella antigens pending Suspect community-acquired pneumonia at this time Continue Rocephin,Azithro MRSA screen negative Discontinue Vancomycin (5) COPD (chronic obstructive pulmonary disease) Current Visit: Yes Status: Suspected Assessment and Plan: History of COPD with emphysema CT of the chest demonstrates significant emphysematous burden with large blebs Continue PRN and scheduled Duonebs No need for steroids at this time (6) Iron deficiency anemia Current Visit: No Status: Chronic Assessment and Plan: See acute blood loss anemia (7) Nausea & vomiting Current Visit: Yes Status: Inactive Assessment and Plan: Resolved (8) Tension pneumothorax Current Visit: Yes Status: Inactive Assessment and Plan: Right tension pneumothorax status post chest tube Patient presented with shortness of breath, tension pneumothorax Had chest tube placed at [place] [facility] Dr. Dos Santos was consulted from the ED, eval noted Chest tube currently to suction, very minimal serous fluid output Vitals currently stable on 4L O2 NC We will continue to monitor (9) History of Billroth I operation Current Visit: Yes Status: Acute Assessment and Plan: Per pt/operative note - Time Spent with Patient Total time spent is greater than 50% in coordination of care (as documented) at patient's floor/unit and/or counseling patient: Internal Medicine: Result - Labs CBC & Chem 7: 01/19/18 08:26 01/19/18 04:58 Labs: Short CBC 01/19/18 01/19/18 Range/Units 04:58 08:26 WBC 10.5 (4.3-11.1) K/mcL Hgb 9.0 L D 8.9 L (12.9-16.9) g/dL Hct 28.8 L 28.1 L (37.5-50.1) % Plt Count 384 (140-400) K/mcL Neutrophils # 8.0 (1.6-8.9) K/mcL BMP 01/19/18 04:58 Sodium 140 Potassium 3.7 Chloride 105 Carbon Dioxide 25 BUN 19 Creatinine 0.65 L Glucose 111 H Calcium 9.0 - ABG Interpretation ABG results: PT/INR, D-dimer PT 13.2 Seconds (9.4-12.1) H 10/17/18 04:58 - Impressions Impressions Chest CTA 01/18/18 20:57 IMPRESSION: No evidence of pulmonary embolism. Extensive, bilateral ground-glass infiltrate is consistent with multifocal pneumonia. Right-sided chest tube is in unchanged position. There is a trace, 1-2 mm, residual right lateral pneumothorax. D/ / 01/18/2018 23:27:14 Olena Otto MD / caryl Interpreting Provider: Olena Otto MD Chest X-Ray 01/19/18 06:27 IMPRESSION: Small right apical pneumothorax is suspected in this patient with right upper lobe bulla. Bilateral airspace disease, increasing on the right. D/ / Bandar Moore MD / Bandar Moore MD Interpreting Provider: Bandar Moore MD Consult Discharge Plan - Plan Referrals: Yudelka Grier, MEDICAL ANTHROPOLOGY DIRECTOR [Primary Care Provider] - (4) Pneumonia Qualifiers: Qualified Code(s): J18.9 - Pneumonia, unspecified organism (5) COPD (chronic obstructive pulmonary disease) Qualifiers: Qualified Code(s): J43.9 - Emphysema, unspecified (6) Iron deficiency anemia Qualifiers: Qualified Code(s): D50.9 - Iron deficiency anemia, unspecified (7) Nausea & vomiting Qualifiers: Qualified Code(s): R11.2 - Nausea with vomiting, unspecified
--- NOTE | 2018-01-19 10:45 | Pulmonology Consult Note ---
<Fredrick Dunn - Last Filed: 01/19/18 17:47> Date of Encounter: 01/19/18 Time of Encounter: 12:00 Assessment and Plan (1) Tension pneumothorax Current Visit: Yes Status: Acute - likely due to his Hx of COPD . CT chest demonstrating extensive bilateral ground glass infiltrate concerning for multifocal pneumonia . Also evidence for extensive emphysema - patient is status post chest tube in the right side. Currently satting at 92 % on 4 L. Denies any worsening chest pain - Pain control PRN. (2) COPD (chronic obstructive pulmonary disease) Current Visit: Yes Status: Suspected -Patient has a history of COPD. He tells me that he does not use any Tay / LABAs except for a rescue inhaler but does not use it as often. Patient denies any worsening cough, or productive sputum recently. Denies ever being hospitalized for COPD exacerbation. Patient does not recall seeing a insurance sales representative or having any pulmonary function test on him. Currently on Vanc and Zosyn -To follow-up with a insurance sales representative as an outpatient to PFTs on him to assess the level of severity of his COPD. Qualifiers: COPD type: emphysema Emphysema type: unspecified Qualified Code(s): J43.9 - Emphysema, unspecified (3) Pneumonia Current Visit: Yes Status: Acute -Likely due to history of COPD, patient endorses having sinus pressure for about a month . Patient denies any past history of pneumonia episodes. -Physical exam he had decreased breath sounds but no expiratory wheezing. - Currently on broad coverage antimicrobials -Sputum culture, MRSA swab, respiratory infection panel, Legionella and strep pneumo antigens pending. - Qualifiers: Pneumonia type: due to unspecified organism Laterality: bilateral Lung location: unspecified part of lung Qualified Code(s): J18.9 - Pneumonia, unspecified organism (4) Smoker Current Visit: Yes Status: Acute -Patient a history of smoking. He tells me that he is trying to cut down on his cigarettes. -nicoderm patch to prevent retention secondary to nicotone withdrawal History of Present Illness Consult date: 01/19/18 Chief complaint: SOB History of present illness: Mr. Taylor is a 42-year-old pleasant male with a PMHx of peptic ulcer disease status post Billroth II, iron deficiency anemia due to poor absorption who was admitted to the floor because of tension pneumothorax on the right side. Currently he is status post chest tube placement, patient tolerated the procedure very well. Denies any shortness of breath or worsening chest pain . Currently,satting at 94% on 4 L of nasal cannula. Patient has a past medical history of COPD but does not appear to be an exacerbation. He does not use any long-acting muscarinic antagonists or beta agonists for his COPD . He does have a rescue inhaler which she says he seldom uses. Patient told me that he endorsed shortness of breath and chest pain while he was working in [employer] 2 days ago. He endorses having a past medical history of pneumothorax about 20 years ago, which was treated with observation . During this admission , he underwent chest tube placement by cardiac thoracic surgery and they also discussed the possibility of stapling of blebs and pleurodesis. Patient is an active smoker but endorses he is trying to decrease the number of cigarettes she smokes. Past Med Surg Social Fam HX - Past Medical History Medical history: COPD, GERD, other Additional medical history: anxiety, depression Psychiatric history: anxiety, depression - Past Surgical History Surgical History: herniorrhaphy, other Additional surgical history: hernia repair, gastojajunostomy , septoplasty, dental extraction - Social History Smoking Status: Current every day smoker Smokeless Tobacco Status: No Alcohol use: occasionally Drug use: none - Family History Father Adopted: No Family Member Ethnicity: Non- Living Status: Hx Family Respiratory Disorders: Yes Hx Family Cancer: Yes (lung cancer) Mother Living Status: Still Living Hx Family Cardiac Disorders: Yes (Hypertension) Brother Living Status: Still Living Hx Family GI Disorders: Yes (Diverticulosis) Medications and Allergies Eszopiclone [Lunesta] 2 mg PO HS 02/24/17 [History] Esomeprazole Magnesium [Nexium] 40 mg PO BID #60 capsule. 03/01/17 [Rx] BuPROPion XL (24 HR) [Wellbutrin Xl] 150 mg PO QAM 03/14/17 [History] Citalopram Hydrobromide [Celexa] 20 mg PO DAILY 07/09/17 [History] Loratadine [Allergy Relief] 10 mg PO DAILY 09/28/17 [History] Bupropion HCl [Wellbutrin Xl] 300 mg PO QAM 01/18/18 [History] Cefdinir [Omnicef] 300 mg PO BID 01/18/18 [History] Gabapentin [Neurontin] 600 mg PO Q8H 01/18/18 [History] Multivitamin [One Daily Multivitamin] 1 each PO DAILY 01/18/18 [History] Nicotine Polacrilex [Nicotine Gum] 2 mg BC Q1H PRN 01/18/18 [History] Quetiapine Fumarate [Quetiapine Fumarate ER] 50 mg PO HS 01/18/18 [History] Sucralfate [Carafate] 1 gm PO QID 01/18/18 [History] Tamsulosin HCl [Flomax] 0.4 mg PO DAILY 01/18/18 [History] Vitamin B Complex [B Complex] 1 each PO DAILY 01/18/18 [History] 3 Allergy/AdvReac Type Severity Reaction Status Date / Time NSAIDS (Non-Steroidal AdvReac Severe See Verified 01/18/18 14:12 Anti-Inflamma Comments Hydromorphone [From Dilaudid] AdvReac Rash Verified 01/18/18 14:12 All Systems: The remainder of the systems were reviewed and are negative Physical Examination Vital Signs: Vital Signs, Last 4 Hours Temp Pulse Resp BP Pulse Ox 01/19/18 10:21 98 F 80 18 97/62 94 01/19/18 07:52 16 91 01/19/18 06:50 97.7 F 75 18 95/58 96 General appearance: appears uncomfortable Auscultation: right: diminished breath sounds Cardiovascular: regular rate and rhythm Gastrointestinal: soft, non-tender, non-distended Results - Laboratory Findings CBC and BMP: 01/19/18 08:26 01/19/18 04:58 PT/INR, D-dimer PT 13.2 Seconds (9.4-12.1) H 01/19/18 04:58 Abnormal lab findings: Abnormal lab results RBC 3.45 M/mcL (4.19-5.50) L 01/19/18 04:58 Hgb 8.9 g/dL (12.9-16.9) L 01/19/18 08:26 Hct 28.1 % (37.5-50.1) L 01/19/18 08:26 MCH 26.1 pg (28.0-33.3) L 01/19/18 04:58 MCHC 31.3 g/dL (31.6-35.5) L 01/19/18 04:58 RDW 15.6 % (11.5-14.5) H 01/19/18 04:58 PT 13.2 Seconds (9.4-12.1) H 01/19/18 04:58 Creatinine 0.65 mg/dL (0.70-1.30) L 01/19/18 04:58 BUN/Creatinine Ratio 29 (6-26) H 01/19/18 04:58 Glucose 111 mg/dL (70-105) H 01/19/18 04:58 - Microbiology Findings Microbiology Findings: Microbiology, Last 48 Hours 01/19/18 05:30 Sputum Culture - Preliminary Sputum - Clinical Findings Intake & Output: Intake & Output 01/18/18 01/19/18 01/19/18 23:59 07:59 15:59 Intake Total 510 / 510 Output Total 185 / 185 30 / 30 49 / 49 Balance -185 / -185 480 / 480 -49 / -49 Weight 66.1 kg Consult Discharge Plan - Plan Referrals: Yudelka Grier, RECESSING MACHINE OPERATOR [Primary Care Provider] - <Mahesh Guardado - Last Filed: 01/19/18 21:31> Date of Encounter: 01/19/18 All Systems: The remainder of the systems were reviewed and are negative Physical Examination Vital Signs: Vital Signs, Last 4 Hours Temp Pulse Resp BP Pulse Ox 01/19/18 19:47 20 91 01/19/18 19:07 97.8 F 94 17 97/63 84 Results - Laboratory Findings CBC and BMP: 01/19/18 08:26 01/19/18 04:58 PT/INR, D-dimer PT 13.2 Seconds (9.4-12.1) H 01/19/18 04:58 Abnormal lab findings: Abnormal lab results RBC 3.45 M/mcL (4.19-5.50) L 01/19/18 04:58 Hgb 8.9 g/dL (12.9-16.9) L 01/19/18 08:26 Hct 28.1 % (37.5-50.1) L 01/19/18 08:26 MCH 26.1 pg (28.0-33.3) L 01/19/18 04:58 MCHC 31.3 g/dL (31.6-35.5) L 01/19/18 04:58 RDW 15.6 % (11.5-14.5) H 01/19/18 04:58 PT 13.2 Seconds (9.4-12.1) H 01/19/18 04:58 Creatinine 0.65 mg/dL (0.70-1.30) L 01/19/18 04:58 BUN/Creatinine Ratio 29 (6-26) H 01/19/18 04:58 Glucose 111 mg/dL (70-105) H 01/19/18 04:58 POC Glucose 114 mg/dL (70-99) H 01/19/18 16:51 - Microbiology Findings Microbiology Findings: Microbiology, Last 48 Hours 01/19/18 05:30 Sputum Culture - Preliminary Sputum - Clinical Findings Intake & Output: Intake & Output 01/19/18 01/19/18 01/19/18 07:59 15:59 23:59 Intake Total 510 / 510 Output Total 49 / 49 30 / Balance 480 / 480 -49 / -49 - -30 - Attending Attestation I saw and evaluated this patient and my medical decision-making was reviewed with the Resident Physician. I agree with the documented findings, disposition and treatment plan as described except to the extent set forth below. We independently had [id number] contact with the patient Patient seen and examined at bedside Labs, radiology, chart personally reviewed. Pulmonary was consult that for management of COPD and pneumonia. Patient was in the spontaneous pneumothorax in the right-sided chest tube management cardiothoracic surgery. Patient is deciding about conservative management versus surgical management. Patient has severe panlobular emphysema secondary to alpha-1 antitrypsin deficiency complicated by chronic smoking patient is motivated to stop smoking after this episode patient has is bilateral extensive consolidation agree with the vancomycin coverage. As well as severe structural disease in the long like to cover for pseudomonas will add Zosyn to cover for anaerobic organisms also. Patient will need outpatient evaluation and further follow-up. Patient does not look like he has signs and symptoms of bronchitis will not use IV steroids. Has a typical emphysema phenotype was not symptomatic before he presented for this spontaneous pneumothorax.
[2018-01-19] MEDS: Nicotine 7 MG PATCH.TD24 TD SCH (13:57)
--- NOTE | 2018-01-19 15:33 | General Surgery Consult Note ---
<Jossy Haynes - Last Filed: 01/19/18 15:28> Date of Encounter: 01/19/18 Time of Encounter: 14:30 Assessment and Plan (1) Nausea & vomiting Current Visit: No Status: Resolved Patient reports that nausea is resolving with improvement in pneumothorax and pain management May advance to hemigastrectomy diet Copy Holder consult for management of diet Maintain PPI therapy No acute surgical intervention indicated at this time. Thank you for allowing us to participate in the care of this patient. We will sign off at this time. Please call with any further questions or concerns. Qualifiers: Vomiting type: unspecified Vomiting Intractability: non-intractable Qu alified Code(s): R11.2 - Nausea with vomiting, unspecified (2) Abdominal pain Current Visit: No Status: Resolved Patient denies any abdominal pain Qualifiers: Abdominal location: generalized Qualified Code(s): R10.84 - Generalized abdominal pain History of Present Illness Consult date: 01/19/18 Reason for consult: other (nausea/abdominal pain) Requesting physician: Chris Gould History of present illness: Mr. Kramer is a very pleasant 42 year old male who is well known to the surgical practice. He reported to the ED after having a 2-3 day history of progressively worsening shortness of breath. The patient was found to have a tension pneumothorax and was admitted to the hospital. He has been seen by CT surgery and they are managing his pneumothorax. The patient reported nausea/vomiting during his work-up. He reports that this was related to the significant amount of discomfort that he was in secondary to the pneumothorax and chest tube placement. He states that his nausea has improved and he does have an appetite today. He denies any abdominal pain at this time. He denies any difficulty with his diet at home. Denies any changes in bowel habits. We have been asked to see and evaluate the patient for recommendations. 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 Cheema, Septoplasty bilaterally - Social History Smoking Status: Current every day smoker Smokeless Tobacco Status: No Alcohol use: occasionally Drug use: none Occupational status: employed Current living situation: Home - Independent Activity Level: Independent ambulation - Family History Brother Living Status: Still Living Hx Family GI Disorders: Yes (Diverticulosis) Father Adopted: No Family Member Ethnicity: Non- Living Status: Hx Family Respiratory Disorders: Yes Hx Family Cancer: Yes (lung cancer) Mother Living Status: Still Living Hx Family Cardiac Disorders: Yes (Hypertension) Medications and Allergies RX: Eszopiclone [Lunesta] 2 mg PO HS 02/24/17 [History] RX: Esomeprazole Magnesium [Nexium] 40 mg PO BID #60 capsule. 03/01/17 [Rx] RX: BuPROPion XL (24 HR) [Wellbutrin Xl] 150 mg PO QAM 03/14/17 [History] RX: Citalopram Hydrobromide [Celexa] 20 mg PO DAILY 07/09/17 [History] Loratadine [Allergy Relief] 10 mg PO DAILY 09/28/17 [History] Bupropion HCl [Wellbutrin Xl] 300 mg PO QAM 01/18/18 [History] Gabapentin [Neurontin] 600 mg PO Q8H 01/18/18 [History] Multivitamin [One Daily Multivitamin] 1 each PO DAILY 01/18/18 [History] Nicotine Polacrilex [Nicotine Gum] 2 mg BC Q1H PRN 01/18/18 [History] Quetiapine Fumarate [Quetiapine Fumarate ER] 50 mg PO HS 01/18/18 [History] RX: Cefdinir [Omnicef] 300 mg PO BID 01/18/18 [History] RX: Sucralfate [Carafate] 1 gm PO QID 01/18/18 [History] Tamsulosin HCl [Flomax] 0.4 mg PO DAILY 01/18/18 [History] Vitamin B Complex [B Complex] 1 each PO DAILY 01/18/18 [History] Allergy/AdvReac Type Severity Reaction Status Date / Time NSAIDS (Non-Steroidal AdvReac Severe See Verified 10/16/18 14:12 Anti-Inflamma Comments Hydromorphone [From Dilaudid] AdvReac Rash Verified 01/18/18 14:12 Review of Systems All systems PM: reviewed and no additional remarkable complaints except as stated (in the HPI) All systems PM: The remainder of the systems were reviewed and are negative General Surgery Exam Initial Vital Signs Temp Pulse Resp BP Pulse Ox 99.3 F 96 17 117/74 88 01/18/18 19:16 01/18/18 19:16 01/18/18 19:16 01/18/18 19:16 01/18/18 19:16 - General physical appearance well developed, well nourished, no distress, moderate pain (related to chest tube) - Eyes normal ocular movement - ENT normal mucosa, atraumatic, normocephalic - Neck trachea midline - Respiratory normal respiratory effort, clear to auscultation, other (chest tube secure) - Cardiovascular Cardiovascular exam: Present: RRR - Abdomen Abdomen general surgery: Present: bowel sounds present, soft, non tender - Integumentary Integumentary general surgery: Present: warm and dry - Neurologic Present: CN 2-12 grossly intact - Psychiatric Psychiatric general surgery: Present: A&Ox3 Exam Initial Vital Signs Temp Pulse Resp BP Pulse Ox 99.3 F 96 17 117/74 88 01/18/18 19:16 01/18/18 19:16 01/18/18 19:16 01/18/18 19:16 01/18/18 19:16 Results - Labs 01/19/18 08:26 01/19/18 04:58 Abnormal lab results RBC 3.45 M/mcL (4.19-5.50) L 01/19/18 04:58 Hgb 8.9 g/dL (12.9-16.9) L 01/19/18 08:26 Hct 28.1 % (37.5-50.1) L 01/19/18 08:26 MCH 26.1 pg (28.0-33.3) L 01/19/18 04:58 MCHC 31.3 g/dL (31.6-35.5) L 01/19/18 04:58 RDW 15.6 % (11.5-14.5) H 01/19/18 04:58 PT 13.2 Seconds (9.4-12.1) H 01/19/18 04:58 Creatinine 0.65 mg/dL (0.70-1.30) L 01/19/18 04:58 BUN/Creatinine Ratio 29 (6-26) H 01/19/18 04:58 Glucose 111 mg/dL (70-105) H 01/19/18 04:58 Diabetes panel 01/19/18 Range/Units 04:58 Sodium 140 (136-145) mEq/L Potassium 3.7 (3.5-5.1) mEq/L Chloride 105 (98-107) mEq/L Carbon Dioxide 25 (23-29) mEq/L BUN 19 (6-20) mg/dL Creatinine 0.65 L (0.70-1.30) mg/dL Glucose 111 H (70-105) mg/dL Calcium 9.0 (8.6-10.3) mg/dL Calcium panel 01/19/18 Range/Units 04:58 Calcium 9.0 (8.6-10.3) mg/dL Pituitary panel 01/19/18 Range/Units 04:58 Sodium 140 (136-145) mEq/L Potassium 3.7 (3.5-5.1) mEq/L Chloride 105 (98-107) mEq/L Carbon Dioxide 25 (23-29) mEq/L BUN 19 (6-20) mg/dL Creatinine 0.65 L (0.70-1.30) mg/dL Glucose 111 H (70-105) mg/dL Calcium 9.0 (8.6-10.3) mg/dL Adrenal panel 01/19/18 Range/Units 04:58 Sodium 140 (136-145) mEq/L Potassium 3.7 (3.5-5.1) mEq/L Chloride 105 (98-107) mEq/L Carbon Dioxide 25 (23-29) mEq/L BUN 19 (6-20) mg/dL Creatinine 0.65 L (0.70-1.30) mg/dL Glucose 111 H (70-105) mg/dL Calcium 9.0 (8.6-10.3) mg/dL All other labs normal. - Imaging Additional studies: Chest CTA 01/18/18 20:57 IMPRESSION: No evidence of pulmonary embolism. Extensive, bilateral ground-glass infiltrate is consistent with multifocal pneumonia. Right-sided chest tube is in unchanged position. There is a trace, 1-2 mm, residual right lateral pneumothorax. D/ / 01/18/2018 23:27:14 Olena Otto MD / caryl Interpreting Provider: Olena Otto MD Chest X-Ray 01/19/18 06:27 IMPRESSION: Small right apical pneumothorax is suspected in this patient with right upper lobe bulla. Bilateral airspace disease, increasing on the right. D/ / Bandar Moore MD / Bandar Moore MD Interpreting Provider: Bandar Moore MD Consult Discharge Plan - Plan Referrals: Yudelka Grier, [employer] [Primary Care Provider] - - Attending Attestation For this encounter, I have reviewed the VERIFICATION CLERK or PA documentation, treatment plan, and medical decision making; and I have had face to face time with this patient. <Shayla Cheeam - Last Filed: 01/21/18 17:03> Assessment and Plan (1) Nausea & vomiting Current Visit: No Status: Resolved due to pain ok to restart diet no intra-abdominal issues currently, no need for surgical intervention Qualifiers: Vomiting type: unspecified Vomiting Intractability: non-intractable Qualified Code(s): R11.2 - Nausea with vomiting, unspecified (2) Abdominal pain Current Visit: No Status: Resolved Qualifiers: Abdominal location: generalized Qualified Code(s): R10.84 - Generalized abdominal pain History of Present Illness History of present illness: Patient states he only had nausea and emesis due to the pain from his pneumothorax. He has been tolerating food except for issues with dumping syndrome and anemia due to his hemigastrectomy. No abdominal pain at baseline. Review of Systems All systems PM: reviewed and no additional remarkable complaints except as stated All systems PM: The remainder of the systems were reviewed and are negative General Surgery Exam Initial Vital Signs Temp Pulse Resp BP Pulse Ox 99.3 F 96 17 117/74 88 01/18/18 19:16 01/18/18 19:16 01/18/18 19:16 01/18/18 19:16 01/18/18 19:16 - General physical appearance well developed, no distress - Eyes normal ocular movement - ENT normal mucosa - Neck no masses - Respiratory normal expansion, normal respiratory effort - Rectum Rectum: Present: normal sphincter tone - Integumentary Integumentary general surgery: Present: warm and dry - Musculoskeletal Present: normal posture - Psychiatric Psychiatric general surgery: Present: A&Ox3 Exam Initial Vital Signs Temp Pulse Resp BP Pulse Ox 99.3 F 96 17 117/74 88 01/18/18 19:16 01/18/18 19:16 01/18/18 19:16 01/18/18 19:16 01/18/18 19:16 Results - Labs 01/21/18 11:21 01/20/18 03:19 Abnormal lab results WBC 12.6 K/mcL (4.3-11.1) H D 01/21/18 11:21 RBC 4.04 M/mcL (4.19-5.50) L 01/21/18 11:21 Hgb 10.5 g/dL (12.9-16.9) L 01/21/18 11:21 Hct 34.5 % (37.5-50.1) L 01/21/18 11:21 MCH 26.0 pg (28.0-33.3) L 01/21/18 11:21 MCHC 30.4 g/dL (31.6-35.5) L 01/21/18 11:21 RDW 15.9 % (11.5-14.5) H 01/21/18 11:21 Plt Count 535 K/mcL (140-400) H 01/21/18 11:21 Neutrophils # 10.2 K/mcL (1.6-8.9) H 01/21/18 11:21 PT 13.2 Seconds (9.4-12.1) H 01/19/18 04:58 Creatinine 0.66 mg/dL (0.70-1.30) L 01/20/18 03:19 All other labs normal. - Attending Attestation I have personally performed a face to face evaluation on this patient. I have reviewed and agree with the care plan. History and Exam by me shows:
[2018-01-19] MEDS: Piperacillin/Tazobactam 3.375 GM in 0.9 % Sodium Chloride Mini Bag 100 ML IVPB SCH (17:04)
[2018-01-19] MEDS ORDERED: hydrOXYzine pamoate 25 MG CAPSULE PO PRN (17:53)
[2018-01-19] MEDS: Azithromycin 500 MG in D5% in Water 250 ML IVPB SCH (20:20)
--- NOTE | 2018-01-19 22:48 | Event Note ---
Date of Encounter: 01/19/18 Time of Encounter: 20:58 Notified by nurse that patient oxygen saturations dropping into 80's on 4lpm nasal canula. Informed to increase flow by nasal canula and to mask if needed to bring saturations to 90's and call respiratory to see patient and keep me updated. Notified by nurse again at 2117 that patient is now on mask at 15lpm and saturations remaining at 89-90%, other vitals unchanged. Came to examine patient, he was lethargic but easily arousable. It was noted around one hour prior he received Seroquel, Ambien, Klonopin, and Oxycodone together. Called Dr Valentine to further evaluate. Advised nursing staff to hold sedating medications. Stat chest xray ordered.
[2018-01-19] MEDS ORDERED: Lidocaine -MPF 1% 5 ML AMPUL ONE (23:08)
--- NOTE | 2018-01-19 23:18 | Event Note ---
Date of Encounter: 01/19/18 Time of Encounter: 23:13 I assessed patient personally, ordered STAT CXR, and discussed with RN and Jacob Fontana CNP. CXR revealed tension pneumothorax, and I discussed with radiology as well. I and Dr. Elias Mauro placed 18 gauge angiocath in his right anterior chest at the third intercostal space midclavicular line for needle decompression and suctioned out a significant amount of air. I called Dr. Haynes and requested he come in for large bore chest tube placement. Patient was moved to ICU. Dr. Haynes is here presently placing a chest tube in ICU. Patient maintained hemodynamic stability throughout above process.
[2018-01-19] MEDS: *HR* OxyCODONE/APAP 5/325 TABLET PO PRN (23:35)
[2018-01-20] MEDS: Piperacillin/Tazobactam 3.375 GM in 0.9 % Sodium Chloride Mini Bag 100 ML IVPB SCH ×4 (00:55→23:29)
[2018-01-20] MEDS: Ipratropium/Albuterol Neb 3 ML IH SCH ×6 (07:16→23:01)
[2018-01-20 10:53] LABS: Basophils % 0.2 %; Eosinophils # 0.2 K/mcL (0.0-0.6); Eosinophils % 1.9 %; Hematocrit 29.6 % (37.5-50.1); Hemoglobin 9.2 g/dL (12.9-16.9); Immature Granulocytes % 0.4 % (0-4); Lymphocytes # 1.2 K/mcL (0.6-4.6); Lymphocytes % 14.8 %; Mean Corpuscular HGB Conc 31.1 g/dL (31.6-35.5); Mean Corpuscular Hemoglobin 26.4 pg (28.0-33.3); Mean Corpuscular Volume 84.8 fL (83.0-100.0); Mean Platelet Volume 9.7 fL (9.4-12.4); Monocytes # 0.6 K/mcL (0.0-1.3); Monocytes % 7.4 %; Neutrophils # 6.2 K/mcL (1.6-8.9); Platelet Count 372 K/mcL (140-400); Red Blood Count 3.49 M/mcL (4.19-5.50); Red Cell Distribution Width 15.9 % (11.5-14.5); Segmented Neutrophils % 75.3 %
[2018-01-20] MEDS ORDERED: *HR* FentaNYL (PF) 100 MCG/2 ML VIAL IVP PRN (11:48)
--- NOTE | 2018-01-20 12:07 | Pulmonology Progress Note ---
<Johann Jose R - Last Filed: 01/20/18 15:06> Date of Encounter: 01/20/18 Time of Encounter: 20:00 Assessment and Plan (1) Tension pneumothorax Current Visit: Yes Status: Acute Patient initially presented for shortness of breath. Catheter was placed after pneumothorax was identified on imaging. Reports remote history of pneumothorax that was treated with observation. Patient states that his father also struggled with bullous emphysema and multiple pneumothorax. Patient was transferred to the ICU overnight due to reaccumulation of tension pneumothorax when catheter became obstructed. Large chest tube was placed overnight by general surgery. Repeat x-ray this a.m. reveals resolution of tension pneumothorax. Patient subjectively with improved symptoms. He remains on oxygen by Oxymizer mask. Chest tube in place to suction and CT surgery following. Patient hemodynamically stable and will plan for stepdown to 2 N. when a bed is available. Signout given to admitting hospitalist Dr. gutierrez. (2) Multifocal pneumonia Current Visit: Yes Status: Acute Multifocal pneumonia was identified on chest x-ray and chest CT. Initial WBC of 15.7, mild hypoxia. Improvement in WBC today to 8.3. Blood cultures with negative growth to date, MRSA screen negative, legionella and strep pneumo antigens are pending Continue antibiotics Oxygen supplementation as necessary (3) COPD (chronic obstructive pulmonary disease) Current Visit: Yes Status: Suspected History of COPD with bullous emphysema. Patient is heterozygous for alpha-1 antitrypsin deficiency. He is a current smoker. Chest x-ray and CT chest demonstrating emphysema with large bulla and blebs Continue scheduled DuoNeb nebs and Symbicort Recommend smoking cessation Qualifiers: COPD type: emphysema Emphysema type: unspecified Qualified Code(s): J43.9 - Emphysema, unspecified (4) Bullae Current Visit: Yes Status: Acute Large bulla identified on chest CT. Likely responsible for spontaneous pneumothorax. Cardiothoracic surgery has been consultation, appreciate their recommendations CT surgery planned for tomorrow for bullectomy and pleurodesis. We will continue chest tube to suction. (5) Hypoxia Current Visit: Yes Status: Acute Hypoxia in the setting of pneumothorax, emphysema, and multifocal pneumonia Continue antibiotics and oxygen supplementation as above (6) Anemia Current Visit: No Status: Chronic Patient with chronic anemia, reports following with hematology and oncology No active source of bleeding identified, no bloody discharge from chest tube hemoglobin 9.2 this a.m., remains stable Continue PPI Qualifiers: Anemia type: unspecified type Qualified Code(s): D64.9 - Anemia, unspecified (7) Smoker Current Visit: Yes Status: Acute Patient indicates he is attempting to quit smoking. Given patient's current pulmonary status and disease smoking greatly discouraged. Patient reports that he is now going to stop smoking. Continue nicotine patches (8) DVT prophylaxis Current Visit: Yes Status: Acute Continue mechanical prophylaxis with SCDs Subjective Principal diagnosis: Shortness of breath Interval history: Patient developed worsening shortness of breath acutely overnight. Repeat chest x-ray did reveal recurrence of tension pneumothorax on the right side. Patient did have chest catheter in place. This was found to be obstructed. Patient was hypoxic and large diameter chest tube was placed by surgery. Patient was choudhury sferred to ICU for further evaluation and management. Post chest tube x-ray did reveal resolution of tension pneumothorax. Patient was seen and evaluated at the bedside. He endorses chest pain near the insertion site of the chest tube. Reports pain is significantly worse with coughing and movement. Denies nausea or vomiting. Objective PUL Vital signs: Last Vital Signs Temp 98.8 F 01/19/18 23:56 Pulse 87 01/20/18 00:53 Resp 17 01/20/18 10:50 BP 104/62 01/20/18 00:53 Pulse Ox 94 01/20/18 10:50 General appearance: no acute distress Eyes: nonicteric ENT: oropharynx moist Neck: supple, no lymphadenopathy Auscultation: bilateral: diminished breath sounds (Bilaterally diminished, worse on the right.) Percussion: bilateral: not dull Cardiovascular: regular rate and rhythm Gastrointestinal: normoactive bowel sounds, soft, non-distended Integumentary: normal Extremities: no cyanosis, no edema, no clubbing Musculoskeletal: no deformities Gait: normal posture normal mental status, non-focal exam mood appropriate Results - Laboratory Findings CBC and BMP: 01/20/18 03:49 01/20/18 03:19 PT/INR, D-dimer PT 13.2 Seconds (9.4-12.1) H 01/19/18 04:58 Abnormal lab findings: Abnormal lab results RBC 3.45 M/mcL (4.19-5.50) L 01/19/18 04:58 Hgb 8.9 g/dL (12.9-16.9) L 01/19/18 08:26 Hct 28.1 % (37.5-50.1) L 01/19/18 08:26 MCH 26.1 pg (28.0-33.3) L 01/19/18 04:58 MCHC 31.3 g/dL (31.6-35.5) L 01/19/18 04:58 RDW 15.6 % (11.5-14.5) H 01/19/18 04:58 PT 13.2 Seconds (9.4-12.1) H 01/19/18 04:58 Creatinine 0.65 mg/dL (0.70-1.30) L 01/19/18 04:58 BUN/Creatinine Ratio 29 (6-26) H 01/19/18 04:58 Glucose 111 mg/dL (70-105) H 01/19/18 04:58 POC Glucose 123 mg/dL (70-99) H 01/19/18 20:35 - Microbiology Findings Microbiology Findings: Microbiology, Last 48 Hours 01/19/18 05:30 Sputum Culture - Preliminary Sputum - Clinical Findings Intake & Output: Intake & Output 01/19/18 01/20/18 01/20/18 23:59 07:59 15:59 Intake Total 340 / 340 Output Total 30 / Balance 310 / 310 Weight 65.45 kg Consult Discharge Plan - Plan Referrals: Yudelka Grier, [employer]NAGER [Primary Care Provider] - <Jonas Dan - Last Filed: 01/20/18 21:15> Objective PUL Vital signs: Last Vital Signs Temp 97.9 F 01/20/18 16:00 Pulse 85 01/20/18 16:00 Resp 20 01/20/18 16:00 BP 115/75 01/20/18 16:00 Pulse Ox 93 01/20/18 16:00 Results - Laboratory Findings CBC and BMP: 01/20/18 03:49 01/20/18 03:19 PT/INR, D-dimer PT 13.2 Seconds (9.4-12.1) H 01/19/18 04:58 Abnormal lab findings: Abnormal lab results RBC 3.49 M/mcL (4.19-5.50) L 01/20/18 03:49 Hgb 9.2 g/dL (12.9-16.9) L 01/20/18 03:49 Hct 29.6 % (37.5-50.1) L 01/20/18 03:49 MCH 26.4 pg (28.0-33.3) L 01/20/18 03:49 MCHC 31.1 g/dL (31.6-35.5) L 01/20/18 03:49 RDW 15.9 % (11.5-14.5) H 01/20/18 03:49 PT 13.2 Seconds (9.4-12.1) H 01/19/18 04:58 Creatinine 0.66 mg/dL (0.70-1.30) L 01/20/18 03:19 POC Glucose 123 mg/dL (70-99) H 01/19/18 20:35 - Microbiology Findings Microbiology Findings: Microbiology, Last 48 Hours 01/19/18 05:30 Sputum Culture - Final Sputum - Clinical Findings Intake & Output: Intake & Output 01/20/18 01/20/18 01/20/18 07:59 15:59 23:59 Intake Total 500 / 500 Output Total 330 / 330 Balance 170 / 170 - Attending Attestation I examined this patient and my medical decision-making was reviewed with the Resident Physician. I agree with the documented findings, disposition and treatment plan as described except to the extent set forth below. Patient seen and examined. Labs, radiology, chart personally reviewed. Agree with resident's history and physical, assessment, plan with following comments: CHARCOAL KILN BURNER: Patient follows commands, Pulmonary: Acceptable oxygenation and ventilation, Discussed with patient about smoking cessation and augmentation treatment. I've also discussed with Dr. Dos Santos and in my opinion he will need surgery because of his significant paraseptal emphysema. Continue treatment for pneumonia and I suspect there re- expantion pulmonary edema. Chest tube management per cardiothoracic. Pain management and encourage incentive spirometry. Cardiovascular: Stable. GI: Nutrition per dietary and GI prophylaxis per routine. Heme: DVT prophylaxis per routine ID: Continue antibiotics and plan to de-escalation Renal; urine out put and renal funtion reviewed. Endorcine: blood glucose is monitored Lines: all lines checked and no evidence of infections Skin: skin care to prevent pressure ulcers per nursing routine care
[2018-01-20] MEDS: Nicotine 7 MG PATCH.TD24 TD SCH (12:08)
[2018-01-20] MEDS: Loratadine 10 MG TABLET PO SCH (12:08)
[2018-01-20] MEDS: Pantoprazole 40 MG VIAL IVP SCH ×2 (12:08→18:53)
[2018-01-20] MEDS: BuPROPion XL (24 HR) 150 MG TABLET PO SCH (12:09)
[2018-01-20 12:22] LABS: BUN/Creatinine Ratio 24 (6-26); Blood Urea Nitrogen 16 mg/dL (6-20); Calcium 8.7 mg/dL (8.6-10.3); Carbon Dioxide 29 mEq/L (23-29); Chloride 105 mEq/L (98-107); Glucose 103 mg/dL (70-105); Osmolality,Calculated 289 (280-300); Potassium 3.8 mEq/L (3.5-5.1); Sodium 139 mEq/L (136-145); eGFR For Non-African Americans > 60 (> 60)
[2018-01-20] MEDS: *HR* OxyCODONE/APAP 5/325 TABLET PO PRN ×3 (14:38→23:09)
[2018-01-20] MEDS ORDERED: Ondansetron 4 MG/2 ML VIAL IVP PRN (15:06)
[2018-01-20] MEDS ORDERED: Acetaminophen 325 MG TABLET PO PRN (15:06)
[2018-01-20] MEDS ORDERED: hydrOXYzine pamoate 25 MG CAPSULE PO PRN (15:06)
[2018-01-20] MEDS ORDERED: Ipratropium/Albuterol Neb 3 ML IH PRN (15:06)
[2018-01-20] MEDS ORDERED: Naloxone 0.4 MG/ML INJ IVP PRN (15:06)
[2018-01-20] MEDS ORDERED: Ipratropium/Albuterol Neb 3 ML ONE (15:50)
[2018-01-20] MEDS ORDERED: 0.9 % Sodium Chloride (Mini-Bag +) 100 ML IVBAG IVC ONE (16:59)
[2018-01-20] MEDS ORDERED: Piperacillin/Tazobactam 3.375 GM VIAL IVPB ONE (16:59)
[2018-01-20] MEDS ORDERED: *HR* OxyCODONE/APAP 5/325 TABLET PO ONE ×2 (16:59)
[2018-01-20] MEDS ORDERED: Loratadine 10 MG TABLET PO ONE (16:59)
[2018-01-20] MEDS ORDERED: Ipratropium/Albuterol Neb 3 ML IH ONE ×3 (16:59)
[2018-01-20] MEDS ORDERED: BuPROPion XL (24 HR) 150 MG TABLET PO ONE (16:59)
[2018-01-20] MEDS ORDERED: Nicotine 7 MG PATCH.TD24 TP ONE (16:59)
[2018-01-20] MEDS: *HR* FentaNYL (PF) 100 MCG/2 ML VIAL IVP PRN ×2 (18:00→20:27)
[2018-01-20] MEDS: Azithromycin 500 MG in D5% in Water 250 ML IVPB SCH (20:27)
[2018-01-20] MEDS ORDERED: Budesonide/Formoterol 160/4.5 1 PUFF INH IH SCH (22:00)
[2018-01-20] MEDS: Budesonide/Formoterol 160/4.5 1 PUFF INH IH SCH (23:00)
[2018-01-21] MEDS: *HR* FentaNYL (PF) 100 MCG/2 ML VIAL IVP PRN ×7 (00:45→23:43)
[2018-01-21] MEDS: Ipratropium/Albuterol Neb 3 ML IH SCH ×5 (03:17→21:05)
[2018-01-21 03:29] LABS: Basophils % 0.5 %; Eosinophils # 0.5 K/mcL (0.0-0.6); Eosinophils % 7.3 %; Hematocrit 29.8 % (37.5-50.1); Hemoglobin 9.2 g/dL (12.9-16.9); Immature Granulocytes % 0.2 % (0-4); Lymphocytes # 1.8 K/mcL (0.6-4.6); Lymphocytes % 28.8 %; Mean Corpuscular HGB Conc 30.9 g/dL (31.6-35.5); Mean Corpuscular Hemoglobin 25.9 pg (28.0-33.3); Mean Corpuscular Volume 83.9 fL (83.0-100.0); Mean Platelet Volume 9.8 fL (9.4-12.4); Monocytes # 0.6 K/mcL (0.0-1.3); Monocytes % 9.6 %; Neutrophils # 3.4 K/mcL (1.6-8.9); Platelet Count 428 K/mcL (140-400); Red Blood Count 3.55 M/mcL (4.19-5.50); Red Cell Distribution Width 15.7 % (11.5-14.5); Segmented Neutrophils % 53.6 %
[2018-01-21] MEDS: *HR* OxyCODONE/APAP 5/325 TABLET PO PRN ×3 (06:25→21:51)
[2018-01-21] MEDS: Pantoprazole 40 MG VIAL IVP SCH ×2 (06:25→17:16)
[2018-01-21] MEDS ORDERED: CeFAZolin Syr 2,000MG/20 ML 2,000 MG/20 ML SYRINGE IVPB ONE ×3 (07:00)
--- NOTE | 2018-01-21 07:15 | Anesthesia Evaluation PreOp ---
Date of Encounter: 01/21/18 Time of Encounter: 08:00 - Past History Planned Operation: right thoracotomy with bleb stapling, pleurodesis Cardiac History: Denies any Significant Hx Pulmonary History: Smoker, COPD LASER OPERATOR History: Other (anxiety/depression) Other Medical History: GERD Anesthesia History: No Prior Anesthetic Complications, Past Anesthesia (gastrojejunostomy, partial gastrectomy, septoplasty, hernia, dental extractions) Alcohol Use: occasionally Drug use: none Medications and Allergies RX: Eszopiclone [Lunesta] 2 mg PO HS 02/24/17 [History] RX: Esomeprazole Magnesium [Nexium] 40 mg PO BID #60 capsule. 03/01/17 [Rx] RX: BuPROPion XL (24 HR) [Wellbutrin Xl] 150 mg PO QAM 03/14/17 [History] RX: Citalopram Hydrobromide [Celexa] 20 mg PO DAILY 07/09/17 [History] Loratadine [Allergy Relief] 10 mg PO DAILY 09/28/17 [History] Bupropion HCl [Wellbutrin Xl] 300 mg PO QAM 01/18/18 [History] Gabapentin [Neurontin] 600 mg PO Q8H 01/18/18 [History] Multivitamin [One Daily Multivitamin] 1 each PO DAILY 01/18/18 [History] Nicotine Polacrilex [Nicotine Gum] 2 mg BC Q1H PRN 01/18/18 [History] Quetiapine Fumarate [Quetiapine Fumarate ER] 50 mg PO HS 01/18/18 [History] RX: Cefdinir [Omnicef] 300 mg PO BID 01/18/18 [History] RX: Sucralfate [Carafate] 1 gm PO QID 01/18/18 [History] Tamsulosin HCl [Flomax] 0.4 mg PO DAILY 01/18/18 [History] Vitamin B Complex [B Complex] 1 each PO DAILY 01/18/18 [History] Allergy/AdvReac Type Severity Reaction Status Date / Time NSAIDS (Non-Steroidal AdvReac Severe See Verified 01/18/18 14:12 Anti-Inflamma Comments Hydromorphone [From Dilaudid] AdvReac Rash Verified 01/18/18 14:12 - Meds/Allergy Pre-op Review Medications Reviewed: Yes Allergies Reviewed: Yes Beta Blockers on Current Med List: No Anesthesia Results - Labs 01/21/18 03:06 01/20/18 03:19 - Imaging Chest x-ray: report reviewed (FINDINGS: The large right-sided pneumothorax seen on the previous examination has improved status post chest tube placement. Persistent lucency noted within the right lung apex, which could be related to residual pneumothorax or possibly related to the known bolus seen on the previous CT examination. Multifocal airspace disease again identified throughout the chest bilaterally. Osseous structures appear similar. XR/XR chest 1V portable IMPRESSION: Resolved tension from the pneumothorax status post chest tube placement on the right, with the lung apex demonstrating persistent lucency. This could be secondary to a persistent pneumothorax component or possibly related to patient's known apical bullous seen on the recent CT study. Diffuse infiltrates seen throughout the lungs bilaterally.) Anesthesia Exam Selected Entries 01/21/18 03:33 01/21/18 06:00 Temperature 97.8 F Pulse Rate 77 Respiratory Rate 18 Blood Pressure 114/78 O2 Sat by Pulse Oximetry 93 Oxygen Flow Rate (LPM) 8 Oxygen Delivery Method High Flow Nasal Cannula Weight: 65kg NPO (# of Hours): 8 - HEENT Pupil (Motor): EOMI Mallampati: II Teeth: Missing, Poor dentition Oral Opening: Greater than 3 - LASER OPERATOR LOC: Oriented LASER OPERATOR Motor: Normal RUE, Normal LUE, Normal RLE, Normal LLE, Normal Face LASER OPERATOR Sensory: Normal: RUE, LUE, RLE, LLE, Face - Cardiac Rhythm: Regular Murmur: None - Pulmonary Breath Sounds: bilateral Clear (diminished bilateral, R>L) Anesthesia Assess/Plan ASA Score: 3 Modified Esther Scale for Level of Consciousness: Cooperative, oriented, and tranquil Anesthetic Plan: General Monitoring Plan: Standard Monitors Recovery Plan: ICU (agrees to [place])
[2018-01-21] MEDS: Budesonide/Formoterol 160/4.5 1 PUFF INH IH SCH ×2 (07:19→21:06)
[2018-01-21] MEDS ORDERED: *HR* PHENYLEPHRINE 1,000 MCG/10 ML SYRINGE IVP ONE (07:20)
[2018-01-21] MEDS ORDERED: *HR* Rocuronium Bromide 50 MG/5 ML VIAL ONE ×2 (07:20→09:06)
[2018-01-21] MEDS ORDERED: *HR* FentaNYL (PF) 250 MCG/5 ML VIAL ONE (07:21)
[2018-01-21] MEDS ORDERED: *HR* Propofol 200 MG/20 ML VIAL IVP ONE (07:21)
[2018-01-21] MEDS ORDERED: Famotidine 20 MG/2 ML VIAL ONE (07:21)
[2018-01-21] MEDS ORDERED: *HR* Midazolam HCl 5 MG/5 ML VIAL IVP ONE (07:21)
[2018-01-21] MEDS: Nicotine 7 MG PATCH.TD24 TD SCH (07:36)
[2018-01-21] MEDS: Piperacillin/Tazobactam 3.375 GM in 0.9 % Sodium Chloride Mini Bag 100 ML IVPB SCH ×3 (07:37→23:44)
[2018-01-21 07:59] LABS: Adenovirus Not Detected (Not Detect); Bordetella Pertussis Not Detected (Not Detect); Chlamydophila pneumoniae Not Detected (Not Detect); Coronavirus 229E Not Detected (Not Detect); Coronavirus HKU1 Not Detected (Not Detect); Coronavirus NL63 Not Detected (Not Detect); Coronavirus OC43 Not Detected (Not Detect); Human Metapneumovirus Not Detected (Not Detect); Human Rhinovirus/Enterovirus Not Detected (Not Detect); Influenza A Subtype 2009 H1 Not Detected (Not Detect); Influenza A Untypeable Not Detected (Not Detect); Influenza B Not Detected (Not Detect); Mycoplasma pneumoniae Not Detected (Not Detect); Parainfluenza Virus 1 Not Detected (Not Detect); Parainfluenza Virus 2 Not Detected (Not Detect); Parainfluenza Virus 3 Not Detected (Not Detect); Parainfluenza Virus 4 Not Detected (Not Detect); Respiratory Syncytial Virus Not Detected (Not Detect)
[2018-01-21] MEDS ORDERED: LIDOCAINE IX ONE (08:00)
[2018-01-21] MEDS ORDERED: DOXYCYCLINE IX ONE (08:00)
[2018-01-21] MEDS ORDERED: SODIUM CHLORIDE IX ONE (08:00)
[2018-01-21] MEDS ORDERED: LIDOCAINE 1% IX ONE (08:15)
[2018-01-21] MEDS ORDERED: DOXYCYCLINE 500 MG IX ONE (08:15)
--- NOTE | 2018-01-21 08:50 | Event Note ---
Date of Encounter: 01/21/18 Time of Encounter: 08:47 42 M being managed for spontenaous tension pneumothorax and PNA. He has a PMH of chronic LILIANA and PUD s/p billroth II, He was transferred to the ICU on 01/20 following a recurrence of tension pneumothorax. His sputum is growing GNR He was not evaluated this mrn by me as he was being taken to the OR when I got to is room for thoracotomy and bleb excisin
--- NOTE | 2018-01-21 09:38 | Pulmonology Progress Note ---
<Johann Jose R - Last Filed: 01/21/18 17:11> Date of Encounter: 01/21/18 Time of Encounter: 07:10 Assessment and Plan (1) Tension pneumothorax Current Visit: Yes Status: Acute Patient initially presented for shortness of breath. Catheter was placed after pneumothorax was identified on imaging. Patient was transferred to the ICU due to reaccumulation of tension pneumothorax when catheter became obstructed. Large chest tube was placed by general surgery. Repeat x-ray revealed resolution of tension pneumothorax. Patient subjectively with improved symptoms. He remains on oxygen by Oxymizer mask. Chest tube in place to suction and CT surgery following. Patient is nothing by mouth and Cardiothoracic surgery is planning to take the patient to the operating room this morning for bullectomy and pleurodesis. (2) Multifocal pneumonia Current Visit: Yes Status: Acute Multifocal pneumonia was identified on chest x-ray and chest CT. Initial WBC of 15.7, mild hypoxia. Improvement in WBC, patient remains afebrile. Blood cultures with negative growth to date, MRSA screen negative, legionella and strep pneumo antigens are pending Continue antibiotics Oxygen supplementation as necessary (3) COPD (chronic obstructive pulmonary disease) Current Visit: Yes Status: Suspected History of COPD with bullous emphysema. Patient is heterozygous for alpha-1 antitrypsin deficiency. He is a current smoker. Chest x-ray and CT chest demonstrating emphysema with large bulla and blebs Continue scheduled DuoNeb nebs and Symbicort Recommend smoking cessation Qualifiers: COPD type: emphysema Emphysema type: unspecified Qualified Code(s): J43.9 - Emphysema, unspecified (4) Bullae Current Visit: Yes Status: Acute Large bulla identified on chest CT. Likely responsible for spontaneous pneumothorax. Cardiothoracic surgery has been consultation, appreciate their recommendations Continuing chest tube to suction Bullectomy and pleurodesis planned with cardiothoracic surgery this morning. (5) Hypoxia Current Visit: Yes Status: Acute Hypoxia in the setting of pneumothorax, emphysema, and multifocal pneumonia Continue antibiotics and oxygen supplementation as above (6) Anemia Current Visit: No Status: Chronic Patient with chronic anemia, reports following with hematology and oncology No active source of bleeding identified, no bloody discharge from chest tube hemoglobin 9.2 this a.m., remains stable Continue PPI Qualifiers: Anemia type: unspecified type Qualified Code(s): D64.9 - Anemia, unspecified (7) Smoker Current Visit: Yes Status: Acute Patient indicates he is attempting to quit smoking. Given patient's current pulmonary status and significant potential for disease progression patient is advised to quit smoking. This has now been discussed with the patient on multiple occasions. Patient reaffirms his intent to stop smoking. Continue nicotine patches (8) DVT prophylaxis Current Visit: Yes Status: Acute Continue mechanical prophylaxis with SCDs Subjective Principal diagnosis: Shortness of breath Interval history: Initial presentation on 01/18 for spontaneous pneumothorax with chest tube placement. Patient was brought to the ICU on 01/19 after chest tube became obstructed and patient redeveloped tension pneumothorax. This required placement of a larger diameter chest tube and increasing oxygen requirements. Patient has been stable with no acute events overnight. Saturating adequately on 8 L high flow nasal cannula. Patient has been nothing by mouth since midnight and will be taken for surgery this morning with plan for bullectomy and pleurodesis. Objective PUL Vital signs: Last Vital Signs Temp 98.1 F 01/21/18 08:00 Pulse 80 01/21/18 07:47 Resp 16 01/21/18 07:43 BP 122/80 01/21/18 07:43 Pulse Ox 93 01/21/18 07:43 General appearance: no acute distress Eyes: nonicteric ENT: oropharynx moist Neck: supple, no lymphadenopathy Effort: normal Auscultation: bilateral: diminished breath sounds (Diminished bilaterally worse on the right.), rales Percussion: bilateral: not dull Cardiovascular: regular rate and rhythm, other (Right chest tube in place) Gastrointestinal: normoactive bowel sounds, soft, non-distended Integumentary: normal Extremities: no cyanosis Musculoskeletal: no deformities Gait: normal posture normal mental status, non-focal exam mood appropriate Results - Laboratory Findings CBC and BMP: 01/21/18 11:21 01/20/18 03:19 PT/INR, D-dimer PT 13.2 Seconds (9.4-12.1) H 01/19/18 04:58 Abnormal lab findings: Abnormal lab results RBC 3.55 M/mcL (4.19-5.50) L 01/21/18 03:06 Hgb 9.2 g/dL (12.9-16.9) L 01/21/18 03:06 Hct 29.8 % (37.5-50.1) L 01/21/18 03:06 MCH 25.9 pg (28.0-33.3) L 01/21/18 03:06 MCHC 30.9 g/dL (31.6-35.5) L 01/21/18 03:06 RDW 15.7 % (11.5-14.5) H 01/21/18 03:06 Plt Count 428 K/mcL (140-400) H 01/21/18 03:06 PT 13.2 Seconds (9.4-12.1) H 01/19/18 04:58 Creatinine 0.66 mg/dL (0.70-1.30) L 01/20/18 03:19 - Microbiology Findings Microbiology Findings: Microbiology, Last 48 Hours 01/19/18 05:30 Sputum Culture - Preliminary Sputum Gram Negative Brennen - Clinical Findings Intake & Output: Intake & Output 01/20/18 01/21/18 01/21/18 23:59 07:59 15:59 Intake Total 750 / 750 100 / 100 Output Total 650 / 650 1164 / 1164 Balance 100 / 100 -1064 / -1064 Weight 64.7 kg Consult Discharge Plan - Plan Referrals: Yudelka Grier, [employer] [Primary Care Provider] - <Jonas Dan - Last Filed: 01/22/18 08:25> Objective PUL Vital signs: Last Vital Signs Temp 98.1 F 01/22/18 07:22 Pulse 100 01/22/18 08:00 Resp 14 01/22/18 08:00 BP 112/75 01/22/18 08:00 Pulse Ox 96 01/22/18 08:00 Results - Laboratory Findings CBC and BMP: 01/22/18 05:21 01/22/18 05:21 ABG ABG pH 7.38 pH Units (7.32-7.45) 01/22/18 05:36 ABG pCO2 43 mmHg (35-45) 01/22/18 05:36 ABG pO2 96 mmHg (85-104) 01/22/18 05:36 ABG O2 Saturation 97 % (95-98) 01/22/18 05:36 PT/INR, D-dimer PT 13.2 Seconds (9.4-12.1) H 01/19/18 04:58 Abnormal lab findings: Abnormal lab results RBC 3.29 M/mcL (4.19-5.50) L 01/22/18 05:21 Hgb 8.7 g/dL (12.9-16.9) L D 01/22/18 05:21 Hct 27.6 % (37.5-50.1) L 01/22/18 05:21 MCH 26.4 pg (28.0-33.3) L 01/22/18 05:21 MCHC 31.5 g/dL (31.6-35.5) L 01/22/18 05:21 RDW 16.1 % (11.5-14.5) H 01/22/18 05:21 PT 13.2 Seconds (9.4-12.1) H 01/19/18 04:58 ABG Total CO2 27 mEq/L (20-26) H 01/22/18 05:36 Creatinine 0.69 mg/dL (0.70-1.30) L 01/22/18 05:21 Glucose 109 mg/dL (70-105) H 01/22/18 05:21 - Microbiology Findings Microbiology Findings: Microbiology, Last 48 Hours 01/19/18 05:30 Sputum Culture - Preliminary Sputum Gram Negative Brennen - Clinical Findings Intake & Output: Intake & Output 01/21/18 01/22/18 01/22/18 23:59 07:59 15:59 Intake Total 1450 / 1450 1200 / 1200 480 / 480 Output Total 180 / 180 1440 / 1440 Balance 1270 / 1270 -240 / -240 480 / 480 - Attending Attestation Patient seen and examined before and after surgery on 01/21 and there is was admitted on 01/22/2018 I examined this patient and my medical decision-making was reviewed with the Resident Physician. I agree with the documented findings, disposition and treatment plan as described except to the extent set forth below. Patient seen and examined. Labs, radiology, chart personally reviewed. Agree with resident's history and physical, assessment, plan with following comments: CLOTHING SUPERVISOR: Patient follows commands, Pulmonary: Acceptable oxygenation and ventilation. Patient with chest tube and discussed with Dr. Dos Santos regarding thoracotomy since patient has significant paraseptal emphysema and risks for recurrent pneumothorax. Patient to continue on bronchodilator and he returned from surgery with 2 chest tubes which will be managed by cardiothoracic. Cardiovascular: stable
[2018-01-21] MEDS ORDERED: SUGAMMADEX SODIUM 500 MG/5 ML VIAL IV ONE (09:44)
[2018-01-21] MEDS ORDERED: Naloxone 0.4 MG/ML INJ IVP PRN ×2 (10:10)
--- NOTE | 2018-01-21 10:24 | Operative Note ---
Date of procedure: 01/21/18 Was there an dental assistant teacher present: Yes Wire Dropper: Erich De La Cruz Estimated blood loss (cc): 200 Specimen: blebs Condition: stable Disposition: ICU Procedure in Detail: Preoperative diagnosis. Recurrent right pneumothorax. Postoperative diagnosis. Same. Procedures. Right posterolateral thoracotomy with stapling of blebs, pleurodesisboth mechanical and with doxycycline and intercostal nerve blocks with Marcaine. Surgeon. Dr. Osiel Dos Santos. The patient is a 42-year-old gentleman who has had a previous episode of pneumothorax. He was seen at [facility] with a tension pneumothorax and a chest tube was inserted. However, the lung again collapsed and he required a second larger chest tube. He does have severe emphysema with numerous large blebs present in the right upper two thirds of his chest that were seen on chest x-ray and CT scan. He also has numerous blebs in his left chest. He was brought to the operating room where he was prepped and draped in standard fashion. A standard right posterolateral thoracotomy was performed. Serratus anterior and latissimus dorsi muscles were divided with the Bovie electrocoagulation. The fifth intercostal space was selected and intercostal musculature was bovied off the top of the sixth rib. The pleural space was entered and the lung was deflated. The patient had numerous extremely large blebs mainly in the upper lobe. These were located superior and posterior and one of the large blebs had a hole in it already. He had a smaller amount of blebs in the right middle lobe. The patient had adhesions in his right chest were taken down with the Bovie electrocoagulation and the Metzenbaum scissors. We then stapled off numerous sets of blebs. We used a total of 4 TA-30 staplers and 3 TA 60 staplers. We did remove one small area of blebs from the middle lobe. At this point, the lung was reinflated and no significant large blebs remained. Warm saline was instilled and no significant air leaks were seen. We did free up the inferior pulmonary ligament to the inferior pulmonary vein to allow the lung to fill the chest. We then performed a mechanical pleurodesis. A Ray-Dina sponge followed by a Bovie scratch pad was used to abrade the pleural surface anteriorly from the mediastinum, posteriorly to the spine, superiorly to the apex of the chest and inferiorly to the diaphragm. We also instilled doxycycline solution into the chest for a chemical pleurodesis. Intercostal blocks were then taken for 2 or 3 interspaces above and below the incision. 2 chest tubes were left, a 36 straight to the apex and a 32 angle along the diaphragm. Intercostal sews were made out of #1 Vicryl in [id number] fashion. Serratus anterior and latissimus dorsi muscles were sewn with #1 Vicryl. Subcutaneous tissues were closed with a 2-0 Vicryl. Skin was closed with a 3-0 Vicryl subcuticular stitch. The patient tolerated the procedure well and was returned intensive ca re unit in stable condition
[2018-01-21 11:41] LABS: Basophils # 0.1 K/mcL (0.0-0.2); Basophils % 0.5 %; Eosinophils # 0.4 K/mcL (0.0-0.6); Eosinophils % 3.4 %; Hematocrit 34.5 % (37.5-50.1); Hemoglobin 10.5 g/dL (12.9-16.9); Immature Granulocytes % 0.4 % (0-4); Lymphocytes # 1.1 K/mcL (0.6-4.6); Lymphocytes % 8.7 %; Mean Corpuscular HGB Conc 30.4 g/dL (31.6-35.5); Mean Corpuscular Volume 85.4 fL (83.0-100.0); Mean Platelet Volume 9.4 fL (9.4-12.4); Monocytes # 0.7 K/mcL (0.0-1.3); Monocytes % 5.9 %; Neutrophils # 10.2 K/mcL (1.6-8.9); Platelet Count 535 K/mcL (140-400); Red Blood Count 4.04 M/mcL (4.19-5.50); Red Cell Distribution Width 15.9 % (11.5-14.5); Segmented Neutrophils % 81.1 %
[2018-01-21] MEDS: 0.9 % Sodium Chloride w KCl 20 MEQ/1,000 ML MLS IVC SCH ×2 (12:21→19:54)
[2018-01-21] MEDS: Loratadine 10 MG TABLET PO SCH (14:32)
[2018-01-21] MEDS: BuPROPion XL (24 HR) 150 MG TABLET PO SCH (14:33)
[2018-01-21] MEDS ORDERED: *HR* LORazepam 1 MG TABLET PO PRN (17:49)
[2018-01-21] MEDS: Ketorolac 15 MG/ML VIAL IVP PRN (18:14)
[2018-01-21] MEDS: Azithromycin 500 MG in D5% in Water 250 ML IVPB SCH (19:54)
[2018-01-22] MEDS: Ipratropium/Albuterol Neb 3 ML IH SCH ×7 (00:47→23:18)
[2018-01-22] MEDS: Ketorolac 15 MG/ML VIAL IVP PRN (01:24)
[2018-01-22] MEDS: 0.9 % Sodium Chloride w KCl 20 MEQ/1,000 ML MLS IVC SCH (02:04)
[2018-01-22] MEDS: *HR* OxyCODONE/APAP 5/325 TABLET PO PRN ×4 (02:04→20:00)
[2018-01-22] MEDS: *HR* FentaNYL (PF) 100 MCG/2 ML VIAL IVP PRN ×3 (04:28→09:12)
[2018-01-22 05:38] LABS: Basophils % 0.4 %; Eosinophils # 0.5 K/mcL (0.0-0.6); Eosinophils % 6.1 %; Hematocrit 27.6 % (37.5-50.1); Immature Granulocytes % 0.4 % (0-4); Lymphocytes # 1.3 K/mcL (0.6-4.6); Mean Corpuscular HGB Conc 31.5 g/dL (31.6-35.5); Mean Corpuscular Hemoglobin 26.4 pg (28.0-33.3); Mean Corpuscular Volume 83.9 fL (83.0-100.0); Mean Platelet Volume 9.8 fL (9.4-12.4); Monocytes % 11.8 %; Neutrophils # 5.6 K/mcL (1.6-8.9); Platelet Count 393 K/mcL (140-400); Red Blood Count 3.29 M/mcL (4.19-5.50); Red Cell Distribution Width 16.1 % (11.5-14.5); Segmented Neutrophils % 66.3 %
[2018-01-22 05:39] LABS: ABG Base Excess 1 mEq/L (-2 to 3); ABG HCO3 26 mEq/L (21-27); ABG Oxygen Saturation 97 % (95-98); ABG PCO2 43 mmHg (35-45); ABG PH 7.38 pH Units (7.32-7.45); ABG PO2 96 mmHg (85-104); ABG TCO2 27 mEq/L (20-26)
[2018-01-22 05:47] LABS: Hemoglobin 8.7 g/dL (12.9-16.9)
[2018-01-22] MEDS: Pantoprazole 40 MG VIAL IVP SCH ×2 (05:48→17:46)
[2018-01-22 05:55] LABS: BUN/Creatinine Ratio 14 (6-26); Blood Urea Nitrogen 10 mg/dL (6-20); Calcium 8.7 mg/dL (8.6-10.3); Carbon Dioxide 27 mEq/L (23-29); Chloride 105 mEq/L (98-107); Glucose 109 mg/dL (70-105); Osmolality,Calculated 282 (280-300); Potassium 4.4 mEq/L (3.5-5.1); Sodium 136 mEq/L (136-145); eGFR For Non-African Americans > 60 (> 60)
[2018-01-22] MEDS: Budesonide/Formoterol 160/4.5 1 PUFF INH IH SCH ×3 (07:18→20:20)
[2018-01-22] MEDS: Loratadine 10 MG TABLET PO SCH (08:27)
[2018-01-22] MEDS: BuPROPion XL (24 HR) 150 MG TABLET PO SCH (08:28)
[2018-01-22] MEDS: Nicotine 7 MG PATCH.TD24 TD SCH (08:29)
[2018-01-22] MEDS: Piperacillin/Tazobactam 3.375 GM in 0.9 % Sodium Chloride Mini Bag 100 ML IVPB SCH ×3 (08:30→23:34)
[2018-01-22] MEDS ORDERED: *HR* Morphine 2 MG/ML SYRINGE IVP PRN (09:28)
--- NOTE | 2018-01-22 09:31 | Cardiothoracic Progress Note ---
Date of Encounter: 01/22/18 Time of Encounter: 09:29 - Assessment and plan (1) COPD (chronic obstructive pulmonary disease) Current Visit: Yes Status: Suspected We will discontinue his IV fluids and Garza catheter. We will transfer him to the floor. Qualifiers: COPD type: emphysema Emphysema type: unspecified Qualified Code(s): J43.9 - Emphysema, unspecified - Subjective Interval history: The patient is sitting in a chair and tolerating his diet. He complains of moderate postoperative pain. Vital Signs, Last 4 Hours Temp Pulse Resp BP Pulse Ox 01/22/18 08:00 100 14 112/75 96 01/22/18 07:42 89 01/22/18 07:22 98.1 F 01/22/18 07:16 16 112/75 97 01/22/18 07:00 89 16 106/71 98 01/22/18 06:00 86 20 110/66 99 01/22/18 05:30 95 18 107/70 98 Oxgyen Flow Rate Oxygen Flow Rate (LPM) 4 Clinical Data, last 8 Hours Output, Chest Tube Drainage 0 Amount [Right Mid-Axillary Chest #2] Output, Chest Tube Drainage 10 Amount [Right Mid-Axillary Chest #2] Output, Chest Tube Drainage 0 Amount [Right Mid-Axillary Chest] Output, Chest Tube Drainage 10 Amount [Right Mid-Axillary Chest] Weight 01/20/18 01/21/18 01/22/18 23:59 23:59 23:59 Weight 64.7 kg Lungs are clear to percussion and auscultation. Heart is in a normal sinus rhythm. The chest tubes have minimal drainage and I do not see an air leak. His incision is healing well without signs of infection - Labs 01/22/18 05:21 01/22/18 05:21 Lab Results, Last 24 hours 01/21/18 01/22/18 01/22/18 11:21 05:21 05:21 WBC 12.6 H D 8.4 Hgb 10.5 L 8.7 L D Hct 34.5 L 27.6 L Plt Count 535 H 393 Sodium 136 Potassium 4.4 Chloride 105 Carbon Dioxide 27 BUN 10 Creatinine 0.69 L Glucose 109 H Calcium 8.7 Consult Discharge Plan - Plan Referrals: Yudelka Grier, [employer] [Primary Care Provider] -
[2018-01-22] MEDS ORDERED: Acetaminophen 325 MG TABLET PO PRN (09:50)
[2018-01-22] MEDS ORDERED: hydrOXYzine pamoate 25 MG CAPSULE PO PRN (09:50)
[2018-01-22] MEDS ORDERED: Ipratropium/Albuterol Neb 3 ML IH PRN (09:50)
[2018-01-22] MEDS ORDERED: Naloxone 0.4 MG/ML INJ IVP PRN (09:50)
[2018-01-22] MEDS ORDERED: Ketorolac 15 MG/ML VIAL IVP PRN (09:50)
[2018-01-22] MEDS ORDERED: Ondansetron 4 MG/2 ML VIAL IVP PRN (09:50)
[2018-01-22] MEDS: *HR* Morphine 2 MG/ML SYRINGE IVP PRN ×3 (12:31→23:35)
[2018-01-22] MEDS: *HR* LORazepam 1 MG TABLET PO PRN (18:16)
[2018-01-22] MEDS: Azithromycin 500 MG in D5% in Water 250 ML IVPB SCH (20:00)
[2018-01-23] MEDS: *HR* LORazepam 1 MG TABLET PO PRN ×3 (02:35→20:14)
[2018-01-23] MEDS: *HR* OxyCODONE/APAP 5/325 TABLET PO PRN ×4 (02:36→20:14)
[2018-01-23] MEDS: Ipratropium/Albuterol Neb 3 ML IH SCH ×5 (03:53→20:56)
[2018-01-23 06:03] LABS: Basophils % 0.4 %; Eosinophils # 0.6 K/mcL (0.0-0.6); Eosinophils % 5.8 %; Hematocrit 28.2 % (37.5-50.1); Hemoglobin 8.7 g/dL (12.9-16.9); Immature Granulocytes % 0.4 % (0-4); Lymphocytes # 1.5 K/mcL (0.6-4.6); Lymphocytes % 14.1 %; Mean Corpuscular HGB Conc 30.9 g/dL (31.6-35.5); Mean Corpuscular Volume 84.2 fL (83.0-100.0); Mean Platelet Volume 9.8 fL (9.4-12.4); Monocytes # 0.9 K/mcL (0.0-1.3); Monocytes % 7.9 %; Neutrophils # 7.7 K/mcL (1.6-8.9); Platelet Count 415 K/mcL (140-400); Red Blood Count 3.35 M/mcL (4.19-5.50); Red Cell Distribution Width 16.4 % (11.5-14.5); Segmented Neutrophils % 71.4 %
[2018-01-23] MEDS: Pantoprazole 40 MG VIAL IVP SCH (06:08)
[2018-01-23 06:23] LABS: BUN/Creatinine Ratio 16 (6-26); Blood Urea Nitrogen 10 mg/dL (6-20); Calcium 8.9 mg/dL (8.6-10.3); Carbon Dioxide 30 mEq/L (23-29); Chloride 105 mEq/L (98-107); Glucose 108 mg/dL (70-105); Osmolality,Calculated 288 (280-300); Potassium 4.4 mEq/L (3.5-5.1); Sodium 139 mEq/L (136-145); eGFR For Non-African Americans > 60 (> 60)
[2018-01-23] MEDS: Budesonide/Formoterol 160/4.5 1 PUFF INH IH SCH ×2 (07:39→20:56)
--- NOTE | 2018-01-23 08:04 | Event Note ---
<Johann Jose R - Last Filed: 01/23/18 07:56> Date of Encounter: 01/22/18 Time of Encounter: 08:00 Event note for the purpose of documenting pulmonology evaluation and management on 01/22/2018. Patient was seen and evaluated in the ICU at the bedside. Patient was seen comfortably sitting in chair eating breakfast. Pain was reasonably well controlled. Patient did not have new complaints. Neuro: Patient was alert and oriented 3. No focal neurologic deficits identified Cardiovascular: Chest tubes in place, heart with regular rate and rhythm without murmurs Pulmonary: Decreased breath sounds bilaterally, improving crackles at the right lung base. Abdominal: Soft, nontender, nondistended 1. Tension pneumothorax: Postop day [address] Dos Santos from thoracotomy, bulla stapling, and pleurodesis. Patient doing well no subjective shortness of breath. Hemoglobin adequate but has been decreasing since surgery. Patient transferred to stepdown unit on 01/22/2018 in the evening. Have ordered a.m. labs so they will be available for hospitalist service. 2. Multifocal pneumonia: Continue antibiotics, patient remains afebrile with stable vital signs. <Jonas Dan M - Last Filed: 01/23/18 08:55> I examined this patient and my medical decision-making was reviewed with the Titi chu Physician. I agree with the documented findings, disposition and treatment plan as described except to the extent set forth below. Patient seen and examined. Labs, radiology, chart personally reviewed. Agree with resident's history and physical, assessment, plan with following comments: INTERIOR PANELER: Patient follows commands, Pulmonary: Acceptable oxygenation and ventilation. Patient will need outpatient follow-up for management of COPD/emphysema. Patient will need pulmonary function test as outpatient. Patient understand should not smoke tobacco again. Continue bronchodilators. Please call for any questions. Cardiovascular: stable
[2018-01-23] MEDS: BuPROPion XL (24 HR) 150 MG TABLET PO SCH (08:21)
[2018-01-23] MEDS: Loratadine 10 MG TABLET PO SCH (08:21)
[2018-01-23] MEDS: Nicotine 7 MG PATCH.TD24 TD SCH (08:22)
[2018-01-23] MEDS: Piperacillin/Tazobactam 3.375 GM in 0.9 % Sodium Chloride Mini Bag 100 ML IVPB SCH (08:23)
[2018-01-23] MEDS: *HR* Morphine 2 MG/ML SYRINGE IVP PRN ×4 (08:30→23:00)
--- NOTE | 2018-01-23 09:29 | Internal Med Progress Note ---
Hospitalist Progress Note - Encounter Date of Encounter: 01/23/18 Time of Encounter: 09:30 - Subjective Interval History: 42-year-old male with history of peptic ulcer disease status post Billroth II, iron deficiency anemia due to poor absorption, severe emphysema who is admitted and being managed with spontaneous tension pneumothorax status post chest tube placement 01/18 at outside facility Seen and examined at bedside he has no new complaints. Patient is controlled Postop day [address] Dos Santos s/p thoracotomy, bulla stapling, and pleurodesis. He is being followed by thoracic surgery. Vital signs are stable and he has no new complaints - Exam Vitals: Temp Pulse Resp BP Pulse Ox 98.2 F 86 18 113/77 100 01/23/18 07:44 01/23/18 07:44 01/23/18 07:44 01/23/18 07:44 01/23/18 07:44 Exam: Gen: Vitals noted. Not in any form of distress HEENT: Normocephalic, atraumatic Neck: Supple. No adenopathy. Cardiac: RRR, no murmur, +S1/S2 Chest: Chest tube in place for right lung attached to intermittent suction Pulmonary: Poor respiratory effort overall, right lung sounds largely diminished. Abdomen: Not distended, non-tender to palpation . No peritoneal signs. Back: Non-tender throughout. MSK: ROM intact, no joint swelling noted Extremities: no BLE edema, nontender calf, no cyanosis or clubbing Neuro: moves all extremities, no focal deficits. A&Ox3 Psych: Appropriate mood and behavior - Assessment and Plan (1) DVT prophylaxis Current Visit: Yes Status: Acute Assessment and Plan: SCDs, continue same (2) Smoking addiction Current Visit: Yes Status: Acute Assessment and Plan: Nicotine patches prn (3) Acute blood loss anemia Current Visit: Yes Status: Ruled-out Assessment and Plan: Nausea and vomiting with abdominal pain all resolved Patient with known severe iron deficiency anemia, following with oncology Hb downtrended from 10 to 9 on admission but has been stable He has not required any blood transfusion Hemoglobin has been stable at 8.7 Continue iron infusion daily Continue to monitor (4) Pneumonia Current Visit: Yes Status: Acute Assessment and Plan: Multifocal pneumonia demonstrated on chest CT Presents with mild hypoxia, temp 99.3, WBC 15.7 Blood cultures negative Interim culture with Proteus vulgaris sensitive to ceftriaxone once, Zosyn, levofloxacin Patient has received 6 days of Zosyn May de-escalate antibiotics to Levaquin by mouth Patient is not septic (5) COPD (chronic obstructive pulmonary disease) Current Visit: Yes Status: Suspected Assessment and Plan: History of COPD with emphysema CT of the chest demonstrates significant emphysematous burden with large blebs Continue PRN and scheduled Duonebs No need for steroids at this time (6) Iron deficiency anemia Current Visit: Yes Status: Chronic Assessment and Plan: See acute blood loss anemia (7) Nausea & vomiting Current Visit: Yes Status: Inactive Assessment and Plan: Resolved (8) Tension pneumothorax Current Visit: Yes Status: Acute Assessment and Plan: Right tension pneumothorax status post chest tube Postop day [address] Dos Santos from thoracotomy, bulla stapling, and pleurodesis. Chest tube management by thoracic surgery, inputs appreciated (9) History of Billroth I operation Current Visit: Yes Status: Acute Assessment and Plan: Evaluation noted, patient is asymptomatic and surgery has signed off. - Time Spent with Patient Total time spent is greater than 50% in coordination of care (as documented) at patient's floor/unit and/or counseling patient: Plan of Care Discussed with: patient Internal Medicine: Result - Labs CBC & Chem 7: 01/23/18 05:35 01/23/18 05:35 Labs: Short CBC 01/23/18 Range/Units 05:35 WBC 10.8 (4.3-11.1) K/mcL Hgb 8.7 L (12.9-16.9) g/dL Hct 28.2 L (37.5-50.1) % Plt Count 415 H (140-400) K/mcL Neutrophils # 7.7 (1.6-8.9) K/mcL BMP 01/23/18 05:35 Sodium 139 Potassium 4.4 Chloride 105 Carbon Dioxide 30 H BUN 10 Creatinine 0.62 L Glucose 108 H Calcium 8.9 - ABG Interpretation ABG results: ABG ABG pH 7.38 pH Units (7.32-7.45) 01/22/18 05:36 ABG pCO2 43 mmHg (35-45) 01/22/18 05:36 ABG pO2 96 mmHg (85-104) 01/22/18 05:36 ABG O2 Saturation 97 % (95-98) 01/22/18 05:36 PT/INR, D-dimer PT 13.2 Seconds (9.4-12.1) H 01/19/18 04:58 - Impressions Impressions Chest X-Ray 01/22/18 06:00 IMPRESSION: Stable examination with post thoracotomy changes on the right. Right-sided chest tubes without radiographically appreciable pneumothorax. Patchy multifocal airspace disease in both lungs suggesting pulmonary edema. D/ / 01/22/2018 10:18:44 Anthony Nuñez MD / earnold Interpreting Provider: Anthony Nuñez MD Consult Discharge Plan - Plan Referrals: Yudelka Grier, ELECTRIC REPAIR SUPERVISOR [Primary Care Provider] - (4) Pneumonia Qualifiers: Pneumonia type: due to unspecified organism Laterality: bilateral Lung location: unspecified part of lung Qualified Code(s): J18.9 - Pneumonia, unspecified organism (5) COPD (chronic obstructive pulmonary disease) Qualifiers: COPD type: emphysema Emphysema type: unspecified Qualified Code(s): J43.9 - Emphysema, unspecified (6) Iron deficiency anemia Qualifiers: Iron deficiency anemia type: unspecified iron deficiency Qualified Code(s): D50.9 - Iron deficiency anemia, unspecified (7) Nausea & vomiting Qualifiers: Vomiting type: unspecified Vomiting Intractability: non-intractable Qualified Code(s): R11.2 - Nausea with vomiting, unspecified
--- NOTE | 2018-01-23 09:31 | Cardiothoracic Progress Note ---
Date of Encounter: 01/23/18 Time of Encounter: 09:29 - Assessment and plan (1) COPD (chronic obstructive pulmonary disease) Current Visit: Yes Status: Suspected The patient does have the usual, expected acute postoperative blood loss anemia. We will discontinue his Garza catheter. Qualifiers: Qualified Code(s): J43.9 - Emphysema, unspecified - Subjective Interval history: The patient complains of moderate postoperative pain. Vital Signs, Last 4 Hours Temp Pulse Resp BP Pulse Ox 01/23/18 07:44 98.2 F 86 18 113/77 100 01/23/18 07:39 16 97 Oxgyen Flow Rate Oxygen Flow Rate (LPM) 4 Clinical Data, last 8 Hours Output, Chest Tube Drainage 8 Amount [Right Mid-Axillary Chest #2] Output, Chest Tube Drainage 10 Amount [Right Mid-Axillary Chest] Weight 01/21/18 01/22/18 01/23/18 23:59 23:59 23:59 Weight 64.7 kg Lungs are clear to percussion and auscultation. Heart is in a normal sinus rhythm. His incision is healing well without signs of infection. Chest tube drainage is minimal and there is no air leak. - Labs 01/23/18 05:35 01/23/18 05:35 Lab Results, Last 24 hours 01/23/18 01/23/18 05:35 05:35 WBC 10.8 Hgb 8.7 L Hct 28.2 L Plt Count 415 H Sodium 139 Potassium 4.4 Chloride 105 Carbon Dioxide 30 H BUN 10 Creatinine 0.62 L Glucose 108 H Calcium 8.9 Consult Discharge Plan - Plan Referrals: Yudelka Grier, CONVENTIONAL MACHINIST [Primary Care Provider] -
[2018-01-23] MEDS ORDERED: levoFLOXacin 750 MG TABLET PO ONE (09:35)
[2018-01-23] MEDS: Azithromycin 500 MG in D5% in Water 250 ML IVPB SCH (20:15)
[2018-01-24] MEDS: Ipratropium/Albuterol Neb 3 ML IH SCH ×6 (01:11→21:04)
[2018-01-24] MEDS: *HR* OxyCODONE/APAP 5/325 TABLET PO PRN ×3 (02:30→19:35)
[2018-01-24] MEDS: *HR* LORazepam 1 MG TABLET PO PRN ×2 (03:27→19:35)
[2018-01-24] MEDS: *HR* Morphine 2 MG/ML SYRINGE IVP PRN ×7 (03:27→23:56)
[2018-01-24] MEDS: Budesonide/Formoterol 160/4.5 1 PUFF INH IH SCH ×2 (07:30→21:04)
[2018-01-24] MEDS: levoFLOXacin 750 MG TABLET PO SCH (07:45)
[2018-01-24] MEDS: BuPROPion XL (24 HR) 150 MG TABLET PO SCH (07:45)
[2018-01-24] MEDS: Nicotine 7 MG PATCH.TD24 TD SCH (07:46)
[2018-01-24] MEDS: Loratadine 10 MG TABLET PO SCH (07:46)
--- NOTE | 2018-01-24 09:34 | Cardiothoracic Progress Note ---
Date of Encounter: 01/24/18 Time of Encounter: 09:32 - Assessment and plan (1) COPD (chronic obstructive pulmonary disease) Current Visit: Yes Status: Suspected I will start the patient on low-dose Lopressor to reduce his heart rate and prophylax against atrial fibrillation. The chest tube suction was discontinued. We will check a chest x-ray tomorrow. Qualifiers: COPD type: emphysema Emphysema type: unspecified Qualified Code(s): J43.9 - Emphysema, unspecified - Subjective Interval history: The patient is tolerating his diet and urinating well without his Garza catheter. Vital Signs, Last 4 Hours Temp Pulse Resp BP Pulse Ox 01/24/18 07:17 98.5 F 88 18 103/70 98 Oxgyen Flow Rate Oxygen Flow Rate (LPM) 4 Clinical Data, last 8 Hours Output, Chest Tube Drainage 0 Amount [Right Mid-Axillary Chest #2] Output, Chest Tube Drainage 0 Amount [Right Mid-Axillary Chest #2] Output, Chest Tube Drainage 0 Amount [Right Mid-Axillary Chest] Output, Chest Tube Drainage 0 Amount [Right Mid-Axillary Chest] Output, Urine Amount 580 Lungs are clear to percussion and auscultation. Heart is in a normal sinus rhythm. All incisions are healing well without signs of infection and the st ernum is stable. The chest tubes had minimal drainage and no air leak. - Labs 01/23/18 05:35 01/23/18 05:35 Consult Discharge Plan - Plan Referrals: Yudelka Grier, AUTOMOTIVE LOT ATTENDANT [Primary Care Provider] -
--- NOTE | 2018-01-24 09:41 | Internal Med Progress Note ---
Hospitalist Progress Note - Encounter Date of Encounter: 01/24/18 Time of Encounter: 09:38 - Subjective Interval History: 42-year-old male with history of peptic ulcer disease status post Billroth II, iron deficiency anemia due to poor absorption, severe emphysema who is admitted and being managed with spontaneous tension pneumothorax Seen and examined at bedside he has no new complaints. Patient is controlled Postop day [address] Dos Santos s/p thoracotomy, bulla stapling, and pleurodesis. He is being followed by thoracic surgery. Vital signs are stable and he has no new complaints - Exam Vitals: Temp Pulse Resp BP Pulse Ox 98.5 F 88 18 103/70 98 01/24/18 07:17 01/24/18 07:17 01/24/18 07:17 01/24/18 07:17 01/24/18 07:17 Exam: Gen: Vitals noted. Not in any form of distress HEENT: Normocephalic, atraumatic Neck: Supple. No adenopathy. Cardiac: RRR, no murmur, +S1/S2 Chest: Chest tube in place for right lung attached to intermittent suction Pulmonary: Poor respiratory effort overall, right lung sounds largely diminished. Abdomen: Not distended, non-tender to palpation . No peritoneal signs. Back: Non-tender throughout. MSK: ROM intact, no joint swelling noted Extremities: no BLE edema, nontender calf, no cyanosis or clubbing Neuro: moves all extremities, no focal deficits. A&Ox3 Psych: Appropriate mood and behavior - Assessment and Plan (1) DVT prophylaxis Current Visit: Yes Status: Acute Assessment and Plan: SCDs, continue same (2) Smoking addiction Current Visit: Yes Status: Acute Assessment and Plan: Nicotine patches prn (3) Acute blood loss anemia Current Visit: Yes Status: Ruled-out Assessment and Plan: Ruled out Nausea and vomiting with abdominal pain all resolved Patient with known severe iron deficiency anemia, following with oncology Hb downtrended from 10 to 9 on admission but has been stable He has not required any blood transfusion Hemoglobin has been stable at 8.7 Continue iron infusion daily Continue to monitor (4) Pneumonia Current Visit: Yes Status: Acute Assessment and Plan: Multifocal pneumonia demonstrated on chest CT Presents with mild hypoxia, temp 99.3, WBC 15.7 Blood cultures negative Interim culture with Proteus vulgaris sensitive to ceftriaxone , Zosyn, levofloxacin Patient has received 6 days of Zosyn May de-escalate antibiotics to Levaquin by mouth Continue levaquin-Day 2, total 8 days on antibiotics Discontinue antibiotics on 01/26 Patient is not septic (5) COPD (chronic obstructive pulmonary disease) Current Visit: Yes Status: Suspected Assessment and Plan: History of COPD with emphysema CT of the chest demonstrates significant emphysematous burden with large blebs Continue PRN and scheduled Duonebs No need for steroids at this time (6) Iron deficiency anemia Current Visit: Yes Status: Chronic Assessment and Plan: See acute blood loss anemia Continue daily iron infusion Patient cannot tolerate po iron Upon discharge, recommend follow up with hematology for his chronic iron def iciency anemia (7) Nausea & vomiting Current Visit: Yes Status: Inactive Assessment and Plan: Resolved (8) Tension pneumothorax Current Visit: Yes Status: Acute Assessment and Plan: Right tension pneumothorax status post chest tube Postop day [address] Dos Santos from thoracotomy, bulla stapling, and pleurodesis. Chest tube management by thoracic surgery, inputs appreciated (9) History of Billroth I operation Current Visit: Yes Status: Acute Assessment and Plan: Evaluation noted, patient is asymptomatic and surgery has signed off. - Time Spent with Patient Total time spent is greater than 50% in coordination of care (as documented) at patient's floor/unit and/or counseling patient: Plan of Care Discussed with: patient Internal Medicine: Result - Labs CBC & Chem 7: 01/23/18 05:35 01/23/18 05:35 - ABG Interpretation ABG results: ABG ABG pH 7.38 pH Units (7.32-7.45) 01/22/18 05:36 ABG pCO2 43 mmHg (35-45) 01/22/18 05:36 ABG pO2 96 mmHg (85-104) 01/22/18 05:36 ABG O2 Saturation 97 % (95-98) 01/22/18 05:36 PT/INR, D-dimer PT 13.2 Seconds (9.4-12.1) H 01/19/18 04:58 Consult Discharge Plan - Plan Referrals: Yudelka Grier, COBBLER MCKAY [Primary Care Provider] - (4) Pneumonia Qualifiers: Pneumonia type: due to unspecified organism Laterality: bilateral Lung location: unspecified part of lung Qualified Code(s): J18.9 - Pneumonia, unspecified organism (5) COPD (chronic obstructive pulmonary disease) Qualifiers: COPD type: emphysema Emphysema type: unspecified Qualified Code(s): J43.9 - Emphysema, unspecified (6) Iron deficiency anemia Qualifiers: Iron deficiency anemia type: unspecified iron deficiency Qualified Code(s): D50.9 - Iron deficiency anemia, unspecified (7) Nausea & vomiting Qualifiers: Vomiting type: unspecified Vomiting Intractability: non-intractable Qualified Code(s): R11.2 - Nausea with vomiting, unspecified
[2018-01-24] MEDS ORDERED: Azithromycin 250 MG TABLET PO SCH (21:00)
[2018-01-25] MEDS: Ipratropium/Albuterol Neb 3 ML IH SCH ×7 (00:17→23:48)
[2018-01-25] MEDS: *HR* OxyCODONE/APAP 5/325 TABLET PO PRN ×5 (02:22→19:54)
[2018-01-25 03:29] LABS: Basophils # 0.1 K/mcL (0.0-0.2); Basophils % 0.6 %; Eosinophils # 0.6 K/mcL (0.0-0.6); Hematocrit 32.4 % (37.5-50.1); Hemoglobin 9.9 g/dL (12.9-16.9); Immature Granulocytes % 0.5 % (0-4); Lymphocytes # 2.1 K/mcL (0.6-4.6); Lymphocytes % 21.3 %; Mean Corpuscular HGB Conc 30.6 g/dL (31.6-35.5); Mean Platelet Volume 9.6 fL (9.4-12.4); Monocytes # 0.9 K/mcL (0.0-1.3); Monocytes % 9.1 %; Neutrophils # 6.1 K/mcL (1.6-8.9); Platelet Count 514 K/mcL (140-400); Red Blood Count 3.81 M/mcL (4.19-5.50); Red Cell Distribution Width 16.3 % (11.5-14.5); Segmented Neutrophils % 62.5 %
[2018-01-25] MEDS: *HR* Morphine 2 MG/ML SYRINGE IVP PRN ×4 (03:40→17:52)
[2018-01-25 03:50] LABS: BUN/Creatinine Ratio 14 (6-26); Blood Urea Nitrogen 9 mg/dL (6-20); Calcium 9.4 mg/dL (8.6-10.3); Carbon Dioxide 29 mEq/L (23-29); Chloride 100 mEq/L (98-107); Glucose 110 mg/dL (70-105); Osmolality,Calculated 283 (280-300); Potassium 4.1 mEq/L (3.5-5.1); Sodium 137 mEq/L (136-145); eGFR For Non-African Americans > 60 (> 60)
[2018-01-25] MEDS: Loratadine 10 MG TABLET PO SCH (07:43)
[2018-01-25] MEDS: Nicotine 7 MG PATCH.TD24 TD SCH (07:43)
[2018-01-25] MEDS: levoFLOXacin 750 MG TABLET PO SCH (07:43)
[2018-01-25] MEDS: BuPROPion XL (24 HR) 150 MG TABLET PO SCH (07:44)
[2018-01-25] MEDS ORDERED: BuPROPion XL (24 HR) 150 MG TABLET PO SCH (09:00)
[2018-01-25] MEDS: Multivit/Ca/Min/Fe/FA 1 TAB TABLET PO SCH (09:09)
[2018-01-25] MEDS: Gabapentin 300 MG CAPSULE PO SCH ×2 (09:10→15:25)
[2018-01-25] MEDS: Vitamin B Complex/Vit C/Vit E 1 EACH TABLET PO SCH (09:10)
--- NOTE | 2018-01-25 09:29 | Cardiothoracic Progress Note ---
Date of Encounter: 01/25/18 Time of Encounter: 09:27 - Assessment and plan (1) COPD (chronic obstructive pulmonary disease) Current Visit: Yes Status: Suspected Chest tube drainage is minimal and there is no air leak. Chest x-ray reveals a trace apical pneumothorax. We will check another chest x-ray tomorrow. Hopefully, the chest tubes can removed in 1-2 days. Qualifiers: COPD type: emphysema Emphysema type: unspecified Qualified Code(s): J43.9 - Emphysema, unspecified - Subjective Interval history: The patient complains of mild postoperative pain. Vital Signs, Last 4 Hours Temp Pulse Resp BP Pulse Ox 01/25/18 08:04 97.7 F 97 18 114/71 96 Oxgyen Flow Rate Oxygen Flow Rate (LPM) 2 Clinical Data, last 8 Hours Output, Chest Tube Drainage 0 Amount [Right Mid-Axillary Chest #2] Output, Chest Tube Drainage 0 Amount [Right Mid-Axillary Chest #2] Output, Chest Tube Drainage 0 Amount [Right Mid-Axillary Chest] Output, Chest Tube Drainage 0 Amount [Right Mid-Axillary Chest] Output, Urine Amount 350 Weight 01/23/18 01/24/18 01/25/18 23:59 23:59 23:59 Weight 66.2 kg Lungs are clear to percussion and auscultation. Heart is in a normal sinus rhythm. His incision is healing well without signs of infection. Chest x-ray off suction reveals a tiny, apical pneumothorax. - Labs 01/25/18 03:05 01/25/18 03:05 Lab Results, Last 24 hours 01/25/18 01/25/18 03:05 03:05 WBC 9.8 Hgb 9.9 L Hct 32.4 L Plt Count 514 H Sodium 137 Potassium 4.1 Chloride 100 Carbon Dioxide 29 BUN 9 Creatinine 0.63 L Glucose 110 H Calcium 9.4 Consult Discharge Plan - Plan Referrals: Yudelka Grier CNP [Primary Care Provider] - 02/01/18 11:00 am Osiel Dos Santos MD [Partnered Physician] - 03/03/18 1:00 pm
[2018-01-25] MEDS: Budesonide/Formoterol 160/4.5 1 PUFF INH IH SCH ×2 (09:31→21:02)
[2018-01-25] MEDS: *HR* LORazepam 1 MG TABLET PO PRN (10:24)
--- NOTE | 2018-01-25 14:07 | Internal Med Progress Note ---
Hospitalist Progress Note - Encounter Date of Encounter: 01/25/18 Time of Encounter: 10:15 - Subjective Interval History: Patient complains of mild discomfort at the chest tube insertion site. Otherwise, denies shortness of breath, cough, sputum production, or fever/chills. - Exam Vitals: Temp Pulse Resp BP Pulse Ox 97.6 F 85 16 91/56 95 01/25/18 11:55 01/25/18 11:55 01/25/18 11:55 01/25/18 11:55 01/25/18 11:55 Exam: Gen: Vitals noted. Not in any form of distress Neck: Supple. No JVD Cardiac: RRR, no murmur, S1S2 Chest: Chest tube in situ R lower thorax Pulmonary: diminished lung sounds on the right Abdomen: Soft, not distended, non-tender to palpation Neuro: no focal deficits. A&Ox3 - Assessment and Plan (1) Tension pneumothorax Current Visit: Yes Status: Acute Assessment and Plan: Right tension pneumothorax status post Right posterolateral thoracotomy with stapling of blebs, pleurodesis on 01/21 CXR today reviewed: trace R apical PTX POD4, remains on chest tube per thoracic surgery, inputs appreciated (2) Pneumonia Current Visit: Yes Status: Acute Assessment and Plan: Multifocal pneumonia demonstrated on chest CT Presents with mild hypoxia, temp 99.3, WBC 15.7 Blood cultures negative Interim culture with Proteus vulgaris sensitive to ceftriaxone , Zosyn, levofloxacin Patient has received 6 days of Zosyn, de-escalated to levaquin, D3 today Discontinue antibiotics on 01/26 Patient is not septic (3) Iron deficiency anemia Current Visit: Yes Status: Chronic Assessment and Plan: on IV iron Patient cannot tolerate po iron due to malabsorption post Billroth (4) COPD (chronic obstructive pulmonary disease) Current Visit: Yes Status: Suspected Assessment and Plan: History of COPD with emphysema CT of the chest demonstrates significant emphysematous burden with large blebs Continue PRN and scheduled Duonebs Resume home inhalers No need for steroids at this time (5) Smoking addiction Current Visit: Yes Status: Acute Assessment and Plan: Nicotine patches prn (6) DVT prophylaxis Current Visit: Yes Status: Acute Assessment and Plan: SCDs, continue same - Time Spent with Patient Total time spent is greater than 50% in coordination of care (as documented) at patient's floor/unit and/or counseling patient: Internal Medicine: Result - Labs CBC & Chem 7: 01/25/18 03:05 01/25/18 03:05 Labs: Short CBC 01/25/18 Range/Units 03:05 WBC 9.8 (4.3-11.1) K/mcL Hgb 9.9 L (12.9-16.9) g/dL Hct 32.4 L (37.5-50.1) % Plt Count 514 H (140-400) K/mcL Neutrophils # 6.1 (1.6-8.9) K/mcL BMP 01/25/18 03:05 Sodium 137 Potassium 4.1 Chloride 100 Carbon Dioxide 29 BUN 9 Creatinine 0.63 L Glucose 110 H Calcium 9.4 - ABG Interpretation ABG results: ABG ABG pH 7.38 pH Units (7.32-7.45) 01/22/18 05:36 ABG pCO2 43 mmHg (35-45) 01/22/18 05:36 ABG pO2 96 mmHg (85-104) 01/22/18 05:36 ABG O2 Saturation 97 % (95-98) 01/22/18 05:36 PT/INR, D-dimer PT 13.2 Seconds (9.4-12.1) H 01/19/18 04:58 - Impressions Impressions Chest X-Ray 01/25/18 00:01 IMPRESSION: Two right-sided chest tubes with small right apical pneumothorax. Stable postsurgical changes of the right chest. Mild improvement of pulmonary edema seen on prior exam. D/ / 01/25/2018 08:38:16 Anthony Nuñez MD / [email or web address] Interpreting Provider: Anthony Nuñez MD Consult Discharge Plan - Plan Referrals: Yudelka Grier CNP [Primary Care Provider] - 02/01/18 11:00 am Osiel Dos Santos MD [Partnered Physician] - 03/03/18 1:00 pm (2) Pneumonia Qualifiers: Pneumonia type: due to unspecified organism Laterality: bilateral Lung location: unspecified part of lung Qualified Code(s): J18.9 - Pneumonia, unspecified organism (3) Iron deficiency anemia Qualifiers: Iron deficiency anemia type: unspecified iron deficiency Qualified Code(s): D50.9 - Iron deficiency anemia, unspecified (4) COPD (chronic obstructive pulmonary disease) Qualifiers: COPD type: emphysema Emphysema type: unspecified Qualified Code(s): J43.9 - Emphysema, unspecified
[2018-01-26] MEDS: *HR* OxyCODONE/APAP 5/325 TABLET PO PRN ×5 (00:06→21:00)
[2018-01-26] MEDS: Gabapentin 300 MG CAPSULE PO SCH ×4 (00:06→23:00)
[2018-01-26] MEDS: *HR* Morphine 2 MG/ML SYRINGE IVP PRN ×5 (03:36→23:00)
[2018-01-26] MEDS: Ipratropium/Albuterol Neb 3 ML IH SCH ×6 (04:24→23:55)
[2018-01-26] MEDS: *HR* LORazepam 1 MG TABLET PO PRN ×2 (06:52→15:01)
--- NOTE | 2018-01-26 07:39 | Cardiothoracic Progress Note ---
Date of Encounter: 01/26/18 Time of Encounter: 07:37 - Assessment and plan (1) Tension pneumothorax Current Visit: Yes Status: Acute The patient is recovering well from his right thoracotomy with apical bleb resection and mechanical pleurodesis. The chest tubes are currently on waterseal and there is no air leak. Chest x-ray shows a resolving right apical pneumothorax. Chest tube will remain in place today. If tomorrow's chest x-ray shows improvement R no change in the size of the right apical pneumothorax, the chest tubes will be removed. The assessment and plan as outlined above was discussed with the patient and/or family members who expressed understanding and agreement. All questions were answered. - Subjective Procedure(s) Performed: POD#5 S/P Right thoracotomy with apical bleb resection and mechanical pleurodesis Interval history: The patient remained hemodynamically stable overnight. He is resting comfortably in his hospital bed. He has no complaints. Vital Signs, Last 4 Hours Temp Pulse Resp BP Pulse Ox 01/26/18 04:24 18 95 01/26/18 04:05 97.9 F 95 18 102/64 94 Oxgyen Flow Rate Oxygen Flow Rate (LPM) 2 Clinical Data, last 8 Hours Output, Chest Tube Drainage 0 Amount [Right Mid-Axillary Chest #2] Output, Chest Tube Drainage 0 Amount [Right Mid-Axillary Chest #2] Output, Chest Tube Drainage 0 Amount [Right Mid-Axillary Chest] Output, Chest Tube Drainage 0 Amount [Right Mid-Axillary Chest] Output, Urine Amount 225 Output, Urine Amount 300 Output, Urine Amount 375 Weight 01/24/18 01/25/18 01/26/18 23:59 23:59 23:59 Weight 66.2 kg - Physical Examination General: Conversant, No Apparent Distress Neck: No JVD, Normal carotid pulses Cardiac: Reg Rate and Rhythm, Normal S1 and S2, No Murmur Incision: No signs of infection, Dry/intact dressing Chest tubes: Minimal drainage, Other (No air leak) Lungs: Normal Breath Sounds, No Wheeze, Rales, Rhonchi Neuro: Alert and responsive, No focal deficits noted Vascular: Normal capillary refill Extremities: No Clubbing, No Cyanosis, No Edema, Normal Pulses - Labs 01/25/18 03:05 01/25/18 03:05 - Imaging Chest Xray: image reviewed (Small right apical pneumothorax, resolving.) Consult Discharge Plan - Plan Referrals: Yudelka Grier CNP [Primary Care Provider] - 02/01/18 11:00 am Osiel Dos Santos MD [Partnered Physician] - 03/03/18 1:00 pm
[2018-01-26] MEDS: Loratadine 10 MG TABLET PO SCH (09:46)
[2018-01-26] MEDS: BuPROPion XL (24 HR) 150 MG TABLET PO SCH (09:46)
[2018-01-26] MEDS: Nicotine 7 MG PATCH.TD24 TD SCH (09:47)
[2018-01-26] MEDS: levoFLOXacin 750 MG TABLET PO SCH (09:47)
[2018-01-26] MEDS: Multivit/Ca/Min/Fe/FA 1 TAB TABLET PO SCH (09:47)
[2018-01-26] MEDS: Vitamin B Complex/Vit C/Vit E 1 EACH TABLET PO SCH (09:47)
[2018-01-26] MEDS: Budesonide/Formoterol 160/4.5 1 PUFF INH IH SCH ×2 (11:11→20:24)
--- NOTE | 2018-01-26 13:04 | Internal Med Progress Note ---
Hospitalist Progress Note - Encounter Date of Encounter: 01/26/18 Time of Encounter: 11:05 - Subjective Interval History: Discomfort at the chest tube insertion site is tolerable with pain mx. Denies shortness of breath, cough, sputum production, or fever/chills. CXR this morning shows resolving R PTX. - Exam Vitals: Temp Pulse Resp BP Pulse Ox 98.4 F 97 18 101/63 94 01/26/18 11:33 01/26/18 11:33 01/26/18 11:33 01/26/18 11:33 01/26/18 11:33 Exam: Gen: Vitals noted. Not in any form of distress Neck: Supple. No JVD Cardiac: RRR, no murmur, S1S2 Chest: Chest tube in situ R lower thorax Pulmonary: diminished lung sounds on the right Abdomen: Soft, not distended, non-tender to palpation Neuro: no focal deficits. A&Ox3 - Assessment and Plan (1) Tension pneumothorax Current Visit: Yes Status: Acute Assessment and Plan: Right tension pneumothorax status post Right posterolateral thoracotomy with stapling of blebs, pleurodesis on 01/21 CXR today reviewed: resolving R apical PTX POD5, remains on chest tube per thoracic surgery. Plan for possible removal tomorrow noted. Inputs appreciated (2) Pneumonia Current Visit: Yes Status: Acute Assessment and Plan: Multifocal pneumonia demonstrated on chest CT Presents with mild hypoxia, temp 99.3, WBC 15.7 Blood cultures negative Interim culture with Proteus vulgaris sensitive to ceftriaxone , Zosyn, levofloxacin Patient has received 6 days of Zosyn, de-escalated to levaquin, D4 today Discontinue antibiotics after today's dose Patient is not septic (3) Iron deficiency anemia Current Visit: Yes Status: Chronic Assessment and Plan: on IV iron Patient cannot tolerate po iron due to malabsorption post Billroth outpatient hematology follow up (4) COPD (chronic obstructive pulmonary disease) Current Visit: Yes Status: Suspected Assessment and Plan: History of COPD with emphysema CT of the chest demonstrates significant emphysematous burden with large blebs Continue PRN and scheduled Duonebs Resume home inhalers No need for steroids at this time (5) Smoking addiction Current Visit: Yes Status: Acute Assessment and Plan: Nicotine patches prn (6) DVT prophylaxis Current Visit: Yes Status: Acute Assessment and Plan: SCDs - Time Spent with Patient Total time spent is greater than 50% in coordination of care (as documented) at patient's floor/unit and/or counseling patient: Plan of Care Discussed with: patient Internal Medicine: Result - Labs CBC & Chem 7: 01/25/18 03:05 01/25/18 03:05 - ABG Interpretation ABG results: ABG ABG pH 7.38 pH Units (7.32-7.45) 01/22/18 05:36 ABG pCO2 43 mmHg (35-45) 01/22/18 05:36 ABG pO2 96 mmHg (85-104) 01/22/18 05:36 ABG O2 Saturation 97 % (95-98) 01/22/18 05:36 PT/INR, D-dimer PT 13.2 Seconds (9.4-12.1) H 01/19/18 04:58 - Impressions Impressions Chest X-Ray 01/25/18 00:01 IMPRESSION: Two right-sided chest tubes with small right apical pneumothorax. Stable postsurgical changes of the right chest. Mild improvement of pulmonary edema seen on prior exam. D/ / 01/25/2018 08:38:16 Anthony Nuñez MD / temo Interpreting Provider: Anthony Nuñez MD Chest X-Ray 01/26/18 00:01 IMPRESSION: There are two right-sided chest tubes with resolving small right apical pneumothorax. Stable postsurgical changes of the right hemithorax. D/ / 01/26/2018 08:50:24 Anthony Nuñez MD / ananya Interpreting Provider: Anthony Nuñez MD Consult Discharge Plan - Plan Referrals: Yudelka Grier CNP [Primary Care Provider] - 02/01/18 11:00 am Osiel Dos Santos MD [Partnered Physician] - 03/03/18 1:00 pm (2) Pneumonia Qualifiers: Pneumonia type: due to unspecified organism Laterality: bilateral Lung location: unspecified part of lung Qualified Code(s): J18.9 - Pneumonia, unspecified organism (3) Iron deficiency anemia Qualifiers: Iron deficiency anemia type: unspecified iron deficiency Qualified Code(s): D50.9 - Iron deficiency anemia, unspecified (4) COPD (chronic obstructive pulmonary disease) Qualifiers: COPD type: emphysema Emphysema type: unspecified Qualified Code(s): J43.9 - Emphysema, unspecified
[2018-01-27] MEDS: *HR* OxyCODONE/APAP 5/325 TABLET PO PRN ×3 (03:32→11:53)
[2018-01-27] MEDS: *HR* Morphine 2 MG/ML SYRINGE IVP PRN ×2 (03:36→06:41)
[2018-01-27] MEDS: Ipratropium/Albuterol Neb 3 ML IH SCH ×4 (04:08→16:42)
[2018-01-27 04:40] LABS: Hematocrit 35.2 % (37.5-50.1); Hemoglobin 10.4 g/dL (12.9-16.9); Mean Corpuscular HGB Conc 29.5 g/dL (31.6-35.5); Mean Corpuscular Hemoglobin 25.7 pg (28.0-33.3); Mean Corpuscular Volume 86.9 fL (83.0-100.0); Mean Platelet Volume 9.6 fL (9.4-12.4); Platelet Count 586 K/mcL (140-400); Red Blood Count 4.05 M/mcL (4.19-5.50)
[2018-01-27 04:55] LABS: BUN/Creatinine Ratio 25 (6-26); Blood Urea Nitrogen 20 mg/dL (6-20); Calcium 9.5 mg/dL (8.6-10.3); Carbon Dioxide 31 mEq/L (23-29); Chloride 98 mEq/L (98-107); Glucose 123 mg/dL (70-105); Osmolality,Calculated 286 (280-300); Sodium 136 mEq/L (136-145); eGFR For Non-African Americans > 60 (> 60)
[2018-01-27] MEDS: Gabapentin 300 MG CAPSULE PO SCH (07:33)
[2018-01-27] MEDS: Multivit/Ca/Min/Fe/FA 1 TAB TABLET PO SCH (07:33)
[2018-01-27] MEDS: BuPROPion XL (24 HR) 150 MG TABLET PO SCH (07:33)
[2018-01-27] MEDS: Vitamin B Complex/Vit C/Vit E 1 EACH TABLET PO SCH (07:33)
[2018-01-27] MEDS: Nicotine 7 MG PATCH.TD24 TD SCH (07:34)
[2018-01-27] MEDS: Loratadine 10 MG TABLET PO SCH (07:34)
[2018-01-27] MEDS: Budesonide/Formoterol 160/4.5 1 PUFF INH IH SCH (07:40)
[2018-01-27] MEDS ORDERED: Morphine Oral CONC 5 MG/0.25 ML ORAL.SYG SL PRN (09:00)
[2018-01-27] MEDS ORDERED: MORPHINE SUL Oral CONC 10 MG/0.5 ML ORAL.SYG SL PRN (09:00)
--- NOTE | 2018-01-27 10:48 | Cardiothoracic Progress Note ---
Date of Encounter: 01/27/18 Time of Encounter: 08:15 - Assessment and plan (1) Tension pneumothorax Current Visit: Yes Status: Acute The patient is recovering well from his right thoracotomy with apical bleb resection and mechanical pleurodesis. The chest tubes were removed. The patient may be discharged at the discretion of the hospitalist. He should see Dr. Osiel Dos Santos in the office in 4-6 weeks. The assessment and plan as outlined above was discussed with the patient and/or family members who expressed understanding and agreement. All questions were answered. - Subjective Procedure(s) Performed: POD#6 S/P Right thoracotomy with apical bleb resection and mechanical pleurodesis Interval history: The patient remained hemodynamically stable overnight. He is resting com fortably in his hospital bed. He has no complaints. Vital Signs, Last 4 Hours Temp Pulse Resp BP Pulse Ox 01/27/18 07:40 18 93 01/27/18 07:37 98.0 F 92 14 105/77 96 Oxgyen Flow Rate Oxygen Flow Rate (LPM) 4 Clinical Data, last 8 Hours Output, Chest Tube Drainage 0 Amount [Right Mid-Axillary Chest #2] Output, Chest Tube Drainage 1 Amount [Right Mid-Axillary Chest] Output, Urine Amount 775 Weight 01/25/18 01/26/18 01/27/18 23:59 23:59 23:59 Weight 66.2 kg 63.9 kg - Physical Examination General: Conversant, No Apparent Distress Neck: No JVD, Normal carotid pulses Cardiac: Reg Rate and Rhythm, Normal S1 and S2, No Murmur Incision: No signs of infection, Dry/intact dressing Chest tubes: Minimal drainage, Other (No air leak) Lungs: Normal Breath Sounds, No Wheeze, Rales, Rhonchi Neuro: Alert and responsive, No focal deficits noted Vascular: Normal capillary refill Skin: No rashes noted on visualized skin Extremities: No Clubbing, No Cyanosis, No Edema - Labs 01/27/18 04:19 01/27/18 04:19 Lab Results, Last 24 hours 01/27/18 01/27/18 04:19 04:19 WBC 11.3 H Hgb 10.4 L Hct 35.2 L Plt Count 586 H Sodium 136 Potassium 4.0 Chloride 98 Carbon Dioxide 31 H BUN 20 Creatinine 0.80 Glucose 123 H Calcium 9.5 - Imaging Chest Xray: image reviewed (Small right apical pneumothorax, unchanged.) Consult Discharge Plan - Plan Referrals: Yudelka Grier CNP [Primary Care Provider] - 02/01/18 11:00 am Osiel Dos Santos MD [Partnered Physician] - 03/03/18 1:00 pm
--- NOTE | 2018-01-27 10:51 | Discharge Summary ---
- NOTES TO OUTPATIENT PROVIDER Notes to Outpatient Provider: Patient was admitted for pneumothorax and pneumonia. Requiring chest tube insertion on 01/21 which was removed on 01/27. Also completed a course of abx during his stay for pneumonia. 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 Orders not resulted at time of discharge: Pending orders 01/19/18 08:26 Type and Screen [BBK] Stat 01/20/18 15:55 Red Blood Cells [BBK] Stat Date of Encounter: 01/27/18 Time of Encounter: 08:00 - Discharge Diagnosis (1) Tension pneumothorax Priority: Primary Status: Acute (2) Pneumonia Priority: Secondary Status: Acute Qualifiers: Pneumonia type: due to unspecified organism Laterality: bilateral Lung location: unspecified part of lung Qualified Code(s): J18.9 - Pneumonia, unspecified organism (3) Iron deficiency anemia Priority: Secondary Status: Chronic Qualifiers: Iron deficiency anemia type: unspecified iron deficiency Qualified Code(s): D50.9 - Iron deficiency anemia, unspecified (4) COPD (chronic obstructive pulmonary disease) Priority: Secondary Status: Suspected Qualifiers: COPD type: emphysema Emphysema type: unspecified Qualified Code(s): J43.9 - Emphysema, unspecified (5) Smoking addiction Priority: Secondary Status: Acute (6) DVT prophylaxis Priority: Secondary Status: Acute Hospital course: Mr. Kramer is a 42 year old male was admitted for pneumothorax and pneumonia. Requiring thoracotomy with stapling of blebs, pleurodesis, and chest tube insertion on 01/21 which was removed on 01/27. Also completed a course of abx during his stay for pneumonia. 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 Discharge discussed with: patient - Time Spent with Patient Total time spent providing and/or coordinating discharge services: Greater than 30 minutes - Discharge Medications Prescriptions: OxyCODONE/APAP 5/325 [Percocet 5/325 MG] 1 each PO Q4HR PRN 4 Days #10 tablet PRN Reason: Pain Home Medications: Eszopiclone [Lunesta] 2 mg PO HS 02/24/17 [History] Esomeprazole Magnesium [Nexium] 40 mg PO BID #60 capsule. 03/01/17 [Rx] BuPROPion XL (24 HR) [Wellbutrin Xl] 150 mg PO QAM 03/14/17 [History] Citalopram Hydrobromide [Celexa] 20 mg PO DAILY 07/09/17 [History] Loratadine [Allergy Relief] 10 mg PO DAILY 09/28/17 [History] Bupropion HCl [Wellbutrin Xl] 300 mg PO QAM 01/18/18 [History] Gabapentin [Neurontin] 600 mg PO Q8H 01/18/18 [History] Multivitamin [One Daily Multivitamin] 1 each PO DAILY 01/18/18 [History] Nicotine Polacrilex [Nicotine Gum] 2 mg BC Q1H PRN 01/18/18 [History] Quetiapine Fumarate [Quetiapine Fumarate ER] 50 mg PO HS 01/18/18 [History] Sucralfate [Carafate] 1 gm PO QID 01/18/18 [History] Tamsulosin HCl [Flomax] 0.4 mg PO DAILY 01/18/18 [History] Vitamin B Complex [B Complex] 1 each PO DAILY 01/18/18 [History] OxyCODONE/APAP 5/325 [Percocet 5/325 MG] 1 each PO Q4HR PRN 4 Days #10 tablet 01/27/18 [Rx] Allergies/Adverse Reactions: Allergy/AdvReac Type Severity Reaction Status Date / Time NSAIDS (Non-Steroidal AdvReac Severe See Verified 01/18/18 14:12 Anti-Inflamma Comments Hydromorphone [From Dilaudid] AdvReac Rash Verified 01/18/18 14:12 Date of admission: 01/18/18 18:19 Primary care physician: Yudelka Grier CNP Consults: 01/18/18 20:15 Consult to Cardiothoracic Surgery [CONS] Routine Consulting Provider: [facility]acic [facility] Reason for Consult: Spontaneous pneumothorax s/p chest tube in ED. Levon thomas Call Completed: Yes 01/18/18 22:48 Consult to Surgery [CONS] Routine Consulting Provider: [facility] Reason for Consult: History of [place] [address] Cheema. Now having N/V Acute abd. pn, Has drop in hgb Call Completed: No 10/16/18 23:32 Consult to Pulmonology [CONS] Routine Consulting Provider: [facility] Reason for Consult: Severe emphysematous lung disease, Heterozygous Alpha1 antitrypsan. Spntaneous pneumo s/p chest tube. Multifocal pna Call Completed: No 01/19/18 15:26 consult to associate school psychologist [Consult to Nutrition] [CONS] Routine Comment: hemigastrectomy diet Consulting Provider: NUTRITION Reason for Dietary Consult: Other 01/19/18 23:21 Consult to Surgery [CONS] Stat Consulting Provider: Ibrahima Haynes Reason for Consult: chest tube placement; tension pneumothorax Time Notified: 22:40 Call Completed: Yes 01/21/18 10:10 Consult to Shelter Monitor [CONS] Routine Reason for SW Consult: thoracotomy - Constitutional Vitals: Temp Pulse Resp BP Pulse Ox 98.0 F 92 18 105/77 93 01/27/18 07:37 01/27/18 07:37 01/27/18 07:40 01/27/18 07:37 01/27/18 07:40 General appearance: Present: cooperative, A&O X 3, pleasant, no acute distress Exam: Gen: Vitals noted. Not in any form of distress Neck: Supple. No JVD Cardiac: RRR, no murmur, S1S2 Chest: Chest tube in situ R lower thorax Pulmonary: diminished lung sounds on the right Abdomen: Soft, not distended, non-tender to palpation Neuro: no focal deficits. A&Ox3 - Patient Status Disposition: Home, Self-Care Condition: Good Overall status at discharge: patient is progressing back to baseline - Discharge Instructions Instructions: Pneumonia (DC), Anemia (GEN) Follow Up With: Yudelka Grier CNP [Primary Care Provider] - 02/01/18 11:00 am Osiel Dos Santos MD [Partnered Physician] - 03/03/18 1:00 pm - Diet and Activity Activity: resume usual activities as tolerated Diet: regular diet
[2018-01-27 11:02] VITALS: BP 93/69
== END 2018-01-27 17:00 | disposition home or self-care (01) | DRG 121 ==
LOC: 2ANU → SUATTDRO 18:19 → OBSVTOIN 18:19 → ICNU 01-19 23:24 → 2NNU 01-22 17:44
PROVIDERS: ADMIT Internal Medicine; ATTEND Internal Medicine

== ENCOUNTER 2020-01-30 21:13 | Inpatient (IN) ==
[2020-01-30] MEDS ORDERED: Mag Hydrox/Al Hydrox/Simeth 30 ML UDC PO PRN (21:28)
[2020-01-30] MEDS ORDERED: hydrOXYzine pamoate 25 MG CAPSULE PO PRN (21:28)
[2020-01-30] MEDS ORDERED: *HR* LORazepam 1 MG TABLET PO PRN (21:28)
[2020-01-30] MEDS ORDERED: MOM Conc 10 ML UD.LIQ PO PRN (21:28)
[2020-01-30] MEDS ORDERED: *HR* LORazepam 2 MG/ML VIAL IM PRN (21:28)
[2020-01-30] MEDS ORDERED: Haloperidol Lactate 5 MG/ML VIAL IM PRN (21:28)
[2020-01-30] MEDS ORDERED: haloperidoL 5 MG TABLET PO PRN (21:28)
[2020-01-30] MEDS: traZODone 50 MG TABLET PO PRN (22:36)
[2020-01-31] MEDS: Nicotine 2 MG GUM BC PRN ×5 (10:00→20:29)
[2020-01-31] MEDS: Acetaminophen 325 MG TABLET PO PRN ×2 (11:10→20:29)
[2020-01-31] MEDS: BuPROPion XL (24 HR) 150 MG TABLET PO SCH (12:23)
[2020-01-31] MEDS: ARIPiprazole 5 MG TABLET PO SCH (12:24)
[2020-01-31] MEDS: traZODone 50 MG TABLET PO PRN (20:29)
[2020-02-01 07:46] VITALS: BP 103/71
[2020-02-01] MEDS: BuPROPion XL (24 HR) 150 MG TABLET PO SCH (08:18)
[2020-02-01] MEDS: ARIPiprazole 5 MG TABLET PO SCH (08:18)
[2020-02-01] MEDS: Nicotine 2 MG GUM BC PRN (09:48)
== END 2020-02-01 12:07 | disposition home or self-care (01) | DRG 751 ==
LOC: 1ANU 21:13
PROVIDERS: ADMIT Psychiatry & Neurology Psychiatry; ATTEND Psychiatry & Neurology Psychiatry

== ENCOUNTER 2020-07-06 19:29 | Observation (INO) ==
[2020-07-06] MEDS ORDERED: Ipratropium/Albuterol Neb 3 ML IH ONE (20:10)
[2020-07-06] MEDS ORDERED: *HR* FentaNYL (PF) 100 MCG/2 ML VIAL IVP ONE (20:13)
[2020-07-06] MEDS ORDERED: cefTRIAXone 1,000 MG in Water for inj. (sterile) 10 ML IVP ONE (20:16)
[2020-07-06] MEDS ORDERED: Azithromycin 500 MG in 0.9 % Sodium Chloride 250 ML IVPB ONE (20:16)
[2020-07-06 20:18] LABS: Basophils % 0.2 %; Eosinophils # 0.1 K/mcL (0.0-0.6); Eosinophils % 0.8 %; Hematocrit 35.5 % (37.5-50.1); Hemoglobin 10.3 g/dL (12.9-16.9); Immature Granulocytes % 0.5 % (0-4); Lymphocytes # 1.2 K/mcL (0.6-4.6); Mean Corpuscular Hemoglobin 22.2 pg (28.0-33.3); Mean Corpuscular Volume 76.7 fL (83.0-100.0); Mean Platelet Volume 10.2 fL (9.4-12.4); Monocytes # 0.9 K/mcL (0.0-1.3); Monocytes % 5.1 %; Neutrophils # 14.5 K/mcL (1.6-8.9); Platelet Count 463 K/mcL (140-400); Red Blood Count 4.63 M/mcL (4.19-5.50); Red Cell Distribution Width 18.2 % (11.5-14.5); Segmented Neutrophils % 86.4 %; White Blood Count 16.8 K/mcL (4.3-11.1)
[2020-07-06 20:29] LABS: Alanine Aminotransferase 13 Units/L (7-52); Albumin 4.1 g/dL (3.5-5.7); Albumin/Globulin Ratio 1.4 (1.1-2.2); Alkaline Phosphatase 76 Units/L (34-104); Aspartate Amino Transferase 17 Units/L (13-39); BUN/Creatinine Ratio 18 (6-26); Bilirubin,Total 0.4 mg/dL (0.3-1.0); Blood Urea Nitrogen 14 mg/dL (6-20); Calcium 9.6 mg/dL (8.6-10.3); Carbon Dioxide 24 mEq/L (23-29); Chloride 101 mEq/L (98-107); Glucose 123 mg/dL (70-105); Osmolality,Calculated 286 (280-300); Potassium 3.6 mEq/L (3.5-5.1); Sodium 137 mEq/L (136-145); Total Protein 7.1 g/dL (6.4-8.9); eGFR For African Americans > 60 (> 60); eGFR For Non-African Americans > 60 (> 60)
[2020-07-06 21:05] LABS: Troponin I 0.03 ng/mL (< 0.04)
[2020-07-06] MEDS ORDERED: 0.9 % Sodium Chloride 1,000 ML IVC ONE (21:06)
[2020-07-06 21:26] LABS: Magnesium 1.8 mg/dL (1.6-2.6); Phosphorous 3.4 mg/dL (2.7-4.5)
[2020-07-06] MEDS ORDERED: Naloxone 0.4 MG/ML INJ IVP PRN (21:33)
[2020-07-06] MEDS ORDERED: Acetaminophen 325 MG TABLET PO PRN (21:33)
[2020-07-06] MEDS ORDERED: Melatonin 3 MG TABLET PO PRN (21:33)
[2020-07-06] MEDS: Ondansetron 4 MG/2 ML VIAL IVP PRN (22:53)
[2020-07-06] MEDS ORDERED: Nicotine 2 MG GUM BC PRN (22:58)
[2020-07-06] MEDS ORDERED: Ringers Solution, Lactated 1,000 ML IVC SCH (23:00)
[2020-07-06 23:09] LABS: Basophils % 0.1 %; Eosinophils # 0.1 K/mcL (0.0-0.6); Eosinophils % 0.4 %; Hematocrit 30.2 % (37.5-50.1); Hemoglobin 8.8 g/dL (12.9-16.9); Immature Granulocytes % 0.5 % (0-4); Lymphocytes # 0.8 K/mcL (0.6-4.6); Lymphocytes % 5.4 %; Mean Corpuscular HGB Conc 29.1 g/dL (31.6-35.5); Mean Corpuscular Hemoglobin 22.3 pg (28.0-33.3); Mean Corpuscular Volume 76.5 fL (83.0-100.0); Mean Platelet Volume 9.9 fL (9.4-12.4); Monocytes # 0.6 K/mcL (0.0-1.3); Monocytes % 4.3 %; Neutrophils # 13.1 K/mcL (1.6-8.9); Platelet Count 356 K/mcL (140-400); Red Blood Count 3.95 M/mcL (4.19-5.50); Red Cell Distribution Width 17.8 % (11.5-14.5); Segmented Neutrophils % 89.3 %; White Blood Count 14.7 K/mcL (4.3-11.1)
[2020-07-06] MEDS: Nicotine 14 MG PATCH.TD24 TD SCH (23:11)
[2020-07-07] MEDS: *HR* OxyCODONE Immed Rel 5 MG TABLET PO PRN ×4 (00:53→20:47)
[2020-07-07 00:54] LABS: Basophils % 0.1 %; Eosinophils % 0.3 %; Hematocrit 30.3 % (37.5-50.1); Hemoglobin 8.8 g/dL (12.9-16.9); Immature Granulocytes % 0.4 % (0-4); Lymphocytes # 1.1 K/mcL (0.6-4.6); Lymphocytes % 7.7 %; Mean Corpuscular Hemoglobin 22.3 pg (28.0-33.3); Mean Corpuscular Volume 76.9 fL (83.0-100.0); Mean Platelet Volume 10.4 fL (9.4-12.4); Monocytes # 0.7 K/mcL (0.0-1.3); Monocytes % 4.8 %; Neutrophils # 12.1 K/mcL (1.6-8.9); Platelet Count 371 K/mcL (140-400); Red Blood Count 3.94 M/mcL (4.19-5.50); Red Cell Distribution Width 17.9 % (11.5-14.5); Segmented Neutrophils % 86.7 %; White Blood Count 13.9 K/mcL (4.3-11.1)
[2020-07-07] MEDS ORDERED: Ringers Solution, Lactated 1,000 ML IVC SCH (01:00)
[2020-07-07 01:13] LABS: BUN/Creatinine Ratio 23 (6-26); Blood Urea Nitrogen 15 mg/dL (6-20); Calcium 8.9 mg/dL (8.6-10.3); Carbon Dioxide 26 mEq/L (23-29); Chloride 103 mEq/L (98-107); Glucose 120 mg/dL (70-105); Osmolality,Calculated 290 (280-300); Potassium 3.8 mEq/L (3.5-5.1); Sodium 139 mEq/L (136-145); eGFR For African Americans > 60 (> 60); eGFR For Non-African Americans > 60 (> 60)
[2020-07-07 03:12] LABS: Adenovirus Not Detected (Not Detect); Bordetella Pertussis Not Detected (Not Detect); Chlamydophila pneumoniae Not Detected (Not Detect); Coronavirus 229E Not Detected (Not Detect); Coronavirus HKU1 Not Detected (Not Detect); Coronavirus NL63 Not Detected (Not Detect); Coronavirus OC43 Not Detected (Not Detect); Human Metapneumovirus Not Detected (Not Detect); Human Rhinovirus/Enterovirus Not Detected (Not Detect); Influenza A Subtype 2009 H1 Not Detected (Not Detect); Influenza B Not Detected (Not Detect); Mycoplasma pneumoniae Not Detected (Not Detect); Parainfluenza Virus 1 Not Detected (Not Detect); Parainfluenza Virus 2 Not Detected (Not Detect); Parainfluenza Virus 3 Not Detected (Not Detect); Parainfluenza Virus 4 Not Detected (Not Detect); Respiratory Syncytial Virus Not Detected (Not Detect); SARS-CoV-2 Not Detected (Not Detect)
[2020-07-07] MEDS: *HR* Enoxaparin 40 MG/0.4 ML SYRINGE SQ SCH (05:26)
[2020-07-07] MEDS: Nicotine 14 MG PATCH.TD24 TD SCH (08:30)
[2020-07-07] MEDS: Ondansetron 4 MG/2 ML VIAL IVP PRN (08:31)
[2020-07-07] MEDS: cefTRIAXone 1,000 MG in Water for inj. (sterile) 10 ML IVP SCH (08:31)
[2020-07-07] MEDS ORDERED: Azithromycin 500 MG in 0.9 % Sodium Chloride 250 ML IVPB SCH ×2 (10:00→20:00)
[2020-07-07] MEDS ORDERED: traZODone 50 MG TABLET PO PRN (12:58)
[2020-07-07] MEDS ORDERED: Isovue-370 500 ML BOTTLE IVP ONE (13:15)
[2020-07-07] MEDS ORDERED: Ipratropium/Albuterol Neb 3 ML IH PRN (13:23)
[2020-07-07] MEDS: Azithromycin 250 MG TABLET PO SCH (14:16)
[2020-07-07] MEDS: predniSONE 20 MG TABLET PO SCH (14:16)
[2020-07-07] MEDS: Ipratropium/Albuterol Neb 3 ML IH SCH ×2 (15:34→22:15)
[2020-07-07] MEDS: Gabapentin 300 MG CAPSULE PO SCH ×2 (16:48→20:47)
[2020-07-07] MEDS: Budesonide/Formoterol 80/4.5 1 PUFF INH IH SCH (22:15)
[2020-07-08] MEDS: Ipratropium/Albuterol Neb 3 ML IH SCH ×2 (03:38→10:51)
[2020-07-08 03:44] LABS: Basophils % 0.1 %; Eosinophils % 0.5 %; Hematocrit 29.2 % (37.5-50.1); Hemoglobin 8.5 g/dL (12.9-16.9); Immature Granulocytes % 0.4 % (0-4); Lymphocytes % 12.6 %; Mean Corpuscular HGB Conc 29.1 g/dL (31.6-35.5); Mean Corpuscular Hemoglobin 22.7 pg (28.0-33.3); Mean Corpuscular Volume 77.9 fL (83.0-100.0); Mean Platelet Volume 10.7 fL (9.4-12.4); Monocytes # 0.6 K/mcL (0.0-1.3); Monocytes % 7.6 %; Neutrophils # 6.2 K/mcL (1.6-8.9); Platelet Count 375 K/mcL (140-400); Red Blood Count 3.75 M/mcL (4.19-5.50); Red Cell Distribution Width 17.6 % (11.5-14.5); Segmented Neutrophils % 78.8 %; White Blood Count 7.9 K/mcL (4.3-11.1)
[2020-07-08 04:19] LABS: BUN/Creatinine Ratio 20 (6-26); Blood Urea Nitrogen 12 mg/dL (6-20); Carbon Dioxide 26 mEq/L (23-29); Chloride 106 mEq/L (98-107); Ferritin 19 ng/mL (20-250); Glucose 95 mg/dL (70-105); Iron < 10 mcg/dL (65-175); Magnesium 2.2 mg/dL (1.6-2.6); Osmolality,Calculated 288 (280-300); Potassium 4.1 mEq/L (3.5-5.1); Sodium 139 mEq/L (136-145); Transferrin 256 mg/dL (203-362); eGFR For African Americans > 60 (> 60); eGFR For Non-African Americans > 60 (> 60)
[2020-07-08 04:22] LABS: Folate 10.9 ng/mL (3.0-16.0)
[2020-07-08] MEDS: *HR* Enoxaparin 40 MG/0.4 ML SYRINGE SQ SCH (06:01)
[2020-07-08] MEDS: *HR* OxyCODONE Immed Rel 5 MG TABLET PO PRN ×2 (06:08→12:56)
[2020-07-08] MEDS: cefTRIAXone 1,000 MG in Water for inj. (sterile) 10 ML IVP SCH (08:21)
[2020-07-08] MEDS: Nicotine 14 MG PATCH.TD24 TD SCH (08:22)
[2020-07-08] MEDS: predniSONE 20 MG TABLET PO SCH (08:22)
[2020-07-08] MEDS: Gabapentin 300 MG CAPSULE PO SCH (08:22)
[2020-07-08] MEDS ORDERED: ARIPiprazole 5 MG TABLET PO SCH (09:00)
[2020-07-08] MEDS ORDERED: Multivit/Ca/Min/Fe/FA 1 TAB TABLET PO SCH (09:00)
[2020-07-08] MEDS ORDERED: BuPROPion XL (24 HR) 150 MG TABLET PO SCH (09:00)
[2020-07-08] MEDS ORDERED: Loratadine 10 MG TABLET PO SCH (09:00)
[2020-07-08] MEDS: Budesonide/Formoterol 80/4.5 1 PUFF INH IH SCH (10:51)
[2020-07-08 11:20] VITALS: BP 116/80
[2020-07-08] MEDS: Azithromycin 250 MG TABLET PO SCH (12:56)
== END 2020-07-08 14:07 | disposition home or self-care (01) ==
LOC: EMEROOARM 19:29 → 2ANU 19:29 → SUATTDRO 21:13 → 2ANU 22:05
PROVIDERS: ADMIT Family Medicine; ATTEND Internal Medicine